=== PATIENT | male | born 1955 | race Caucasian/White ===

== ENCOUNTER 2016-08-30 13:50 | Emergency (ER) | payer OTHER ==
[~2016-08-30] VITALS: Ht 185.4 cm; Wt 66.9 kg
[~2016-08-30 13:50] MED LIST: B-CO1CAP17 PO; BISA10SU38 PR; CAMPLOT10 TP; CHOL100010 PO; DOUNEB INH; LINIOIN3 TOP; NUTR-1048 PO; ONDA4TAB65 PO; OXGN; OXYC1TAB3 PO; POLY99.02 OPB; SALI1SPR3; SERT-234 PO; SEVE800T7 PO; SYN25 PO; ZINC40OI11 TOP
[2016-08-30 14:04] VITALS: TEMP 37.1; Ht 185.4 cm; Wt 66.9 kg
[2016-08-30] MEDS ORDERED: LEVO25TA5 PO (14:43)
[2016-08-30] MEDS ORDERED: FERR1TAB68 PO (14:43)
--- NOTE | 2016-08-30 14:49 | EMERGENCY ROOM VISIT NOTE ---
History Report prepared by Mattibkang: Nilam Emerson Under the Supervision of: Dr. Cassidy Viveros D.O. First contact with patient: 14:11 Chief Complaint: HYPERTENSION Stated Complaint: HYPERTENSION History of Present Illness The patient is a 60 year old male who presents to the Emergency Room from [facility] with complaints of persistent hypertension today. Around 10AM this morning , the patient complained of a headache, nausea, and dizziness. His blood pressure was taken and was 240/108. His temperature was 99. He was given an extra dose of Norvasc. Upon arrival, the patient states that his symptoms have resolved. He is currently feeling much better, as his blood pressure has improved some. The patient gets dialysis Saturday, Saturday, and Saturday. He currently has some redness to his right leg which he states has been baseline for some time and is being monitored at [facility]. The patient reports feeling well last night and this morning prior to 10AM. Denies chills, chest pain, shortness of breath, nausea, vomiting, or other complaints. Source of History: patient Onset: today Position: other (Global) Symptom Intensity: 240/108 Quality: other (HTN) Timing: other (persistent) Associated Symptoms: + headache (resolved), + nausea (resolved), No SOB, No chest pain, No chills, No vomiting Note: Other symptoms: dizziness, right leg redness (chronic) Review of Systems See HPI for pertinent positives & negatives. A total of 10 systems reviewed and were otherwise negative. Past Medical & Surgical Medical Problems: (1) Anemia of chronic renal failure (2) CAD (coronary artery disease) (3) Diabetes mellitus type 2 in obese (4) Diastolic heart failure (5) ESRD (end stage renal disease) (6) History of MRSA infection (7) HTN (hypertension) (8) Hypotensive (9) IBS (irritable bowel syndrome) (10) Liver cirrhosis (11) Obesity (BMI 30-39.9) (12) Urge incontinence Surgical Problems: (1) H/O cataract removal with insertion of prosthetic lens (2) History of left lower limb amputation (3) History of trabeculectomy (4) S/P CABG x 4 Family History Diabetes mellitus Heart disease Social History Smoking Status: Never Smoker Alcohol Use: none Drug Use: none Marital Status: single, Housing Status: intermediate Occupation Status: unemployed Current/Historical Medications Scheduled Amino Acids (Liquacel), 1 OZ PO 4XWK Ascorbic Acid (Vitamin C), 500 MG PO BID Carvedilol (Coreg), 1 TAB PO DAILY@1700 Cholecalciferol (Vitamin D 1000 Unit), 2,000 INTER.UNIT PO UD Cholecalciferol (Vitamin D3), 2,000 UNITS PO 3XWK Clopidogrel (Plavix), 75 MG PO QPM Ferric Citrate (Auryxia), 420 MG PO TIDM Gabapentin (Neurontin), 100 MG PO QPM Levothyroxine Sodium (Levothyroxine Sodium), 25 MCG PO QAM Loperamide Hcl (Imodium), 2 MG PO 3XWK Loratadine (Claritin), 10 MG PO QPM Lorazepam (Ativan), 0.5 MG PO HS Midodrine Hcl (Midodrine Hcl), 10 MG PO 3XWK Ranitidine HCl (Ranitidine 75), 75 MG PO HS Sertraline (Zoloft), 100 MG PO DAILY@1300 Sevelamer Carbonate (Renvela), 800 MG PO TID Simvastatin (Zocor), 10 MG PO HS Vitamin B Cmplx/Vitc/Folic Ac (Nephrocaps), 1 CAP PO QPM Zinc Oxide (Topical) (Desitin), 1 APPL TOP QS Scheduled PRN Acetaminophen (Tylenol), 650 MG PO Q4 PRN for Pain or Fever Hydrocodone/Acetaminophen 5MG/325MG ([place] 5MG/325MG), 1 TABLET PO Q4 PRN for Pain Loperamide Hcl (Imodium), 2 MG PO Q2H PRN for Diarrhea Lorazepam (Ativan), 0.5 MG PO Q6H PRN for Anxiety Oxygen (Oxygen), 2 LITER NA UD PRN for Shortness of Breath Allergies Coded Allergies: Sulfamethoxazole w/Trimethoprim (Verified Allergy, Intermediate, HIVES, 06/27) Latex (Verified Allergy, Mild, LEVEL 1, 03/22/16) Povidone Iodine (Verified Allergy, Unknown, FROM USP INFORMATION , 03/22/16) Physical Exam Vital Signs Date Time Temp Pulse Resp B/P Pulse Ox O2 Delivery O2 Flow Rate FiO2 08/30/16 17:00 79 15 153/89 95 Room Air 08/30/16 14:49 77 17 157/79 08/30/16 14:33 76 18 193/79 Room Air 08/30/16 14:04 37.1 78 14 164/63 92 Room Air 08/30/16 14:04 78 Physical Exam HEENT: Head - normocephalic and atraumatic Pupils are equal, round, and reactive to light. Extraocular eye muscles are intact, and sclera are anicteric. Nose - moist nasal mucosa without discharge. Mouth - moist buccal mucosa. Oropharynx is nonerythematous and there is no tonsillar exudate or edema noted. Neck: Supple; no JVD, nuchal rigidity, cervical lymphadenopathy, or auscultated bruits. Heart: Heart sounds distant. Regular rate and rhythm. There is a normal S1 and S2 with no murmurs, clicks, or gallops appreciated. Lungs: Diminished breath sounds in all lung baker secondary to body habitus; otherwise clear to auscultation bilaterally with no wheezes, rales, or rhonchi. Abdomen: Soft, completely nontender, nondistended, with good bowel sounds. There are no palpable pulsatile masses or hepatosplenomegaly. There is no guarding, rigidity, or rebound noted. Extremities: No evidence of cyanosis, clubbing, or edema. There are easily palpable peripheral pulses. Left BKA. Right lower leg erythematous with some soft tissue wounds which are unchanged according to him. Skin: warm and dry with good turgor and no rashes. Medical Decision & Procedures Laboratory Results 08/30/16 14:10 Red Blood Count 3.87, Mean Corpuscular Volume 96.6, Mean Corpuscular Hemoglobin 32.3, Mean Corpuscular Hemoglobin Concent 33.4, Mean Platelet Volume 11.1, Neutrophils (%) (Auto) 86.2, Lymphocytes (%) (Auto) 5.1, Monocytes (%) (Auto) 7.0, Eosinophils (%) (Auto) 1.0, Basophils (%) (Auto) 0.3, Neutrophils # (Auto) 14.66, Lymphocytes # (Auto) 0.87, Monocytes # (Auto) 1.19, Eosinophils # (Auto) 0.17, Basophils # (Auto) 0.05 08/30/16 14:10 Test 08/30/16 14:10 White Blood Count 17.00 K/uL (4.8-10.8) Red Blood Count 3.87 M/uL (4.7-6.1) Hemoglobin 12.5 g/dL (14.0-18.0) Hematocrit 37.4 % (42-52) Mean Corpuscular Volume 96.6 fL (80-100) Mean Corpuscular Hemoglobin 32.3 pg (25-34) Mean Corpuscular Hemoglobin Concent 33.4 g/dl (32-36) Platelet Count 165 K/uL (130-400) Mean Platelet Volume 11.1 fL (7.4-10.4) Neutrophils (%) (Auto) 86.2 % Lymphocytes (%) (Auto) 5.1 % Monocytes (%) (Auto) 7.0 % Eosinophils (%) (Auto) 1.0 % Basophils (%) (Auto) 0.3 % Neutrophils # (Auto) 14.66 K/uL (1.4-6.5) Lymphocytes # (Auto) 0.87 K/uL (1.2-3.4) Monocytes # (Auto) 1.19 K/uL (0.11-0.59) Eosinophils # (Auto) 0.17 K/uL (0-0.5) Basophils # (Auto) 0.05 K/uL (0-0.2) RDW Standard Deviation 54.3 fL (36.4-46.3) RDW Coefficient of Variation 15.5 % (11.5-14.5) Immature Granulocyte % (Auto) 0.4 % Immature Granulocyte # (Auto) 0.06 K/uL (0.00-0.02) Anion Gap 11.0 mmol/L (3-11) Est Creatinine Clear Calc Drug Dose 15.4 ml/min Estimated GFR () 14.3 Estimated GFR (Non- 12.4 BUN/Creatinine Ratio 8.5 (10-20) Calcium Level 9.2 mg/dl (8.5-10.1) Total Bilirubin 0.5 mg/dl (0.2-1) Direct Bilirubin 0.2 mg/dl (0-0.2) Aspartate Amino Transf (AST/SGOT) 15 U/L (15-37) Alanine Aminotransferase (ALT/SGPT) 15 U/L (12-78) Alkaline Phosphatase 125 U/L (45-117) Total Creatine Kinase 57 U/L (39-308) Creatine Kinase MB 1.3 ng/ml (0.5-3.6) Creatine Kinase MB Ratio 2.3 (0-3.0) Troponin I 0.019 ng/ml (0-0.045) Total Protein 6.8 gm/dl (6.4-8.2) Albumin 3.4 gm/dl (3.4-5.0) Laboratory results per my review. ECG Indication: other (HTN) Rate (beats per minute): 76 Rhythm: normal sinus Findings: 1st degree AV block, no acute ischemic change, no ectopy ED Course 1412: The patient was evaluated in room A11B. A complete history and physical examination were performed. Nursing notes and previous electronic medical records were reviewed. IV lock was established and labs were drawn as above. 1518: Upon reevaluation, the patient was sleeping soundly. His blood pressure and heart rate came down nicely. I discussed findings and results with the patient upon awaking him. He said that his symptoms are totally resolved. He verbalized agreement of the treatment plan. The patient was discharged home to [facility]. Medical Decision The patient is a 60 year old male who presents to the ED with hypertension. Differential diagnosis includes hypertensive urgency, heart failure, cardiac ischemia, anemia, electrolyte abnormality. Labs: White count 17, hemoglobin 12.5, glucose 186, LFTs are normal, troponin 0.019, potassium is normal. The patient has history of hypertension and noted a headache and some dizziness earlier today. He did receive an extra dose of Norvasc at [facility] prior to coming to the hospital. The time he arrived here in the emergency department, the blood pressure had come down nicely and his symptoms essentially resolved. I reviewed laboratory testing with the patient. I've asked him to follow-up when he is at dialysis tomorrow for a blood pressure recheck. If symptoms worsen, he should return to the ER. Impression Primary Impression: Uncontrolled hypertension Scribe Attestation The scribe's documentation has been prepared under my direction and personally reviewed by me in its entirety. I confirm that the note above accurately reflects all work, treatment, procedures, and medical decision making performed by me. Departure Information Dispostion Home / Self-Care Referrals Marty Bliss M.D. (PCP) Patient Instructions ED Hypertension Conf Out Of Control, My [facility] Additional Instructions Watch the BP closely. You may need to have your norvasc dose increased
[2016-08-30 14:53] LABS: BASO % 0.3 %; BASO ABS # 0.05 K/uL (0-0.2); COMPLETE YES; HEMATOCRIT 37.4 % (42-52); IG% 0.4 %; LYMPH % 5.1 %; LYMPH ABS # 0.87 K/uL (1.2-3.4); MEAN CELL VOLUME 96.6 fL (80-100); MEAN CORPUSCULAR HEMOGLOBIN 32.3 pg (25-34); MEAN CORPUSCULAR HGB CONC 33.4 g/dl (32-36); MEAN PLATELET VOLUME 11.1 fL (7.4-10.4); NEUT % 86.2 %; PLATELET COUNT 165 K/uL (130-400); RED BLOOD COUNT 3.87 M/uL (4.7-6.1)
[2016-08-30 15:14] LABS: BUN/CREATININE RATIO 8.5 (10-20); CALCIUM 9.2 mg/dl (8.5-10.1); CKMB/CK RATIO 2.3 (0-3.0); CREATININE 4.7 mg/dl (0.60-1.40); POTASSIUM 4.3 mmol/L (3.5-5.1)
[2016-08-30 17:00] VITALS: BP 153/89; PULSE 79; O2SAT 95
[2017-01-09] MEDS ORDERED: ASCO1CAP3 PO (10:22)
[2017-01-09] MEDS ORDERED: CHOL100027 PO (13:26)
[2017-01-09] MEDS ORDERED: GABA-112 PO (13:26)
[2017-01-09] MEDS ORDERED: CHOL1000 PO (14:43)
[2017-01-09] MEDS ORDERED: AMINLIQ31 PO (14:43)
[2017-01-09] MEDS ORDERED: LEVO25TA5 PO (14:44)
[2017-01-09] MEDS ORDERED: SERT-234 PO (14:44)
[2017-01-09] MEDS ORDERED: SIMV10TA5 PO (14:52)
[2017-01-09] MEDS ORDERED: ACET-1311 PO (16:09)
[2017-01-09] MEDS ORDERED: IMD/2 PO ×2 (17:23→22:40)
[2017-01-09] MEDS ORDERED: LORA-741 PO ×2 (17:23→23:47)
[2017-01-09] MEDS ORDERED: MIDO2.5T PO (17:23)
[2017-01-09] MEDS ORDERED: HYDR-5688 PO (17:23)
[2017-01-09] MEDS ORDERED: CARV3.122 PO (17:23)
[2017-04-10] MEDS ORDERED: PRMT25 PO (15:08)
[2017-04-10] MEDS ORDERED: LVQ500 PO (15:08)
[2017-04-10] MEDS ORDERED: NRN100 PO (15:08)
[2017-04-10] MEDS ORDERED: SYN25 PO (15:08)
== END 2016-08-30 17:56 | disposition home or self-care (01) ==
LOC: EDBD 13:50 → C.EDA 13:51
DX: I12.0 Hypertensive chronic kidney disease with stage 5 chronic kidney disease or end stage renal disease (principal); N18.6 End stage renal disease; I25.10 Atherosclerotic heart disease of native coronary artery without angina pectoris; E11.22 Type 2 diabetes mellitus with diabetic chronic kidney disease; I50.30 Unspecified diastolic (congestive) heart failure; K58.9 Irritable bowel syndrome, unspecified; K74.60 Unspecified cirrhosis of liver; E66.9 Obesity, unspecified; N39.41 Urge incontinence; Z83.3 Family history of diabetes mellitus; Z95.1 Presence of aortocoronary bypass graft; Z89.512 Acquired absence of left leg below knee; Z99.2 Dependence on renal dialysis

== ENCOUNTER 2017-01-09 17:27 | Emergency (ER) | payer OTHER ==
[~2017-01-09] VITALS: Ht 185.4 cm; Wt 136.0 kg
[~2017-01-09 17:27] MED LIST changes: +ACET-1311 PO; +AMINLIQ31 PO; +ASCO1CAP3 PO; -BISA10SU38 PR; -CAMPLOT10 TP; +CARV3.122 PO; +CHOL1000 PO; -CHOL100010 PO; +CHOL100027 PO; -DOUNEB INH; +FERR1TAB68 PO; +GABA-112 PO; +HYDR-5688 PO; +IMD/2 PO; +LEVO25TA5 PO; -LINIOIN3 TOP; +LORA-741 PO; +MIDO2.5T PO; -NUTR-1048 PO; -ONDA4TAB65 PO; -OXYC1TAB3 PO; -POLY99.02 OPB; -SALI1SPR3; +SIMV10TA5 PO; -SYN25 PO; -ZINC40OI11 TOP; +ZINC40OI13 TOP
[2017-01-09] MEDS ORDERED: SODIUM CHLORIDE 0.9% 1000ML 1,000 ML IV STA (17:30)
[2017-01-09 17:35] VITALS: TEMP 37.1; O2SAT 99; Ht 185.4 cm; Wt 136.0 kg
--- NOTE | 2017-01-09 18:04 | DIAGNOSTIC IMAGING REPORT ---
CHEST ONE VIEW PORTABLE CLINICAL HISTORY: Weakness, dizziness. COMPARISON STUDY: 12/10/2014 FINDINGS: There are postsurgical changes of midline sternotomy. There is mild elevation of the left hemidiaphragm. There is mild interstitial thickening/edema present. There are linear left mid lung zone opacities, likely atelectatic. There is no significant pleural fluid[ vascular stents are visualized in the left axillary and subclavian regions. IMPRESSION: 1. Mild interstitial thickening/edema, likely chronic 2. Linear left midlung zone opacities statistically atelectatic 3. Mild elevation of the left hemidiaphragm Electronically signed by: Enrique Horn M.D. 01/09/2017 6:03 PM Dictated Date/Time: 01/09/2017 6:01 PM
[2017-01-09 18:06] LABS: BASO % 1.3 %; BASO ABS # 0.09 K/uL (0-0.2); COMPLETE YES; EOS % 5.9 %; HEMATOCRIT 34.2 % (42-52); IG% 0.3 %; LYMPH ABS # 0.78 K/uL (1.2-3.4); MEAN CELL VOLUME 101.2 fL (80-100); MEAN CORPUSCULAR HEMOGLOBIN 32.8 pg (25-34); MEAN CORPUSCULAR HGB CONC 32.5 g/dl (32-36); MEAN PLATELET VOLUME 10.9 fL (7.4-10.4); MONO % 11.8 %; NEUT % 69.7 %; PLATELET COUNT 159 K/uL (130-400); RED BLOOD COUNT 3.38 M/uL (4.7-6.1)
[2017-01-09 19:07] LABS: PARTIAL THROMBOPLASTIN RATIO 1.1; PROTHROMBIN TIME (PATIENT) 10.6 SECONDS (9.0-12.0)
[2017-01-09 19:11] LABS: ALKALINE PHOSPHATASE 106 U/L (45-117); ALT/SGPT 17 U/L (12-78); AST/SGOT 13 U/L (15-37); BLOOD UREA NITROGEN 27 mg/dl (7-18); BUN/CREATININE RATIO 6.8 (10-20); CALCIUM 8.3 mg/dl (8.5-10.1); CARBON DIOXIDE 33 mmol/L (21-32); CHLORIDE 95 mmol/L (98-107); CKMB/CK RATIO 2.5 (0-3.0); GLUCOSE 348 mg/dl (70-99); MAGNESIUM 2.7 mg/dl (1.8-2.4); POTASSIUM 4.1 mmol/L (3.5-5.1); SODIUM 138 mmol/L (136-145)
[2017-01-09] MEDS ORDERED: SSDCR400 TOP (19:13)
[2017-01-09] MEDS ORDERED: B-CO1CAP17 PO (19:13)
[2017-01-09] MEDS ORDERED: ONDA4TAB9 PO (19:13)
[2017-01-09] MEDS ORDERED: BISA10SU3 PR (19:13)
[2017-01-09] MEDS ORDERED: FLNIN/ NAE (19:13)
[2017-01-09] MEDS ORDERED: [UNRECOGNIZED DRUG - CODE] TOP (19:13)
[2017-01-09] MEDS ORDERED: [UNRECOGNIZED DRUG - OTHER] PO (19:13)
[2017-01-09] MEDS ORDERED: XLTOPS OPB (19:13)
[2017-01-09] MEDS ORDERED: FERR1TAB68 PO (19:13)
[2017-01-09 19:27] LABS: BETA-HYDROXYBUTYRATE 1.46 mg/dL (0.2-2.81)
[2017-01-09] MEDS ORDERED: NovoLIN-R INSULIN PER UNIT CHARGE IV STA (20:58)
[2017-01-09 21:32] VITALS: BP 135/78; PULSE 75; O2SAT 97
[2017-01-09] MEDS ORDERED: IMD/2 PO (22:40)
[2017-01-09] MEDS ORDERED: RANI1TAB75 PO (22:40)
[2017-01-09] MEDS ORDERED: CLOP1TAB15 PO (22:40)
[2017-01-09] MEDS ORDERED: CLR10 PO (23:35)
[2017-01-09] MEDS ORDERED: LORA-741 PO (23:47)
--- NOTE | 2017-01-10 01:16 | EMERGENCY ROOM VISIT NOTE ---
History Report prepared by Mattibkang: Sarthak Major Under the Supervision of: Dr. Hilario Canales M.D. First contact with patient: 17:30 Chief Complaint: HYPOTENSION Stated Complaint: WEAK, DIZZY History of Present Illness The patient is a 61 year old male who presents to the Emergency Room via EMS from [facility] with complaints of resolved hypotension occurring today. The patient does not make his own urine and receives dialysis every Saturday, Saturday, and Saturday. Patient states he has 4 to 4.5 L is normally taken off during his normal dialysis but 5.1 L was taken off today. His blood pressure dropped during the event dialysis and he was feeling woozy. After returning back to his facility and he was feeling lightheaded. He denied any other symptoms. Nursing checked his blood pressure and it was 50/30 . He felt weak during the hypotensive episode but denies any dizziness. As per EMS, his blood pressure increased to 82/40 and then 140/70 in route to the Emergency Room. The patient currently denies any pain or complaints. He had been at baseline prior to the hypotensive episode. Pt denies LOC, headache, fevers, chills, diaphoresis , visual changes, neck pain, chest pain, breathing difficulties, nausea, vomiting, abdominal pain, back pain, melena, hematochezia, numbness, lymphadenopathy, rash, or other complaints. Source of History: patient Onset: today Position: other (global) Symptom Intensity: No pain currently Quality: other (hypotension) Timing: resolved Associated Symptoms: + weakness Review of Systems See HPI for pertinent positives and negatives. A total of ten systems were reviewed and were otherwise negative. Past Medical & Surgical Medical Problems: (1) Anemia of chronic renal failure (2) CAD (coronary artery disease) (3) Diabetes mellitus type 2 in obese (4) Diastolic heart failure (5) ESRD (end stage renal disease) (6) History of MRSA infection (7) HTN (hypertension) (8) Hypotensive (9) IBS (irritable bowel syndrome) (10) Liver cirrhosis (11) Obesity (BMI 30-39.9) (12) Urge incontinence Surgical Problems: (1) H/O cataract removal with insertion of prosthetic lens (2) History of left lower limb amputation (3) History of trabeculectomy (4) S/P CABG x 4 Family History Diabetes mellitus Heart disease Social History Smoking Status: Never Smoker Alcohol Use: none Drug Use: none Marital Status: single, Housing Status: fpc Occupation Status: unemployed Current/Historical Medications Scheduled Amino Acids (Liquacel), 1 OZ PO 4XWK Ascorbic Acid (Vitamin C), 500 MG PO BID Bisacodyl (Dulcolax), 1 SUPP MN PRN UD Carvedilol (Coreg), 1 TAB PO DAILY@1700 Cholecalciferol (Vitamin D 1000 Unit), 2,000 INTER.UNIT PO UD Cholecalciferol (Vitamin D3), 2,000 UNITS PO 3XWK Clopidogrel (Plavix), 75 MG PO QPM Ferric Citrate (Auryxia), 210 MG PO TIDM Fluticasone Propionate (Fluticasone Propionate), 2 SPRAYS IVIS HS Gabapentin (Neurontin), 100 MG PO QPM Latanoprost (Latanoprost), 1 DROP OPB HS Levothyroxine Sodium (Levothyroxine Sodium), 25 MCG PO QAM Loperamide Hcl (Imodium), 2 MG PO 3XWK Loratadine (Claritin), 10 MG PO QPM Lorazepam (Ativan), 0.5 MG PO HS Midodrine Hcl (Midodrine Hcl), 10 MG PO 3XWK Ondansetron (Ondansetron HCl), 4 MG PO Q8 Ranitidine HCl (Ranitidine 75), 75 MG PO HS Sertraline (Zoloft), 100 MG PO DAILY@1300 Silver Sulfadiazine (Silvadene Crm 1% 400GM Jar), 1 APPLN TOP UD Simvastatin (Zocor), 10 MG PO HS Vitamin B Cmplx/Vitc/Folic Ac (Nephrocaps), 1 CAP PO QPM Wound Dressings (Allevyn Adhesive), 1 PATCH TOP [id number] Wound Dressings (Allevyn Adhesive), TOP UD Zinc Oxide (Topical) (Desitin), 1 APPL TOP QS Scheduled PRN Acetaminophen (Tylenol), 650 MG PO Q4 PRN for Pain or Fever Hydrocodone/Acetaminophen 5MG/325MG ([place] 5MG/325MG), 1 TABLET PO Q4 PRN for Pain Loperamide Hcl (Imodium), 2 MG PO Q2H PRN for Diarrhea Lorazepam (Ativan), 0.5 MG PO Q6H PRN for Anxiety Allergies Coded Allergies: Sulfamethoxazole w/Trimethoprim (Verified Allergy, Intermediate, HIVES, 06/27) Latex (Verified Allergy, Mild, LEVEL 1, 03/22/16) Povidone Iodine (Verified Allergy, Unknown, FROM INTERMEDIATE INFORMATION , 03/22/16) Physical Exam Vital Signs Date Time Temp Pulse Resp B/P Pulse Ox O2 Delivery O2 Flow Rate FiO2 01/09/17 21:32 75 20 135/78 97 Room Air 01/09/17 19:56 79 20 126/70 97 01/09/17 17:57 72 204/85 100 72 189/88 01/09/17 17:49 72 01/09/17 17:35 99 2.0 01/09/17 17:35 37.1 74 20 176/95 90 Room Air Physical Exam GENERAL: Awake, alert, well-appearing, in no distress HENT: Normocephalic, atraumatic. Oropharynx unremarkable. EYES: Normal conjunctiva. Sclera non-icteric. NECK: Supple. No nuchal rigidity. FROM. No JVD. RESPIRATORY: Clear to auscultation. CARDIAC: Regular rate, normal rhythm. Extremities warm and well perfused. Pulses equal. ABDOMEN: Soft, non-distended. No tenderness to palpation. No rebound or guarding. No masses. RECTAL: Deferred. MUSCULOSKELETAL: Chest examination reveals no tenderness. The back is symmetrical on inspection without obvious abnormality. There is no CVA tenderness to palpation. No joint edema. Thrill in right fistula. Left palpable pulse but no thrill in fistula. LOWER EXTREMITIES: Left lower leg amputation. No discoloration. Chronic skin changes on he right leg, trace edema. NEURO: Normal sensorium. No sensory or motor deficits noted. SKIN: No rash or jaundice noted. Medical Decision & Procedures ER Provider Diagnostic Interpretation: X-ray: Per my interpretation, radiologist review. CHEST ONE VIEW PORTABLE CLINICAL HISTORY: Weakness, dizziness. COMPARISON STUDY: 12/10/2014 FINDINGS: There are postsurgical changes of midline sternotomy. There is mild elevation of the left hemidiaphragm. There is mild interstitial thickening/edema present. There are linear left mid lung zone opacities, likely atelectatic. There is no significant pleural fluid[ vascular stents are visualized in the left axillary and subclavian regions. IMPRESSION: 1. Mild interstitial thickening/edema, likely chronic 2. Linear left midlung zone opacities statistically atelectatic 3. Mild elevation of the left hemidiaphragm Electronically signed by: Enrique Horn M.D. 01/09/2017 6:03 PM Dictated Date/Time: 01/09/2017 6:01 PM Laboratory Results 01/09/17 17:49 Red Blood Count 3.38, Mean Corpuscular Volume 101.2, Mean Corpuscular Hemoglobin 32.8, Mean Corpuscular Hemoglobin Concent 32.5, Mean Platelet Volume 10.9, Neutrophils (%) (Auto) 69.7, Lymphocytes (%) (Auto) 11.0, Monocytes (%) ( Auto) 11.8, Eosinophils (%) (Auto) 5.9, Basophils (%) (Auto) 1.3, Neutrophils # (Auto) 4.95, Lymphocytes # (Auto) 0.78, Monocytes # (Auto) 0.84, Eosinophils # ( Auto) 0.42, Basophils # (Auto) 0.09 01/09/17 17:49 Test 01/09/17 17:49 01/09/17 18:48 01/09/17 21:53 White Blood Count 7.10 K/uL (4.8-10.8) Red Blood Count 3.38 M/uL (4.7-6.1) Hemoglobin 11.1 g/dL (14.0-18.0) Hematocrit 34.2 % (42-52) Mean Corpuscular Volume 101.2 fL (80-100) Mean Corpuscular Hemoglobin 32.8 pg (25-34) Mean Corpuscular Hemoglobin Concent 32.5 g/dl (32-36) Platelet Count 159 K/uL (130-400) Mean Platelet Volume 10.9 fL (7.4-10.4) Neutrophils (%) (Auto) 69.7 % Lymphocytes (%) (Auto) 11.0 % Monocytes (%) (Auto) 11.8 % Eosinophils (%) (Auto) 5.9 % Basophils (%) (Auto) 1.3 % Neutrophils # (Auto) 4.95 K/uL (1.4-6.5) Lymphocytes # (Auto) 0.78 K/uL (1.2-3.4) Monocytes # (Auto) 0.84 K/uL (0.11-0.59) Eosinophils # (Auto) 0.42 K/uL (0-0.5) Basophils # (Auto) 0.09 K/uL (0-0.2) RDW Standard Deviation 59.5 fL (36.4-46.3) RDW Coefficient of Variation 16.2 % (11.5-14.5) Immature Granulocyte % (Auto) 0.3 % Immature Granulocyte # (Auto) 0.02 K/uL (0.00-0.02) Anion Gap 10.0 mmol/L (3-11) Est Creatinine Clear Calc Drug Dose 28.1 ml/min Estimated GFR () 17.8 Estimated GFR (Non- 15.4 BUN/Creatinine Ratio 6.8 (10-20) Calcium Level 8.3 mg/dl (8.5-10.1) Magnesium Level 2.7 mg/dl (1.8-2.4) Total Bilirubin 0.3 mg/dl (0.2-1) Direct Bilirubin mg/dl (0-0.2) Aspartate Amino Transf (AST/SGOT) 13 U/L (15-37) Alanine Aminotransferase (ALT/SGPT) 17 U/L (12-78) Alkaline Phosphatase 106 U/L (45-117) Total Creatine Kinase 75 U/L (39-308) Creatine Kinase MB 1.9 ng/ml (0.5-3.6) Creatine Kinase MB Ratio 2.5 (0-3.0) Troponin I 0.016 ng/ml (0-0.045) Total Protein 7.0 gm/dl (6.4-8.2) Albumin 3.2 gm/dl (3.4-5.0) Lipase 186 U/L (73-393) Beta-Hydroxybutyric Acid 1.46 mg/dL (0.2-2.81) Thyroid Stimulating Hormone (TSH) 2.200 uIu/ml (0.300-4.500) Chemistry Specimen Hemolysis Prothrombin Time 10.6 SECONDS (9.0-12.0) Prothromb Time International Ratio 1.0 (0.9-1.1) Activated Partial Thromboplast Time 28.8 SECONDS (21.0-31.0) Partial Thromboplastin Ratio 1.1 Bedside Glucose 232 mg/dl (70-99) Laboratory results reviewed by me Medications Administered Medications (Trade) Dose Ordered Sig/Nicole Route Start Time Stop Time Status Last Admin Dose Admin Sodium Chloride (Nss 1000ml) 1,000 ml @ 125 mls/hr Q8H STAT IV 01/09/17 17:30 01/09/17 22:25 DC 01/09/17 18:05 125 MLS/HR Insulin Human Regular (novoLIN-R U-100 PER UNIT) 6 units NOW STAT IV 01/09/17 20:58 01/09/17 20:59 DC 01/09/17 21:30 6 UNITS ECG Indication: weakness, other (hypotension) Rate (beats per minute): 71 Rhythm: sinus rhythm Findings: 1st degree AV block, nonspecific-ST abn, Q waves (anterior, septal) ED Course 1729: The patient was evaluated in room B06. A complete history and physical exam was performed. Sodium Chloride 1000 ml @ 125 mls/hr IV. Blood pressure screening: Patient was found to have an elevated blood pressure and was referred to their primary doctor for recheck and further treatment. Medication Reconciliation: I attest that I have personally reviewed the patient' s current medication list 2054: I reevaluated the patient who is feeling better. Discussed results and discharge instructions: He verbalized understanding and agreement. The patient is ready for discharge. Case management will work on transportation. 2057: Insulin Human Regular 6 units IV Medical Decision Triage Nursing notes reviewed. The patient's presentation and history were concerning for hypotension. Etiologies such as complication of dialysis, metabolic, infection, hypo/ hyperglycemia, electrolyte abnormalities, cardiac sources, intracerebral event, toxicologic, neurologic, as well as others were entertained. The patient has no symptoms at this time. He only noted feeling woozy which was transient and was found to have a low blood pressure that resolved without intervention. He was given gentle hydration here as he was evaluated. The patient remained asymptomatic during his time in the emergency department. His chemistry panel revealed an elevated creatinine consistent with his end-stage renal disease but no is no significant electrolyte abnormalities. The patient never had any chest pain or breathing difficulties. No abdominal pain. The patient does not make urine. He had unremarkable testing otherwise. The patient had no abnormalities on chest x-ray. Chemistry panel also revealed some moderate hyperglycemia. He was treated with a several dose of insulin. The patient was given dinner and did very well with this. After several hours of observation in the emergency department the patient remained asymptomatic. I discussed conservative management. The patient desires to be discharged back to his facility and I instructed him to have close follow-up. He is actually hypertensive at this point in time. A recheck tomorrow by his primary is considered reasonable as he has no symptoms and the episode was very transient. He does note having more fluid taken off than usual and towards the end of dialysis was feeling a little woozy. This is a very plausible cause for the episode. He worsens in any way he will be back for reevaluation.I gave my usual and customary discussion regarding this issue. By the evaluation outlined above other emergent etiologies such as those listed in the differential, as well as others, were deemed relatively unlikely. The patient was informed about the findings as listed above. All questions were answered and he was very pleased with the treatment. Return instructions were outlined and the patient was discharged in stable condition. The patient was referred to his PCP for follow-up tomorrow for a recheck of the current condition. Impression Primary Impression: Hypotension Scribe Attestation The scribe's documentation has been prepared under my direction and personally reviewed by me in its entirety. I confirm that the note above accurately reflects all work, treatment, procedures, and medical decision making performed by me. Departure Information Dispostion Home / Self-Care Referrals Marty Bliss M.D. (PCP) Forms HOME CARE DOCUMENTATION FORM, IMPORTANT VISIT INFORMATION, WORK / SCHOOL INSTRUCTIONS Patient Instructions My [facility] Additional Instructions Continue current medications. Continue current dialysis care. Follow-up with primary doctor tomorrow. Return to the ER for worsening blood pressure problems, weakness, chest pain, difficulty breathing, fevers, vomiting, worsening of your condition, or as needed.
[2017-04-10] MEDS ORDERED: PRMT25 PO (15:08)
[2017-04-10] MEDS ORDERED: LVQ500 PO (15:08)
[2017-04-10] MEDS ORDERED: SYN25 PO (15:08)
[2017-04-10] MEDS ORDERED: NRN100 PO (15:08)
[2017-07-11] MEDS ORDERED: CEFD300C3 PO (12:50)
[2017-07-11] MEDS ORDERED: AMX500 PO (12:50)
[2017-07-12] MEDS ORDERED: OXYC1CAP5 PO (11:54)
[2017-07-12] MEDS ORDERED: LORA-741 PO (11:54)
== END 2017-01-09 21:58 | disposition home or self-care (01) ==
LOC: EDBD 17:27 → C.EDB 17:29
DX: I95.9 Hypotension, unspecified (principal); N18.6 End stage renal disease; E11.9 Type 2 diabetes mellitus without complications; I25.10 Atherosclerotic heart disease of native coronary artery without angina pectoris; I50.30 Unspecified diastolic (congestive) heart failure; K58.9 Irritable bowel syndrome, unspecified; I12.0 Hypertensive chronic kidney disease with stage 5 chronic kidney disease or end stage renal disease; K74.60 Unspecified cirrhosis of liver; E66.9 Obesity, unspecified; Z83.3 Family history of diabetes mellitus; Z82.49 Family history of ischemic heart disease and other diseases of the circulatory system; Z79.02 Long term (current) use of antithrombotics/antiplatelets; Z79.899 Other long term (current) drug therapy

== ENCOUNTER 2017-04-06 22:08 | Inpatient (IN) | payer OTHER ==
[~2017-04-06] VITALS: Ht 185.4 cm; Wt 139.4 kg
[~2017-04-06 22:08] MED LIST changes: +BISA10SU3 PR; +CLOP1TAB15 PO; +CLR10 PO; +FLNIN/ NAE; +ONDA4TAB9 PO; -OXGN; +RANI1TAB75 PO; -SEVE800T7 PO; +SSDCR400 TOP; +XLTOPS OPB; +ZINC40OI11 TOP; -ZINC40OI13 TOP; +[UNRECOGNIZED DRUG - CODE] TOP
[2017-04-06] MEDS ORDERED: OXGN (22:44)
--- NOTE | 2017-04-06 22:47 | DIAGNOSTIC IMAGING REPORT ---
CHEST ONE VIEW PORTABLE CLINICAL HISTORY: 61 years-old Male presenting with Sepsis. TECHNIQUE: Portable upright AP view of the chest was obtained. COMPARISON: 01/09/2017. FINDINGS: Median sternotomy wires and mediastinal surgical clips again noted. Vascular stent projects over the left axillary region. Cardiac silhouette top normal in size, unchanged. Low lung volumes. Retrocardiac opacity new from prior. No large effusion or pneumothorax. Osseous structures normal. Upper abdomen normal. IMPRESSION: 1. Retrocardiac opacity new from prior and concerning for focal consolidation/infection. Further confirmation with PA and lateral could be obtained if clinically warranted. Electronically signed by: Kb Darling M.D. 04/06/2017 10:46 PM Dictated Date/Time: 04/06/2017 10:44 PM
[2017-04-06 23:34] LABS: VEN BLD GAS O2 SATURATION 68.5 %; VEN BLOOD GAS BASE EXCESS 2.8 mEq/L
[2017-04-06 23:38] LABS: BASO % 0.4 %; BASO ABS # 0.04 K/uL (0-0.2); COMPLETE YES; EOS % 4.4 %; HEMATOCRIT 32.4 % (42-52); IG% 0.6 %; LYMPH % 4.8 %; LYMPH ABS # 0.47 K/uL (1.2-3.4); MEAN CELL VOLUME 99.4 fL (80-100); MEAN CORPUSCULAR HEMOGLOBIN 31.6 pg (25-34); MEAN CORPUSCULAR HGB CONC 31.8 g/dl (32-36); MEAN PLATELET VOLUME 10.8 fL (7.4-10.4); MONO % 10.8 %; PLATELET COUNT 179 K/uL (130-400); RED BLOOD COUNT 3.26 M/uL (4.7-6.1); WHITE BLOOD COUNT 9.89 K/uL (4.8-10.8)
[2017-04-06 23:50] LABS: PARTIAL THROMBOPLASTIN RATIO 1.2; PROTHROMBIN TIME (PATIENT) 10.5 SECONDS (9.0-12.0)
--- NOTE | 2017-04-07 00:11 | EMERGENCY ROOM VISIT NOTE ---
History Report prepared by Chester: Xiomy Childress Under the Supervision of: Finn AngeloO. First contact with patient: 22:11 Stated Complaint: ILLNESS History of Present Illness The patient is a 61 year old male who presents to the Emergency Room with complaints of a worsening illness for the past couple of days. The patient had 13 teeth extracted two days ago. He has not felt well since that procedure. He was supposed to have dialysis yesterday, but was unable to go because he did not feel well. The patient is a resident at [facility]. Staff there reported that the patient developed a fever earlier today. He was having chills as well. The patient's O2 saturation dropped to 78% on room air. He was sent to the ED by ambulance for further evaluation. He denies chest pain, shortness of breath, and diarrhea. Source of History: patient, half-way notes, EMS Onset: 2 days ago Position: other (global ) Quality: other (illness) Timing: worsening Associated Symptoms: + fevers, + chills, No chest pain, No SOB, No diarrhea Review of Systems See HPI for pertinent positives & negatives. A total of 10 systems reviewed and were otherwise negative. Past Medical & Surgical Medical Problems: (1) Anemia of chronic renal failure (2) CAD (coronary artery disease) (3) Diabetes mellitus type 2 in obese (4) Diastolic heart failure (5) ESRD (end stage renal disease) (6) History of MRSA infection (7) HTN (hypertension) (8) Hypotensive (9) IBS (irritable bowel syndrome) (10) Liver cirrhosis (11) Obesity (BMI 30-39.9) (12) Urge incontinence Surgical Problems: (1) H/O cataract removal with insertion of prosthetic lens (2) History of left lower limb amputation (3) History of trabeculectomy (4) S/P CABG x 4 Family History Diabetes mellitus Heart disease Social History Smoking Status: Never Smoker Alcohol Use: none Drug Use: none Marital Status: single, Housing Status: half-way Occupation Status: unemployed Current/Historical Medications Scheduled Ascorbic Acid (Vitamin C), 500 MG PO BID Carvedilol (Coreg), 1 TAB PO DAILY@1700 Cholecalciferol (Vitamin D 1000 Unit), 2,000 INTER.UNIT PO UD Clopidogrel (Plavix), 75 MG PO QPM Loperamide Hcl (Imodium), 2 MG PO Q2H Loratadine (Claritin), 10 MG PO QPM Lorazepam (Ativan), 0.5 MG PO HS Ranitidine HCl (Ranitidine 75), 75 MG PO HS Vitamin B Cmplx/Vitc/Folic Ac (Nephrocaps), 1 CAP PO QPM Wound Dressings (Allevyn Adhesive), 1 PATCH TOP UD Wound Dressings (Allevyn Adhesive), 1 APPLN TOP UD Scheduled PRN Acetaminophen (Tylenol), 650 MG PO Q4 PRN for Pain or Fever Home O2 Therapy (Oxygen), 2 LITERS NA PRN PRN for Shortness of Breath Hydrocodone/Acetaminophen 5MG/325MG ([place] 5MG/325MG), 1 TABLET PO Q6 PRN for Pain Lorazepam (Ativan), 0.5 MG PO Q6H PRN for Anxiety Allergies Coded Allergies: Sulfamethoxazole w/Trimethoprim (Verified Allergy, Intermediate, HIVES, 06/27) Latex (Verified Allergy, Mild, LEVEL 1, 03/22/16) Povidone Iodine (Verified Allergy, Unknown, FROM [facility] INFORMATION , 03/22/16) Sulfa Antibiotics (Unverified Allergy, Unknown, ., 04/06/17) PER [facility] RECORDS Physical Exam Vital Signs Date Time Temp Pulse Resp B/P (MAP) Pulse Ox O2 Delivery O2 Flow Rate FiO2 04/07/17 01:19 77 18 156/81 95 Nasal Cannula 2.0 04/06/17 23:38 81 18 184/83 94 Nasal Cannula 2.0 04/06/17 22:46 94 Nasal Cannula 2.0 04/06/17 22:44 37.1 82 27 194/86 86 Room Air 04/06/17 22:27 84 Physical Exam GENERAL: Patient is awake, alert, mildly anxious appearing but comfortable. EYES: The conjunctivae are clear. The pupils are round and reactive. EARS, NOSE, MOUTH AND THROAT: The nose is without any evidence of any deformity. Mucous membranes are moist tongue is midline NECK: The neck is nontender and supple. RESPIRATORY: Lung sounds diminished throughout. Tachypneic with mild conversational dyspnea noted. Rales noted at both bases. CARDIOVASCULAR: Regular rate and rhythm noted there no murmurs rubs or gallops normal S1 normal S2 GASTROINTESTINAL: The abdomen is soft. Bowel sounds are present in all quadrants. Abdomen is nontender MUSCULOSKELETAL/EXTREMITIES: There was left lower extremity amputation noted. No deformity on the right, pain noted in the right lower extremity. SKIN: There is no obvious evidence of any rash. There are no petechiae, pallor or cyanosis noted. Pedal edema on right leg with stasis dermatitis noted. NEUROLOGIC: Patient is awake alert and oriented x3 Medical Decision & Procedures ER Provider Diagnostic Interpretation: Radiology results as stated below per my review and radiologist interpretation: CHEST ONE VIEW PORTABLE CLINICAL HISTORY: 61 years-old Male presenting with Sepsis. TECHNIQUE: Portable upright AP view of the chest was obtained. COMPARISON: 01/09/2017. FINDINGS: Median sternotomy wires and mediastinal surgical clips again noted. Vascular stent projects over the left axillary region. Cardiac silhouette top normal in size, unchanged. Low lung volumes. Retrocardiac opacity new from prior. No large effusion or pneumothorax. Osseous structures normal. Upper abdomen normal. IMPRESSION: 1. Retrocardiac opacity new from prior and concerning for focal consolidation/infection. Further confirmation with PA and lateral could be obtained if clinically warranted. Electronically signed by: Kb Darling M.D. 04/06/2017 10:46 PM Dictated Date/Time: 04/06/2017 10:44 PM Two-view chest x-ray as interpreted by myself: Cardiomegaly was noted with vascular congestion. There is an area at the left base which could be consistent with pulmonary infiltrate. Laboratory Results 04/06/17 23:25 Red Blood Count 3.26, Mean Corpuscular Volume 99.4, Mean Corpuscular Hemoglobin 31.6, Mean Corpuscular Hemoglobin Concent 31.8, Mean Platelet Volume 10.8, Neutrophils (%) (Auto) 79.0, Lymphocytes (%) (Auto) 4.8, Monocytes (%) (Auto) 10.8, Eosinophils (%) (Auto) 4.4, Basophils (%) (Auto) 0.4, Neutrophils # (Auto ) 7.81, Lymphocytes # (Auto) 0.47, Monocytes # (Auto) 1.07, Eosinophils # (Auto ) 0.44, Basophils # (Auto) 0.04 04/06/17 23:17 Test 04/06/17 23:17 04/06/17 23:25 Anion Gap 9.0 mmol/L (3-11) Est Creatinine Clear Calc Drug Dose 15.7 ml/min Estimated GFR () 8.5 Estimated GFR (Non- 7.3 BUN/Creatinine Ratio 8.2 (10-20) Calcium Level 8.3 mg/dl (8.5-10.1) Phosphorus Level 5.1 mg/dl (2.5-4.9) Magnesium Level 2.6 mg/dl (1.8-2.4) Total Bilirubin 0.5 mg/dl (0.2-1) Aspartate Amino Transf (AST/SGOT) 18 U/L (15-37) Alanine Aminotransferase (ALT/SGPT) 20 U/L (12-78) Alkaline Phosphatase 105 U/L (45-117) Total Creatine Kinase 89 U/L (39-308) Creatine Kinase MB 2.7 ng/ml (0.5-3.6) Creatine Kinase MB Ratio 3.0 (0-3.0) Troponin I 0.031 ng/ml (0-0.045) C-Reactive Protein 6.50 mg/dl (0-0.29) Pro-B-Type Natriuretic Peptide 11109 pg/ml (0-900) Total Protein 6.8 gm/dl (6.4-8.2) Albumin 3.3 gm/dl (3.4-5.0) Globulin 3.5 gm/dl (2.5-4.0) Albumin/Globulin Ratio 0.9 (0.9-2) Lipase 70 U/L (73-393) White Blood Count 9.89 K/uL (4.8-10.8) Red Blood Count 3.26 M/uL (4.7-6.1) Hemoglobin 10.3 g/dL (14.0-18.0) Hematocrit 32.4 % (42-52) Mean Corpuscular Volume 99.4 fL (80-100) Mean Corpuscular Hemoglobin 31.6 pg (25-34) Mean Corpuscular Hemoglobin Concent 31.8 g/dl (32-36) Platelet Count 179 K/uL (130-400) Mean Platelet Volume 10.8 fL (7.4-10.4) Neutrophils (%) (Auto) 79.0 % Lymphocytes (%) (Auto) 4.8 % Monocytes (%) (Auto) 10.8 % Eosinophils (%) (Auto) 4.4 % Basophils (%) (Auto) 0.4 % Neutrophils # (Auto) 7.81 K/uL (1.4-6.5) Lymphocytes # (Auto) 0.47 K/uL (1.2-3.4) Monocytes # (Auto) 1.07 K/uL (0.11-0.59) Eosinophils # (Auto) 0.44 K/uL (0-0.5) Basophils # (Auto) 0.04 K/uL (0-0.2) RDW Standard Deviation 53.8 fL (36.4-46.3) RDW Coefficient of Variation 14.7 % (11.5-14.5) Immature Granulocyte % (Auto) 0.6 % Immature Granulocyte # (Auto) 0.06 K/uL (0.00-0.02) Erythrocyte Sedimentation Rate 33 mm/hr (0-14) Prothrombin Time 10.5 SECONDS (9.0-12.0) Prothromb Time International Ratio 1.0 (0.9-1.1) Activated Partial Thromboplast Time 30.1 SECONDS (21.0-31.0) Partial Thromboplastin Ratio 1.2 Venous Blood pH 7.37 (7.36-7.41) Venous Blood Partial Pressure CO2 50 mmHg (38.0-50.0) Venous Blood Partial Pressure O2 38 mmHg Venous Blood HCO3 29 mmol/L Venous Blood Oxygen Saturation 68.5 % Venous Blood Base Excess 2.8 mEq/L Laboratory results per my review. Medications Administered Medications (Trade) Dose Ordered Sig/Nicole Route Start Time Stop Time Status Last Admin Dose Admin Levofloxacin (Levaquin / D5W) 750 mg NOW STAT IV 04/07/17 00:32 04/07/17 00:33 OK 04/07/17 01:18 750 MG Calcium Gluconate 1000 mg/Sodium Chloride 60 ml @ 240 mls/hr NOW STAT IV 04/07/17 01:16 04/07/17 01:30 DC 04/07/17 01:50 240 MLS/HR Insulin Human Regular 10 units/ Syringe 10 ml @ 20 mls/min NOW STAT IV 04/07/17 01:16 04/07/17 01:22 DC 04/07/17 01:52 20 MLS/MIN Dextrose (Dextrose 50% 50ML Syringe) 50 ml NOW STAT IV 04/07/17 01:16 04/07/17 01:21 DC 04/07/17 01:51 50 ML ECG Indication: SOB/dyspnea Rate (beats per minute): 82 Rhythm: normal sinus Findings: 1st degree AV block, no ectopy, other (poor R-wave progression) Comparison ECG Date: 01/09/17 Change: no significant change ED Course 221: The patient was evaluated in room C9. A complete history and physical examination were performed. 0032: Levofloxacin 750 mg IV 0033: I reassessed the patient at this time. He is resting comfortably. I discussed the results and treatment plan with the patient. I answered all pertaining questions that he had. He expressed understanding and verbalized agreement. 0056: I spoke with Dr. Lambert. We discussed the patient's case. The patient will be evaluated by the [facility] for further management. Medical Decision Differential diagnosis: Etiologies such as viral syndrome, otitis, pharyngitis, pneumonia, influenza, meningitis, urinary tract infection, sepsis, bacteremia, as well as others were entertained. Nursing notes reviewed. The patient is a 61-year-old male who presented to the emergency department from the half-way for evaluation of fever and hypoxia. The patient has not had dialysis since last Saturday. He has a history of renal failure and dialysis dependency. The patient appeared to have signs of pneumonia on chest x- ray. He was treated with IV antibiotic. I was reluctant to give the patient any IV fluids given his volume status at this time. I discussed the patient's laboratory and radiographic studies with him. Given the degree of hypoxia and the x-ray findings I discussed his case with the on-call [facility] hospitalist. They have agreed to evaluate the patient in the emergency department for further management and disposition. Medication Reconcilliation Current Medication List: was personally reviewed by me Blood Pressure Screening Patient's blood pressure: Elevated blood pressure Blood pressure disposition: Elevated BP felt to be situational Consults Time Called: 50 Consulting Physician: Dr. Lambert Returned Call: [address] Lambert. We discussed the patient's case. The patient will be evaluated by the [facility] for further management. Impression Primary Impression: Pneumonia Additional Impressions: Fever Hypoxia Shortness of breath Renal failure Scribe Attestation The scribe's documentation has been prepared under my direction and personally reviewed by me in its entirety. I confirm that the note above accurately reflects all work, treatment, procedures, and medical decision making performed by me. Departure Information Dispostion Being Evaluated By Hospitalist Marty Schmitt M.D. (PCP) Problem Qualifiers Primary Impression: Pneumonia Pneumonia type: due to unspecified organism Laterality: left Lung location : lower lobe of lung Qualified Codes: J18.1 - Lobar pneumonia, unspecified organism Additional Impressions: Fever Fever type: unspecified Qualified Codes: R50.9 - Fever, unspecified Renal failure Renal failure chronicity: chronic Chronic kidney disease stage: on chronic dialysis Qualified Codes: N18.6 - End stage renal disease; Z99.2 - Dependence on renal dialysis
[2017-04-07 00:14] LABS: ALB/GLOB RATIO 0.9 (0.9-2); BUN/CREATININE RATIO 8.2 (10-20); C-REACTIVE PROTEIN 6.5 mg/dl (0-0.29); CALCIUM 8.3 mg/dl (8.5-10.1); CREATININE 7.2 mg/dl (0.60-1.40); MAGNESIUM 2.6 mg/dl (1.8-2.4); PHOSPHORUS 5.1 mg/dl (2.5-4.9)
[2017-04-07] MEDS ORDERED: LEVAQUIN 750MG / 150ML D5W IV STA (00:32)
--- NOTE | 2017-04-07 01:00 | History and Physical ---
History & Physical Date & Time of Service: Apr 07, 2017 at 01:00 Chief Complaint: Illness Primary Care Physician: Marty Bliss M.D. History of Present Illness Source: patient This is a 61 yo male with complex past medical hx of Type 2 DM , severe peripheral vascular disease, s/p BKA of left lower ext , chronic venous stasis ulcer of right leg , ESRD on HD( Saturday /Saturday /Saturday ) , CAD , Anemia of chronic disease , HTN , hx of MRSA . morbid obesity , hep C , hypothyroidism , hyperlipidemia , chronic avascular necrosis of bilateral hip , CHF with diastolic dysfunction pt is a resident at [facility], has not been feeling well for past few day , had low grade fever , chill, non productive cough missed his scheduled dialysis on Saturday Presents to ED with Hypoxia, SOB Cxray shows LLL pneumonia Lab shows Hyperkalemia K ~6 ,no EKG changes no thrill noted on Rt Arm AV fistula , pt missed dialysis on Saturday , mention did not had any trouble with HD access on Saturday dialysis treatment in the ER pt was afebrile spo2 improved to 94% on 3L 02 via nasal canula pt is a very poor historian denies of any chest discomfort , no orthopnea , Past Medical/Surgical History Medical Problems: (1) Anemia of chronic renal failure Status: Chronic (2) CAD (coronary artery disease) Status: Chronic (3) Diabetes mellitus type 2 in obese Status: Chronic (4) Diastolic heart failure Status: Chronic (5) ESRD (end stage renal disease) Status: Chronic (6) History of MRSA infection Status: Chronic (7) HTN (hypertension) Status: Chronic (8) Hypotensive Status: Chronic (9) IBS (irritable bowel syndrome) Status: Chronic (10) Liver cirrhosis Status: Chronic (11) Obesity (BMI 30-39.9) Status: Chronic (12) Urge incontinence Status: Chronic Surgical Problems: (1) H/O cataract removal with insertion of prosthetic lens Status: Resolved (2) History of left lower limb amputation Permanent Comment: 09/2010 Status: Resolved (3) History of trabeculectomy Permanent Comment: bilateral Dr. Mcbride Status: Resolved (4) S/P CABG x 4 Permanent Comment: 2008 Status: Resolved Family History Diabetes mellitus Heart disease Social History Smoking Status: Never Smoker Drug Use: none Marital Status: single, Housing status: assisted living Occupational Status: unemployed Immunizations History of Influenza Vaccine: Yes Influenza Vaccine Date: May 10, 2013 History of Tetanus Vaccine?: Unknown History of Pneumococcal: Yes Pneumococcal Date: Sep 09, 2009 History of Hepatitis B Vaccine: No Multi-Drug Resistant Organisms History of MDRO: Yes Type of MDRO: MRSA Allergies Coded Allergies: Sulfamethoxazole w/Trimethoprim (Verified Allergy, Intermediate, HIVES, 06/27) Latex (Verified Allergy, Mild, LEVEL 1, 03/22/16) Povidone Iodine (Verified Allergy, Unknown, FROM [facility] INFORMATION , 03/22/16) Sulfa Antibiotics (Unverified Allergy, Unknown, ., 04/06/17) PER [facility] Home Medications Scheduled Ascorbic Acid (Vitamin C), 500 MG PO BID Carvedilol (Coreg), 1 TAB PO DAILY@1700 Cholecalciferol (Vitamin D 1000 Unit), 2,000 INTER.UNIT PO UD Clopidogrel (Plavix), 75 MG PO QPM Loperamide Hcl (Imodium), 2 MG PO Q2H Loratadine (Claritin), 10 MG PO QPM Lorazepam (Ativan), 0.5 MG PO HS Ranitidine HCl (Ranitidine 75), 75 MG PO HS Vitamin B Cmplx/Vitc/Folic Ac (Nephrocaps), 1 CAP PO QPM Wound Dressings (Allevyn Adhesive), 1 PATCH TOP UD Wound Dressings (Allevyn Adhesive), 1 APPLN TOP UD Scheduled PRN Acetaminophen (Tylenol), 650 MG PO Q4 PRN for Pain or Fever Home O2 Therapy (Oxygen), 2 LITERS NA PRN PRN for Shortness of Breath Hydrocodone/Acetaminophen 5MG/325MG ([place] 5MG/325MG), 1 TABLET PO Q6 PRN for Pain Lorazepam (Ativan), 0.5 MG PO Q6H PRN for Anxiety Review of Systems Constitutional: + fever, + chills, + sweats, + weakness, + fatigue Respiratory: + cough, + shortness of breath, + dyspnea at rest Abdomen: + nausea Musculoskeletal: + problem reported (chronic rt lower ext non healing wound ) Neurologic: + weakness, + balance problems Psychiatric: + anxiety Endocrine: + fatigue Physical Exam Vital Signs Date Time Temp Pulse Resp B/P (MAP) Pulse Ox O2 Delivery O2 Flow Rate FiO2 8/26/17 23:38 81 18 184/83 94 Nasal Cannula 2.0 04/06/17 22:46 94 Nasal Cannula 2.0 04/06/17 22:44 37.1 82 27 194/86 86 Room Air 04/06/17 22:27 84 General Appearance: no apparent distress, + obese Head: normocephalic, atraumatic Eyes: sclerae normal Neck: supple Respiratory/Chest: no respiratory distress, no accessory muscle use, + crackles , + rales Cardiovascular: regular rate, rhythm Abdomen/GI: non tender, soft Extremities/Musculoskelatal: + pertinent finding (left BKA , chronic venous statis ulcer on rt lower ext , bandgaged , pt refused to allow detail exam ) Neurologic/Psych: alert, oriented x 3 Diagnostics Laboratory Results Results Past 24 Hours Test 04/06/17 23:17 04/06/17 23:25 Range/Units Sodium Level 131 136-145 mmol/L Potassium Level 6.0 3.5-5.1 mmol/L Chloride Level 94 98-107 mmol/L Carbon Dioxide Level 28 21-32 mmol/L Anion Gap 9.0 3-11 mmol/L Blood Urea Nitrogen 59 7-18 mg/dl Creatinine 7.20 0.60-1.40 mg/dl Est Creatinine Clear Calc Drug Dose 15.7 ml/min Estimated GFR () 8.5 Estimated GFR (Non- 7.3 BUN/Creatinine Ratio 8.2 10-20 Random Glucose 198 70-99 mg/dl Calcium Level 8.3 8.5-10.1 mg/dl Phosphorus Level 5.1 2.5-4.9 mg/dl Magnesium Level 2.6 1.8-2.4 mg/dl Total Bilirubin 0.5 0.2-1 mg/dl Aspartate Amino Transf (AST/SGOT) 18 15-37 U/L Alanine Aminotransferase (ALT/SGPT) 20 12-78 U/L Alkaline Phosphatase 105 45-117 U/L Total Creatine Kinase 89 39-308 U/L Creatine Kinase MB 2.7 0.5-3.6 ng/ml Creatine Kinase MB Ratio 3.0 0-3.0 Troponin I 0.031 0-0.045 ng/ml C-Reactive Protein 6.50 0-0.29 mg/dl Pro-B-Type Natriuretic Peptide 08038 0-900 pg/ml Total Protein 6.8 6.4-8.2 gm/dl Albumin 3.3 3.4-5.0 gm/dl Globulin 3.5 2.5-4.0 gm/dl Albumin/Globulin Ratio 0.9 0.9-2 Lipase 70 73-393 U/L White Blood Count 9.89 4.8-10.8 K/uL Red Blood Count 3.26 4.7-6.1 M/uL Hemoglobin 10.3 14.0-18.0 g/dL Hematocrit 32.4 42-52 % Mean Corpuscular Volume 99.4 80-100 fL Mean Corpuscular Hemoglobin 31.6 25-34 pg Mean Corpuscular Hemoglobin Concent 31.8 32-36 g/dl Platelet Count 179 130-400 K/uL Mean Platelet Volume 10.8 7.4-10.4 fL Neutrophils (%) (Auto) 79.0 % Lymphocytes (%) (Auto) 4.8 % Monocytes (%) (Auto) 10.8 % Eosinophils (%) (Auto) 4.4 % Basophils (%) (Auto) 0.4 % Neutrophils # (Auto) 7.81 1.4-6.5 K/uL Lymphocytes # (Auto) 0.47 1.2-3.4 K/uL Monocytes # (Auto) 1.07 0.11-0.59 K/uL Eosinophils # (Auto) 0.44 0-0.5 K/uL Basophils # (Auto) 0.04 0-0.2 K/uL RDW Standard Deviation 53.8 36.4-46.3 fL RDW Coefficient of Variation 14.7 11.5-14.5 % Immature Granulocyte % (Auto) 0.6 % Immature Granulocyte # (Auto) 0.06 0.00-0.02 K/uL Erythrocyte Sedimentation Rate 33 0-14 mm/hr Prothrombin Time 10.5 9.0-12.0 SECONDS Prothromb Time International Ratio 1.0 0.9-1.1 Activated Partial Thromboplast Time 30.1 21.0-31.0 SECONDS Partial Thromboplastin Ratio 1.2 Venous Blood pH 7.37 7.36-7.41 Venous Blood Partial Pressure CO2 50 38.0-50.0 mmHg Venous Blood Partial Pressure O2 38 mmHg Venous Blood HCO3 29 mmol/L Venous Blood Oxygen Saturation 68.5 % Venous Blood Base Excess 2.8 mEq/L Microbiology Results 04/06/17 Blood Culture, Received Pending 04/06/17 Blood Culture, Received Pending Diagnostic Radiology CHEST XRAY : CHEST ONE VIEW PORTABLE CLINICAL HISTORY: 61 years-old Male presenting with Sepsis. TECHNIQUE: Portable upright AP view of the chest was obtained. COMPARISON: 01/09/2017. FINDINGS: Median sternotomy wires and mediastinal surgical clips again noted. Vascular stent projects over the left axillary region. Cardiac silhouette top normal in size, unchanged. Low lung volumes. Retrocardiac opacity new from prior. No large effusion or pneumothorax. Osseous structures normal. Upper abdomen normal. IMPRESSION: 1. Retrocardiac opacity new from prior and concerning for focal consolidation/infection. Further confirmation with PA and lateral could be obtained if clinically warranted. EKG Vent. rate 82 BPM IA interval 272 ms QRS duration 94 ms QT/QTc 398/464 ms P-R-T axes 56 -41 -3 Sinus rhythm with 1st degree A-V block Possible Left atrial enlargement Left axis deviation Low voltage QRS Septal infarct (cited on or before 13-JAN-2013) Abnormal ECG When compared with ECG of 09-JAN-2017 17:57, No significant change was found Impression Assessment and Plan FEVER /CHILLS /PNEUMONIA ; presented with Left lower lobe pneumonia -Community acquired no evidence of sepsis Levaquin 750 mg X1 given in ED Blood cultures X2 obtained , Sputum culture ordered Pharmacy consulted for further dosing of Levaquin given renal clearance /ESRD on HD ESRD ON HD : Gets Dialyzed on Saturday /Saturday /Saturday at the [facility] in [facility] , follows with Nephrology Dr Cochran and Dr Palmer Nephrology Dr Mattson consulted -pt is known to [facility]rology service form prior admissions Pt missed Dialysis on Saturday -as he was not feeling well concern for possible clotted AV fistula -prior hx of similar episode clotted AV fistula on 10/2015 -underwent mechanical thrombectomy by Dr Duffy vascular surgery consulted updated Dr Duffy regarding pt -will place temporary vascular access for Dialysis today in order to do to Thrombolysis pt will need to be schedule on Saturday or Saturday HYPERKALEMIA : due to above -missed scheduled dialysis on Saturday No EKG changes in EKG pt given Ca gluconate IV and insulin and dextrose in ED repeat PRP ordered will need to be dialyzed today ordered for renal /low K diet ACUTE CHF WITH DIASTOLIC DYSFUNCTION presented with SOB /acute hypoxemic respiratory failure /Pro-BNP > 30K due to above -missed dialysis tx plan for temporary dialysis access placement followed by emergent HD tx today Case D/w Nephrology HYPERTENSIVE URGENCY : due to vol overload with missed dialysis SBP ~180 cont Coreg PRN IV hydralazine ordered for SBP > 160 will benefit with emergent dialysis Vascular surgery and Nephrology updated cont to monitor in Tele TYPE 2 DM : cont Lantus , SSI ordered for insulin hb A1c PERIPHERAL VASCULAR DISEASE cont Aspirin , Plavix , statin CHRONIC VENOUS STASIS ULCER OF RT LOWER EXT : follows with wound clinic recently treated with Cephalexin ( per office note on 03/19/17 ) wound culture ordered Consulted Wound care nurse FULL CODE DVT PROPHYLAXIS : Moderate to high risk sub q heparin DISPOSITION : resident at [facility] return to [facility] when medically stable Social service consulted for discharge planning Medicine follow up with Jonathan Bliss [facility] Level of Care Telemetry Resuscitation Status FULL RESUSCITATION VTE Prophylaxis Given or contraindicated: Unfractionated heparin SQ Additional Copies To Marty Bliss M.D., Stacy L., MD
[2017-04-07] MEDS ORDERED: GLUCOSE 40% GEL 15 GM TUBE PO PRN (01:15)
[2017-04-07] MEDS ORDERED: NITROGLYCERIN 0.4 MG SL PER TAB CHARGE SL PRN (01:15)
[2017-04-07] MEDS ORDERED: GLUCOSE 10 TABS/TUBE PO PRN (01:15)
[2017-04-07] MEDS ORDERED: ONDANSETRON INJ 2 MG/ML 2 ML VIAL IV PRN (01:15)
[2017-04-07] MEDS ORDERED: POLYETHYLENE (MIRALAX) 17 GM PACK PO PRN (01:15)
[2017-04-07] MEDS ORDERED: GLUCAGON FOR INJ 1 MG VIAL SQ PRN (01:15)
[2017-04-07] MEDS ORDERED: ACETAMINOPHEN 325 MG TAB PO PRN ×2 (01:15→01:30)
[2017-04-07] MEDS ORDERED: DEXTROSE 50% 50 ML SYR IV PRN (01:15)
[2017-04-07] MEDS ORDERED: INSULIN HUMAN REGULAR PER UNIT 10 UNITS in SYRINGE 9.9 ML IV STA ×2 (01:16→21:50)
[2017-04-07] MEDS ORDERED: CALCIUM GLUCONATE 10% 1,000 MG in SODIUM CHLORIDE 0.9% 50ML 50 ML IV STA ×2 (01:16→21:44)
[2017-04-07] MEDS ORDERED: DEXTROSE 50% 50 ML SYR IV STA ×2 (01:16→21:44)
[2017-04-07] MEDS ORDERED: LEVOFLOXACIN / D5W 750 MG in PREMIXED IN D5W 150 ML IV STA (01:22)
[2017-04-07] MEDS ORDERED: ALBUT/IPRATROP 3MG/0.5MG NEB 3 ML VIAL INH PRN (01:30)
[2017-04-07] MEDS ORDERED: LORAZEPAM 0.5 MG TAB PO PRN (01:30)
[2017-04-07] MEDS ORDERED: WOUND DRESSINGS TOP SCH ×2 (01:30)
[2017-04-07] MEDS ORDERED: LOPERAMIDE HCL 2 MG CAP PO PRN (01:30)
[2017-04-07] MEDS ORDERED: NovoLIN-R INSULIN PER UNIT CHARGE ONE (01:46)
[2017-04-07] MEDS ORDERED: LEVOFLOXACIN CONSULT ACTIVE PRN (02:31)
[2017-04-07 02:40] VITALS: BP 192/92; PULSE 82; TEMP 36.7; O2SAT 90; Ht 185.4 cm; Wt 139.4 kg
--- NOTE | 2017-04-07 05:59 | DIAGNOSTIC IMAGING REPORT ---
CHEST 2 VIEWS ROUTINE HISTORY: 61 years-old Male fever COMPARISON: Portable chest radiograph 04/06/2017 TECHNIQUE: Portable upright AP and lateral views of the chest FINDINGS: Prior median sternotomy. Cardiac silhouette is again moderately enlarged. There is atherosclerosis of the aorta. No pneumothorax identified. Pulmonary vascular congestion is noted with mild background interstitial coarsening. Focal left lower lobe airspace opacity is again noted with blunting of the costophrenic angle. No large right-sided pleural effusion. The bones are grossly intact. Patient obesity is noted. Multilevel endplate spurring is seen throughout the thoracic spine. IMPRESSION: 1. Persistent left lower lobe airspace opacities with small left pleural effusion, suspicious for pneumonia. 2. Cardiomegaly with mild pulmonary vascular congestion. The above report was generated using voice recognition software. It may contain grammatical, syntax or spelling errors. Electronically signed by: Kyle Modi M.D. 04/07/2017 5:58 AM Dictated Date/Time: 04/07/2017 5:56 AM
[2017-04-07] MEDS: HEPARIN SOD 5000 UNIT/0.5 ML CARP SQ SCH ×3 (06:13→20:38)
--- NOTE | 2017-04-07 07:33 | DIAGNOSTIC IMAGING REPORT ---
CHEST ONE VIEW PORTABLE HISTORY: 61 years-old Male pneumonia follow-up. COMPARISON: Chest radiograph 04/07/2017 TECHNIQUE: Portable upright AP view of the chest FINDINGS: Cardiac silhouette is again moderately enlarged. Prior median sternotomy. There is no pneumothorax. Pulmonary vascular congestion is redemonstrated with clear right lung. Left lower lobe airspace consolidation is redemonstrated with blunting of the left costophrenic angle. No significant change from comparison. The bones appear grossly intact. IMPRESSION: 1. Stable exam with persistent left lung base consolidation and small left-sided pleural effusion. 2. Cardiomegaly with pulmonary vascular congestion. The above report was generated using voice recognition software. It may contain grammatical, syntax or spelling errors. Electronically signed by: Kyle Modi M.D. 04/07/2017 7:32 AM Dictated Date/Time: 04/07/2017 7:29 AM
[2017-04-07 07:55] LABS: HEMATOCRIT 30.9 % (42-52); MEAN CELL VOLUME 100.3 fL (80-100); MEAN CORPUSCULAR HEMOGLOBIN 32.8 pg (25-34); MEAN CORPUSCULAR HGB CONC 32.7 g/dl (32-36); MEAN PLATELET VOLUME 10.6 fL (7.4-10.4); PLATELET COUNT 175 K/uL (130-400); RED BLOOD COUNT 3.08 M/uL (4.7-6.1)
[2017-04-07 08:00] VITALS: BP 195/80; PULSE 80; TEMP 36.7; O2SAT 94; O2SAT 95
[2017-04-07] MEDS: HYDROCODONE/ACETAMOPHEN 5/325MG TAB PO PRN ×2 (08:09→14:52)
[2017-04-07] MEDS: ASCORBIC ACID 500 MG TAB PO SCH ×2 (08:10→20:23)
[2017-04-07] MEDS: INSULIN ASPART 100 UNITS/ML 3 ML PEN SC SCH ×4 (08:16→20:37)
[2017-04-07] MEDS: HydrALAZINE HCL 20 MG/ML VIAL IV. PRN ×2 (08:19→21:30)
[2017-04-07 08:45] LABS: BUN/CREATININE RATIO 8.1 (10-20); CALCIUM 8.2 mg/dl (8.5-10.1); CREATININE 7.7 mg/dl (0.60-1.40); MAGNESIUM 2.6 mg/dl (1.8-2.4); POTASSIUM 5.7 mmol/L (3.5-5.1)
--- NOTE | 2017-04-07 09:17 | Progress Note ---
Progress Note Date of Service Apr 07, 2017. Progress Note Official consult to follow Will plan on mechanical thrombectomy/possible permcath tomorrow. Thank you very much for letting me participate in the care of this patient.
[2017-04-07] MEDS: CHOLECALCIFEROL 1000 INTER.UNIT TAB PO SCH (09:37)
[2017-04-07] MEDS: VITAMIN B COMPLEX TAB PO SCH (09:37)
[2017-04-07] MEDS ORDERED: CALCIUM GLUCONATE 10% 1,000 MG in SODIUM CHLORIDE 0.9% 50ML 50 ML IV ONE (09:45)
[2017-04-07] MEDS ORDERED: INSULIN REGULAR 10 UNITS in SYRINGE 9.9 ML IV ONE (09:55)
[2017-04-07] MEDS ORDERED: DEXTROSE 50% 50 ML SYR IV ONE (09:56)
[2017-04-07 11:36] VITALS: BP 189/84; PULSE 79; TEMP 37.7; O2SAT 95
[2017-04-07 13:19] VITALS: TEMP 36.7
[2017-04-07 15:16] VITALS: BP 169/69; PULSE 81; TEMP 36.4; O2SAT 96
[2017-04-07] MEDS ORDERED: SODIUM POLYST. SULF SUSP 15G/60ML PO STA (15:50)
[2017-04-07] MEDS ORDERED: LACTULOSE SYRUP 30 GM/45 ML UDP PO STA (15:50)
--- NOTE | 2017-04-07 15:59 | Nephrology Consultation ---
Nephrology Consultation Date of Consultation: Apr 07, 2017. Attending Physician: Dr Morris Requesting Physician: Dr Lambert Reason for Consultation: ESRD w/ hyperkalemia, vascular access malfunction History of Present Illness 61 year old male admitted from [facility] for management of pneumonia and vascular access malfunction. PMH includes ESRD on MWF HD; DM, HTN, CAD, s/p L BKA, chronic BL hip avascular necrosis, hx HCV. He also had multiple remaining teeth pulled on 04/04; the next day he felt too weak to go to dialysis. last HD was 04/03. Noted on arrival here to have K 6.0, no t/b in AVG, and LLL PNA. K has so far been managed medically. Vascular surgery is aware of the patient and plans to declot the AVG and if necessary place TDC tomorrow. Last K after 2 rounds insulin 5.5. Past Medical/Surgical History -ESRD on MWF HD at [facility] under care of Chun Cochran/Estela via AVG -CAD -DM2 -hx HCV -diastolic HF -HL -HTN -chronic RLE wounds follows at wound clinic as outpt -chronic avascular necrosis -on 2LNC 02 at facility prn -s/p L BKA Family History Diabetes mellitus Heart disease Social History Smoking Status: Never Smoker Alcohol Use: none Drug Use: none Marital Status: single, Housing Status: senior care Occupation Status: unemployed Allergies Coded Allergies: Sulfamethoxazole w/Trimethoprim (Verified Allergy, Intermediate, HIVES, 06/27) Latex (Verified Allergy, Mild, LEVEL 1, 03/22/16) Povidone Iodine (Verified Allergy, Unknown, FROM LONG TERM INFORMATION , 03/22/16) Sulfa Antibiotics (Unverified Allergy, Unknown, ., 04/06/17) PER [facility] RECORDS Medications Current Inpatient Medications Medications (Trade) Dose Ordered Sig/Nicole Route Start Time Stop Time Status Last Admin Dose Admin Heparin Sodium (Porcine) (Heparin Sq 5000 Unit/0.5ml) 5,000 unit Q8 SQ 04/07/17 06:00 05/07/17 05:59 04/07/17 13:17 5,000 UNIT Acetaminophen (Tylenol Tab) 650 mg Q4H PRN PO 04/07/17 01:15 05/07/17 01:14 04/07/17 11:23 650 MG Ondansetron HCl (Zofran Inj) 4 mg Q6H PRN IV 04/07/17 01:15 05/07/17 01:14 04/07/17 11:19 4 MG Nitroglycerin (Nitrostat Tab) 0.4 mg UD PRN SL 04/07/17 01:15 05/07/17 01:14 Polyethylene (Miralax Powder Packet) 17 gm DAILY PRN PO 04/07/17 01:15 05/07/17 01:14 04/07/17 08:09 17 GM Insulin Aspart (novoLOG ASPART) SLIDING SCALE If C... ACHS SC 04/07/17 07:00 05/07/17 06:59 04/07/17 13:17 5 UNITS Glucose (Glucose 40% Gel) 15-30 GRAMS 15 GRAMS... UD PRN PO 04/07/17 01:15 05/07/17 01:14 Glucose (Glucose Chew Tab) 4-8 Tablets 4 Tabl... UD PRN PO 04/07/17 01:15 05/07/17 01:14 Dextrose (Dextrose 50% 50ML Syringe) 25-50ML OF 50% DW IV FOR... UD PRN IV 04/07/17 01:15 05/07/17 01:14 Glucagon (Glucagon Inj) 1 mg UD PRN SQ 04/07/17 01:15 05/07/17 01:14 Carvedilol (Coreg Tab) 3.125 mg DAILY@1700 PO 04/07/17 17:00 05/07/17 16:59 Clopidogrel Bisulfate (plAVix TAB) 75 mg QPM PO 04/07/17 21:00 05/07/17 20:59 Acetaminophen/ Hydrocodone Bitart ([place] 5/325 Tab) 1 tab Q6 PRN PO 04/07/17 01:30 04/21/17 01:29 04/07/17 14:52 1 TAB Loperamide HCl (Imodium Cap) 2 mg Q2H PRN PO 04/07/17 01:30 05/07/17 01:29 Future Hold Loratadine (Claritin Tab) 10 mg QPM PO 04/07/17 21:00 05/07/17 20:59 Lorazepam (Ativan Tab) 0.5 mg HS PO 04/07/17 21:00 05/07/17 20:59 Lorazepam (Ativan Tab) 0.5 mg Q6H PRN PO 04/07/17 01:30 05/07/17 01:29 Vitamin B Complex/ Vit C/Folic Acid (Nephrocaps) 1 cap QPM PO 04/07/17 21:00 05/07/17 20:59 Ascorbic Acid (Vitamin C Tab) 500 mg BID PO 04/07/17 09:00 05/07/17 08:59 04/07/17 08:10 500 MG Ranitidine HCl (zANTac TAB) 75 mg HS PO 04/07/17 21:00 05/07/17 20:59 Levofloxacin (Consult) 1 ea DAILY PRN N/A 04/07/17 02:31 05/07/17 02:30 Albuterol/ Ipratropium (Duoneb) 3 ml Q4 PRN INH 04/07/17 01:30 05/07/17 01:29 Hydralazine HCl (HydrALAZINE INJ) 10 mg Q8 PRN IV. 04/07/17 05:15 05/07/17 05:14 04/07/17 08:19 10 MG Levofloxacin 500 mg/Prmx 100 ml @ 100 mls/hr Q48H IV 04/09/17 01:00 04/13/17 03:00 Gabapentin (Neurontin Cap) 100 mg HS PO 04/07/17 21:00 05/07/17 20:59 Latanoprost (Xalatan Oph Soln) 1 drops HS OP 04/07/17 21:00 05/07/17 20:59 Vitamin B Complex (Vitamin B Complex) 1 tab QAM PO 04/07/17 09:00 05/07/17 08:59 04/07/17 09:37 1 TAB Cholecalciferol (Vitamin D Tab) 1,000 inter.unit QAM PO 04/07/17 09:00 05/07/17 08:59 04/07/17 09:37 1,000 INTER.UNIT Midodrine (Proamatine Tab) 2.5 mg MoWeFr@0900 PO 04/08/17 09:00 05/08/17 08:59 Levothyroxine Sodium (Synthroid Tab) 25 mcg DAILYBB PO 04/08/17 06:00 05/08/17 05:59 Cefazolin Sodium 65 ml @ 100 mls/hr PREOP IV 04/08/17 06:00 04/08/17 18:00 Home Meds and Scripts Medications Dose Route/Sig Max Daily Dose Days Date Category Dose Instructions Oxygen Gas 2 Liters NA PRN PRN 04/06/17 Reported Allevyn Adhesive (Wound Dressings) 1 Pad Pad 1 Appln TOP UD 01/09/17 Reported SITE RIGHT ANKLE CLEAN WITH NORMAL SALINE, PAT DRY , APPLY NONADHESIVE ALLEVY AND CHANGE EVERY 5 DAYS AND PRN Allevyn Adhesive (Wound Dressings) 1 Pad Pad 1 Patch TOP UD 01/09/17 Reported APPLY 4 X 4 PAD NEEDED EVERY SHIFT COVER ANY DRAINING SKIN LESIONS WITH DRY DRESSING Nephrocaps (Vitamin B Complex/Vit C/Folic Acid) Cap 1 Cap PO QPM 01/09/17 Reported Ativan (Lorazepam) 0.5 Mg Tab 0.5 Mg PO Q6H PRN 03/22/16 Reported [place] 5MG/325MG (Acetaminophen/Hydrocodone Bitart) Tab 1 Tablet PO Q6 PRN 03/22/16 Reported Coreg (Carvedilol) 3.125 Mg Tab 1 Tab PO DAILY@1700 30 03/22/16 Reported HOLD IF SBP IS <100. DO NOT HOLD PRIOR TO DIALYSIS DAYS Vitamin C (Ascorbic Acid) 500 Mg Cap 500 Mg PO BID 12/22/14 Reported Plavix (Clopidogrel Bisulfate) 75 Mg Tab 75 Mg PO QPM 11/12/14 Reported Imodium (Loperamide HCl) 2 Mg Cap 2 Mg PO Q2H 11/12/14 Reported TAKE 2MG NEEDED EVERY 2 HOURS. DO NOT EXCEED 4 CAPS IN 24 HOURS Ranitidine 75 (Ranitidine HCl) 75 Mg Tab 75 Mg PO HS 11/12/14 Reported Ativan (Lorazepam) 0.5 Mg Tab 0.5 Mg PO HS 01/13/13 Reported Claritin (Loratadine) 10 Mg Tab 10 Mg PO QPM 01/13/13 Reported Vitamin D 1000 Unit (Cholecalciferol) 1,000 Unit Cap 2,000 Inter.unit PO UD 10/27/11 Reported AT 9 AM SAT,SUN,TUES,THURS Tylenol (Acetaminophen) 325 Mg Tab 650 Mg PO Q4 PRN 04/10/11 Reported NOT TO EXCEED 3 GM APAP/24 HOURS Review of Systems Constitutional: + fever (99.9 this am in hospital; low grade at facility), + weakness, + fatigue Eyes: No worsening of vision ENT: + dental problems (see HPI), No hearing loss Respiratory: + cough, No wheezing, No shortness of breath Cardiac: No chest pain, No orthopnea, No edema, No palpitations Abdomen: No pain, No nausea, No vomiting, No diarrhea, No constipation Musculoskeletal: No joint pain, No muscle pain Male : + problem reported (no change to chronci voiding habits) Neuro: + weakness, No memory loss Psych: No depression symptoms, No anxiety Heme: + abnormal bleeding/bruising (states had some prolonged bleeding w/ extraction) Endo: + fatigue Skin: No rash, No itch Physical Exam Date Time Temp Pulse Resp B/P (MAP) Pulse Ox O2 Delivery O2 Flow Rate FiO2 04/07/17 13:19 36.7 04/07/17 11:36 37.7 79 24 189/84 (119) 95 Nasal Cannula 04/07/17 08:00 36.7 80 22 195/80 (118) 94 Nasal Cannula 2.0 04/07/17 02:40 36.7 82 20 192/92 90 Nasal Cannula 2.0 04/07/17 02:12 80 20 157/62 95 04/07/17 01:19 77 18 156/81 95 Nasal Cannula 2.0 04/06/17 23:38 81 18 184/83 94 Nasal Cannula 2.0 04/06/17 22:46 94 Nasal Cannula 2.0 04/06/17 22:44 37.1 82 27 194/86 86 Room Air 04/06/17 22:27 84 24-Hour Column 04/08/17 08:00 Intake Total 460 ml Balance 460 ml General Appearance: WD/WN, no apparent distress, + obese, + pertinent finding ( lying flat on 3L02NC) Eyes: EOMI ENT: hearing grossly normal Neck: supple Respiratory/Chest: no respiratory distress, + decreased breath sounds (louis L base/dependent) Cardiovascular: regular rate, rhythm, no edema Abdomen: normal bowel sounds, non tender, soft Extremities: + pertinent finding (L BKA; RUE AVG w/o T/b) Neurologic/Psych: alert, normal mood/affect, oriented x 3 Skin: warm/dry, no rash, + pertinent finding (wound RLE dressed) Diagnostics Last 24 Hours Test 04/06/17 23:17 04/06/17 23:25 04/07/17 06:35 04/07/17 07:35 Sodium Level 131 mmol/L 131 mmol/L Potassium Level 6.0 mmol/L 5.7 mmol/L Chloride Level 94 mmol/L 94 mmol/L Carbon Dioxide Level 28 mmol/L 29 mmol/L Anion Gap 9.0 mmol/L 8.0 mmol/L Blood Urea Nitrogen 59 mg/dl 61 mg/dl Creatinine 7.20 mg/dl 7.70 mg/dl Est Creatinine Clear Calc Drug Dose 15.7 ml/min 14.4 ml/min Estimated GFR () 8.5 7.8 Estimated GFR (Non- 7.3 6.8 BUN/Creatinine Ratio 8.2 8.1 Random Glucose 198 mg/dl 105 mg/dl Calcium Level 8.3 mg/dl 8.2 mg/dl Phosphorus Level 5.1 mg/dl Magnesium Level 2.6 mg/dl 2.6 mg/dl Total Bilirubin 0.5 mg/dl Aspartate Amino Transf (AST/SGOT) 18 U/L Alanine Aminotransferase (ALT/SGPT) 20 U/L Alkaline Phosphatase 105 U/L Total Creatine Kinase 89 U/L Creatine Kinase MB 2.7 ng/ml Creatine Kinase MB Ratio 3.0 Troponin I 0.031 ng/ml C-Reactive Protein 6.50 mg/dl Pro-B-Type Natriuretic Peptide 34514 pg/ml Total Protein 6.8 gm/dl Albumin 3.3 gm/dl Globulin 3.5 gm/dl Albumin/Globulin Ratio 0.9 Lipase 70 U/L White Blood Count 9.89 K/uL 7.90 K/uL Red Blood Count 3.26 M/uL 3.08 M/uL Hemoglobin 10.3 g/dL 10.1 g/dL Hematocrit 32.4 % 30.9 % Mean Corpuscular Volume 99.4 fL 100.3 fL Mean Corpuscular Hemoglobin 31.6 pg 32.8 pg Mean Corpuscular Hemoglobin Concent 31.8 g/dl 32.7 g/dl Platelet Count 179 K/uL 175 K/uL Mean Platelet Volume 10.8 fL 10.6 fL Neutrophils (%) (Auto) 79.0 % Lymphocytes (%) (Auto) 4.8 % Monocytes (%) (Auto) 10.8 % Eosinophils (%) (Auto) 4.4 % Basophils (%) (Auto) 0.4 % Neutrophils # (Auto) 7.81 K/uL Lymphocytes # (Auto) 0.47 K/uL Monocytes # (Auto) 1.07 K/uL Eosinophils # (Auto) 0.44 K/uL Basophils # (Auto) 0.04 K/uL RDW Standard Deviation 53.8 fL 54.7 fL RDW Coefficient of Variation 14.7 % 14.9 % Immature Granulocyte % (Auto) 0.6 % Immature Granulocyte # (Auto) 0.06 K/uL Erythrocyte Sedimentation Rate 33 mm/hr Prothrombin Time 10.5 SECONDS Prothromb Time International Ratio 1.0 Activated Partial Thromboplast Time 30.1 SECONDS Partial Thromboplastin Ratio 1.2 Venous Blood pH 7.37 Venous Blood Partial Pressure CO2 50 mmHg Venous Blood Partial Pressure O2 38 mmHg Venous Blood HCO3 29 mmol/L Venous Blood Oxygen Saturation 68.5 % Venous Blood Base Excess 2.8 mEq/L Bedside Glucose 107 mg/dl Thyroid Stimulating Hormone (TSH) 1.750 uIu/ml Test 04/07/17 09:48 04/07/17 11:18 04/07/17 12:34 Bedside Glucose 150 mg/dl 142 mg/dl Potassium Level 5.5 mmol/L Diagnostic Radiology: cxr > cardiomegaly w/ pulm vascular congestion, L base consolidation, small L sided effusion Assessment & Plan 61 y/o M w/ ESRD admitted 04/07 w/ LLL PNA, K 6.0, AVG clotted off after missing 04/05 HD and after recent tooth extraction. ESRD on HD with HTN, hyperkalemia; no chest pain and no arrhythmias -missed 04/05 treatment; no access currently -treat K medically overnight w/ IV insulin/dextrose, w/ kayexalate/lactulose >> last K 5.5 >recheck bmp q6-8 hr until surgery and give IV insulin/ dextrose for K 5.7 or higher; -HD tomorrow after vascular access established; emergently if above medical mgt fails though pt is for now stable -hgb acceptable; epo as indicated for anemia of ESRD -cont coreg; cont prn hydralazine Vascular access malfunction -for declot and possibly TDC on 04/08 -may need temporary catheter today or tomorrow depending on clinical status including blood cultures Sepsis > pneumonia; recent extraction multiple teeth -f/u pending cxs especially given low grade temp this morning and recent dental procedure; ESR reassuring -on levaquin Appreciate consult; will follow with you. Care coordinated w/ Dr. Morris.
[2017-04-07] MEDS: CARVEDILOL 3.125 MG TAB PO SCH (18:01)
[2017-04-07 19:06] VITALS: BP 192/86; PULSE 74; TEMP 36.8; O2SAT 95
[2017-04-07] MEDS: GABAPENTIN 100 MG CAP PO SCH (20:22)
[2017-04-07] MEDS: LATANOPROST 0.005% OP SOLN 2.5 ML BTL OP SCH (20:23)
[2017-04-07] MEDS: LORATADINE 10 MG TAB PO SCH (20:24)
[2017-04-07] MEDS: CLOPIDOGREL BISULFATE 75 MG TAB PO SCH (20:24)
[2017-04-07] MEDS: NEPHROCAPS PO SCH (20:24)
[2017-04-07] MEDS: RANITIDINE HCL 150 MG TAB PO SCH (20:24)
[2017-04-07] MEDS: LORAZEPAM 0.5 MG TAB PO SCH (20:26)
[2017-04-07 20:54] LABS: BUN/CREATININE RATIO 8.5 (10-20); CALCIUM 8.3 mg/dl (8.5-10.1); CREATININE 8.3 mg/dl (0.60-1.40); POTASSIUM 5.8 mmol/L (3.5-5.1)
--- NOTE | 2017-04-07 22:04 | Progress Note ---
Medicine Progress Note Date & Time of Visit: Apr 07, 2017 at 17:37. Subjective Pt states he feels 100% better than he did yesterday has had some nausea and malaise but is better after medications denies chest pain, SOB productive cough today afebrile Objective Last 8 Hrs Date Time Temp Pulse Resp B/P (MAP) Pulse Ox O2 Delivery O2 Flow Rate FiO2 04/07/17 16:00 Nasal Cannula 2.0 04/07/17 15:16 36.4 81 19 169/69 (102) 96 Nasal Cannula 3.0 04/07/17 13:19 36.7 04/07/17 12:00 Nasal Cannula 2.0 04/07/17 11:36 37.7 79 24 189/84 (119) 95 Nasal Cannula Physical Exam: GEN: obese, in no acute distress, alert and appropriate HEENT: NC/AT, normal sclerae, MMM CARDIO: reg rate, S1/2 heard without m/g/r, no edema LUNGS: CTA bilaterally, no crackles, rales or wheezes, good diaphragmatic excursion ABD: soft, non-tender, non-distended, no rebound or guarding, +BS, protuberant EXTREMITY: WWP, RUE (active fistula) with no palpable thrill, 1+RP. LUE ( inactive fistula) with no palpable thrill, RP1+, LLE AKA, RLE with LE unaboot in place over chronic superficial ulceration. NEURO: CN 2-12 gross intact MUSC: 5/5 strength throughout, no gross focal deficits SKIN: warm and dry Laboratory Results: 04/07/17 07:35 04/07/17 19:56 Test 04/06/17 23:17 04/06/17 23:25 04/07/17 07:35 04/07/17 16:17 Phosphorus Level 5.1 mg/dl (2.5-4.9) Total Bilirubin 0.5 mg/dl (0.2-1) Aspartate Amino Transf (AST/SGOT) 18 U/L (15-37) Alanine Aminotransferase (ALT/SGPT) 20 U/L (12-78) Alkaline Phosphatase 105 U/L (45-117) Total Creatine Kinase 89 U/L (39-308) Creatine Kinase MB 2.7 ng/ml (0.5-3.6) Creatine Kinase MB Ratio 3.0 (0-3.0) Troponin I 0.031 ng/ml (0-0.045) C-Reactive Protein 6.50 mg/dl (0-0.29) Pro-B-Type Natriuretic Peptide 91935 pg/ml (0-900) Total Protein 6.8 gm/dl (6.4-8.2) Albumin 3.3 gm/dl (3.4-5.0) Globulin 3.5 gm/dl (2.5-4.0) Albumin/Globulin Ratio 0.9 (0.9-2) Lipase 70 U/L (73-393) Immature Granulocyte % (Auto) 0.6 % White Blood Count 9.89 K/uL (4.8-10.8) Red Blood Count 3.26 M/uL (4.7-6.1) 3.08 M/uL (4.7-6.1) Hemoglobin 10.3 g/dL (14.0-18.0) Hematocrit 32.4 % (42-52) Mean Corpuscular Volume 99.4 fL (80-100) 100.3 fL (80-100) Mean Corpuscular Hemoglobin 31.6 pg (25-34) 32.8 pg (25-34) Mean Corpuscular Hemoglobin Concent 31.8 g/dl (32-36) 32.7 g/dl (32-36) Platelet Count 179 K/uL (130-400) Mean Platelet Volume 10.8 fL (7.4-10.4) 10.6 fL (7.4-10.4) Neutrophils (%) (Auto) 79.0 % Lymphocytes (%) (Auto) 4.8 % Monocytes (%) (Auto) 10.8 % Eosinophils (%) (Auto) 4.4 % Basophils (%) (Auto) 0.4 % Neutrophils # (Auto) 7.81 K/uL (1.4-6.5) Lymphocytes # (Auto) 0.47 K/uL (1.2-3.4) Monocytes # (Auto) 1.07 K/uL (0.11-0.59) Eosinophils # (Auto) 0.44 K/uL (0-0.5) Basophils # (Auto) 0.04 K/uL (0-0.2) Immature Granulocyte # (Auto) 0.06 K/uL (0.00-0.02) Erythrocyte Sedimentation Rate 33 mm/hr (0-14) Prothrombin Time 10.5 SECONDS (9.0-12.0) Prothromb Time International Ratio 1.0 (0.9-1.1) Activated Partial Thromboplast Time 30.1 SECONDS (21.0-31.0) Partial Thromboplastin Ratio 1.2 Venous Blood pH 7.37 (7.36-7.41) Venous Blood Partial Pressure CO2 50 mmHg (38.0-50.0) Venous Blood Partial Pressure O2 38 mmHg Venous Blood HCO3 29 mmol/L Venous Blood Oxygen Saturation 68.5 % Venous Blood Base Excess 2.8 mEq/L RDW Standard Deviation 54.7 fL (36.4-46.3) RDW Coefficient of Variation 14.9 % (11.5-14.5) Magnesium Level 2.6 mg/dl (1.8-2.4) Thyroid Stimulating Hormone (TSH) 1.750 uIu/ml (0.300-4.500) Bedside Glucose 92 mg/dl (70-99) Test 04/07/17 19:56 Anion Gap 9.0 mmol/L (3-11) Est Creatinine Clear Calc Drug Dose 13.4 ml/min Estimated GFR () 7.2 Estimated GFR (Non- 6.2 BUN/Creatinine Ratio 8.5 (10-20) Calcium Level 8.3 mg/dl (8.5-10.1) Date/Time Source Procedure Growth Status 04/06/17 23:27 Blood Blood Culture Pending Received 04/07/17 02:30 Nasal MRSA DNA Surveillance Screen - Final Specimen Negative for MRSA by DNA Probe Complete 04/07/17 09:25 Sputum Expectorated Sputum Gram Stain - Final Resulted 04/07/17 09:25 Sputum Expectorated Sputum Sputum Culture Pending Resulted Last 24 Hours Test 04/06/17 23:17 04/06/17 23:25 04/07/17 06:35 04/07/17 07:35 Sodium Level 131 mmol/L 131 mmol/L Potassium Level 6.0 mmol/L 5.7 mmol/L Chloride Level 94 mmol/L 94 mmol/L Carbon Dioxide Level 28 mmol/L 29 mmol/L Anion Gap 9.0 mmol/L 8.0 mmol/L Blood Urea Nitrogen 59 mg/dl 61 mg/dl Creatinine 7.20 mg/dl 7.70 mg/dl Est Creatinine Clear Calc Drug Dose 15.7 ml/min 14.4 ml/min Estimated GFR () 8.5 7.8 Estimated GFR (Non- 7.3 6.8 BUN/Creatinine Ratio 8.2 8.1 Random Glucose 198 mg/dl 105 mg/dl Calcium Level 8.3 mg/dl 8.2 mg/dl Phosphorus Level 5.1 mg/dl Magnesium Level 2.6 mg/dl 2.6 mg/dl Total Bilirubin 0.5 mg/dl Aspartate Amino Transf (AST/SGOT) 18 U/L Alanine Aminotransferase (ALT/SGPT) 20 U/L Alkaline Phosphatase 105 U/L Total Creatine Kinase 89 U/L Creatine Kinase MB 2.7 ng/ml Creatine Kinase MB Ratio 3.0 Troponin I 0.031 ng/ml C-Reactive Protein 6.50 mg/dl Pro-B-Type Natriuretic Peptide 73791 pg/ml Total Protein 6.8 gm/dl Albumin 3.3 gm/dl Globulin 3.5 gm/dl Albumin/Globulin Ratio 0.9 Lipase 70 U/L White Blood Count 9.89 K/uL 7.90 K/uL Red Blood Count 3.26 M/uL 3.08 M/uL Hemoglobin 10.3 g/dL 10.1 g/dL Hematocrit 32.4 % 30.9 % Mean Corpuscular Volume 99.4 fL 100.3 fL Mean Corpuscular Hemoglobin 31.6 pg 32.8 pg Mean Corpuscular Hemoglobin Concent 31.8 g/dl 32.7 g/dl Platelet Count 179 K/uL 175 K/uL Mean Platelet Volume 10.8 fL 10.6 fL Neutrophils (%) (Auto) 79.0 % Lymphocytes (%) (Auto) 4.8 % Monocytes (%) (Auto) 10.8 % Eosinophils (%) (Auto) 4.4 % Basophils (%) (Auto) 0.4 % Neutrophils # (Auto) 7.81 K/uL Lymphocytes # (Auto) 0.47 K/uL Monocytes # (Auto) 1.07 K/uL Eosinophils # (Auto) 0.44 K/uL Basophils # (Auto) 0.04 K/uL RDW Standard Deviation 53.8 fL 54.7 fL RDW Coefficient of Variation 14.7 % 14.9 % Immature Granulocyte % (Auto) 0.6 % Immature Granulocyte # (Auto) 0.06 K/uL Erythrocyte Sedimentation Rate 33 mm/hr Prothrombin Time 10.5 SECONDS Prothromb Time International Ratio 1.0 Activated Partial Thromboplast Time 30.1 SECONDS Partial Thromboplastin Ratio 1.2 Venous Blood pH 7.37 Venous Blood Partial Pressure CO2 50 mmHg Venous Blood Partial Pressure O2 38 mmHg Venous Blood HCO3 29 mmol/L Venous Blood Oxygen Saturation 68.5 % Venous Blood Base Excess 2.8 mEq/L Bedside Glucose 107 mg/dl Thyroid Stimulating Hormone (TSH) 1.750 uIu/ml Test 04/07/17 09:48 04/07/17 11:18 04/07/17 12:34 04/07/17 16:17 Bedside Glucose 150 mg/dl 142 mg/dl 92 mg/dl Potassium Level 5.5 mmol/L Date/Time Source Procedure Growth Status 04/06/17 23:27 Blood Blood Culture Pending Received 04/06/17 23:25 Blood Blood Culture Pending Received 04/07/17 02:30 Nasal MRSA DNA Surveillance Screen - Final Specimen Negative for MRSA by DNA Probe Complete 04/07/17 09:25 Sputum Expectorated Sputum Gram Stain - Final Resulted 04/07/17 09:25 Sputum Expectorated Sputum Sputum Culture Pending Resulted Assessment & Plan 61 yo M who lives in a ch[facility] presents with pneumonia, too sick to get to dialysis and found to have fistula clotted off in ER. Vascular Surgery consulted to open fistula and/or place temporary HD catheter. He is NPO p MN in prep for this. Requiring symptom control for pneumonia including antiemetics and tylenol. 1. HCAP-improving on Levaquin as monotherapy. Afebrile and feeling better. Hypoxia still present but not worsening. Cont Levaquin. Blood cultures pending. 2. Hyperkalemia 2/2 chronic renal failure-insulin and D50 with Lactulose given for temporizing measures until HD can be completed. 3. clotted fistula-Vascular Surgery consulted and plans to open this up in am. 4. ESRD-missed dialysis recently and needs dialysis [facility] once access achieved. Nephrology is aware, 5. Acute on chronic diastolic dysfunction-plan to manage fluid with HD and ultrafiltrate. 6. Hypertensive urgency-required IV hydralazine. Pt is not feeling well. Cont Coreg and PRN hydralazine at this time. 7. DMII-ISS/Glargine 8. Peripheral vascular disease-cont medical management. Notably not on statin, will discuss with patient. 9. Chronic venous stasis ulcer of RLE-follows with [facility], recently treated with cefalexin, wound care consulted. 10. Anemia-likely 2.2 ESRD 11. Obesity DVT proph-heparin FULL CODE Dispo-return to [facility] when medically stable. Lanie Morris DO [facility] Hospitalist Consultants: Vascular Surg-[facility] Nephrology-[place] Current Inpatient Medications: Current Inpatient Medications Medications (Trade) Dose Ordered Sig/Nicole Route Start Time Stop Time Status Last Admin Dose Admin Heparin Sodium (Porcine) (Heparin Sq 5000 Unit/0.5ml) 5,000 unit Q8 SQ 04/07/17 06:00 05/07/17 05:59 04/07/17 13:17 5,000 UNIT Acetaminophen (Tylenol Tab) 650 mg Q4H PRN PO 04/07/17 01:15 05/07/17 01:14 04/07/17 11:23 650 MG Ondansetron HCl (Zofran Inj) 4 mg Q6H PRN IV 04/07/17 01:15 05/07/17 01:14 04/07/17 11:19 4 MG Nitroglycerin (Nitrostat Tab) 0.4 mg UD PRN SL 04/07/17 01:15 05/07/17 01:14 Polyethylene (Miralax Powder Packet) 17 gm DAILY PRN PO 04/07/17 01:15 05/07/17 01:14 04/07/17 08:09 17 GM Insulin Aspart (novoLOG ASPART) SLIDING SCALE If C... ACHS SC 04/07/17 07:00 05/07/17 06:59 04/07/17 13:17 5 UNITS Glucose (Glucose 40% Gel) 15-30 GRAMS 15 GRAMS... UD PRN PO 04/07/17 01:15 05/07/17 01:14 Glucose (Glucose Chew Tab) 4-8 Tablets 4 Tabl... UD PRN PO 04/07/17 01:15 05/07/17 01:14 Dextrose (Dextrose 50% 50ML Syringe) 25-50ML OF 50% DW IV FOR... UD PRN IV 04/07/17 01:15 05/07/17 01:14 Glucagon (Glucagon Inj) 1 mg UD PRN SQ 04/07/17 01:15 05/07/17 01:14 Carvedilol (Coreg Tab) 3.125 mg DAILY@1700 PO 04/07/17 17:00 05/07/17 16:59 Clopidogrel Bisulfate (plAVix TAB) 75 mg QPM PO 04/07/17 21:00 05/07/17 20:59 Acetaminophen/ Hydrocodone Bitart (Eva 5/325 Tab) 1 tab Q6 PRN PO 04/07/17 01:30 04/21/17 01:29 04/07/17 14:52 1 TAB Loperamide HCl (Imodium Cap) 2 mg Q2H PRN PO 04/07/17 01:30 05/07/17 01:29 Future Hold Loratadine (Claritin Tab) 10 mg QPM PO 04/07/17 21:00 05/07/17 20:59 Lorazepam (Ativan Tab) 0.5 mg HS PO 04/07/17 21:00 05/07/17 20:59 Lorazepam (Ativan Tab) 0.5 mg Q6H PRN PO 04/07/17 01:30 05/07/17 01:29 Vitamin B Complex/ Vit C/Folic Acid (Nephrocaps) 1 cap QPM PO 04/07/17 21:00 05/07/17 20:59 Ascorbic Acid (Vitamin C Tab) 500 mg BID PO 04/07/17 09:00 05/07/17 08:59 04/07/17 08:10 500 MG Ranitidine HCl (zANTac TAB) 75 mg HS PO 04/07/17 21:00 05/07/17 20:59 Levofloxacin (Consult) 1 ea DAILY PRN N/A 04/07/17 02:31 05/07/17 02:30 Albuterol/ Ipratropium (Duoneb) 3 ml Q4 PRN INH 04/07/17 01:30 05/07/17 01:29 Hydralazine HCl (HydrALAZINE INJ) 10 mg Q8 PRN IV. 04/07/17 05:15 05/07/17 05:14 04/07/17 08:19 10 MG Levofloxacin 500 mg/Prmx 100 ml @ 100 mls/hr Q48H IV 04/09/17 01:00 04/13/17 03:00 Gabapentin (Neurontin Cap) 100 mg HS PO 04/07/17 21:00 05/07/17 20:59 Latanoprost (Xalatan Oph Soln) 1 drops HS OP 04/07/17 21:00 05/07/17 20:59 Vitamin B Complex (Vitamin B Complex) 1 tab QAM PO 04/07/17 09:00 05/07/17 08:59 04/07/17 09:37 1 TAB Cholecalciferol (Vitamin D Tab) 1,000 inter.unit QAM PO 04/07/17 09:00 05/07/17 08:59 04/07/17 09:37 1,000 INTER.UNIT Midodrine (Proamatine Tab) 2.5 mg MoWeFr@0900 PO 04/08/17 09:00 05/08/17 08:59 Levothyroxine Sodium (Synthroid Tab) 25 mcg DAILYBB PO 04/08/17 06:00 05/08/17 05:59 Cefazolin Sodium 65 ml @ 100 mls/hr PREOP IV 04/08/17 06:00 04/08/17 18:00 Epoetin Augusto (Procrit Inj) 10,000 units ONE ONCE IV. 04/08/17 08:00 04/08/17 08:01 Heparin Sodium (Porcine) (No Heparin In Dialysis) 1 ea ONE ONCE N/A 04/08/17 08:00 04/08/17 08:01
[2017-04-08] VITALS (30 sets, daily range): BP systolic 78–203; BP diastolic 53–104; PULSE 71–101; TEMP 36.4–37; O2SAT 92–100
[2017-04-08 01:31] LABS: BUN/CREATININE RATIO 8.3 (10-20); CALCIUM 8.8 mg/dl (8.5-10.1); CREATININE 8.2 mg/dl (0.60-1.40); POTASSIUM 5.2 mmol/L (3.5-5.1)
[2017-04-08] MEDS: LEVOTHYROXINE 25 MCG TAB PO SCH ×2 (05:04→08:16)
[2017-04-08] MEDS: HEPARIN SOD 5000 UNIT/0.5 ML CARP SQ SCH ×3 (06:00→20:50)
[2017-04-08] MEDS ORDERED: CEFAZOLIN 3000 MG/65 ML D5W 65 ML IV SCH (06:00)
[2017-04-08 06:34] LABS: HEMATOCRIT 33.9 % (42-52); MEAN CELL VOLUME 101.2 fL (80-100); MEAN CORPUSCULAR HGB CONC 30.7 g/dl (32-36); MEAN PLATELET VOLUME 10.5 fL (7.4-10.4); PLATELET COUNT 201 K/uL (130-400); RED BLOOD COUNT 3.35 M/uL (4.7-6.1); WHITE BLOOD COUNT 7.73 K/uL (4.8-10.8)
[2017-04-08] MEDS: INSULIN ASPART 100 UNITS/ML 3 ML PEN SC SCH ×4 (07:00→21:04)
[2017-04-08 07:31] LABS: BUN/CREATININE RATIO 8.3 (10-20); CALCIUM 8.6 mg/dl (8.5-10.1); CREATININE 8.6 mg/dl (0.60-1.40); MAGNESIUM 2.8 mg/dl (1.8-2.4); POTASSIUM 6.2 mmol/L (3.5-5.1)
[2017-04-08] MEDS ORDERED: EPOETIN ALFA 10,000 UNITS/ML VIAL IV. ONE (08:00)
[2017-04-08] MEDS: HYDROCODONE/ACETAMOPHEN 5/325MG TAB PO PRN ×2 (08:11→15:53)
[2017-04-08] MEDS: VITAMIN B COMPLEX TAB PO SCH (08:14)
[2017-04-08] MEDS: CHOLECALCIFEROL 1000 INTER.UNIT TAB PO SCH (08:14)
[2017-04-08] MEDS: ASCORBIC ACID 500 MG TAB PO SCH ×2 (08:15→20:48)
[2017-04-08] MEDS: HydrALAZINE HCL 20 MG/ML VIAL IV. PRN (08:20)
[2017-04-08] MEDS ORDERED: MIDODRINE 2.5 MG TAB PO SCH (09:00)
--- NOTE | 2017-04-08 09:08 | Surgery Consultation ---
Consultation Date of Service Apr 08, 2017. (Saima Escamilla, ALFREDO) Chief Complaint thrombosed RUE AV graft (Saima Escamilla, ALFREDO) History of Present Illness The patient is a 61 year old male with multiple medical problems, including of ESRD on HD for past 3 yrs, known to Dr Mobley for prior RUE thrombectomy in 2014 , seen in consultation today for thrombosed AV graft. Pt states he arrived at HD on Sat and they were unable to access his AV graft, so he was sent to [facility]. Pt admits chronic SOB, but states cough slightly worse than usual. Denies SAHNI, fever, chills, chest pain, abd pain, N/V, rest pain, claudication, other complaints. States is able to lie flat for the procedure today. Hyperkalemia noted this AM at 6.2. (Saima Escamilla, ALFERDO) Vitals Vital Signs Past 12 Hours Date Time Temp Pulse Resp B/P (MAP) Pulse Ox O2 Delivery O2 Flow Rate FiO2 04/08/17 08:34 36.9 87 20 193/104 (133) 93 Nasal Cannula 3.0 04/08/17 08:09 36.6 84 20 198/82 (120) 92 Room Air 04/08/17 04:08 36.8 90 22 169/79 (109) 94 Nasal Cannula 3.0 04/08/17 04:00 Nasal Cannula 2.0 04/08/17 00:13 36.7 79 21 166/79 (108) 96 Nasal Cannula 3.0 04/08/17 00:01 Nasal Cannula 2.0 (Saima Escamilla, DARWINC) Allergies Coded Allergies: Sulfamethoxazole w/Trimethoprim (Verified Allergy, Intermediate, HIVES, 06/27) Latex (Verified Allergy, Mild, LEVEL 1, 03/22/16) Povidone Iodine (Verified Allergy, Unknown, FROM [facility] INFORMATION , 03/22/16) Sulfa Antibiotics (Unverified Allergy, Unknown, ., 04/06/17) PER [facility] Home Medications Scheduled Ascorbic Acid (Vitamin C), 500 MG PO BID Carvedilol (Coreg), 1 TAB PO DAILY@1700 Cholecalciferol (Vitamin D 1000 Unit), 2,000 INTER.UNIT PO UD Clopidogrel (Plavix), 75 MG PO QPM Loperamide Hcl (Imodium), 2 MG PO Q2H Loratadine (Claritin), 10 MG PO QPM Lorazepam (Ativan), 0.5 MG PO HS Ranitidine HCl (Ranitidine 75), 75 MG PO HS Vitamin B Cmplx/Vitc/Folic Ac (Nephrocaps), 1 CAP PO QPM Wound Dressings (Allevyn Adhesive), 1 PATCH TOP UD Wound Dressings (Allevyn Adhesive), 1 APPLN TOP UD Scheduled PRN Acetaminophen (Tylenol), 650 MG PO Q4 PRN for Pain or Fever Home O2 Therapy (Oxygen), 2 LITERS NA PRN PRN for Shortness of Breath Hydrocodone/Acetaminophen 5MG/325MG (Tarzan 5MG/325MG), 1 TABLET PO Q6 PRN for Pain Lorazepam (Ativan), 0.5 MG PO Q6H PRN for Anxiety Problem List Medical Problems: (1) Anemia of chronic renal failure (2) CAD (coronary artery disease) (3) Diabetes mellitus type 2 in obese (4) Diastolic heart failure (5) ESRD (end stage renal disease) (6) History of MRSA infection (7) HTN (hypertension) (8) Hypotensive (9) IBS (irritable bowel syndrome) (10) Liver cirrhosis (11) Obesity (BMI 30-39.9) (12) Urge incontinence Surgical Problems: (1) H/O cataract removal with insertion of prosthetic lens (2) History of left lower limb amputation (3) History of trabeculectomy (4) S/P CABG x 4 (Saima Escamilla PA-C) Surgical / Medical History Hx Cardiac Surgery: Yes (CABG X4) Hx Abdominal Surgery: No Hx Cancer Surgery: No Hx Thoracic Surgery: No Hx Orthopedic: Yes (LEFT BKA) Hx Urinary Tract Surgery: Yes (CYSTOSCOPY) Past Medical/Surgical History: Heart Disease, Hypertension, Kidney Disease (Saima Escamilla PA-C) Family History Diabetes mellitus Heart disease (Saima Escamilla PA-C) Diabetes mellitus Heart disease (Taras Mobley M.D.) Social History Smoking Status: Never Smoker Hx Tobacco Use In Past Year?: No Hx Alcohol Use - Type & Amnt: No Hx Substance Use -Type & Amnt: No (aSima Escamilla, PADilanC) Review of Systems Constitutional: No chills, No malaise Skin: No change in color Eyes: No visual changes ENMT: No sore throat Respiratory: + cough, + MCKEE, No hemoptysis, No orthopnea, No short of breath Cardiovascular: No chest pain, No palpitations, No syncope, No edema, No intermittent claudication Gastrointestinal: No abdominal pain, No nausea, No vomiting Neurologic: No dizziness, No headache, No numbness, No tingling (Saima Escamilla, PA-C) Physical Exam Constitutional: General Apperance: well-nourished, well-developed, obese (morbidly) Level of Distress: NAD, acutely ill, chronically ill Psychiatric: Mental Status: active & alert, normal mood, normal affect Orientation: oriented except where noted, to time, to place, to person Memory: recent memory normal, remote memory normal Head: normocephalic, atraumatic Eyes: EOM: EOMI ENMT: normal ENT inspection, hearing grossly normal Neck: supple, trachea midline Lungs: Respiratory effort: no dyspnea Auscultation: no wheezing, decreased breath sounds, wet rales/crackles (mild ) Cardiovascular: Apical Impulse: not displaced Heart Auscultation: no rubs, no gallops Peripheral Pulses: Pulses: full and equal, in all extremities except if noted Bruits: none appreciated Carotid Pulse: normal on the left, normal on the right Brachial Pulses: normal on the left, normal on the right, pertinent finding (no thrill/bruit over AV graft) Radial Pulse: normal on the left, normal on the right Femoral Pulse: normal on the left, normal on the right Posterior Tibialis Pulse: decreased on the left, decreased on the right Dorsalis Pedis Pulse: decreased on the left, decreased on the right Abdomen: Bowel Sounds: normal Inspection & Palpation: soft, non-distended, no tenderness, guarding & rebound Musculoskeletal: normal strength (5/5 throughout), normal tone Extremities: Upper Right: no cyanosis, no edema, no varicosities Upper Left: no cyanosis, no edema, no varicosities Lower Right: no cyanosis, no varicosities, no palpable cord, edema Lower Left: no cyanosis, no varicosities, no palpable cord, edema Neurologic: Cranial Nerves: grossly intact Sensation: grossly intact (Saima Escamilla, PA-C) Assessment and Plan ASSESSMENT and PLAN: THrombosed RUE AV graft ESRD on HD Pt for attempted RUE AV graft mechanical thrombectomy, possible permcath today. Procedure, risks, benefits, and alternatives discussed with pt, he expresses understanding and agreement. (Saima Escamilla, DARWINC) Patient was seen, examined, and chart reviewed. Agree with exam and treatment plan of the Vascular PA. Patient for mechanical thrombectomy, possible permcath insertion if needed. I have discussed the risks options and benefits of the procedure with the patient. The patient understands the risks options and benefits and agrees to the procedure. (Taras Mobley M.D.)
[2017-04-08] MEDS ORDERED: DEXTROSE 50% 50 ML SYR IV SCH (09:10)
[2017-04-08] MEDS ORDERED: INSULIN HUMAN REGULAR PER UNIT 10 UNITS in SYRINGE 9.9 ML IV SCH (09:15)
[2017-04-08] MEDS ORDERED: CALCIUM GLUCONATE 10% 1,000 MG in SODIUM CHLORIDE 0.9% 50ML 50 ML IV ONE (09:30)
[2017-04-08] MEDS ORDERED: CIMETIDINE 300 MG TAB PO ONE (10:00)
[2017-04-08] MEDS ORDERED: HYDROCORTISONE IV 100 MG in SYRINGE 0 ML IV ONE (10:00)
--- NOTE | 2017-04-08 10:07 | Procedure Note ---
Pre-Mod Sedation Assessment General Date of Moderate Sedation: Apr 08, 2017. Vital Signs: Vital Signs Past 12 Hours Date Time Temp Pulse Resp B/P (MAP) Pulse Ox O2 Delivery O2 Flow Rate FiO2 04/08/17 08:34 36.9 87 20 193/104 (133) 93 Nasal Cannula 3.0 04/08/17 08:09 36.6 84 20 198/82 (120) 92 Room Air 04/08/17 04:08 36.8 90 22 169/79 (109) 94 Nasal Cannula 3.0 04/08/17 04:00 Nasal Cannula 2.0 04/08/17 00:13 36.7 79 21 166/79 (108) 96 Nasal Cannula 3.0 04/08/17 00:01 Nasal Cannula 2.0 Pre-Sedation Airway Assessment Oral Cavity: Dental Abnormalities Smoking Status: Never Smoker Mallampati Classification: Class I ASA Classification: Class III Notes The planned sedation has been discussed with the patient and consent obtained. I have identified the patient, determined the appropriateness of sedation and have assessed the patient immediately prior to the procedure. All medicine(s) and interventions are by my order.
[2017-04-08] MEDS ORDERED: FENTANYL CITRATE INJ 50 MCG/1 ML 2 ML VIAL ONE (10:37)
[2017-04-08] MEDS ORDERED: MIDAZOLAM HCL 1 MG/ML 2ML VIAL ONE (10:37)
[2017-04-08] MEDS ORDERED: HEPARIN SOD (PORCINE) 5000 UNIT/ML 1 ML VIAL ONE (11:01)
[2017-04-08] MEDS ORDERED: ATROPINE SULFATE 0.1 MG/ML 10 ML SYR ONE (11:01)
[2017-04-08] MEDS ORDERED: LIDOCAINE HCL 1% 20 ML VIAL SQ ONE ×2 (11:46→11:59)
[2017-04-08] MEDS ORDERED: ORM MISCELLANEOUS MED XX ONE (12:45)
[2017-04-08] MEDS ORDERED: OPTIRAY 300 IV ONE (12:45)
--- NOTE | 2017-04-08 12:54 | [facility] Post Operative Brief Note ---
Immediate Operative Summary Operative Date Apr 08, 2017. Pre-Operative Diagnosis Thrombosed Fistula Post-Operative Diagnosis Same Procedure(s) Performed Right Upper Extremity Angiogram, Mechanical Thrombectomy, Percutaneous Transluminal Angioplasty and Stenting Of Peripheral Venous Surgeon Dr. Duffy Transitional Care Manager Surgeon(s) Shiva Grewal Estimated Blood Loss 50 ml Findings thrombosed graft with distal venous and intrastent stenosis Specimens none Anesthesia Local Complication(s) None Disposition
--- NOTE | 2017-04-08 13:02 | [facility] Operative Report ---
Operative Report Operative Date Apr 08, 2017. Pre-Operative Diagnosis Thrombosed Fistula Post-Operative Diagnosis Same Procedure(s) Performed Right Upper Extremity Angiogram, Mechanical Thrombectomy, Percutaneous Transluminal Angioplasty and Stenting Of Peripheral Venous Surgeon Dr. Mobley Community Relations Rep Surgeon(s) Shiva Morrissey Fellow Estimated Blood Loss 50 ml Findings Patient had a thrombosed right upper extremity AV graft. Patient had a patent arterial to graft and a stenosis. At the end of the case the patient had a good thrill with a patent graft. Contrast dose 95 mL Radiation dose 80 mGy Fluoroscopy time 11.9 minutes Specimens none Complication(s) None Disposition Recovery Room / PACU Indications 61 year old male with multiple medical problems, including of ESRD on HD for past 3 yrs, known to Dr Mobley for prior RUE thrombectomy in 2015, seen in consultation today for thrombosed AV graft. Pt states he arrived at HD on Sat and they were unable to access his AV graft, so he was sent to [facility]. Pt admits chronic SOB, but states cough slightly worse than usual. Denies SAHNI, fever, chills, chest pain, abd pain, N/V, rest pain, claudication, other complaints. Description of Procedure Patient was brought the operating room and positioned on the operating table in the supine position. Right upper extremity was extended and prepped and draped in a sterile fashion left upper extremity was stuck to the side of the patient. Local anesthetic was injected on the skin over the fistula an access needle was used to access the AV a wire was advanced and a 6 Tajik sheath was advanced over the wire. A fistulogram was then completed showing a thrombosed AV graft. An angled Glidewire was then advanced across the graft in into the upper arm. The AngioJet was then advanced over the wire and positioned at the distal end of the fistula. The AngioJet was then turned on and with a slow pulled back fluoroscopic images were obtained to confirm the position of the wire as well as the speed of the pulled back the AngioJet. A confirmatory fistulogram was then completed showing improved flow. A second access of the AV graft was then completed looking retrograded at the arterial and a stenosis. 1% lidocaine was injected under the skin and above the AV graft and access needle was used to access the graft and a wire was then advanced. A 6 Tajik sheath short was then advanced over the wire and a fistulogram was completed. The AngioJet was then advanced over the wire to the arterial and a stenosis and slow pulled back was completed. A follow-up and fistulogram showed a patent brachial artery with a patent arterial and a stenosis. Attention was then turned to the AV fistula distal and the site of the prior stent where it had an area of stenosis. A fistulogram was completed showing no flow through the AV fistula with suspicion of it being thrombosed once again. AngioJet was then advanced over the wire and a second run of AngioJet was completed. A follow-up fistulogram showed a patent fistula with areas of stenosis just at the distal end of the prior stent. A 8 x 60 mm Jasper balloon was then advanced and multiple angioplasties were carried out. A follow-up fistulogram still showed areas of stenosis at the distal end of the stent. The 6 Tajik sheath was then exchanged for a 9 Tajik sheath and a 9 x 40 mm flared stent was then advanced retirement through the prior stent extending centrally and was deployed. Then a 14 x 30 mm protg stent was then deployed. This was followed by a 12 x 60 mm protg stent across the stents bridging all of them and to one-piece. A 14 x 20 mm Jasper balloon was then advanced and angioplasty of the stents was completed. A completion fistulogram showed a patent AV graft and patent stents with good outflow. The sheath and wire were pulled and gentle pressure was held until hemostasis was achieved. At the end of the case the patient had a good thrill and his arm. Dr. Mobley was present and scrubbed for the entirety of the case. I, Dr. Mobley was present and scrubbed for the entire procedure. I attest to the content of the Intraoperative Record and any orders documented therein. Any exceptions are noted below.
--- NOTE | 2017-04-08 15:17 | Dialysis Progress Note ---
Nephrology Dialysis Note Date of Service: Apr 08, 2017. Subjective 61 yo male seen on dialysis. had declot this morning of his access. blood flow of 270 currently. last dialysis was last saturday. pt awake and following commands. Objective Date Time Temp Pulse Resp B/P (MAP) Pulse Ox O2 Delivery O2 Flow Rate FiO2 04/08/17 14:30 36.7 71 20 180/84 (116) 100 Oxymask 15.0 04/08/17 14:15 74 22 137/71 (93) 98 Oxymask 15.0 04/08/17 14:00 36.8 74 22 121/70 (87) 97 Oxymask 15.0 04/08/17 13:45 72 22 123/70 (87) 96 Oxymask 15.0 04/08/17 13:30 36.8 72 22 111/60 (77) 97 Oxymask 15.0 04/08/17 10:03 36.6 20 198/82 92 Nasal Cannula 2.0 04/08/17 08:34 36.9 87 20 193/104 (133) 93 Nasal Cannula 3.0 04/08/17 08:09 36.6 84 20 198/82 (120) 92 Room Air 04/08/17 04:08 36.8 90 22 169/79 (109) 94 Nasal Cannula 3.0 04/08/17 04:00 Nasal Cannula 2.0 04/08/17 00:13 36.7 79 21 166/79 (108) 96 Nasal Cannula 3.0 04/08/17 00:01 Nasal Cannula 2.0 04/07/17 20:00 Nasal Cannula 2.0 04/07/17 19:06 36.8 74 24 192/86 (121) 95 Nasal Cannula 3.0 04/07/17 16:00 Nasal Cannula 2.0 04/07/17 15:16 36.4 81 19 169/69 (102) 96 Nasal Cannula 3.0 Physical Exam: General-aaox3 Eyes-no scleral icterus ENT-mmm, no teeth-recently removed Neck-supple Lungs-decreased at bases Heart-rrr Abdomen-bs+ s/nt/nd Extremities-+1 edema, right bka Neuro-nonfocal Current Inpatient Medications Medications (Trade) Dose Ordered Sig/Nicole Route Start Time Stop Time Status Last Admin Dose Admin Heparin Sodium (Porcine) (Heparin Sq 5000 Unit/0.5ml) 5,000 unit Q8 SQ 04/07/17 06:00 05/07/17 05:59 04/07/17 20:38 5,000 UNIT Acetaminophen (Tylenol Tab) 650 mg Q4H PRN PO 04/07/17 01:15 05/07/17 01:14 04/07/17 11:23 650 MG Ondansetron HCl (Zofran Inj) 4 mg Q6H PRN IV 04/07/17 01:15 05/07/17 01:14 04/07/17 11:19 4 MG Nitroglycerin (Nitrostat Tab) 0.4 mg UD PRN SL 04/07/17 01:15 05/07/17 01:14 Polyethylene (Miralax Powder Packet) 17 gm DAILY PRN PO 04/07/17 01:15 05/07/17 01:14 04/07/17 08:09 17 GM Insulin Aspart (novoLOG ASPART) SLIDING SCALE If C... ACHS SC 04/07/17 07:00 05/07/17 06:59 04/07/17 18:05 3 UNITS Glucose (Glucose 40% Gel) 15-30 GRAMS 15 GRAMS... UD PRN PO 04/07/17 01:15 05/07/17 01:14 Glucose (Glucose Chew Tab) 4-8 Tablets 4 Tabl... UD PRN PO 04/07/17 01:15 05/07/17 01:14 Dextrose (Dextrose 50% 50ML Syringe) 25-50ML OF 50% DW IV FOR... UD PRN IV 04/07/17 01:15 05/07/17 01:14 Glucagon (Glucagon Inj) 1 mg UD PRN SQ 04/07/17 01:15 05/07/17 01:14 Carvedilol (Coreg Tab) 3.125 mg DAILY@1700 PO 04/07/17 17:00 05/07/17 16:59 04/07/17 18:01 3.125 MG Clopidogrel Bisulfate (plAVix TAB) 75 mg QPM PO 04/07/17 21:00 05/07/17 20:59 04/07/17 20:24 75 MG Acetaminophen/ Hydrocodone Bitart ([place] 5/325 Tab) 1 tab Q6 PRN PO 04/07/17 01:30 9/10/17 01:29 04/08/17 08:11 1 TAB Loratadine (Claritin Tab) 10 mg QPM PO 04/07/17 21:00 05/07/17 20:59 04/07/17 20:24 10 MG Lorazepam (Ativan Tab) 0.5 mg HS PO 04/07/17 21:00 05/07/17 20:59 04/07/17 20:26 0.5 MG Lorazepam (Ativan Tab) 0.5 mg Q6H PRN PO 04/07/17 01:30 05/07/17 01:29 04/08/17 08:19 0.5 MG Vitamin B Complex/ Vit C/Folic Acid (Nephrocaps) 1 cap QPM PO 04/07/17 21:00 05/07/17 20:59 04/07/17 20:24 1 CAP Ascorbic Acid (Vitamin C Tab) 500 mg BID PO 04/07/17 09:00 05/07/17 08:59 04/08/17 08:15 500 MG Ranitidine HCl (zANTac TAB) 75 mg HS PO 04/07/17 21:00 05/07/17 20:59 04/07/17 20:24 75 MG Levofloxacin (Consult) 1 ea DAILY PRN N/A 04/07/17 02:31 05/07/17 02:30 Albuterol/ Ipratropium (Duoneb) 3 ml Q4 PRN INH 04/07/17 01:30 05/07/17 01:29 Hydralazine HCl (HydrALAZINE INJ) 10 mg Q8 PRN IV. 04/07/17 05:15 05/07/17 05:14 04/08/17 08:20 10 MG Levofloxacin 500 mg/Prmx 100 ml @ 100 mls/hr Q48H IV 04/09/17 01:00 04/13/17 03:00 Gabapentin (Neurontin Cap) 100 mg HS PO 04/07/17 21:00 05/07/17 20:59 04/07/17 20:22 100 MG Latanoprost (Xalatan Oph Soln) 1 drops HS OP 04/07/17 21:00 05/07/17 20:59 04/07/17 20:23 1 DROPS Vitamin B Complex (Vitamin B Complex) 1 tab QAM PO 04/07/17 09:00 05/07/17 08:59 04/08/17 08:14 1 TAB Cholecalciferol (Vitamin D Tab) 1,000 inter.unit QAM PO 04/07/17 09:00 05/07/17 08:59 04/08/17 08:14 1,000 INTER.UNIT Midodrine (Proamatine Tab) 2.5 mg MoWeFr@0900 PO 04/08/17 09:00 05/08/17 08:59 Future Hold 04/08/17 08:15 2.5 MG Levothyroxine Sodium (Synthroid Tab) 25 mcg DAILYBB PO 04/08/17 06:00 05/08/17 05:59 04/08/17 08:16 25 MCG Last 24 Hours Test 04/07/17 16:17 04/07/17 19:56 04/07/17 20:35 04/08/17 00:21 Bedside Glucose 92 mg/dl 124 mg/dl Sodium Level 131 mmol/L 132 mmol/L Potassium Level 5.8 mmol/L 5.2 mmol/L Chloride Level 93 mmol/L 94 mmol/L Carbon Dioxide Level 29 mmol/L 26 mmol/L Anion Gap 9.0 mmol/L 12.0 mmol/L Blood Urea Nitrogen 71 mg/dl 68 mg/dl Creatinine 8.30 mg/dl 8.20 mg/dl Est Creatinine Clear Calc Drug Dose 13.4 ml/min 13.5 ml/min Estimated GFR () 7.2 7.3 Estimated GFR (Non- 6.2 6.3 BUN/Creatinine Ratio 8.5 8.3 Random Glucose 121 mg/dl 51 mg/dl Calcium Level 8.3 mg/dl 8.8 mg/dl Test 04/08/17 06:06 04/08/17 06:48 White Blood Count 7.73 K/uL Red Blood Count 3.35 M/uL Hemoglobin 10.4 g/dL Hematocrit 33.9 % Mean Corpuscular Volume 101.2 fL Mean Corpuscular Hemoglobin 31.0 pg Mean Corpuscular Hemoglobin Concent 30.7 g/dl RDW Standard Deviation 55.2 fL RDW Coefficient of Variation 15.1 % Platelet Count 201 K/uL Mean Platelet Volume 10.5 fL Sodium Level 131 mmol/L Potassium Level 6.2 mmol/L Chloride Level 92 mmol/L Carbon Dioxide Level 26 mmol/L Anion Gap 11.0 mmol/L Blood Urea Nitrogen 72 mg/dl Creatinine 8.60 mg/dl Est Creatinine Clear Calc Drug Dose 12.9 ml/min Estimated GFR () 6.9 Estimated GFR (Non- 5.9 BUN/Creatinine Ratio 8.3 Random Glucose 86 mg/dl Calcium Level 8.6 mg/dl Magnesium Level 2.8 mg/dl Chemistry Specimen Hemolysis Bedside Glucose 92 mg/dl Assessment & Plan ESRD-seen on dialysis, 2k bath, 3 liter uf as bp tolerates. plan on dialysis again tomorrow to help with electrolytes and clearance of toxins and volume status. access working well with recent declot today.
[2017-04-08] MEDS: CARVEDILOL 3.125 MG TAB PO SCH (17:00)
[2017-04-08] MEDS: GABAPENTIN 100 MG CAP PO SCH (20:48)
[2017-04-08] MEDS: RANITIDINE HCL 150 MG TAB PO SCH (20:48)
[2017-04-08] MEDS: CLOPIDOGREL BISULFATE 75 MG TAB PO SCH (20:48)
[2017-04-08] MEDS: NEPHROCAPS PO SCH (20:48)
[2017-04-08] MEDS: LATANOPROST 0.005% OP SOLN 2.5 ML BTL OP SCH (20:48)
[2017-04-08] MEDS: LORATADINE 10 MG TAB PO SCH (20:48)
[2017-04-08] MEDS: LORAZEPAM 0.5 MG TAB PO SCH (20:50)
[2017-04-09] VITALS (23 sets, daily range): BP systolic 101–172; BP diastolic 39–83; PULSE 65–80; TEMP 36.3–36.9; O2SAT 94–97
--- NOTE | 2017-04-09 | Progress Note ---
Medicine Progress Note Date & Time of Visit: Apr 08, 2017 at 14:20. Subjective tolerating PO lethargic but is post-op and undergoing HD at this time doesn't want anyone but wound care to evaluate his leg wound. denies fevers/chills overnight large BM this morning Objective Last 8 Hrs Date Time Temp Pulse Resp B/P (MAP) Pulse Ox O2 Delivery O2 Flow Rate FiO2 04/08/17 13:45 72 22 123/70 (87) 96 Oxymask 15.0 04/08/17 13:30 36.8 72 22 111/60 (77) 97 Oxymask 15.0 04/08/17 10:03 36.6 20 198/82 92 Nasal Cannula 2.0 04/08/17 08:34 36.9 87 20 193/104 (133) 93 Nasal Cannula 3.0 04/08/17 08:09 36.6 84 20 198/82 (120) 92 Room Air Physical Exam: GEN: obese, in no acute distress, very fatigued on HD post-op. Able to wake up and respond appropriately HEENT: NC/AT, normal sclerae, MMM CARDIO: reg rate, S1/2 heard without m/g/r, no edema LUNGS: CTA bilaterally, no crackles, rales or wheezes, good diaphragmatic excursion ABD: soft, non-tender, non-distended, no rebound or guarding, +BS, protuberant EXTREMITY: WWP, RUE (active fistula) unable to palpate as fistula was accessed. LUE (inactive fistula) with no palpable thrill, LLE AKA, RLE with LE unaboot in place over chronic superficial ulceration. NEURO: CN 2-12 gross intact MUSC: 5/5 strength throughout, no gross focal deficits SKIN: warm and dry Laboratory Results: 04/08/17 06:06 04/08/17 06:06 Test 04/06/17 23:17 04/06/17 23:25 04/07/17 07:35 04/08/17 06:06 Phosphorus Level 5.1 mg/dl (2.5-4.9) Total Bilirubin 0.5 mg/dl (0.2-1) Aspartate Amino Transf (AST/SGOT) 18 U/L (15-37) Alanine Aminotransferase (ALT/SGPT) 20 U/L (12-78) Alkaline Phosphatase 105 U/L (45-117) Total Creatine Kinase 89 U/L (39-308) Creatine Kinase MB 2.7 ng/ml (0.5-3.6) Creatine Kinase MB Ratio 3.0 (0-3.0) Troponin I 0.031 ng/ml (0-0.045) C-Reactive Protein 6.50 mg/dl (0-0.29) Pro-B-Type Natriuretic Peptide 71397 pg/ml (0-900) Total Protein 6.8 gm/dl (6.4-8.2) Albumin 3.3 gm/dl (3.4-5.0) Globulin 3.5 gm/dl (2.5-4.0) Albumin/Globulin Ratio 0.9 (0.9-2) Lipase 70 U/L (73-393) Immature Granulocyte % (Auto) 0.6 % White Blood Count 9.89 K/uL (4.8-10.8) Red Blood Count 3.26 M/uL (4.7-6.1) 3.35 M/uL (4.7-6.1) Hemoglobin 10.3 g/dL (14.0-18.0) Hematocrit 32.4 % (42-52) Mean Corpuscular Volume 99.4 fL (80-100) 101.2 fL (80-100) Mean Corpuscular Hemoglobin 31.6 pg (25-34) 31.0 pg (25-34) Mean Corpuscular Hemoglobin Concent 31.8 g/dl (32-36) 30.7 g/dl (32-36) Platelet Count 179 K/uL (130-400) Mean Platelet Volume 10.8 fL (7.4-10.4) 10.5 fL (7.4-10.4) Neutrophils (%) (Auto) 79.0 % Lymphocytes (%) (Auto) 4.8 % Monocytes (%) (Auto) 10.8 % Eosinophils (%) (Auto) 4.4 % Basophils (%) (Auto) 0.4 % Neutrophils # (Auto) 7.81 K/uL (1.4-6.5) Lymphocytes # (Auto) 0.47 K/uL (1.2-3.4) Monocytes # (Auto) 1.07 K/uL (0.11-0.59) Eosinophils # (Auto) 0.44 K/uL (0-0.5) Basophils # (Auto) 0.04 K/uL (0-0.2) Immature Granulocyte # (Auto) 0.06 K/uL (0.00-0.02) Erythrocyte Sedimentation Rate 33 mm/hr (0-14) Prothrombin Time 10.5 SECONDS (9.0-12.0) Prothromb Time International Ratio 1.0 (0.9-1.1) Activated Partial Thromboplast Time 30.1 SECONDS (21.0-31.0) Partial Thromboplastin Ratio 1.2 Venous Blood pH 7.37 (7.36-7.41) Venous Blood Partial Pressure CO2 50 mmHg (38.0-50.0) Venous Blood Partial Pressure O2 38 mmHg Venous Blood HCO3 29 mmol/L Venous Blood Oxygen Saturation 68.5 % Venous Blood Base Excess 2.8 mEq/L Thyroid Stimulating Hormone (TSH) 1.750 uIu/ml (0.300-4.500) RDW Standard Deviation 55.2 fL (36.4-46.3) RDW Coefficient of Variation 15.1 % (11.5-14.5) Anion Gap 11.0 mmol/L (3-11) Est Creatinine Clear Calc Drug Dose 12.9 ml/min Estimated GFR () 6.9 Estimated GFR (Non- 5.9 BUN/Creatinine Ratio 8.3 (10-20) Calcium Level 8.6 mg/dl (8.5-10.1) Magnesium Level 2.8 mg/dl (1.8-2.4) Chemistry Specimen Hemolysis Test 04/08/17 20:57 Bedside Glucose 213 mg/dl (70-99) Date/Time Source Procedure Growth Status 04/06/17 23:27 Blood Blood Culture - Preliminary NO GROWTH TO DATE. Resulted 04/07/17 02:30 Nasal MRSA DNA Surveillance Screen - Final Specimen Negative for MRSA by DNA Probe Complete 04/07/17 09:25 Sputum Expectorated Sputum Gram Stain - Final Resulted 04/07/17 09:25 Sputum Expectorated Sputum Sputum Culture - Preliminary LIGHT NORMAL RUTHANN Present, Final Rep... Resulted Last 24 Hours Test 04/07/17 16:17 04/07/17 19:56 04/07/17 20:35 04/08/17 00:21 Bedside Glucose 92 mg/dl 124 mg/dl Sodium Level 131 mmol/L 132 mmol/L Potassium Level 5.8 mmol/L 5.2 mmol/L Chloride Level 93 mmol/L 94 mmol/L Carbon Dioxide Level 29 mmol/L 26 mmol/L Anion Gap 9.0 mmol/L 12.0 mmol/L Blood Urea Nitrogen 71 mg/dl 68 mg/dl Creatinine 8.30 mg/dl 8.20 mg/dl Est Creatinine Clear Calc Drug Dose 13.4 ml/min 13.5 ml/min Estimated GFR () 7.2 7.3 Estimated GFR (Non- 6.2 6.3 BUN/Creatinine Ratio 8.5 8.3 Random Glucose 121 mg/dl 51 mg/dl Calcium Level 8.3 mg/dl 8.8 mg/dl Test 04/08/17 06:06 04/08/17 06:48 White Blood Count 7.73 K/uL Red Blood Count 3.35 M/uL Hemoglobin 10.4 g/dL Hematocrit 33.9 % Mean Corpuscular Volume 101.2 fL Mean Corpuscular Hemoglobin 31.0 pg Mean Corpuscular Hemoglobin Concent 30.7 g/dl RDW Standard Deviation 55.2 fL RDW Coefficient of Variation 15.1 % Platelet Count 201 K/uL Mean Platelet Volume 10.5 fL Sodium Level 131 mmol/L Potassium Level 6.2 mmol/L Chloride Level 92 mmol/L Carbon Dioxide Level 26 mmol/L Anion Gap 11.0 mmol/L Blood Urea Nitrogen 72 mg/dl Creatinine 8.60 mg/dl Est Creatinine Clear Calc Drug Dose 12.9 ml/min Estimated GFR () 6.9 Estimated GFR (Non- 5.9 BUN/Creatinine Ratio 8.3 Random Glucose 86 mg/dl Calcium Level 8.6 mg/dl Magnesium Level 2.8 mg/dl Chemistry Specimen Hemolysis Bedside Glucose 92 mg/dl Assessment & Plan 61 yo M who lives in a longterm presents with pneumonia, too sick to get to dialysis and found to have fistula clotted off in ER. Vascular Surgery consulted to open fistula and/or place temporary HD catheter. Received procedure today and undergoing dialysis at this time. Had large BM this morning and received temporizing measures preop for K 6.2. Case discussed with Nephro this morning. 1. HCAP-improving on Levaquin as monotherapy. Afebrile and feeling better. Hypoxia still present but not worsening. Cont Levaquin. Blood cultures pending. 2. Hyperkalemia 2/2 chronic renal failure-insulin and D50 with Lactulose given for temporizing measures until HD can be completed. 3. clotted fistula-Vascular Surgery consulted and plans to open this up in am. 4. ESRD-missed dialysis recently and needs dialysis R[facility] once access achieved. Nephrology is aware, 5. Acute on chronic diastolic dysfunction-plan to manage fluid with HD and ultrafiltrate. 6. Hypertensive urgency-required IV hydralazine. Pt is not feeling well. Cont Coreg and PRN hydralazine at this time. 7. DMII-ISS/Glargine 8. Peripheral vascular disease-cont medical management. Notably not on statin, will discuss with patient. 9. Chronic venous stasis ulcer of RLE-follows with wound clinic, recently treated with cefalexin, wound care consulted. 10. Anemia-likely 2/2 ESRD 11. Obesity DVT proph-heparin FULL CODE Dispo-return to [facility] when medically stable. DO [facility] Hospital[facility] Consultants: Vascular Surg-[facility] Nephrology-[place] Current Inpatient Medications: Current Inpatient Medications Medications (Trade) Dose Ordered Sig/Nicole Route Start Time Stop Time Status Last Admin Dose Admin Heparin Sodium (Porcine) (Heparin Sq 5000 Unit/0.5ml) 5,000 unit Q8 SQ 04/07/17 06:00 05/07/17 05:59 04/07/17 20:38 5,000 UNIT Acetaminophen (Tylenol Tab) 650 mg Q4H PRN PO 04/07/17 01:15 05/07/17 01:14 04/07/17 11:23 650 MG Ondansetron HCl (Zofran Inj) 4 mg Q6H PRN IV 04/07/17 01:15 05/07/17 01:14 04/07/17 11:19 4 MG Nitroglycerin (Nitrostat Tab) 0.4 mg UD PRN SL 04/07/17 01:15 05/07/17 01:14 Polyethylene (Miralax Powder Packet) 17 gm DAILY PRN PO 04/07/17 01:15 05/07/17 01:14 04/07/17 08:09 17 GM Insulin Aspart (novoLOG ASPART) SLIDING SCALE If C... ACHS SC 04/07/17 07:00 05/07/17 06:59 04/07/17 18:05 3 UNITS Glucose (Glucose 40% Gel) 15-30 GRAMS 15 GRAMS... UD PRN PO 04/07/17 01:15 05/07/17 01:14 Glucose (Glucose Chew Tab) 4-8 Tablets 4 Tabl... UD PRN PO 04/07/17 01:15 05/07/17 01:14 Dextrose (Dextrose 50% 50ML Syringe) 25-50ML OF 50% DW IV FOR... UD PRN IV 04/07/17 01:15 05/07/17 01:14 Glucagon (Glucagon Inj) 1 mg UD PRN SQ 04/07/17 01:15 05/07/17 01:14 Carvedilol (Coreg Tab) 3.125 mg DAILY@1700 PO 04/07/17 17:00 05/07/17 16:59 04/07/17 18:01 3.125 MG Clopidogrel Bisulfate (plAVix TAB) 75 mg QPM PO 04/07/17 21:00 05/07/17 20:59 04/07/17 20:24 75 MG Acetaminophen/ Hydrocodone Bitart ([place] 5/325 Tab) 1 tab Q6 PRN PO 04/07/17 01:30 04/21/17 01:29 04/08/17 08:11 1 TAB Loratadine (Claritin Tab) 10 mg QPM PO 04/07/17 21:00 05/07/17 20:59 04/07/17 20:24 10 MG Lorazepam (Ativan Tab) 0.5 mg HS PO 04/07/17 21:00 05/07/17 20:59 04/07/17 20:26 0.5 MG Lorazepam (Ativan Tab) 0.5 mg Q6H PRN PO 04/07/17 01:30 05/07/17 01:29 04/08/17 08:19 0.5 MG Vitamin B Complex/ Vit C/Folic Acid (Nephrocaps) 1 cap QPM PO 04/07/17 21:00 05/07/17 20:59 04/07/17 20:24 1 CAP Ascorbic Acid (Vitamin C Tab) 500 mg BID PO 04/07/17 09:00 05/07/17 08:59 04/08/17 08:15 500 MG Ranitidine HCl (zANTac TAB) 75 mg HS PO 04/07/17 21:00 05/07/17 20:59 04/07/17 20:24 75 MG Levofloxacin (Consult) 1 ea DAILY PRN N/A 04/07/17 02:31 05/07/17 02:30 Albuterol/ Ipratropium (Duoneb) 3 ml Q4 PRN INH 04/07/17 01:30 05/07/17 01:29 Hydralazine HCl (HydrALAZINE INJ) 10 mg Q8 PRN IV. 04/07/17 05:15 05/07/17 05:14 04/08/17 08:20 10 MG Levofloxacin 500 mg/Prmx 100 ml @ 100 mls/hr Q48H IV 04/09/17 01:00 04/13/17 03:00 Gabapentin (Neurontin Cap) 100 mg HS PO 04/07/17 21:00 05/07/17 20:59 04/07/17 20:22 100 MG Latanoprost (Xalatan Oph Soln) 1 drops HS OP 04/07/17 21:00 05/07/17 20:59 04/07/17 20:23 1 DROPS Vitamin B Complex (Vitamin B Complex) 1 tab QAM PO 04/07/17 09:00 05/07/17 08:59 04/08/17 08:14 1 TAB Cholecalciferol (Vitamin D Tab) 1,000 inter.unit QAM PO 04/07/17 09:00 05/07/17 08:59 04/08/17 08:14 1,000 INTER.UNIT Midodrine (Proamatine Tab) 2.5 mg MoWeFr@0900 PO 04/08/17 09:00 05/08/17 08:59 Future Hold 04/08/17 08:15 2.5 MG Levothyroxine Sodium (Synthroid Tab) 25 mcg DAILYBB PO 04/08/17 06:00 05/08/17 05:59 04/08/17 08:16 25 MCG
[2017-04-09 00:48] LABS: BASO % 0.2 %; BASO ABS # 0.02 K/uL (0-0.2); COMPLETE YES; HEMATOCRIT 29.1 % (42-52); IG% 0.4 %; LYMPH % 5.1 %; LYMPH ABS # 0.49 K/uL (1.2-3.4); MEAN CELL VOLUME 100.3 fL (80-100); MEAN CORPUSCULAR HEMOGLOBIN 32.1 pg (25-34); MEAN PLATELET VOLUME 10.3 fL (7.4-10.4); MONO % 13.6 %; NEUT % 80.7 %; PLATELET COUNT 186 K/uL (130-400); WHITE BLOOD COUNT 9.55 K/uL (4.8-10.8)
[2017-04-09] MEDS ORDERED: LEVOFLOXACIN 500MG / D5W IV SCH (01:00)
[2017-04-09 01:20] LABS: BUN/CREATININE RATIO 7.2 (10-20); CALCIUM 7.8 mg/dl (8.5-10.1); MAGNESIUM 2.5 mg/dl (1.8-2.4)
[2017-04-09 01:21] LABS: POTASSIUM 4.5 mmol/L (3.5-5.1)
[2017-04-09] MEDS: HEPARIN SOD 5000 UNIT/0.5 ML CARP SQ SCH ×3 (06:03→22:20)
[2017-04-09] MEDS ORDERED: EPOETIN ALFA 10,000 UNITS/ML VIAL IV. SCH (08:00)
--- NOTE | 2017-04-09 09:30 | Progress Note ---
Progress Note Date of Service Apr 09, 2017. Progress Note 61 yo m with multiple medical problems, POD#1 after RUE thrombectomy and [employer]/ stent of AVF, seen in f/u today. Per pt, AVF was utilized for HD yesterday without problems. Denies any complaints. AVF with excellent thrill/bruit. Please call if needed.
[2017-04-09] MEDS: INSULIN ASPART 100 UNITS/ML 3 ML PEN SC SCH ×4 (10:11→22:20)
--- NOTE | 2017-04-09 16:05 | Nephrology Progress Note ---
Nephrology Progress Note Date of Service: Apr 09, 2017. Subjective 61 yo male who underwent dialysis yesterday successfully and is going to start dialysis soon this afternoon. pt inquiring about going home today. pt feels much better. Objective Date Time Temp Pulse Resp B/P (MAP) Pulse Ox O2 Delivery O2 Flow Rate FiO2 04/09/17 15:00 69 18 152/79 (103) 97 Nasal Cannula 4.0 04/09/17 13:20 36.4 76 16 114/65 (81) 97 Nasal Cannula 4.0 04/09/17 07:40 Nasal Cannula 4.0 04/09/17 07:10 36.6 70 16 130/64 (86) 97 Room Air 04/09/17 02:44 36.9 74 145/72 (96) 94 Nasal Cannula 4.0 04/09/17 02:40 96 Nasal Cannula 4.0 04/09/17 02:26 36.4 80 21 96 4.0 04/09/17 00:00 Nasal Cannula 4.0 04/08/17 23:58 80 21 156/83 (107) Nasal Cannula 3.0 04/08/17 20:00 Nasal Cannula 4.0 04/08/17 19:21 36.4 101 18 78/53 (61) 96 Nasal Cannula 4.0 04/08/17 18:55 36.7 89 22 126/71 (89) 93 Nasal Cannula 4.0 04/08/17 18:00 83 145/70 04/08/17 17:45 84 125/72 04/08/17 17:30 84 145/75 04/08/17 17:15 82 127/69 04/08/17 17:00 83 129/74 04/08/17 16:45 85 121/69 04/08/17 16:30 84 125/68 04/08/17 16:15 85 126/66 Physical Exam: General-aaox3 Eyes-no scleral icterus ENT-mmm, no teeth-recently removed Neck-supple Lungs-cta Heart-regular Abdomen-bs+ s/nt/nd Extremities-no edema, right bka, left leg wrapped Neuro-nonfocal Access-good bruit and thrill Current Inpatient Medications Medications (Trade) Dose Ordered Sig/Nicole Route Start Time Stop Time Status Last Admin Dose Admin Heparin Sodium (Porcine) (Heparin Sq 5000 Unit/0.5ml) 5,000 unit Q8 SQ 04/07/17 06:00 05/07/17 05:59 04/09/17 06:03 5,000 UNIT Acetaminophen (Tylenol Tab) 650 mg Q4H PRN PO 04/07/17 01:15 05/07/17 01:14 04/07/17 11:23 650 MG Ondansetron HCl (Zofran Inj) 4 mg Q6H PRN IV 04/07/17 01:15 05/07/17 01:14 04/07/17 11:19 4 MG Nitroglycerin (Nitrostat Tab) 0.4 mg UD PRN SL 04/07/17 01:15 05/07/17 01:14 Polyethylene (Miralax Powder Packet) 17 gm DAILY PRN PO 04/07/17 01:15 05/07/17 01:14 04/07/17 08:09 17 GM Insulin Aspart (novoLOG ASPART) SLIDING SCALE If C... ACHS SC 04/07/17 07:00 05/07/17 06:59 04/09/17 12:58 3 UNITS Glucose (Glucose 40% Gel) 15-30 GRAMS 15 GRAMS... UD PRN PO 04/07/17 01:15 05/07/17 01:14 Glucose (Glucose Chew Tab) 4-8 Tablets 4 Tabl... UD PRN PO 04/07/17 01:15 05/07/17 01:14 Dextrose (Dextrose 50% 50ML Syringe) 25-50ML OF 50% DW IV FOR... UD PRN IV 04/07/17 01:15 05/07/17 01:14 Glucagon (Glucagon Inj) 1 mg UD PRN SQ 04/07/17 01:15 05/07/17 01:14 Carvedilol (Coreg Tab) 3.125 mg DAILY@1700 PO 04/07/17 17:00 05/07/17 16:59 04/07/17 18:01 3.125 MG Clopidogrel Bisulfate (plAVix TAB) 75 mg QPM PO 04/07/17 21:00 05/07/17 20:59 04/08/17 20:48 75 MG Acetaminophen/ Hydrocodone Bitart ([place] 5/325 Tab) 1 tab Q6 PRN PO 04/07/17 01:30 04/21/17 01:29 04/08/17 15:53 1 TAB Loratadine (Claritin Tab) 10 mg QPM PO 04/07/17 21:00 05/07/17 20:59 04/08/17 20:48 10 MG Lorazepam (Ativan Tab) 0.5 mg HS PO 04/07/17 21:00 05/07/17 20:59 04/08/17 20:50 0.5 MG Lorazepam (Ativan Tab) 0.5 mg Q6H PRN PO 04/07/17 01:30 05/07/17 01:29 04/08/17 08:19 0.5 MG Vitamin B Complex/ Vit C/Folic Acid (Nephrocaps) 1 cap QPM PO 04/07/17 21:00 05/07/17 20:59 04/08/17 20:48 1 CAP Ascorbic Acid (Vitamin C Tab) 500 mg BID PO 04/07/17 09:00 05/07/17 08:59 04/08/17 20:48 500 MG Ranitidine HCl (zANTac TAB) 75 mg HS PO 04/07/17 21:00 05/07/17 20:59 04/08/17 20:48 75 MG Levofloxacin (Consult) 1 ea DAILY PRN N/A 04/07/17 02:31 05/07/17 02:30 Albuterol/ Ipratropium (Duoneb) 3 ml Q4 PRN INH 04/07/17 01:30 05/07/17 01:29 Hydralazine HCl (HydrALAZINE INJ) 10 mg Q8 PRN IV. 04/07/17 05:15 05/07/17 05:14 04/08/17 08:20 10 MG Levofloxacin 500 mg/Prmx 100 ml @ 100 mls/hr Q48H IV 04/09/17 01:00 04/13/17 03:00 04/09/17 00:45 100 MLS/HR Gabapentin (Neurontin Cap) 100 mg HS PO 04/07/17 21:00 05/07/17 20:59 04/08/17 20:48 100 MG Latanoprost (Xalatan Oph Soln) 1 drops HS OP 04/07/17 21:00 05/07/17 20:59 04/08/17 20:48 1 DROPS Vitamin B Complex (Vitamin B Complex) 1 tab QAM PO 04/07/17 09:00 05/07/17 08:59 04/08/17 08:14 1 TAB Cholecalciferol (Vitamin D Tab) 1,000 inter.unit QAM PO 04/07/17 09:00 05/07/17 08:59 04/08/17 08:14 1,000 INTER.UNIT Midodrine (Proamatine Tab) 2.5 mg MoWeFr@0900 PO 04/08/17 09:00 05/08/17 08:59 Future Hold 04/08/17 08:15 2.5 MG Levothyroxine Sodium (Synthroid Tab) 25 mcg DAILYBB PO 04/08/17 06:00 05/08/17 05:59 04/08/17 08:16 25 MCG Last 24 Hours Test 04/08/17 16:11 04/08/17 19:20 04/08/17 20:57 04/09/17 00:19 Bedside Glucose 102 mg/dl 153 mg/dl 213 mg/dl White Blood Count 9.55 K/uL Red Blood Count 2.90 M/uL Hemoglobin 9.3 g/dL Hematocrit 29.1 % Mean Corpuscular Volume 100.3 fL Mean Corpuscular Hemoglobin 32.1 pg Mean Corpuscular Hemoglobin Concent 32.0 g/dl Platelet Count 186 K/uL Mean Platelet Volume 10.3 fL Neutrophils (%) (Auto) 80.7 % Lymphocytes (%) (Auto) 5.1 % Monocytes (%) (Auto) 13.6 % Eosinophils (%) (Auto) 0.0 % Basophils (%) (Auto) 0.2 % Neutrophils # (Auto) 7.70 K/uL Lymphocytes # (Auto) 0.49 K/uL Monocytes # (Auto) 1.30 K/uL Eosinophils # (Auto) 0.00 K/uL Basophils # (Auto) 0.02 K/uL RDW Standard Deviation 55.8 fL RDW Coefficient of Variation 15.2 % Immature Granulocyte % (Auto) 0.4 % Immature Granulocyte # (Auto) 0.04 K/uL Sodium Level 133 mmol/L Potassium Level 4.5 mmol/L Chloride Level 95 mmol/L Carbon Dioxide Level 28 mmol/L Anion Gap 10.0 mmol/L Blood Urea Nitrogen 43 mg/dl Creatinine 6.00 mg/dl Est Creatinine Clear Calc Drug Dose 19.1 ml/min Estimated GFR () 10.6 Estimated GFR (Non- 9.1 BUN/Creatinine Ratio 7.2 Random Glucose 157 mg/dl Calcium Level 7.8 mg/dl Magnesium Level 2.5 mg/dl Test 04/09/17 08:00 04/09/17 11:59 Bedside Glucose 118 mg/dl 135 mg/dl Date/Time Source Procedure Growth Status 04/09/17 14:15 Ulcer Leg Right Lower Gram Stain Pending Received 04/09/17 14:15 Ulcer Leg Right Lower Wound Culture Pending Received Assessment & Plan ESRD-plan on dialysis this afternoon. pt will finish dialysis quite late tonight and would prefer to dialyze him again in the morning and plan on discharge after dialysis tomorrow back to hospital for special care. plan on 3 liters off again as bp tolerates.
--- NOTE | 2017-04-09 16:20 | Progress Note ---
Subjective Date of Service: Apr 09, 2017. Subjective Pt evaluation today including: conversation w/ patient, physical exam, lab review, review of studies, review of inpatient medication list Saw/examined the patient in room 381 Currently about to receive HD No problems/issues to note today He is trying to eat what he can after having his teeth removed Problem List Medical Problems: (1) Closed left humeral fracture Status: Acute (2) Fever Status: Acute (3) Hypoxia Status: Acute (4) Pneumonia Status: Acute (5) Renal failure Status: Acute (6) Shortness of breath Status: Acute (7) Uncontrolled hypertension Status: Acute Review of Systems Constitutional: No fever, No chills, No weakness Respiratory: No shortness of breath Cardiac: No chest pain Abdomen: No pain, No nausea, No vomiting, No diarrhea Heme: No abnormal bleeding/bruising Medications Current Inpatient Medications Medications (Trade) Dose Ordered Sig/Nicole Route Start Time Stop Time Status Last Admin Dose Admin Heparin Sodium (Porcine) (Heparin Sq 5000 Unit/0.5ml) 5,000 unit Q8 SQ 04/07/17 06:00 05/07/17 05:59 04/09/17 06:03 5,000 UNIT Acetaminophen (Tylenol Tab) 650 mg Q4H PRN PO 04/07/17 01:15 05/07/17 01:14 04/07/17 11:23 650 MG Ondansetron HCl (Zofran Inj) 4 mg Q6H PRN IV 04/07/17 01:15 05/07/17 01:14 04/07/17 11:19 4 MG Nitroglycerin (Nitrostat Tab) 0.4 mg UD PRN SL 04/07/17 01:15 05/07/17 01:14 Polyethylene (Miralax Powder Packet) 17 gm DAILY PRN PO 04/07/17 01:15 05/07/17 01:14 04/07/17 08:09 17 GM Insulin Aspart (novoLOG ASPART) SLIDING SCALE If C... ACHS SC 04/07/17 07:00 05/07/17 06:59 04/09/17 12:58 3 UNITS Glucose (Glucose 40% Gel) 15-30 GRAMS 15 GRAMS... UD PRN PO 04/07/17 01:15 05/07/17 01:14 Glucose (Glucose Chew Tab) 4-8 Tablets 4 Tabl... UD PRN PO 04/07/17 01:15 05/07/17 01:14 Dextrose (Dextrose 50% 50ML Syringe) 25-50ML OF 50% DW IV FOR... UD PRN IV 04/07/17 01:15 05/07/17 01:14 Glucagon (Glucagon Inj) 1 mg UD PRN SQ 04/07/17 01:15 05/07/17 01:14 Carvedilol (Coreg Tab) 3.125 mg DAILY@1700 PO 04/07/17 17:00 05/07/17 16:59 04/07/17 18:01 3.125 MG Clopidogrel Bisulfate (plAVix TAB) 75 mg QPM PO 04/07/17 21:00 05/07/17 20:59 04/08/17 20:48 75 MG Acetaminophen/ Hydrocodone Bitart ([place] 5/325 Tab) 1 tab Q6 PRN PO 04/07/17 01:30 04/21/17 01:29 04/08/17 15:53 1 TAB Loratadine (Claritin Tab) 10 mg QPM PO 04/07/17 21:00 05/07/17 20:59 04/08/17 20:48 10 MG Lorazepam (Ativan Tab) 0.5 mg HS PO 04/07/17 21:00 05/07/17 20:59 04/08/17 20:50 0.5 MG Lorazepam (Ativan Tab) 0.5 mg Q6H PRN PO 04/07/17 01:30 05/07/17 01:29 04/08/17 08:19 0.5 MG Vitamin B Complex/ Vit C/Folic Acid (Nephrocaps) 1 cap QPM PO 04/07/17 21:00 05/07/17 20:59 04/08/17 20:48 1 CAP Ascorbic Acid (Vitamin C Tab) 500 mg BID PO 04/07/17 09:00 05/07/17 08:59 04/08/17 20:48 500 MG Ranitidine HCl (zANTac TAB) 75 mg HS PO 04/07/17 21:00 05/07/17 20:59 04/08/17 20:48 75 MG Levofloxacin (Consult) 1 ea DAILY PRN N/A 04/07/17 02:31 05/07/17 02:30 Albuterol/ Ipratropium (Duoneb) 3 ml Q4 PRN INH 04/07/17 01:30 05/07/17 01:29 Hydralazine HCl (HydrALAZINE INJ) 10 mg Q8 PRN IV. 04/07/17 05:15 05/07/17 05:14 04/08/17 08:20 10 MG Levofloxacin 500 mg/Prmx 100 ml @ 100 mls/hr Q48H IV 04/09/17 01:00 04/13/17 03:00 04/09/17 00:45 100 MLS/HR Gabapentin (Neurontin Cap) 100 mg HS PO 04/07/17 21:00 05/07/17 20:59 04/08/17 20:48 100 MG Latanoprost (Xalatan Oph Soln) 1 drops HS OP 04/07/17 21:00 05/07/17 20:59 04/08/17 20:48 1 DROPS Vitamin B Complex (Vitamin B Complex) 1 tab QAM PO 04/07/17 09:00 05/07/17 08:59 04/08/17 08:14 1 TAB Cholecalciferol (Vitamin D Tab) 1,000 inter.unit QAM PO 04/07/17 09:00 05/07/17 08:59 04/08/17 08:14 1,000 INTER.UNIT Midodrine (Proamatine Tab) 2.5 mg MoWeFr@0900 PO 04/08/17 09:00 05/08/17 08:59 Future Hold 04/08/17 08:15 2.5 MG Levothyroxine Sodium (Synthroid Tab) 25 mcg DAILYBB PO 04/08/17 06:00 05/08/17 05:59 04/08/17 08:16 25 MCG Epoetin Augusto (Procrit Inj) 10,000 units TODAY@0800 IV. 04/09/17 08:00 04/09/17 16:00 Objective Vital Signs Date Time Temp Pulse Resp B/P (MAP) Pulse Ox O2 Delivery O2 Flow Rate FiO2 04/09/17 15:00 69 18 152/79 (103) 97 Nasal Cannula 4.0 04/09/17 13:20 36.4 76 16 114/65 (81) 97 Nasal Cannula 4.0 04/09/17 07:40 Nasal Cannula 4.0 04/09/17 07:10 36.6 70 16 130/64 (86) 97 Room Air 04/09/17 02:44 36.9 74 145/72 (96) 94 Nasal Cannula 4.0 04/09/17 02:40 96 Nasal Cannula 4.0 04/09/17 02:26 36.4 80 21 96 4.0 04/09/17 00:00 Nasal Cannula 4.0 04/08/17 23:58 80 21 156/83 (107) Nasal Cannula 3.0 04/08/17 20:00 Nasal Cannula 4.0 04/08/17 19:21 36.4 101 18 78/53 (61) 96 Nasal Cannula 4.0 04/08/17 18:55 36.7 89 22 126/71 (89) 93 Nasal Cannula 4.0 04/08/17 18:00 83 145/70 04/08/17 17:45 84 125/72 04/08/17 17:30 84 145/75 04/08/17 17:15 82 127/69 04/08/17 17:00 83 129/74 04/08/17 16:45 85 121/69 04/08/17 16:30 84 125/68 04/08/17 16:15 85 126/66 04/08/17 16:00 85 143/74 04/08/17 16:00 Nasal Cannula 2.0 04/08/17 15:47 36.4 85 18 135/81 (99) 100 Oxymask 15.0 04/08/17 15:45 86 155/88 Physical Exam General Appearance: no apparent distress, + obese Respiratory/Chest: lungs clear, normal breath sounds, no respiratory distress, no accessory muscle use Cardiovascular: regular rate, rhythm, no murmur Extremities: + pertinent finding (R AKA, L LE dressed) Neurologic/Psychiatric: no motor/sensory deficits, alert, normal mood/affect Laboratory Results Last 24 Hours Test 04/08/17 16:11 04/08/17 19:20 04/08/17 20:57 04/09/17 00:19 Bedside Glucose 102 mg/dl 153 mg/dl 213 mg/dl White Blood Count 9.55 K/uL Red Blood Count 2.90 M/uL Hemoglobin 9.3 g/dL Hematocrit 29.1 % Mean Corpuscular Volume 100.3 fL Mean Corpuscular Hemoglobin 32.1 pg Mean Corpuscular Hemoglobin Concent 32.0 g/dl Platelet Count 186 K/uL Mean Platelet Volume 10.3 fL Neutrophils (%) (Auto) 80.7 % Lymphocytes (%) (Auto) 5.1 % Monocytes (%) (Auto) 13.6 % Eosinophils (%) (Auto) 0.0 % Basophils (%) (Auto) 0.2 % Neutrophils # (Auto) 7.70 K/uL Lymphocytes # (Auto) 0.49 K/uL Monocytes # (Auto) 1.30 K/uL Eosinophils # (Auto) 0.00 K/uL Basophils # (Auto) 0.02 K/uL RDW Standard Deviation 55.8 fL RDW Coefficient of Variation 15.2 % Immature Granulocyte % (Auto) 0.4 % Immature Granulocyte # (Auto) 0.04 K/uL Sodium Level 133 mmol/L Potassium Level 4.5 mmol/L Chloride Level 95 mmol/L Carbon Dioxide Level 28 mmol/L Anion Gap 10.0 mmol/L Blood Urea Nitrogen 43 mg/dl Creatinine 6.00 mg/dl Est Creatinine Clear Calc Drug Dose 19.1 ml/min Estimated GFR () 10.6 Estimated GFR (Non- 9.1 BUN/Creatinine Ratio 7.2 Random Glucose 157 mg/dl Calcium Level 7.8 mg/dl Magnesium Level 2.5 mg/dl Test 04/09/17 08:00 04/09/17 11:59 Bedside Glucose 118 mg/dl 135 mg/dl Assessment and Plan This is a 61 year old morbidly obese male with a PMH of ESRD on HD on , DM2 , Chronic Diastolic CHF, HTN, Anemia of Chronic Disease, peripheral vascular disease, venous stasis ulceration, s/p R AKA and phantom limb pain presents with missed dialysis secondary to clotted catheter and pneumonia HCAP patient is a resident of [facility] CXR - LL base consolidation improving with Levaquin, which we will continue for now will likely need a total of 2 weeks renal dosing secondary to ESRD ESRD on HD s/p RUE thrombectomy POD#1 HD performed yesterday (04/08) receiving HD today (04/09) monitor kidney function, electrolytes, etc. appreciate vascular surgery, appreciate nephrology Acute on Chronic Diastolic CHF - improved fluid managed with HD Anemia of Kidney Disease procrit with HD H/H stable Venous Stasis Ulceration PVD wound care continue Plavix DM2 sliding scale insulin for now DVT ppx subq heparin FULL CODE
[2017-04-09] MEDS: CARVEDILOL 3.125 MG TAB PO SCH (17:00)
[2017-04-09] MEDS: CHOLECALCIFEROL 1000 INTER.UNIT TAB PO SCH (20:02)
[2017-04-09] MEDS: VITAMIN B COMPLEX TAB PO SCH (20:03)
[2017-04-09] MEDS: ASCORBIC ACID 500 MG TAB PO SCH ×2 (20:03→22:16)
[2017-04-09] MEDS: LORAZEPAM 0.5 MG TAB PO SCH (22:11)
[2017-04-09] MEDS: LATANOPROST 0.005% OP SOLN 2.5 ML BTL OP SCH (22:12)
[2017-04-09] MEDS: CLOPIDOGREL BISULFATE 75 MG TAB PO SCH (22:14)
[2017-04-09] MEDS: LORATADINE 10 MG TAB PO SCH (22:14)
[2017-04-09] MEDS: RANITIDINE HCL 150 MG TAB PO SCH (22:15)
[2017-04-09] MEDS: GABAPENTIN 100 MG CAP PO SCH (22:15)
[2017-04-09] MEDS: NEPHROCAPS PO SCH (22:15)
[2017-04-10] VITALS (20 sets, daily range): BP systolic 108–174; BP diastolic 58–84; PULSE 70–74; TEMP 36.5–36.6; O2SAT 94–99
[2017-04-10] MEDS: HEPARIN SOD 5000 UNIT/0.5 ML CARP SQ SCH ×2 (06:04→14:00)
[2017-04-10] MEDS: LEVOTHYROXINE 25 MCG TAB PO SCH (06:05)
--- NOTE | 2017-04-10 07:19 | Nephrology Progress Note ---
Nephrology Progress Note Date of Service: Apr 10, 2017. Subjective 61 yo male who had dialysis the past two days and tolerated appropriate fluid removal with no cramping. pt is breathing easier. access working well. pt appears much more comfortable. Objective Date Time Temp Pulse Resp B/P (MAP) Pulse Ox O2 Delivery O2 Flow Rate FiO2 04/10/17 06:23 94 Nasal Cannula 3.0 04/10/17 06:10 36.5 71 18 150/71 (97) 94 Nasal Cannula 3.0 04/09/17 23:40 Nasal Cannula 3.0 04/09/17 22:57 36.6 77 18 107/72 (84) 96 Nasal Cannula 3.0 04/09/17 19:30 36.5 71 145/61 (89) 04/09/17 19:15 75 113/55 04/09/17 19:00 69 104/52 04/09/17 18:45 71 101/55 04/09/17 18:30 70 122/39 04/09/17 18:15 72 106/51 04/09/17 18:00 69 111/58 04/09/17 17:45 67 114/51 04/09/17 17:30 69 111/57 04/09/17 17:15 68 107/50 04/09/17 17:00 70 115/41 04/09/17 16:45 65 146/49 04/09/17 16:34 36.3 66 172/63 (99) 04/09/17 16:30 65 172/77 04/09/17 16:22 67 159/78 04/09/17 16:15 96 Nasal Cannula 3.0 04/09/17 15:00 69 18 152/79 (103) 97 Nasal Cannula 4.0 04/09/17 13:20 36.4 76 16 114/65 (81) 97 Nasal Cannula 4.0 04/09/17 07:40 Nasal Cannula 4.0 Physical Exam: General-aaox3 Eyes-no scleral icterus ENT-mmm, no teeth Neck-supple Lungs-clear Heart-regular Abdomen-bs+ s/nt/nd Extremities-no edema, left bka, right leg wrapped Neuro-nonfocal Access-good bruit and thrill Current Inpatient Medications Medications (Trade) Dose Ordered Sig/Nicole Route Start Time Stop Time Status Last Admin Dose Admin Heparin Sodium (Porcine) (Heparin Sq 5000 Unit/0.5ml) 5,000 unit Q8 SQ 04/07/17 06:00 05/07/17 05:59 04/10/17 06:04 5,000 UNIT Acetaminophen (Tylenol Tab) 650 mg Q4H PRN PO 04/07/17 01:15 05/07/17 01:14 04/07/17 11:23 650 MG Ondansetron HCl (Zofran Inj) 4 mg Q6H PRN IV 04/07/17 01:15 05/07/17 01:14 04/07/17 11:19 4 MG Nitroglycerin (Nitrostat Tab) 0.4 mg UD PRN SL 04/07/17 01:15 05/07/17 01:14 Polyethylene (Miralax Powder Packet) 17 gm DAILY PRN PO 04/07/17 01:15 05/07/17 01:14 04/07/17 08:09 17 GM Insulin Aspart (novoLOG ASPART) SLIDING SCALE If C... ACHS SC 04/07/17 07:00 05/07/17 06:59 04/09/17 22:20 2 UNITS Glucose (Glucose 40% Gel) 15-30 GRAMS 15 GRAMS... UD PRN PO 04/07/17 01:15 05/07/17 01:14 Glucose (Glucose Chew Tab) 4-8 Tablets 4 Tabl... UD PRN PO 04/07/17 01:15 05/07/17 01:14 Dextrose (Dextrose 50% 50ML Syringe) 25-50ML OF 50% DW IV FOR... UD PRN IV 04/07/17 01:15 05/07/17 01:14 Glucagon (Glucagon Inj) 1 mg UD PRN SQ 04/07/17 01:15 05/07/17 01:14 Carvedilol (Coreg Tab) 3.125 mg DAILY@1700 PO 04/07/17 17:00 05/07/17 16:59 04/07/17 18:01 3.125 MG Clopidogrel Bisulfate (plAVix TAB) 75 mg QPM PO 04/07/17 21:00 05/07/17 20:59 04/09/17 22:14 75 MG Acetaminophen/ Hydrocodone Bitart ([place] 5/325 Tab) 1 tab Q6 PRN PO 04/07/17 01:30 04/21/17 01:29 04/08/17 15:53 1 TAB Loratadine (Claritin Tab) 10 mg QPM PO 04/07/17 21:00 05/07/17 20:59 04/09/17 22:14 10 MG Lorazepam (Ativan Tab) 0.5 mg HS PO 04/07/17 21:00 05/07/17 20:59 04/09/17 22:11 0.5 MG Lorazepam (Ativan Tab) 0.5 mg Q6H PRN PO 04/07/17 01:30 05/07/17 01:29 04/08/17 08:19 0.5 MG Vitamin B Complex/ Vit C/Folic Acid (Nephrocaps) 1 cap QPM PO 04/07/17 21:00 05/07/17 20:59 04/09/17 22:15 1 CAP Ascorbic Acid (Vitamin C Tab) 500 mg BID PO 04/07/17 09:00 05/07/17 08:59 04/09/17 22:16 500 MG Ranitidine HCl (zANTac TAB) 75 mg HS PO 04/07/17 21:00 05/07/17 20:59 04/09/17 22:15 75 MG Levofloxacin (Consult) 1 ea DAILY PRN N/A 04/07/17 02:31 05/07/17 02:30 Albuterol/ Ipratropium (Duoneb) 3 ml Q4 PRN INH 04/07/17 01:30 05/07/17 01:29 Hydralazine HCl (HydrALAZINE INJ) 10 mg Q8 PRN IV. 04/07/17 05:15 05/07/17 05:14 04/08/17 08:20 10 MG Levofloxacin 500 mg/Prmx 100 ml @ 100 mls/hr Q48H IV 04/09/17 01:00 04/13/17 03:00 04/09/17 00:45 100 MLS/HR Gabapentin (Neurontin Cap) 100 mg HS PO 04/07/17 21:00 05/07/17 20:59 04/09/17 22:15 100 MG Latanoprost (Xalatan Oph Soln) 1 drops HS OP 04/07/17 21:00 05/07/17 20:59 04/09/17 22:12 1 DROPS Vitamin B Complex (Vitamin B Complex) 1 tab QAM PO 04/07/17 09:00 05/07/17 08:59 04/09/17 20:03 1 TAB Cholecalciferol (Vitamin D Tab) 1,000 inter.unit QAM PO 04/07/17 09:00 05/07/17 08:59 04/09/17 20:02 1,000 INTER.UNIT Midodrine (Proamatine Tab) 2.5 mg MoWeFr@0900 PO 04/08/17 09:00 05/08/17 08:59 Future Hold 04/08/17 08:15 2.5 MG Levothyroxine Sodium (Synthroid Tab) 25 mcg DAILYBB PO 04/08/17 06:00 05/08/17 05:59 04/10/17 06:05 25 MCG Epoetin Augusto (Procrit Inj) 10,000 units TODAY@0730 IV. 04/10/17 07:30 04/10/17 18:00 Last 24 Hours Test 04/09/17 08:00 04/09/17 11:59 04/09/17 16:55 04/09/17 19:47 Bedside Glucose 118 mg/dl 135 mg/dl 128 mg/dl 111 mg/dl Test 04/10/17 04:44 04/10/17 06:37 Bedside Glucose 107 mg/dl Date/Time Source Procedure Growth Status 04/09/17 14:15 Ulcer Leg Right Lower Gram Stain Pending Received 04/09/17 14:15 Ulcer Leg Right Lower Wound Culture Pending Received Assessment & Plan ESRD-plan on dialysis this morning. will continue 3 liters uf as bp tolerates. volume status much improved. bp is good. ok from renal perspective to go home after dialysis today. Anemia of Renal Failure-hg goal of 10 to 11, continue procrit with dialysis.
[2017-04-10] MEDS ORDERED: EPOETIN ALFA 10,000 UNITS/ML VIAL IV. SCH (07:30)
[2017-04-10] MEDS: INSULIN ASPART 100 UNITS/ML 3 ML PEN SC SCH ×3 (09:00→18:26)
[2017-04-10] MEDS: VITAMIN B COMPLEX TAB PO SCH (13:21)
[2017-04-10] MEDS: CHOLECALCIFEROL 1000 INTER.UNIT TAB PO SCH (13:21)
[2017-04-10] MEDS: ASCORBIC ACID 500 MG TAB PO SCH (14:17)
--- NOTE | 2017-04-10 15:00 | Progress Note ---
Subjective Date of Service: Apr 10, 2017. Subjective Pt evaluation today including: conversation w/ patient, physical exam, lab review, review of studies, review of inpatient medication list Saw/examined the patient in room 381 No problems/issues to note today had HD today with no side effects Problem List Medical Problems: (1) Closed left humeral fracture Status: Acute (2) Fever Status: Acute (3) Hypoxia Status: Acute (4) Pneumonia Status: Acute (5) Renal failure Status: Acute (6) Shortness of breath Status: Acute (7) Uncontrolled hypertension Status: Acute Review of Systems Constitutional: No fever, No chills Respiratory: No shortness of breath Cardiac: No chest pain Abdomen: No pain, No nausea, No vomiting, No diarrhea Heme: No abnormal bleeding/bruising Medications Current Inpatient Medications Medications (Trade) Dose Ordered Sig/Nicole Route Start Time Stop Time Status Last Admin Dose Admin Heparin Sodium (Porcine) (Heparin Sq 5000 Unit/0.5ml) 5,000 unit Q8 SQ 04/07/17 06:00 05/07/17 05:59 04/10/17 06:04 5,000 UNIT Acetaminophen (Tylenol Tab) 650 mg Q4H PRN PO 04/07/17 01:15 05/07/17 01:14 04/07/17 11:23 650 MG Ondansetron HCl (Zofran Inj) 4 mg Q6H PRN IV 04/07/17 01:15 05/07/17 01:14 04/07/17 11:19 4 MG Nitroglycerin (Nitrostat Tab) 0.4 mg UD PRN SL 04/07/17 01:15 05/07/17 01:14 Polyethylene (Miralax Powder Packet) 17 gm DAILY PRN PO 04/07/17 01:15 05/07/17 01:14 04/07/17 08:09 17 GM Insulin Aspart (novoLOG ASPART) SLIDING SCALE If C... ACHS SC 04/07/17 07:00 05/07/17 06:59 04/10/17 09:00 5 UNITS Glucose (Glucose 40% Gel) 15-30 GRAMS 15 GRAMS... UD PRN PO 04/07/17 01:15 05/07/17 01:14 Glucose (Glucose Chew Tab) 4-8 Tablets 4 Tabl... UD PRN PO 04/07/17 01:15 05/07/17 01:14 Dextrose (Dextrose 50% 50ML Syringe) 25-50ML OF 50% DW IV FOR... UD PRN IV 04/07/17 01:15 05/07/17 01:14 Glucagon (Glucagon Inj) 1 mg UD PRN SQ 04/07/17 01:15 05/07/17 01:14 Carvedilol (Coreg Tab) 3.125 mg DAILY@1700 PO 04/07/17 17:00 05/07/17 16:59 04/07/17 18:01 3.125 MG Clopidogrel Bisulfate (plAVix TAB) 75 mg QPM PO 04/07/17 21:00 05/07/17 20:59 04/09/17 22:14 75 MG Acetaminophen/ Hydrocodone Bitart ([place] 5/325 Tab) 1 tab Q6 PRN PO 04/07/17 01:30 04/21/17 01:29 04/08/17 15:53 1 TAB Loratadine (Claritin Tab) 10 mg QPM PO 04/07/17 21:00 05/07/17 20:59 04/09/17 22:14 10 MG Lorazepam (Ativan Tab) 0.5 mg HS PO 04/07/17 21:00 05/07/17 20:59 04/09/17 22:11 0.5 MG Lorazepam (Ativan Tab) 0.5 mg Q6H PRN PO 04/07/17 01:30 05/07/17 01:29 04/08/17 08:19 0.5 MG Vitamin B Complex/ Vit C/Folic Acid (Nephrocaps) 1 cap QPM PO 04/07/17 21:00 05/07/17 20:59 04/09/17 22:15 1 CAP Ascorbic Acid (Vitamin C Tab) 500 mg BID PO 04/07/17 09:00 05/07/17 08:59 04/10/17 14:17 500 MG Ranitidine HCl (zANTac TAB) 75 mg HS PO 04/07/17 21:00 05/07/17 20:59 04/09/17 22:15 75 MG Levofloxacin (Consult) 1 ea DAILY PRN N/A 04/07/17 02:31 05/07/17 02:30 Albuterol/ Ipratropium (Duoneb) 3 ml Q4 PRN INH 04/07/17 01:30 05/07/17 01:29 Hydralazine HCl (HydrALAZINE INJ) 10 mg Q8 PRN IV. 04/07/17 05:15 05/07/17 05:14 04/08/17 08:20 10 MG Levofloxacin 500 mg/Prmx 100 ml @ 100 mls/hr Q48H IV 04/09/17 01:00 04/13/17 03:00 04/09/17 00:45 100 MLS/HR Gabapentin (Neurontin Cap) 100 mg HS PO 04/07/17 21:00 05/07/17 20:59 04/09/17 22:15 100 MG Latanoprost (Xalatan Oph Soln) 1 drops HS OP 04/07/17 21:00 05/07/17 20:59 04/09/17 22:12 1 DROPS Vitamin B Complex (Vitamin B Complex) 1 tab QAM PO 04/07/17 09:00 05/07/17 08:59 04/10/17 13:21 1 TAB Cholecalciferol (Vitamin D Tab) 1,000 inter.unit QAM PO 04/07/17 09:00 05/07/17 08:59 04/10/17 13:21 1,000 INTER.UNIT Midodrine (Proamatine Tab) 2.5 mg MoWeFr@0900 PO 04/08/17 09:00 05/08/17 08:59 Future Hold 04/08/17 08:15 2.5 MG Levothyroxine Sodium (Synthroid Tab) 25 mcg DAILYBB PO 04/08/17 06:00 05/08/17 05:59 04/10/17 06:05 25 MCG Epoetin Augusto (Procrit Inj) 10,000 units TODAY@0730 IV. 04/10/17 07:30 04/10/17 18:00 04/10/17 12:07 10,000 UNITS Objective Vital Signs Date Time Temp Pulse Resp B/P (MAP) Pulse Ox O2 Delivery O2 Flow Rate FiO2 04/10/17 13:05 36.6 70 157/80 (105) 04/10/17 12:30 72 120/62 04/10/17 12:15 71 119/64 04/10/17 12:00 73 128/64 04/10/17 11:45 70 130/66 04/10/17 11:30 72 131/67 04/10/17 11:15 70 124/66 04/10/17 11:00 70 115/60 04/10/17 10:45 72 116/61 04/10/17 10:30 72 108/58 04/10/17 10:15 72 123/63 04/10/17 10:00 72 140/69 04/10/17 09:45 71 169/78 04/10/17 09:35 70 174/81 04/10/17 09:15 36.6 70 157/80 (105) 04/10/17 08:00 Nasal Cannula 3.0 04/10/17 06:23 94 Nasal Cannula 3.0 04/10/17 06:10 36.5 71 18 150/71 (97) 94 Nasal Cannula 3.0 04/09/17 23:40 Nasal Cannula 3.0 04/09/17 22:57 36.6 77 18 107/72 (84) 96 Nasal Cannula 3.0 04/09/17 19:30 36.5 71 145/61 (89) 04/09/17 19:15 75 113/55 04/09/17 19:00 69 104/52 04/09/17 18:45 71 101/55 04/09/17 18:30 70 122/39 04/09/17 18:15 72 106/51 04/09/17 18:00 69 111/58 04/09/17 17:45 67 114/51 04/09/17 17:30 69 111/57 04/09/17 17:15 68 107/50 04/09/17 17:00 70 115/41 04/09/17 16:45 65 146/49 04/09/17 16:34 36.3 66 172/63 (99) 04/09/17 16:30 65 172/77 04/09/17 16:22 67 159/78 04/09/17 16:15 96 Nasal Cannula 3.0 04/09/17 15:00 69 18 152/79 (103) 97 Nasal Cannula 4.0 Physical Exam General Appearance: + obese Respiratory/Chest: no respiratory distress, no accessory muscle use, + decreased breath sounds Cardiovascular: regular rate, rhythm, no murmur Extremities: normal inspection, no pedal edema Laboratory Results Last 24 Hours Test 04/09/17 16:55 04/09/17 19:47 04/10/17 04:44 04/10/17 06:37 Bedside Glucose 128 mg/dl 111 mg/dl 107 mg/dl Test 04/10/17 12:14 Bedside Glucose 123 mg/dl Assessment and Plan This is a 61 year old morbidly obese male with a PMH of ESRD on HD on , DM2 , Chronic Diastolic CHF, HTN, Anemia of Chronic Disease, peripheral vascular disease, venous stasis ulceration, s/p R AKA and phantom limb pain presents with missed dialysis secondary to clotted catheter and pneumonia HCAP patient is a resident of [facility] CXR - LL base consolidation improving with Levaquin, which we will continue for now will likely need a total of 2 weeks renal dosing secondary to ESRD ESRD on HD 04/10 received HD today (04/10); will d/c back to [facility] today 04/09 s/p RUE thrombectomy POD#1 HD performed yesterday (04/08) receiving HD today (04/09) monitor kidney function, electrolytes, etc. appreciate vascular surgery, appreciate nephrology Acute on Chronic Diastolic CHF - improved fluid managed with HD Anemia of Kidney Disease procrit with HD H/H stable Venous Stasis Ulceration PVD wound care continue Plavix DM2 sliding scale insulin for now DVT ppx subq heparin FULL CODE
[2017-04-10] MEDS ORDERED: LVQ500 PO (15:08)
[2017-04-10] MEDS ORDERED: PRMT25 PO (15:08)
[2017-04-10] MEDS ORDERED: NRN100 PO (15:08)
[2017-04-10] MEDS ORDERED: SYN25 PO (15:08)
--- NOTE | 2017-04-10 15:35 | Discharge Instructions ---
Discharge Instructions Date of Service Apr 10, 2017. Admission Reason for Admission: Hypoxia,Pneumonia Discharge Discharge Diagnosis / Problem: Health care associated pneumonia, end stage renal disease with dialysis Discharge Goals Goal(s): Decrease discomfort, Improve function, Diagnostic testing, Therapeutic intervention Activity Recommendations Activity Level: Up Ad Karly . Additional Information Patient informed of condition: Yes Advance Directives: No DNR: No Level of Care: Skilled Communicable Disease: Yes Prognosis: Stable Instructions / Follow-Up Instructions / Follow-Up Please follow-up with primary care physician Please take Levaquin (antibiotic) as prescribed Current Hospital Diet Patient's current hospital diet: Renal Diet, Diabetes Type 2 Diet Discharge Diet Recommended Diet: Diabetes Type 2 Diet, Renal Diet Procedures Procedures Performed: Right Upper Extremity Angiogram, Mechanical Thrombectomy, Percutaneous Transluminal Angioplasty and Stenting Of Peripheral Venous Pending Studies Studies pending at discharge: no Medical Emergencies . Who to Call and When: Medical Emergencies: If at any time you feel your situation is an emergency, please call 911 immediately. . Non-Emergent Contact Non-Emergency issues call your: Primary Care Provider . . "Provider Documentation" section prepared by Anderson Marie. . Core Measure Problem Core Measures: None
--- NOTE | 2017-04-10 15:39 | Discharge Summary ---
Discharge Summary Date of Service Apr 10, 2017. Discharge Summary Admission Date: Apr 07, 2017 at 01:13 Discharge Date: Apr 10, 2017 Discharge Disposition: retirement facility Principal Diagnosis: HCAP ESRD on HD Consultations: Vascular Surg-[facility] Medication Reconciliation New Medications: Gabapentin (Gabapentin) 100 Mg Cap 100 MG PO HS for 30 Days, #30 CAP Levofloxacin (Levofloxacin) 500 Mg Tab 500 MG PO Q48H for 7 Days, #3 TAB Levothyroxine Sodium (Synthroid) 25 Mcg Tab 25 MCG PO DAILYBB for 30 Days, #30 TAB Midodrine (Midodrine HCl) 2.5 Mg Tab 2.5 MG PO MoWeFr@0900 for 30 Days, #10 TAB Continued Medications: Acetaminophen (Tylenol) 325 Mg Tab 650 MG PO Q4 PRN for Pain or Fever, 0 Refills NOT TO EXCEED 3 GM APAP/24 HOURS Ascorbic Acid (Vitamin C) 500 Mg Cap 500 MG PO BID Carvedilol (Coreg) 3.125 Mg Tab 1 TAB PO DAILY@1700 for 30 Days, TAB 3 Refills HOLD IF SBP IS <100. DO NOT HOLD PRIOR TO DIALYSIS DAYS Cholecalciferol (Vitamin D 1000 Unit) 1,000 Unit Cap 2000 INTER.UNIT PO UD AT 9 AM SAT,SUN,TU,TH Clopidogrel (Plavix) 75 Mg Tab 75 MG PO QPM, #0 Home O2 Therapy (Oxygen) Gas 2 LITERS NA PRN PRN for Shortness of Breath, BTL Hydrocodone/Acetaminophen 5MG/325MG ([place] 5MG/325MG) Tab 1 TABLET PO Q6 PRN for Pain, TAB Loperamide Hcl (Imodium) 2 Mg Cap 2 MG PO Q2H, CAP TAKE 2MG NEEDED EVERY 2 HOURS. DO NOT EXCEED 4 CAPS IN 24 HOURS Loratadine (Claritin) 10 Mg Tab 10 MG PO QPM, TAB Lorazepam (Ativan) 0.5 Mg Tab 0.5 MG PO HS, TAB Lorazepam (Ativan) 0.5 Mg Tab 0.5 MG PO Q6H PRN for Anxiety, TAB Ranitidine HCl (Ranitidine 75) 75 Mg Tab 75 MG PO HS, #0 Vitamin B Cmplx/Vitc/Folic Ac (Nephrocaps) Cap 1 CAP PO QPM, CAP Wound Dressings (Allevyn Adhesive) 1 Pad Pad 1 PATCH TOP UD APPLY 4 X 4 PAD NEEDED EVERY SHIFT COVER ANY DRAINING SKIN LESIONS WITH DRY DRESSING Wound Dressings (Allevyn Adhesive) 1 Pad Pad 1 APPLN TOP UD SITE RIGHT ANKLE CLEAN WITH NORMAL SALINE, PAT DRY , APPLY NONADHESIVE ALLEVY AND CHANGE EVERY 5 DAYS AND PRN Admission Information HPI (per Admitting provider): This is a 61 yo male with complex past medical hx of Type 2 DM , severe peripheral vascular disease, s/p BKA of left lower ext , chronic venous stasis ulcer of right leg , ESRD on HD( Saturday /Saturday /Saturday ) , CAD , Anemia of chronic disease , HTN , hx of MRSA . morbid obesity , hep C , hypothyroidism , hyperlipidemia , chronic avascular necrosis of bilateral hip , CHF with diastolic dysfunction pt is a resident at [facility], has not been feeling well for past few day , had low grade fever , chill, non productive cough missed his scheduled dialysis on Saturday Presents to ED with Hypoxia, SOB Cxray shows LLL pneumonia Lab shows Hyperkalemia K ~6 ,no EKG changes no thrill noted on Rt Arm AV fistula , pt missed dialysis on Saturday , mention did not had any trouble with HD access on Saturday dialysis treatment in the ER pt was afebrile spo2 improved to 94% on 3L 02 via nasal canula pt is a very poor historian denies of any chest discomfort , no orthopnea , Physical Exam (per Admitting): General Appearance: no apparent distress, + obese Head: normocephalic, atraumatic Eyes: sclerae normal Neck: supple Respiratory/Chest: no respiratory distress, no accessory muscle use, + crackles, + rales Cardiovascular: regular rate, rhythm Abdomen/GI: non tender, soft Extremities/Musculoskelatal: + pertinent finding (left BKA , chronic venous statis ulcer on rt lower ext , bandgaged , pt refused to allow detail exam ) Neurologic/Psych: alert, oriented x 3 Hospital Course This is a 61 year old morbidly obese male with a PMH of ESRD on HD on , DM2 , Chronic Diastolic CHF, HTN, Anemia of Chronic Disease, peripheral vascular disease, venous stasis ulceration, s/p R AKA and phantom limb pain presents with missed dialysis secondary to clotted catheter and pneumonia HCAP patient is a resident of [facility] - [facility] base consolidation improving with Levaquin, which we will continue for now will likely need a total of 2 weeks renal dosing secondary to ESRD ESRD on HD 04/10 received HD today (04/10); will d/c back to [facility] today 04/09 s/p RUE thrombectomy POD#1 HD performed yesterday (04/08) receiving HD today (04/09) monitor kidney function, electrolytes, etc. appreciate vascular surgery, appreciate nephrology Acute on Chronic Diastolic CHF - improved fluid managed with HD Anemia of Kidney Disease procrit with HD H/H stable Venous Stasis Ulceration PVD wound care continue Plavix DM2 sliding scale insulin for now DVT ppx subq heparin FULL CODE Total time spent on discharge = 50 minutes This includes examination of the patient, discharge planning, medication reconciliation, and communication with other providers. Discharge Instructions Please follow-up with primary care physician Please take Levaquin (antibiotic) as prescribed
[2017-04-10] MEDS: CARVEDILOL 3.125 MG TAB PO SCH (18:01)
[2017-04-11] MEDS ORDERED: LEVOFLOXACIN 500 MG TAB PO SCH (06:00)
== END 2017-04-10 19:42 | DRG 252 ==
LOC: EDBD 22:08 → C.EDC 22:11 → C.2T 04-07 01:13 → EDBEDREQ 04-07 01:48 → ENRESERV 04-07 01:57 → C.MSN 04-09 01:25 → EDBEDREQ 04-09 01:40 → ENRESERV 04-09 02:21
PROVIDERS: ADMIT Hospitalist; ATTEND Family Medicine
PROC: 03C73ZZ Extirpation of Matter from Right Brachial Artery, Percutaneous Approach (ICD-10-PCS; principal; 2017-04-08 11:00)
DX: T82.868A Thrombosis due to vascular prosthetic devices, implants and grafts, initial encounter (principal); J18.9 Pneumonia, unspecified organism; N18.6 End stage renal disease; I50.33 Acute on chronic diastolic (congestive) heart failure; Z68.41 Body mass index [BMI] 40.0-44.9, adult; I13.2 Hypertensive heart and chronic kidney disease with heart failure and with stage 5 chronic kidney disease, or end stage renal disease; M87.059 Idiopathic aseptic necrosis of unspecified femur; E88.01 Alpha-1-antitrypsin deficiency; Y95 Nosocomial condition; E11.22 Type 2 diabetes mellitus with diabetic chronic kidney disease; D63.1 Anemia in chronic kidney disease; R09.02 Hypoxemia; E87.5 Hyperkalemia; I16.0 Hypertensive urgency; I73.9 Peripheral vascular disease, unspecified; I25.10 Atherosclerotic heart disease of native coronary artery without angina pectoris; I87.2 Venous insufficiency (chronic) (peripheral); E03.9 Hypothyroidism, unspecified; E78.5 Hyperlipidemia, unspecified; K74.60 Unspecified cirrhosis of liver; K58.9 Irritable bowel syndrome, unspecified; B19.20 Unspecified viral hepatitis C without hepatic coma; N39.41 Urge incontinence; Z89.512 Acquired absence of left leg below knee; Z99.2 Dependence on renal dialysis; Z79.899 Other long term (current) drug therapy; Z99.81 Dependence on supplemental oxygen; Z79.02 Long term (current) use of antithrombotics/antiplatelets; Z95.1 Presence of aortocoronary bypass graft; Z79.891 Long term (current) use of opiate analgesic

== ENCOUNTER 2017-05-22 18:29 | Emergency (ER) | payer OTHER ==
[~2017-05-22] VITALS: Ht 185.4 cm; Wt 149.1 kg
[~2017-05-22 18:29] MED LIST changes: -AMINLIQ31 PO; -BISA10SU3 PR; -CHOL1000 PO; -FERR1TAB68 PO; -FLNIN/ NAE; -GABA-112 PO; -LEVO25TA5 PO; +LVQ500 PO; -MIDO2.5T PO; +NRN100 PO; -ONDA4TAB9 PO; +OXGN; +PRMT25 PO; -SERT-234 PO; -SIMV10TA5 PO; -SSDCR400 TOP; +SYN25 PO; -XLTOPS OPB; -ZINC40OI11 TOP
[2017-05-22 18:38] VITALS: TEMP 36.7; Ht 185.4 cm; Wt 149.1 kg
--- NOTE | 2017-05-22 19:09 | EMERGENCY ROOM VISIT NOTE ---
History Report prepared by [place]: Bassem Chiu Under the Supervision of: Dr. Carmine Hollis M.D. First contact with patient: 18:45 Chief Complaint: ILLNESS Stated Complaint: ILLNESS, HTN, COUGH, History of Present Illness The patient is a 61 year old male who presents to the Emergency Room with complaints of fatigue that began last night. He recently had pneumonia and notes that he feels better. He is a dialysis patient and is supposed to get dialysis on //. Because he was up late last night, he was too tired to go to dialysis today. He denies any pain or falls. He still has a mild cough from his pneumonia and but denies any significant shortness of breath. He has missed dialysis before, but not for a while. He does not have any problems with his fistula. No chest pain. He denies any complaints and says he just wants dialysis. Source of History: patient, transfer records Onset: yesterday Position: other (global) Symptom Intensity: moderate Quality: other (Fatigue) Timing: constant Associated Symptoms: + cough, + SOB, No headache, No chest pain, No abdominal pain, No back pain Review of Systems See HPI for pertinent positives & negatives. A total of 10 systems reviewed and were otherwise negative. Past Medical & Surgical Medical Problems: (1) Anemia of chronic renal failure (2) CAD (coronary artery disease) (3) Diabetes mellitus type 2 in obese (4) Diastolic heart failure (5) ESRD (end stage renal disease) (6) History of MRSA infection (7) HTN (hypertension) (8) Hypotensive (9) IBS (irritable bowel syndrome) (10) Liver cirrhosis (11) Obesity (BMI 30-39.9) (12) Urge incontinence Surgical Problems: (1) H/O cataract removal with insertion of prosthetic lens (2) History of left lower limb amputation (3) History of trabeculectomy (4) S/P CABG x 4 Old medical records were reviewed. Nurse's notes were reviewed and I agree with. Family History Diabetes mellitus Heart disease Social History Smoking Status: Former Smoker Alcohol Use: none Drug Use: none Marital Status: single, Housing Status: prison Occupation Status: unemployed Current/Historical Medications Scheduled Ascorbic Acid (Vitamin C), 500 MG PO BID Carvedilol (Coreg), 3.125 MG PO DAILY@1700 Cholecalciferol (Vitamin D 1000 Unit), 2,000 INTER.UNIT PO UD Clopidogrel (Plavix), 75 MG PO QPM Emollient (Gold Renner Ultimate), 1 APPLN TD HS Ferric Citrate (Auryxia), 210 MG PO WM Gabapentin (Gabapentin), 100 MG PO HS Latanoprost (Xalatan 0.005% Oph Emma), 1 DROPS OP HS Levothyroxine Sodium (Synthroid), 25 MCG PO DAILYBB Loperamide Hcl (Imodium), 2 MG PO Q2H Loratadine (Claritin), 10 MG PO QPM Lorazepam (Lorazepam), 0.5 MG PO HS Midodrine (Midodrine HCl), 2.5 MG PO MoWeFr@0900 Ranitidine HCl (Ranitidine 75), 75 MG PO HS Vitamin B Cmplx/Vitc/Folic Ac (Nephrocaps), 1 CAP PO QPM Wound Dressings (Allevyn Adhesive), 1 PATCH TOP UD Wound Dressings (Allevyn Adhesive), 1 APPLN TOP UD Zinc Oxide (Topical) (Desitin), 1 APPLN TOP TID [Liquiacel Protein], 1 OZ PO 4XWK [Oxygen Equipment], Unknown Dose SUNDAYS [Tubigrip], 1 APPLN UNKNOWN DAILY Scheduled PRN Acetaminophen (Tylenol), 650 MG PO Q4 PRN for Pain or Fever Bisacodyl (Bisac-Evac), 10 MG RE DAILY PRN for Constipation Carboxymethylcellulose Sodium (Lubricant Eye Drops), 1 DROP OPB Q4 PRN for DRY EYES Guaifenesin (Guaifenesin), 200 MG PO Q4 PRN for Cough Home O2 Therapy (Oxygen), 2 LITERS NA PRN PRN for Shortness of Breath Hydrocodone/Acetaminophen 5MG/325MG ([place] 5MG/325MG), 1 TABLET PO Q6 PRN for Pain Lorazepam (Ativan), 0.25 MG PO UD PRN for PRIOR TO GOING TO DIALYSIS Lorazepam (Ativan), 0.5 MG PO Q6H PRN for Anxiety Allergies Coded Allergies: Sulfamethoxazole w/Trimethoprim (Verified Allergy, Intermediate, HIVES, ) Latex (Verified Allergy, Mild, LEVEL 1, 05/22/17) Iodine (Unverified Allergy, Unknown, UNKNOWN, 05/22/17) Povidone Iodine (Verified Allergy, Unknown, FROM LONG-TERM INFORMATION , 05/22/17) Sulfa Antibiotics (Unverified Allergy, Unknown, ., 05/22/17) PER [facility] RECORDS Physical Exam Vital Signs Date Time Temp Pulse Resp B/P (MAP) Pulse Ox O2 Delivery O2 Flow Rate FiO2 05/22/17 21:57 82 20 188/102 99 Nasal Cannula 3.0 05/22/17 20:46 78 16 169/75 98 Room Air 05/22/17 19:17 78 22 216/78 94 Room Air 05/22/17 18:38 36.7 77 16 224/95 94 Room Air Physical Exam General: Non-ill appearing obese older male wearing supplemental oxygen, in no acute distress. He has no complaints. Occasional dry cough. HEENT: Normal cephalic atraumatic. Pupils are equal round and reactive to light. Extraocular movements are intact. Mild swelling around the eyes. Oropharynx is pink with moist mucous membranes. No swelling of the mouth lips or tongue. Neck: Supple with a midline trachea. No meningeal signs or stiffness, no JVD or bruits. No Stridor. Chest: Clear to auscultation bilaterally. No wheezes or rhonchi. No increased work of breathing. Heart: regular rate and rhythm. Abdomen: Soft nontender, nondistended without rebound guarding or rigidity. Extremities: Dialysis fistula in left arm. Amputation to the LLE. No cyanosis clubbing or edema. No calf tenderness. Spine/Back. Non tender to palpation. No CVA tenderness Skin: Good turgor without rashes. Neurologic exam: Cranial nerves two through 12 are intact. Motor and sensation are intact and symmetrical throughout. Medical Decision & Procedures ER Provider Diagnostic Interpretation: Radiology results as stated below per my review and radiologist interpretation: CHEST ONE VIEW PORTABLE CLINICAL HISTORY: Chest pain and cough. COMPARISON STUDY: Chest radiograph April 07, 2017. FINDINGS: Median sternotomy wires are noted as well as a vascular stent that projects over the left axilla. There is no pneumothorax or pleural effusion. Linear left basilar opacity is suggestive of atelectasis. Cardiomegaly is unchanged. There is no evidence of pulmonary edema. No consolidation is identified to suggest pneumonia. IMPRESSION: No acute cardiopulmonary findings. Moderate cardiomegaly without evidence of pulmonary edema. Electronically signed by: Hussein Polo M.D. 05/22/2017 7:24 PM Dictated Date/Time: 05/22/2017 7:22 PM Laboratory Results 05/22/17 20:58 Red Blood Count 3.34, Mean Corpuscular Volume 99.1, Mean Corpuscular Hemoglobin 32.3, Mean Corpuscular Hemoglobin Concent 32.6, Mean Platelet Volume 10.5, Neutrophils (%) (Auto) 74.6, Lymphocytes (%) (Auto) 10.4, Monocytes (%) (Auto) 9.9, Eosinophils (%) (Auto) 4.1, Basophils (%) (Auto) 0.6, Neutrophils # (Auto) 7.19, Lymphocytes # (Auto) 1.00, Monocytes # (Auto) 0.95, Eosinophils # (Auto) 0.40, Basophils # (Auto) 0.06 05/22/17 20:58 Test 05/22/17 20:58 White Blood Count 9.64 K/uL (4.8-10.8) Red Blood Count 3.34 M/uL (4.7-6.1) Hemoglobin 10.8 g/dL (14.0-18.0) Hematocrit 33.1 % (42-52) Mean Corpuscular Volume 99.1 fL (80-100) Mean Corpuscular Hemoglobin 32.3 pg (25-34) Mean Corpuscular Hemoglobin Concent 32.6 g/dl (32-36) Platelet Count 198 K/uL (130-400) Mean Platelet Volume 10.5 fL (7.4-10.4) Neutrophils (%) (Auto) 74.6 % Lymphocytes (%) (Auto) 10.4 % Monocytes (%) (Auto) 9.9 % Eosinophils (%) (Auto) 4.1 % Basophils (%) (Auto) 0.6 % Neutrophils # (Auto) 7.19 K/uL (1.4-6.5) Lymphocytes # (Auto) 1.00 K/uL (1.2-3.4) Monocytes # (Auto) 0.95 K/uL (0.11-0.59) Eosinophils # (Auto) 0.40 K/uL (0-0.5) Basophils # (Auto) 0.06 K/uL (0-0.2) RDW Standard Deviation 58.7 fL (36.4-46.3) RDW Coefficient of Variation 16.5 % (11.5-14.5) Immature Granulocyte % (Auto) 0.4 % Immature Granulocyte # (Auto) 0.04 K/uL (0.00-0.02) Anion Gap 8.0 mmol/L (3-11) Est Creatinine Clear Calc Drug Dose 18.9 ml/min Estimated GFR () 10.4 Estimated GFR (Non- 9.0 BUN/Creatinine Ratio 9.3 (10-20) Calcium Level 8.3 mg/dl (8.5-10.1) Total Bilirubin 0.4 mg/dl (0.2-1) Direct Bilirubin 0.2 mg/dl (0-0.2) Aspartate Amino Transf (AST/SGOT) 9 U/L (15-37) Alanine Aminotransferase (ALT/SGPT) 14 U/L (12-78) Alkaline Phosphatase 92 U/L (45-117) Total Protein 6.3 gm/dl (6.4-8.2) Albumin 3.1 gm/dl (3.4-5.0) Lipase 119 U/L (73-393) ECG Indication: SOB/dyspnea Rate (beats per minute): 78 Rhythm: normal sinus Findings: no acute ischemic change, other (Poor r-wave progressions, mildly peaked t-waves) Comparison ECG Date: 08 Apr 2017 Change: no significant change ED Course 184: Past medical records reviewed. The patient was evaluated in room A10, and a complete history and physical examination were performed. 2024: He is resting. He refused further IV attempts. He is in no distress. 2154: I discussed the patient's case with Dr. Mckeon of [facility]. Please see the consult note below for more information. 2204: I discussed the patient's case with Dr. Hu of Nephrology. Please see the consult note below for more information. 2214: Upon reevaluation, the patient is resting. I discussed the results and treatment plan with him. He verbalized agreement of the treatment plan. The patient was discharged home. Medical Decision Differentials include, but are not limited to; missed dialysis, hyperkalemia, CHF, infection, and electrolyte or metabolic abnormality. This patient was in as described above. He was placed in room A 10. He missed dialysis today because he was tired. He denies any significant complaints now except for he just wants dialysis. He had multiple blood testing obtained. Chest x-ray does not show any congestive heart failure. He was hypertensive while was here. His potassium is not significantly elevated 4.4. EKG does not have any arrhythmia and no significant peaked T waves. He has nothing to suggest infection or pneumonia. He remained stable. He is non-hypoxemic. I did discuss the case with Dr. Gordillo, the sample carrier. He does not feel the patient needs to come in but needs to call the dialysis center in the morning even if he stayed in the hospital he would not get dialysis till tomorrow and there is no indication to keep him otherwise. I encouraged him not to miss any dialysis and call the dialysis center in the morning to ensure that he gets dialyzed tomorrow. He is happy the plan and discharged home. Medication Reconcilliation Current Medication List: was personally reviewed by me Blood Pressure Screening Patient's blood pressure: Elevated blood pressure Blood pressure disposition: Referred to PCP Consults Time Called: 2149 Consulting Physician: Dr. Linda Syed Returned Call: [phone] We discussed the patient's case. They would like me to discuss the case with Nephrology. Additional Consults: Time Called: 2199 Consulted Physician: Dr. Hu - Nephrology Returned Call: [phone] Additional Comments: We discussed the patient's case. They are comfortable with the patient being discharged and getting dialysis tomorrow. Impression Primary Impression: Noncompliance with renal dialysis Additional Impression: CKD (chronic kidney disease) stage V requiring chronic dialysis Scribe Attestation The scribe's documentation has been prepared under my direction and personally reviewed by me in its entirety. I confirm that the note above accurately reflects all work, treatment, procedures, and medical decision making performed by me. Departure Information Dispostion Home / Self-Care Referrals Marty Bliss M.D. (PCP) Forms HOME CARE DOCUMENTATION FORM, IMPORTANT VISIT INFORMATION, WORK / SCHOOL INSTRUCTIONS Patient Instructions My [facility] Additional Instructions Rest. Follow-up with the dialysis unit in the morning Do not miss dialysis tomorrow Return to the ER in the meantime if any new problems or concerns Problem Qualifiers
[2017-05-22] MEDS ORDERED: ATV5 PO (19:20)
[2017-05-22] MEDS ORDERED: [UNRECOGNIZED DRUG - SUPPLY] (19:20)
[2017-05-22] MEDS ORDERED: ZINC40OI TOP (19:20)
[2017-05-22] MEDS ORDERED: GUAI100S16 PO (19:20)
[2017-05-22] MEDS ORDERED: EMOLLOT TD (19:20)
[2017-05-22] MEDS ORDERED: [UNRECOGNIZED DRUG - SUPPLY] (19:20)
[2017-05-22] MEDS ORDERED: B-CO1CAP17 PO (19:20)
[2017-05-22] MEDS ORDERED: LATA0.009 OP (19:20)
[2017-05-22] MEDS ORDERED: DLCS RE (19:20)
[2017-05-22] MEDS ORDERED: CARB1DRO2 OPB (19:20)
[2017-05-22] MEDS ORDERED: [UNRECOGNIZED DRUG - OTHER] PO (19:20)
[2017-05-22] MEDS ORDERED: FERR1TAB68 PO (19:20)
--- NOTE | 2017-05-22 19:25 | DIAGNOSTIC IMAGING REPORT ---
CHEST ONE VIEW PORTABLE CLINICAL HISTORY: Chest pain and cough. COMPARISON STUDY: Chest radiograph April 07, 2017. FINDINGS: Median sternotomy wires are noted as well as a vascular stent that projects over the left axilla. There is no pneumothorax or pleural effusion. Linear left basilar opacity is suggestive of atelectasis. Cardiomegaly is unchanged. There is no evidence of pulmonary edema. No consolidation is identified to suggest pneumonia. IMPRESSION: No acute cardiopulmonary findings. Moderate cardiomegaly without evidence of pulmonary edema. Electronically signed by: Hussein Polo M.D. 05/22/2017 7:24 PM Dictated Date/Time: 05/22/2017 7:22 PM
[2017-05-22 21:06] LABS: BASO % 0.6 %; BASO ABS # 0.06 K/uL (0-0.2); COMPLETE YES; EOS % 4.1 %; HEMATOCRIT 33.1 % (42-52); IG% 0.4 %; LYMPH % 10.4 %; MEAN CELL VOLUME 99.1 fL (80-100); MEAN CORPUSCULAR HEMOGLOBIN 32.3 pg (25-34); MEAN CORPUSCULAR HGB CONC 32.6 g/dl (32-36); MEAN PLATELET VOLUME 10.5 fL (7.4-10.4); MONO % 9.9 %; NEUT % 74.6 %; PLATELET COUNT 198 K/uL (130-400); RED BLOOD COUNT 3.34 M/uL (4.7-6.1); WHITE BLOOD COUNT 9.64 K/uL (4.8-10.8)
[2017-05-22 21:46] LABS: BUN/CREATININE RATIO 9.3 (10-20); CALCIUM 8.3 mg/dl (8.5-10.1); CREATININE 6.1 mg/dl (0.60-1.40); POTASSIUM 4.4 mmol/L (3.5-5.1)
[2017-05-22 21:57] VITALS: BP 188/102; PULSE 82; O2SAT 99
== END 2017-05-22 23:40 | disposition home or self-care (01) ==
LOC: EDBD 18:29 → C.EDA 18:31
DX: I13.2 Hypertensive heart and chronic kidney disease with heart failure and with stage 5 chronic kidney disease, or end stage renal disease (principal); E11.22 Type 2 diabetes mellitus with diabetic chronic kidney disease; N18.5 Chronic kidney disease, stage 5; Z91.15 Patient's noncompliance with renal dialysis; Z99.2 Dependence on renal dialysis; I50.30 Unspecified diastolic (congestive) heart failure; D63.1 Anemia in chronic kidney disease; I25.10 Atherosclerotic heart disease of native coronary artery without angina pectoris; E66.9 Obesity, unspecified; K58.9 Irritable bowel syndrome, unspecified; K74.60 Unspecified cirrhosis of liver; Z79.02 Long term (current) use of antithrombotics/antiplatelets; Z68.41 Body mass index [BMI] 40.0-44.9, adult; Z96.1 Presence of intraocular lens; Z95.1 Presence of aortocoronary bypass graft; Z89.512 Acquired absence of left leg below knee; Z86.14 Personal history of Methicillin resistant Staphylococcus aureus infection; Z87.891 Personal history of nicotine dependence; Z83.3 Family history of diabetes mellitus; Z82.49 Family history of ischemic heart disease and other diseases of the circulatory system

== ENCOUNTER 2017-07-07 06:34 | Inpatient (IN) | payer OTHER ==
[~2017-07-07] VITALS: Ht 185.4 cm; Wt 142.1 kg
[2017-07-07] VITALS (36 sets, daily range): BP systolic 74–212; BP diastolic 51–90; PULSE 58–76; TEMP 36.7–36.8; O2SAT 95–100; Ht 185.4 cm; Wt 142.1 kg
[~2017-07-07 06:34] MED LIST changes: +ATV5 PO; +CARB1DRO2 OPB; +DLCS RE; +EMOLLOT TD; +FERR1TAB68 PO; +GUAI100S16 PO; +LATA0.009 OP; -LVQ500 PO; +ZINC40OI TOP; +[UNRECOGNIZED DRUG - OTHER] PO; +[UNRECOGNIZED DRUG - SUPPLY]; +[UNRECOGNIZED DRUG - SUPPLY]
--- NOTE | 2017-07-07 06:50 | EMERGENCY ROOM VISIT NOTE ---
History Report prepared by Chester: Dylan Dubon Under the Supervision of: Dr. Jb Castano M.D. First contact with patient: 06:40 Chief Complaint: SHORTNESS OF BREATH Nursing Triage Summary: pt arrives via EMS from [facility] reports noted swelling to entire body started last night with increased sob , pt denies cp recently tx for pneumonia pt had dialysis last completed on Sat and due for Mon. History of Present Illness The patient is a 61 year old male who presents to the Emergency Room via EMS from [facility] with resolving hypoxia this morning. Per the nursing staff, the patient started having swelling to his entire body last night. The patient was then noted to have an oxygen saturation of 85% this morning, and was put on 3 liters of oxygen and is now at 97 to 98%. The patient states that his shortness of breath has not been too bad. He denies any chest pain. He says that he has dialysis 3 times per week. He is not normally on oxygen. He has a history of open heart surgery. Source of History: patient, nursing staff Onset: This morning Position: other (global - hypoxia) Symptom Intensity: 85% room air Timing: other (resolving) Associated Symptoms: + SOB, No chest pain Note: Associated symptoms: Swelling to entire body last night. Review of Systems See HPI for pertinent positives & negatives. A total of 10 systems reviewed and were otherwise negative. Past Medical & Surgical Medical Problems: (1) Anemia of chronic renal failure (2) CAD (coronary artery disease) (3) Diabetes mellitus type 2 in obese (4) Diastolic heart failure (5) ESRD (end stage renal disease) (6) History of MRSA infection (7) HTN (hypertension) (8) Hypotensive (9) IBS (irritable bowel syndrome) (10) Liver cirrhosis (11) Obesity (BMI 30-39.9) (12) Urge incontinence Surgical Problems: (1) H/O cataract removal with insertion of prosthetic lens (2) History of left lower limb amputation (3) History of trabeculectomy (4) S/P CABG x 4 Family History Diabetes mellitus Heart disease Social History Smoking Status: Never Smoker Alcohol Use: none Drug Use: none Marital Status: single, Housing Status: usp Occupation Status: unemployed Current/Historical Medications Scheduled Ascorbic Acid (Vitamin C), 500 MG PO BID Carvedilol (Coreg), 3.125 MG PO DAILY@1700 Cholecalciferol (Vitamin D 1000 Unit), 2,000 INTER.UNIT PO UD Clopidogrel (Plavix), 75 MG PO QPM Emollient (Gold Renner Ultimate), 1 APPLN TD HS Ferric Citrate (Auryxia), 210 MG PO WM Gabapentin (Gabapentin), 100 MG PO HS Latanoprost (Xalatan 0.005% Oph Emma), 1 DROPS OP HS Levothyroxine Sodium (Synthroid), 25 MCG PO DAILYBB Loperamide Hcl (Imodium), 2 MG PO Q2H Loratadine (Claritin), 10 MG PO QPM Lorazepam (Lorazepam), 0.5 MG PO HS Midodrine (Midodrine HCl), 2.5 MG PO MoWeFr@0900 Ranitidine HCl (Ranitidine 75), 75 MG PO HS Vitamin B Cmplx/Vitc/Folic Ac (Nephrocaps), 1 CAP PO QPM Wound Dressings (Allevyn Adhesive), 1 PATCH TOP UD Wound Dressings (Allevyn Adhesive), 1 APPLN TOP UD Zinc Oxide (Topical) (Desitin), 1 APPLN TOP TID [Liquiacel Protein], 1 OZ PO 4XWK [Oxygen Equipment], Unknown Dose SUNDAYS [Tubigrip], 1 APPLN UNKNOWN DAILY Scheduled PRN Acetaminophen (Tylenol), 650 MG PO Q4 PRN for Pain or Fever Bisacodyl (Bisac-Evac), 10 MG RE DAILY PRN for Constipation Carboxymethylcellulose Sodium (Lubricant Eye Drops), 1 DROP OPB Q4 PRN for DRY EYES Guaifenesin (Guaifenesin), 200 MG PO Q4 PRN for Cough Home O2 Therapy (Oxygen), 2 LITERS NA PRN PRN for Shortness of Breath Hydrocodone/Acetaminophen 5MG/325MG (Wolford 5MG/325MG), 1 TABLET PO Q6 PRN for Pain Lorazepam (Ativan), 0.25 MG PO UD PRN for PRIOR TO GOING TO DIALYSIS Lorazepam (Ativan), 0.5 MG PO Q6H PRN for Anxiety Allergies Coded Allergies: Sulfamethoxazole w/Trimethoprim (Verified Allergy, Intermediate, HIVES, ) Latex (Verified Allergy, Mild, LEVEL 1, 05/22/17) Iodine (Unverified Allergy, Unknown, UNKNOWN, 05/22/17) Povidone Iodine (Verified Allergy, Unknown, FROM SENIOR CARE INFORMATION , 05/22/17) Sulfa Antibiotics (Unverified Allergy, Unknown, ., 05/22/17) PER [facility] RECORDS Physical Exam Vital Signs Date Time Temp Pulse Resp B/P (MAP) Pulse Ox O2 Delivery O2 Flow Rate FiO2 07/07/17 08:48 76 18 95/67 93 Nasal Cannula 3.0 07/07/17 08:10 69 20 114/57 98 Nebulizer 7.0 07/07/17 07:49 69 18 156/70 100 Nebulizer 7.0 07/07/17 07:47 73 16 100 Nasal Cannula 3.0 07/07/17 07:04 Nasal Cannula 2.0 07/07/17 06:53 72 07/07/17 06:50 85 Room Air 07/07/17 06:42 37.1 71 18 155/80 96 Nasal Cannula 2.0 Physical Exam GENERAL: Patient is a healthy-appearing well-nourished 61 year old male. HEAD: Normocephalic atraumatic EYES: Ocular movements intact pupils equal and react to light OROPHARYNX mucous membranes are moist no exudates present no erythema or edema present NECK: Supple no nuchal rigidity CHEST: Good equal expansion LUNGS: Clear and equal to auscultation CARDIAC: Normal S1 and S2 ABDOMEN: Soft nontender no guarding BACK: No CVA tenderness EXTREMITIES: No pain upon palpation normal muscle strength in all groups no clubbing cyanosis or edema NEURO: Patient is following commands and answering questions appropriately. Alert and oriented x3 Cranial Nerves 2-12 grossly intact Medical Decision & Procedures ER Provider Diagnostic Interpretation: X-ray results as stated below per interpretation by me and the radiologist: CHEST ONE VIEW PORTABLE HISTORY: Short of breath. COMPARISON: Chest 05/22/2017. FINDINGS: No pneumothorax. Trace bilateral pleural effusions. The heart remains enlarged. Progressive interstitial and vascular thickening consistent with mild pulmonary edema. Vascular stents are again noted within the left axilla. There are poststernotomy changes. Low lung volumes. IMPRESSION: Progressive mild interstitial pulmonary edema and trace bilateral pleural effusions. Electronically signed by: Du Fox M.D. 07/07/2017 8:13 AM Dictated Date/Time: 07/07/2017 8:12 AM Laboratory Results 07/07/17 07:00 Red Blood Count 3.56, Mean Corpuscular Volume 97.5, Mean Corpuscular Hemoglobin 31.5, Mean Corpuscular Hemoglobin Concent 32.3, Mean Platelet Volume 11.3, Neutrophils (%) (Auto) 72.0, Lymphocytes (%) (Auto) 11.0, Monocytes (%) (Auto) 12.0, Eosinophils (%) (Auto) 3.8, Basophils (%) (Auto) 0.6, Neutrophils # (Auto ) 8.77, Lymphocytes # (Auto) 1.34, Monocytes # (Auto) 1.46, Eosinophils # (Auto ) 0.46, Basophils # (Auto) 0.07 07/07/17 07:00 Test 07/07/17 07:00 White Blood Count 12.17 K/uL (4.8-10.8) Red Blood Count 3.56 M/uL (4.7-6.1) Hemoglobin 11.2 g/dL (14.0-18.0) Hematocrit 34.7 % (42-52) Mean Corpuscular Volume 97.5 fL (80-100) Mean Corpuscular Hemoglobin 31.5 pg (25-34) Mean Corpuscular Hemoglobin Concent 32.3 g/dl (32-36) Platelet Count 177 K/uL (130-400) Mean Platelet Volume 11.3 fL (7.4-10.4) Neutrophils (%) (Auto) 72.0 % Lymphocytes (%) (Auto) 11.0 % Monocytes (%) (Auto) 12.0 % Eosinophils (%) (Auto) 3.8 % Basophils (%) (Auto) 0.6 % Neutrophils # (Auto) 8.77 K/uL (1.4-6.5) Lymphocytes # (Auto) 1.34 K/uL (1.2-3.4) Monocytes # (Auto) 1.46 K/uL (0.11-0.59) Eosinophils # (Auto) 0.46 K/uL (0-0.5) Basophils # (Auto) 0.07 K/uL (0-0.2) RDW Standard Deviation 59.6 fL (36.4-46.3) RDW Coefficient of Variation 16.8 % (11.5-14.5) Immature Granulocyte % (Auto) 0.6 % Immature Granulocyte # (Auto) 0.07 K/uL (0.00-0.02) Prothrombin Time 11.4 SECONDS (9.0-12.0) Prothromb Time International Ratio 1.1 (0.9-1.1) Anion Gap 10.0 mmol/L (3-11) Est Creatinine Clear Calc Drug Dose 21.4 ml/min Estimated GFR () 12.7 Estimated GFR (Non- 10.9 BUN/Creatinine Ratio 6.6 (10-20) Calcium Level 9.0 mg/dl (8.5-10.1) Total Bilirubin 0.4 mg/dl (0.2-1) Aspartate Amino Transf (AST/SGOT) 18 U/L (15-37) Alanine Aminotransferase (ALT/SGPT) 18 U/L (12-78) Alkaline Phosphatase 123 U/L (45-117) Total Creatine Kinase 54 U/L (39-308) Creatine Kinase MB 0.6 ng/ml (0.5-3.6) Creatine Kinase MB Ratio 1.1 (0-3.0) Troponin I < 0.015 ng/ml (0-0.045) Total Protein 7.1 gm/dl (6.4-8.2) Albumin 3.1 gm/dl (3.4-5.0) Globulin 4.0 gm/dl (2.5-4.0) Albumin/Globulin Ratio 0.8 (0.9-2) Influenza Type A (RT-PCR) Neg for Influ A (NEG) Influenza Type A Antigen Neg for Influ A (NEG) Influenza Type B Antigen Neg for Influ B (NEG) Influenza Type B (RT-PCR) Neg for Influ B (NEG) Labs reviewed by ED physician. Medications Administered Medications (Trade) Dose Ordered Sig/Nicole Route Start Time Stop Time Status Last Admin Dose Admin Albuterol/ Ipratropium (Duoneb) 12 ml ONE ONCE INH 07/07/17 07:45 07/07/17 07:46 DC 07/07/17 07:47 12 ML Nitroglycerin (Nitroglycerin 2% Oint) 1 inch NOW STAT EXT 07/07/17 07:32 07/07/17 07:33 DC 07/07/17 07:47 1 INCH ECG Indication: SOB/dyspnea Rate (beats per minute): 70 Rhythm: normal sinus Findings: 1st degree AV block, no acute ischemic change, no ectopy, other (old inferolateral infarct) ED Course 0649: Past medical records reviewed. The patient was evaluated in room B3B. A complete history and physical examination was performed. 0732: Ordered Nitroglycerin 2% Oint 1 inch EXT. 0745: Ordered Duoneb 12 ml INH. 0751: Upon reexamination the patient is resting. I discussed results and treatment plan with the patient. He verbalizes agreement and understanding. The patient will be evaluated for further management. 0819: I discussed the patient with Dr. Matteo Syed fishing floats assembler - he will evaluate the patient for further treatment. 0835: I reevaluated and updated the patient. Medical Decision Differential diagnosis: Etiologies such as infections, reactive airway disease, pneumonia, pneumothorax , COPD, CHF, cardiac ischemia, pulmonary embolism, musculoskeletal, gastrointestinal, as well as others were entertained. This is a 61-year-old male who presents emergency department complaining of shortness of breath. The patient is on dialysis Saturday when sent Saturday. He is hypoxic. He was given a DuoNeb breathing treatment. The patient does not make urine so he was given Nitropaste. Repeat examination revealed improvement patient's symptoms. As the patient is requiring oxygen I did discuss case with the hospitalist service who agreed to admit the patient. Patient was in agreement with the treatment plan. Medication Reconcilliation Current Medication List: was personally reviewed by me Blood Pressure Screening Patient's blood pressure: Normal blood pressure Consults Time Called: 814 Consulting Physician: Dr. Matteo Syed fishing floats assembler Returned Call: [phone] I discussed the patient with Dr. Matteo Syed fishing floats assembler - he will evaluate the patient for further treatment. Impression Primary Impression: Hypoxia Additional Impression: CHF (congestive heart failure) Scribe Attestation The scribe's documentation has been prepared under my direction and personally reviewed by me in its entirety. I confirm that the note above accurately reflects all work, treatment, procedures, and medical decision making performed by me. Departure Information Dispostion Being Evaluated By Hospitalist Referrals Marty Bliss M.D. (PCP) Patient Instructions [facility] Problem Qualifiers Additional Impression: CHF (congestive heart failure) Congestive heart failure type: unspecified congestive heart failure type Congestive heart failure chronicity: unspecified congestive heart failure chronicity Qualified Codes: I50.9 - Heart failure, unspecified
[2017-07-07 07:24] LABS: BASO % 0.6 %; BASO ABS # 0.07 K/uL (0-0.2); COMPLETE YES; EOS % 3.8 %; HEMATOCRIT 34.7 % (42-52); IG% 0.6 %; LYMPH ABS # 1.34 K/uL (1.2-3.4); MEAN CELL VOLUME 97.5 fL (80-100); MEAN CORPUSCULAR HEMOGLOBIN 31.5 pg (25-34); MEAN CORPUSCULAR HGB CONC 32.3 g/dl (32-36); MEAN PLATELET VOLUME 11.3 fL (7.4-10.4); PLATELET COUNT 177 K/uL (130-400); RED BLOOD COUNT 3.56 M/uL (4.7-6.1); WHITE BLOOD COUNT 12.17 K/uL (4.8-10.8)
[2017-07-07] MEDS ORDERED: NITROGLYCERIN OINT 2% 1GM PACKET EXT STA (07:32)
[2017-07-07] MEDS ORDERED: NITROGLYCERIN OINT 2% 1GM PACKET ONE (07:45)
[2017-07-07] MEDS ORDERED: ALBUT/IPRATROP 3MG/0.5MG NEB 3 ML VIAL INH ONE (07:45)
[2017-07-07 07:50] LABS: INR 1.1 (0.9-1.1); PROTHROMBIN TIME (PATIENT) 11.4 SECONDS (9.0-12.0)
[2017-07-07 07:52] LABS: ALB/GLOB RATIO 0.8 (0.9-2); ALKALINE PHOSPHATASE 123 U/L (45-117); ALT/SGPT 18 U/L (12-78); AST/SGOT 18 U/L (15-37); BLOOD UREA NITROGEN 34 mg/dl (7-18); BUN/CREATININE RATIO 6.6 (10-20); CARBON DIOXIDE 31 mmol/L (21-32); CHLORIDE 95 mmol/L (98-107); CKMB/CK RATIO 1.1 (0-3.0); CREATININE 5.18 mg/dl (0.60-1.40); GLUCOSE 125 mg/dl (70-99); POTASSIUM 4.4 mmol/L (3.5-5.1); SODIUM 135 mmol/L (136-145)
--- NOTE | 2017-07-07 08:15 | DIAGNOSTIC IMAGING REPORT ---
CHEST ONE VIEW PORTABLE HISTORY: Short of breath. COMPARISON: Chest 05/22/2017. FINDINGS: No pneumothorax. Trace bilateral pleural effusions. The heart remains enlarged. Progressive interstitial and vascular thickening consistent with mild pulmonary edema. Vascular stents are again noted within the left axilla. There are poststernotomy changes. Low lung volumes. IMPRESSION: Progressive mild interstitial pulmonary edema and trace bilateral pleural effusions. Electronically signed by: Du Fox M.D. 07/07/2017 8:13 AM Dictated Date/Time: 07/07/2017 8:12 AM
[2017-07-07 08:54] LABS: INFLUENZA A PCR Neg for Influ A (NEG); INFLUENZA B PCR Neg for Influ B (NEG)
[2017-07-07] MEDS ORDERED: AMLO-114 PO (09:13)
[2017-07-07] MEDS ORDERED: LOSA100T65 PO (09:24)
[2017-07-07] MEDS ORDERED: SIMV10TA5 PO (10:06)
[2017-07-07] MEDS ORDERED: CHOL1CAP13 (10:06)
[2017-07-07] MEDS ORDERED: OXYC1CAP5 PO (10:17)
[2017-07-07] MEDS ORDERED: SERT25TA PO (10:17)
[2017-07-07] MEDS: SODIUM CHLORIDE 0.9% 250ML 250 ML IV SCH ×2 (10:30→10:46)
[2017-07-07] MEDS ORDERED: NOREPINEPHRINE BIT INJ 8 MG in DEXTROSE 5% 500ML 500 ML IV STA (10:40)
[2017-07-07] MEDS ORDERED: VANCOMYCIN CONSULT ACTIVE PRN (10:45)
[2017-07-07] MEDS ORDERED: VANCOMYCIN INJ 2,000 MG in SODIUM CHLORIDE 0.9% 500ML 500 ML IV ONE (10:45)
[2017-07-07] MEDS ORDERED: PIPERACILL/TAZOBAC CONSULT ACTIVE PRN (10:45)
[2017-07-07] MEDS ORDERED: PIPERACILLIN/TAZOBACTAM 4.5 GM/100ML D5W IV ONE (10:45)
[2017-07-07] MEDS ORDERED: ALBUMIN HUMAN 25% 12.5 GM/50 ML VIAL IV ONE (10:45)
[2017-07-07] MEDS ORDERED: NOREPINEPHRINE BIT INJ 8 MG in DEXTROSE 5% 500ML 500 ML IV SCH (10:50)
[2017-07-07 11:15] LABS: VEN BLD GAS O2 SATURATION 79.1 %; VEN BLOOD GAS BASE EXCESS 5.7 mEq/L
[2017-07-07] MEDS ORDERED: LORAZEPAM 2 MG/ML 1 ML VIAL ONE ×2 (11:42→11:50)
[2017-07-07] MEDS ORDERED: RAPID SEQUENCE INDUCTION BAG ONE (11:51)
[2017-07-07] MEDS ORDERED: MIDAZOLAM HCL 5 MG/ML 2ML VIAL ONE ×2 (11:55→13:02)
[2017-07-07] MEDS ORDERED: MIDAZOLAM HCL 1 MG/ML 2ML VIAL IV PRN (12:00)
[2017-07-07] MEDS ORDERED: FAMOTIDINE IV INJ 20 MG in DEXTROSE 5% 100ML 100 ML IV SCH (12:00)
[2017-07-07] MEDS ORDERED: FENTANYL CITRATE INJ 50 MCG/1 ML 2 ML VIAL IV PRN ×2 (12:00→14:15)
[2017-07-07] MEDS ORDERED: LEVETIRACETAM IV 1,000 MG in DEXTROSE 5% 100ML 100 ML IV ONE (12:00)
[2017-07-07 12:07] LABS: URINE APPEARANCE SL CLOUDY (CLEAR); URINE BILIRUBIN NEG (NEG); URINE COLOR AMBER; URINE NITRITE NEG (NEG); URINE PH 8.5 (4.5-7.5); UROBILINOGEN NEG (NEG)
[2017-07-07 12:18] LABS: MANUAL MICROSCOPIC REQUIRED? NO; REVIEW REQ? NO
--- NOTE | 2017-07-07 12:25 | DIAGNOSTIC IMAGING REPORT ---
CHEST ONE VIEW PORTABLE HISTORY: post intubation COMPARISON: Chest 07/07/2017. FINDINGS: No pneumothorax. Pulmonary edema and trace bilateral pleural effusions have improved. Patchy densities within the left lung base favor atelectasis. The heart remains mildly enlarged. Postoperative changes. Left axillary/subclavian vascular stents are again noted. Endotracheal tube terminates 3.8 cm from the erickson. Old left lower rib fractures. IMPRESSION: 1. Endotracheal tube terminates 3.8 cm from the erickson. 2. Slight improvement in the mild pulmonary edema and trace bilateral pleural effusions. Electronically signed by: Du Fox M.D. 07/07/2017 12:24 PM Dictated Date/Time: 07/07/2017 12:22 PM
[2017-07-07 13:00] LABS: ZZURINE CULT IF INDIC CATH NO
--- NOTE | 2017-07-07 13:40 | DIAGNOSTIC IMAGING REPORT ---
HEAD CTA HISTORY: Altered mental status. TECHNIQUE: Multiaxial CT images of the head were performed both before and after the intravenous administration of contrast to evaluate the major cerebral vessels. Maximum intensity projection images were also obtained. A dose lowering technique was utilized adhering to the principles of ALARA. COMPARISON: Head CT 12/09/2014. FINDINGS: Fluid within the posterior nasopharynx. Mastoid air cells are clear. Mild atrophy and microvascular ischemic changes. There is no mass, hematoma, midline shift, acute infarct. Complete occlusion of the right internal carotid artery. Moderate calcified plaque within the left internal carotid artery. However, no significant stenosis. The distal vertebral arteries and basilar artery are patent. The bilateral ACAs,MCAs, monkey breeder show no significant stenosis, occlusion, or aneurysm. Hypoplastic distal right vertebral artery. IMPRESSION: 1. Occluded right internal carotid artery. 2. However, the remaining cerebral arteries show no significant stenosis, occlusion, or aneurysm. 3. No acute infarct identified. Therefore, the occluded right internal carotid artery could be chronic. Electronically signed by: Du Fox M.D. 07/07/2017 1:38 PM Dictated Date/Time: 07/07/2017 1:31 PM
[2017-07-07] MEDS ORDERED: OPTIRAY 320 IV PRN (13:45)
--- NOTE | 2017-07-07 13:46 | DIAGNOSTIC IMAGING REPORT ---
NECK CTA HISTORY: Altered mental status. TECHNIQUE: Multiaxial CT images of the neck were performed following the intravenous administration of contrast to evaluate the major cervical vessels. Maximum intensity projection images were also obtained. All measurements were calculated based on NASCET criteria. A dose lowering technique was utilized adhering to the principles of ALARA. COMPARISON STUDY: None. FINDINGS: There is no endotracheal tube is present which terminates above the erickson. Multiple stents seen within the left axillary, subclavian, and brachiocephalic veins. Mild interlobular septal thickening seen within the lung apices suggestive of mild pulmonary edema. Poststernotomy changes. Multiple borderline enlarged mediastinal lymph nodes. Moderate calcified plaque at the left subclavian artery. Mild stenosis at the proximal left subclavian artery. The bilateral common carotid arteries and vertebral arteries appear to be patent. 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 Short segment of the proximal left vertebral artery is not well-visualized due to motion artifact. Complete occlusion of the right ICA. Internal jugular veins appear patent. The left carotid bifurcation is not well visualized due to the motion artifact. However, there suggestive of high-grade stenosis at the origin of the left ICA. Remaining portions of the left ICA are widely patent. IMPRESSION: 1. Complete occlusion of the right ICA. This is age indeterminate. 2. The left carotid bifurcation is not well visualized due to the motion artifact. However, there suggestive of high-grade stenosis at the origin of the left ICA. Remaining portions of the left ICA are widely patent. 3. Suggestion of mild interstitial pulmonary edema. 4. 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 Electronically signed by: Du Fox M.D. 07/07/2017 1:45 PM Dictated Date/Time: 07/07/2017 1:38 PM
[2017-07-07] MEDS ORDERED: PIPERACILL/TAZOBAC IV 3.375 GM in DEXTROSE 5% 100ML 100 ML IV SCH (14:00)
--- NOTE | 2017-07-07 15:52 | Pharmacy Progress Note ---
Pharmacy Antibiotic Consult Date of Service: Jul 07, 2017. Pharmacy Dosing Scope Pharmacy is consulted to initiate vancomycin IV dosing therapy, order appropriate labs and adjust drug dose/frequency. Subjective The patient is a 61 year old male admitted on Jul 07, 2017 at 10:57. Objective Height (Feet): 6 Height (Inches): 1.00 Weight (Kilograms): 138.700 Lab Results (24hrs): Test 07/07/17 07:00 07/07/17 07:40 07/07/17 11:02 07/07/17 11:20 White Blood Count 12.17 K/uL (4.8-10.8) Red Blood Count 3.56 M/uL (4.7-6.1) Hemoglobin 11.2 g/dL (14.0-18.0) Hematocrit 34.7 % (42-52) Mean Corpuscular Volume 97.5 fL (80-100) Mean Corpuscular Hemoglobin 31.5 pg (25-34) Mean Corpuscular Hemoglobin Concent 32.3 g/dl (32-36) Platelet Count 177 K/uL (130-400) Mean Platelet Volume 11.3 fL (7.4-10.4) Neutrophils (%) (Auto) 72.0 % Lymphocytes (%) (Auto) 11.0 % Monocytes (%) (Auto) 12.0 % Eosinophils (%) (Auto) 3.8 % Basophils (%) (Auto) 0.6 % Neutrophils # (Auto) 8.77 K/uL (1.4-6.5) Lymphocytes # (Auto) 1.34 K/uL (1.2-3.4) Monocytes # (Auto) 1.46 K/uL (0.11-0.59) Eosinophils # (Auto) 0.46 K/uL (0-0.5) Basophils # (Auto) 0.07 K/uL (0-0.2) RDW Standard Deviation 59.6 fL (36.4-46.3) RDW Coefficient of Variation 16.8 % (11.5-14.5) Immature Granulocyte % (Auto) 0.6 % Immature Granulocyte # (Auto) 0.07 K/uL (0.00-0.02) Prothrombin Time 11.4 SECONDS (9.0-12.0) Prothromb Time International Ratio 1.1 (0.9-1.1) Sodium Level 135 mmol/L (136-145) Potassium Level 4.4 mmol/L (3.5-5.1) Chloride Level 95 mmol/L (98-107) Carbon Dioxide Level 31 mmol/L (21-32) Anion Gap 10.0 mmol/L (3-11) Blood Urea Nitrogen 34 mg/dl (7-18) Creatinine 5.18 mg/dl (0.60-1.40) Est Creatinine Clear Calc Drug Dose 21.4 ml/min Estimated GFR () 12.7 Estimated GFR (Non- 10.9 BUN/Creatinine Ratio 6.6 (10-20) Random Glucose 125 mg/dl (70-99) Calcium Level 9.0 mg/dl (8.5-10.1) Total Bilirubin 0.4 mg/dl (0.2-1) Aspartate Amino Transf (AST/SGOT) 18 U/L (15-37) Alanine Aminotransferase (ALT/SGPT) 18 U/L (12-78) Alkaline Phosphatase 123 U/L (45-117) Total Creatine Kinase 54 U/L (39-308) Creatine Kinase MB 0.6 ng/ml (0.5-3.6) Creatine Kinase MB Ratio 1.1 (0-3.0) Troponin I < 0.015 ng/ml (0-0.045) Total Protein 7.1 gm/dl (6.4-8.2) Albumin 3.1 gm/dl (3.4-5.0) Globulin 4.0 gm/dl (2.5-4.0) Albumin/Globulin Ratio 0.8 (0.9-2) Influenza Type A (RT-PCR) Neg for Influ A (NEG) Influenza Type A Antigen Neg for Influ A (NEG) Influenza Type B Antigen Neg for Influ B (NEG) Influenza Type B (RT-PCR) Neg for Influ B (NEG) Procalcitonin 0.19 ng/ml (0-0.5) Venous Blood pH 7.36 (7.36-7.41) Venous Blood Partial Pressure CO2 59 mmHg (38.0-50.0) Venous Blood Partial Pressure O2 48 mmHg Venous Blood HCO3 32 mmol/L Venous Blood Oxygen Saturation 79.1 % Venous Blood Base Excess 5.7 mEq/L Lactic Acid Level 1.7 mmol/L (0.4-2.0) Urine Color AGNES Urine Appearance SL CLOUDY (CLEAR) Urine pH 8.5 (4.5-7.5) Urine Specific [place] 1.020 (1.000-1.030) Urine Protein 3+ (NEG) Urine Glucose (UA) NEG (NEG) Urine Ketones NEG (NEG) Urine Occult Blood 3+ (NEG) Urine Nitrite NEG (NEG) Urine Bilirubin NEG (NEG) Urine Urobilinogen NEG (NEG) Urine Leukocyte Esterase MODERATE (NEG) Test 07/07/17 12:25 07/07/17 14:03 Bedside Glucose 192 mg/dl (70-99) Assessment & Plan Assessment * 61 yo M presented to ED from [facility] w hypoxia, "swelling to entire body " 07/07 AM. * Became hypotensive, bradycardic, unresponsive while in ED. Patient was intubated and transferred to ICU. * Per nursing notes: open area on right buttocks and right lower extremity with dressing in place. RLE also noted to be red. Incontinent of large amount of black stool. * Current antibiotics include Zosyn, vancomycin, doxycycline * Hx MRSA * ESRD on HD MWF as outpatient. Last session 07/05. * Unclear HD schedule at this time - pending order written for RN to call pharmacy tonight if patient is dialyzed. Vancomycin * 2000 mg (14 mg/kg) administered in ED * For critically ill patient with history of MRSA on HD, would usually target 20 mg/kg. However, also hesitant to give more than 2000 mg without checking a level. * Will therefore check random level 5-6 hr after vancomycin finishes infusing Plan * If patient is not dialyzed today: vancomycin random level 07/07 @ 2000 * Less than 15 mcg/mL: 1000 mg IV x1 and re-check random level in AM * 15-20 mcg/mL: vancomycin 500 mg IV x1 and re-check random level in AM * Greater than 20 mcg/mL: no action required tonight * If patient is dialyzed today: vancomycin 1000 mg IV x1 post-HD with random level in AM Pharmacy will continue to follow and will adjust dose/frequency as necessary. Thank you
--- NOTE | 2017-07-07 16:31 | NEPHROLOGY CONSULTATION ---
DATE OF CONSULTATION: 07/07/2017 REASON FOR CONSULT: Dialysis patient admitted with multiple medical problems. HISTORY OF PRESENT ILLNESS: The patient is a 61-year-old male who presented to the Emergency Department earlier today from [facility] with multiple problems. As per the [facility] staff at the [facility], patient started having swelling in his body as well as hypoxia. He was put on oxygen 3 liters in the morning, which improved the oxygen saturation. The patient is a dialysis patient and gets dialysis Saturday, Saturday, Saturday with the last dialysis being 2 days ago on Saturday. He is not normally on oxygen. While in the Emergency Department itself, patient's condition dramatically worsened, he became very hypotensive suddenly with blood pressure as low as 66 systolic, then he had sudden seizure like movements, which was monitored by intensive care doctor and after the seizure happened, patient started having high blood pressure. At this time, patient is intubated and sedated. Levophed was started, but quickly stopped. He got a little bit of fluid, but currently, he is not getting any. He is getting broad spectrum antibiotics to cover the possible sepsis. The patient also had bleeding from his penis at the [facility]. The patient had a CT angiogram, which showed complete occlusion of the right ICA, as well as significant stenosis in the left. Based on the x-ray and the angiogram, it appears the patient does have a slight degree of congestive heart failure, but currently, patient is intubated and sedated. PAST MEDICAL AND SURGICAL HISTORY: End-stage renal disease on hemodialysis Saturday, Saturday, Saturday; hypertension; history of MRSA infection; congestive heart failure; type 2 diabetes; anemia of end-stage renal disease; obesity; [facility] resident; cataract surgery; left lower limb amputation status post CABG x4. FAMILY HISTORY: Negative for renal disease or dialysis. SOCIAL HISTORY: Never smoked. No alcohol, no drugs. He is single, and is currently in a [facility]. MEDICATIONS AT HOME: Reviewed in full detail. ALLERGIES LIST: Reviewed. PHYSICAL EXAMINATION: GENERAL: At this time, the patient is critically ill. He is in intensive care unit. He is on a ventilator. VITAL SIGNS: Most recent vital signs showed 135/69 blood pressure, 98% oxygen saturation on a mechanical ventilator, temperature 36.7, pulse rate 70 per minute regular. HEENT: Normocephalic, atraumatic. NECK: Supple. CHEST: Conducted breath sound. The patient is on a ventilator. HEART: Normal S1 and S2. ABDOMEN: Soft, nontender, obese. EXTREMITIES: Showed trace edema. NEUROLOGIC: The patient is intubated and sedated. LABORATORY TESTS: Hemoglobin 11.2, platelet count 177. Sodium 135, potassium 4.4, BUN 34, creatinine 5.18. Lactic acid is actually normal at 1.7. Procalcitonin is also normal. Chest x-ray shows mild pulmonary edema. CT angiogram reviewed. ASSESSMENT AND PLAN: A 61-year-old male patient from a [facility] who is chronically on hemodialysis Saturday, Saturday, Saturday. 1. Endstage renal disease. At this time, he does have some evidence of congestive heart failure, but before we even could think about dialysis, he is already intubated for a multitude of reasons. I do not think the pulmonary edema itself was so severe, but given that patient has multiple ongoing issues including seizure, acute mental status change, penile bleeding, I would like to hold off on the dialysis for today. We would reassess his clinical situation tomorrow and make the decision about doing dialysis. 2. Acute mental status with seizure episode. This is being addressed by the primary team. RECOMMENDATION: Essentially, there are multiple things happening and we do not exactly know about all the problems that he is having right now. Given this situation, we will not do dialysis today. Electrolytes are within acceptable range. Case was discussed with Dr. Sharp in the intensive care unit. NAWAF
[2017-07-07] MEDS: FAMOTIDINE IV INJ 20 MG in SYRINGE 3 ML IV SCH (17:13)
[2017-07-07] MEDS: DOXYCYCLINE IV 100 MG in DEXTROSE 5% 100ML 100 ML IV SCH (17:13)
[2017-07-07] MEDS: HEPARIN SOD 5000 UNIT/0.5 ML CARP SQ SCH ×2 (17:14→23:27)
--- NOTE | 2017-07-07 17:19 | DIAGNOSTIC IMAGING REPORT ---
ORBIT RADIOGRAPHS 2 VIEWS HISTORY: pre-MRI screening. COMPARISON: None. FINDINGS: There are no radiopaque foreign bodies identified within the orbits. IMPRESSION: No radiopaque foreign bodies identified within the orbits. Electronically signed by: Du Fox M.D. 07/07/2017 5:18 PM Dictated Date/Time: 07/07/2017 5:17 PM
--- NOTE | 2017-07-07 17:31 | DIAGNOSTIC IMAGING REPORT ---
CHEST ONE VIEW PORTABLE HISTORY: Line placement. R/O PNEUMOTHORAX COMPARISON: Chest 07/07/2017. FINDINGS: No pneumothorax. There are low lung volumes. No pleural effusions. Postop changes. The heart remains enlarged. The endotracheal tube terminates approximately 3.9 cm from the erickson. Nasogastric tube terminates below the diaphragm. The tip is not included on this study. Vascular stents are again noted within the left upper chest. Mild interstitial and vascular thickening with a few linear densities at the left lung base. IMPRESSION: 1. Satisfactory support line placement. 2. No pneumothorax. 3. Slight progression of the diffuse interstitial thickening. This favors mild congestive change. 4. Left basilar linear densities persist and favor subsegmental atelectasis. Electronically signed by: Du Fox M.D. 07/07/2017 5:29 PM Dictated Date/Time: 07/07/2017 5:25 PM
--- NOTE | 2017-07-07 17:49 | History and Physical ---
History & Physical Date & Time of Service: Jul 07, 2017 at 10:57 Chief Complaint: Penis Bleeding Primary Care Physician: Marty Bliss M.D. History of Present Illness Source: patient, hospital records, intermediate 61 yo Male with PMH of ESRD on HD, HTN, CAD, obesity, anemia of chronic disease was sent from [facility] to evaluate for swelling in his face and penile discharge. Pt said that yesterday he noticed his face and his extremities were swelling. He said that he has been drinking a lot of water. His last HD was Saturday. I called the intermediate, they said pt had some discharge like pus coming from his penis. Overnight nurse at [facility] attempted to collect a urine sample, but failed. His penis was bleeding. Staff at the nursing said that his Tmax yesterday was 99.7 and he was saturated at 94% . In the ER a nitro paste was placed on patient because he has hypertensive and possible fluid overload. When I see him, he was hypotensive in the 80 to 90's, I gave the nurse an order to d/c the nitro paste. his blood pressure was dropping further, 2 bolus NS of 250ml were given. His BP improved slightly in the 80's. I started him on broad spectrum antibiotic and blood cx was collected before starting the abx. I discussed the case with the Associate Consulting Engineer for possible to transfer to the ICU if he remains Hypotensive to start him on pressor. Associate Consulting Engineer went to see the patient in the ER and recommended to transfer the patient to the ICU because patient was not responding to deep stimuli. After about 15 minutes i went to evaluate pt again. He was back to his baseline taking and his blood pressure was reported to be in the 140s systolic. He reported he was a heavy sleeper normally would not respond to deep stimuli. Again i alison to discussed the case again to the Associate Consulting Engineer, while we were at his bedside in the ER. We woke him up from sleep, and pt was doing jerking seizure like movement and became unresponsive with right sided gaze deviation and saliva was coming out from the corner of his mouth. During the episode his heart rate dropped in the 40's. He was transferred to the resuscitation room and intubated for airway protection. Past Medical/Surgical History Medical Problems: (1) Anemia of chronic renal failure Status: Chronic (2) CAD (coronary artery disease) Status: Chronic (3) Diabetes mellitus type 2 in obese Status: Chronic (4) Diastolic heart failure Status: Chronic (5) ESRD (end stage renal disease) Status: Chronic (6) History of MRSA infection Status: Chronic (7) HTN (hypertension) Status: Chronic (8) Hypotensive Status: Chronic (9) IBS (irritable bowel syndrome) Status: Chronic (10) Liver cirrhosis Status: Chronic (11) Obesity (BMI 30-39.9) Status: Chronic (12) Urge incontinence Status: Chronic Surgical Problems: (1) H/O cataract removal with insertion of prosthetic lens Status: Resolved (2) History of left lower limb amputation Permanent Comment: 09/2010 Status: Resolved (3) History of trabeculectomy Permanent Comment: bilateral Dr. Mcbride Status: Resolved (4) S/P CABG x 4 Permanent Comment: 2008 Status: Resolved Family History Diabetes mellitus Heart disease Social History Smoking Status: Never Smoker Drug Use: none Marital Status: single, Housing status: assisted living Occupational Status: unemployed Immunizations History of Influenza Vaccine: Yes Influenza Vaccine Date: May 10, 2013 History of Tetanus Vaccine?: Unknown History of Pneumococcal: Yes Pneumococcal Date: Sep 09, 2009 History of Hepatitis B Vaccine: No Multi-Drug Resistant Organisms History of MDRO: Yes Type of MDRO: MRSA Allergies Coded Allergies: Sulfamethoxazole w/Trimethoprim (Verified Allergy, Intermediate, HIVES, ) Latex (Verified Allergy, Mild, LEVEL 1, 05/22/17) Iodine (Unverified Allergy, Unknown, UNKNOWN, 05/22/17) Povidone Iodine (Verified Allergy, Unknown, FROM [facility] INFORMATION , 05/22/17) Sulfa Antibiotics (Unverified Allergy, Unknown, ., 05/22/17) PER [facility] Home Medications Scheduled Amlodipine (Norvasc), 10 MG PO HS Ascorbic Acid (Vitamin C), 500 MG PO BID Carvedilol (Coreg), 3.125 MG PO DAILY@1700 Cholecalciferol (D3), UD Clopidogrel (Plavix), 75 MG PO QPM Emollient (Gold Renner Ultimate), 1 APPLN TD HS Ferric Citrate (Auryxia), 2 TABS PO WM Gabapentin (Gabapentin), 100 MG PO HS Latanoprost (Xalatan 0.005% Oph Emma), 1 DROPS OP HS Levothyroxine Sodium (Synthroid), 25 MCG PO DAILYBB Loperamide Hcl (Imodium), 2 MG PO Q2H Loratadine (Claritin), 10 MG PO QPM Lorazepam (Lorazepam), 0.5 MG PO HS Losartan Potassium (Cozaar), 100 MG PO HS Midodrine (Midodrine HCl), 2.5 MG PO MoWeFr@0900 Ranitidine HCl (Ranitidine 75), 75 MG PO HS Sertraline (Zoloft), 100 MG PO DAILY Simvastatin (Zocor), TAB PO HS Vitamin B Cmplx/Vitc/Folic Ac (Nephrocaps), 1 CAP PO QPM Wound Dressings (Allevyn Adhesive), 1 PATCH TOP UD Wound Dressings (Allevyn Adhesive), 1 APPLN TOP UD Zinc Oxide (Topical) (Desitin), 1 APPLN TOP TID [Liquiacel Protein], 1 OZ PO 4XWK [Oxygen Equipment], Unknown Dose SUNDAYS [Tubigrip], 1 APPLN UNKNOWN DAILY Scheduled PRN Acetaminophen (Tylenol), 650 MG PO Q4 PRN for Pain or Fever Bisacodyl (Bisac-Evac), 10 MG RE DAILY PRN for Constipation Carboxymethylcellulose Sodium (Lubricant Eye Drops), 1 DROP OPB Q4 PRN for DRY EYES Lorazepam (Ativan), 0.25 MG PO UD PRN for PRIOR TO GOING TO DIALYSIS Lorazepam (Ativan), 0.5 MG PO HS PRN for Anxiety Oxycodone Hcl (Oxycodone Hcl), 1 CAP PO Q6 PRN for Pain Review of Systems Constitutional: + fever, + weakness Eyes: No eye pain ENT: No nasal symptoms, No sore throat Respiratory: No cough, No sputum Cardiovascular: No chest pain, No palpitations Abdomen: No pain, No nausea Musculoskeletal: No calf pain Genitourinary - Male: + penile discharge Neurologic: No weakness Psychiatric: No substance abuse Endocrine: No excessive thirst Hematologic / Lymphatic: No abnormal bleeding/bruising Integumentary: No rash, No itch Physical Exam Vital Signs Date Time Temp Pulse Resp B/P (MAP) Pulse Ox O2 Delivery O2 Flow Rate FiO2 07/07/17 08:10 69 20 114/57 98 Nebulizer 7.0 07/07/17 07:49 69 18 156/70 100 Nebulizer 7.0 07/07/17 07:47 73 16 100 Nasal Cannula 3.0 07/07/17 07:04 Nasal Cannula 2.0 07/07/17 06:53 72 07/07/17 06:50 85 Room Air 07/07/17 06:42 37.1 71 18 155/80 96 Nasal Cannula 2.0 General Appearance: + severe distress, + obese, + pertinent finding (became unresponsive an intubated) Head: normocephalic, atraumatic Eyes: PERRL ENT: + pertinent finding (intubated) Neck: no JVD, trachea midline Respiratory/Chest: + rhonchi Cardiovascular: no gallop, no JVD Abdomen/GI: normal bowel sounds, non tender Genitourinary - Male: + urethral discharge Back: no CVA tenderness Extremities/Musculoskelatal: + pertinent finding (Left BKA) Neurologic/Psych: + pertinent finding (was moving extremities, follow command, speech fluent before became unresponsive) Skin: warm/dry, no rash Diagnostics Laboratory Results Results Past 24 Hours Test 07/07/17 07:00 07/07/17 07:40 07/07/17 10:17 07/07/17 10:51 Range/Units White Blood Count 12.17 4.8-10.8 K/uL Red Blood Count 3.56 4.7-6.1 M/uL Hemoglobin 11.2 14.0-18.0 g/dL Hematocrit 34.7 42-52 % Mean Corpuscular Volume 97.5 80-100 fL Mean Corpuscular Hemoglobin 31.5 25-34 pg Mean Corpuscular Hemoglobin Concent 32.3 32-36 g/dl Platelet Count 177 130-400 K/uL Mean Platelet Volume 11.3 7.4-10.4 fL Neutrophils (%) (Auto) 72.0 % Lymphocytes (%) (Auto) 11.0 % Monocytes (%) (Auto) 12.0 % Eosinophils (%) (Auto) 3.8 % Basophils (%) (Auto) 0.6 % Neutrophils # (Auto) 8.77 1.4-6.5 K/uL Lymphocytes # (Auto) 1.34 1.2-3.4 K/uL Monocytes # (Auto) 1.46 0.11-0.59 K/uL Eosinophils # (Auto) 0.46 0-0.5 K/uL Basophils # (Auto) 0.07 0-0.2 K/uL RDW Standard Deviation 59.6 36.4-46.3 fL RDW Coefficient of Variation 16.8 11.5-14.5 % Immature Granulocyte % (Auto) 0.6 % Immature Granulocyte # (Auto) 0.07 0.00-0.02 K/uL Prothrombin Time 11.4 9.0-12.0 SECONDS Prothromb Time International Ratio 1.1 0.9-1.1 Sodium Level 135 136-145 mmol/L Potassium Level 4.4 3.5-5.1 mmol/L Chloride Level 95 98-107 mmol/L Carbon Dioxide Level 31 21-32 mmol/L Anion Gap 10.0 3-11 mmol/L Blood Urea Nitrogen 34 7-18 mg/dl Creatinine 5.18 0.60-1.40 mg/dl Est Creatinine Clear Calc Drug Dose 21.4 ml/min Estimated GFR () 12.7 Estimated GFR (Non- 10.9 BUN/Creatinine Ratio 6.6 10-20 Random Glucose 125 70-99 mg/dl Calcium Level 9.0 8.5-10.1 mg/dl Total Bilirubin 0.4 0.2-1 mg/dl Aspartate Amino Transf (AST/SGOT) 18 15-37 U/L Alanine Aminotransferase (ALT/SGPT) 18 12-78 U/L Alkaline Phosphatase 123 45-117 U/L Total Creatine Kinase 54 39-308 U/L Creatine Kinase MB 0.6 0.5-3.6 ng/ml Creatine Kinase MB Ratio 1.1 0-3.0 Troponin I < 0.015 0-0.045 ng/ml Total Protein 7.1 6.4-8.2 gm/dl Albumin 3.1 3.4-5.0 gm/dl Globulin 4.0 2.5-4.0 gm/dl Albumin/Globulin Ratio 0.8 0.9-2 Influenza Type A (RT-PCR) Neg for Influ A NEG Influenza Type A Antigen Neg for Influ A NEG Influenza Type B Antigen Neg for Influ B NEG Influenza Type B (RT-PCR) Neg for Influ B NEG Microbiology Results 07/07/17 Blood Culture, Ordered Pending 07/07/17 Blood Culture, Ordered Pending Diagnostic Radiology CHEST ONE VIEW PORTABLE HISTORY: Short of breath. COMPARISON: Chest 05/22/2017. FINDINGS: No pneumothorax. Trace bilateral pleural effusions. The heart remains enlarged. Progressive interstitial and vascular thickening consistent with mild pulmonary edema. Vascular stents are again noted within the left axilla. There are poststernotomy changes. Low lung volumes. IMPRESSION: Progressive mild interstitial pulmonary edema and trace bilateral pleural effusions. Electronically signed by: Du Fox M.D. 07/07/2017 8:13 AM Dictated Date/Time: 07/07/2017 8:12 AM CHEST ONE VIEW PORTABLE HISTORY: post intubation COMPARISON: Chest 07/07/2017. FINDINGS: No pneumothorax. Pulmonary edema and trace bilateral pleural effusions have improved. Patchy densities within the left lung base favor atelectasis. The heart remains mildly enlarged. Postoperative changes. Left axillary/subclavian vascular stents are again noted. Endotracheal tube terminates 3.8 cm from the erickson. Old left lower rib fractures. IMPRESSION: 1. Endotracheal tube terminates 3.8 cm from the erickson. 2. Slight improvement in the mild pulmonary edema and trace bilateral pleural effusions. Electronically signed by: uD Fox M.D. 07/07/2017 12:24 PM Dictated Date/Time: 07/07/2017 12:22 PM [~ rep ct add3]] HEAD CTA HISTORY: Altered mental status. TECHNIQUE: Multiaxial CT images of the head were performed both before and after the intravenous administration of contrast to evaluate the major cerebral vessels. Maximum intensity projection images were also obtained. A dose lowering technique was utilized adhering to the principles of ALARA. COMPARISON: Head CT 12/09/2014. FINDINGS: Fluid within the posterior nasopharynx. Mastoid air cells are clear. Mild atrophy and microvascular ischemic changes. There is no mass, hematoma, midline shift, acute infarct. Complete occlusion of the right internal carotid artery. Moderate calcified plaque within the left internal carotid artery. However, no significant stenosis. The distal vertebral arteries and basilar artery are patent. The bilateral ACAs,MCAs, school guard show no significant stenosis, occlusion, or aneurysm. Hypoplastic distal right vertebral artery. IMPRESSION: 1. Occluded right internal carotid artery. 2. However, the remaining cerebral arteries show no significant stenosis, occlusion, or aneurysm. 3. No acute infarct identified. Therefore, the occluded right internal carotid artery could be chronic. Electronically signed by: Du Fox M.D. 07/07/2017 1:38 PM Dictated Date/Time: 07/07/2017 1:31 PM NECK CTA HISTORY: Altered mental status. TECHNIQUE: Multiaxial CT images of the neck were performed following the intravenous administration of contrast to evaluate the major cervical vessels. Maximum intensity projection images were also obtained. All measurements were calculated based on NASCET criteria. A dose lowering technique was utilized adhering to the principles of ALARA. COMPARISON STUDY: None. FINDINGS: There is no endotracheal tube is present which terminates above the erickson. Multiple stents seen within the left axillary, subclavian, and brachiocephalic veins. Mild interlobular septal thickening seen within the lung apices suggestive of mild pulmonary edema. Poststernotomy changes. Multiple borderline enlarged mediastinal lymph nodes. Moderate calcified plaque at the left subclavian artery. Mild stenosis at the proximal left subclavian artery. The bilateral common carotid arteries and vertebral arteries appear to be patent. 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 Short segment of the proximal left vertebral artery is not well-visualized due to motion artifact. Complete occlusion of the right ICA. Internal jugular veins appear patent. The left carotid bifurcation is not well visualized due to the motion artifact. However, there suggestive of high-grade stenosis at the origin of the left ICA. Remaining portions of the left ICA are widely patent. IMPRESSION: 1. Complete occlusion of the right ICA. This is age indeterminate. 2. The left carotid bifurcation is not well visualized due to the motion artifact. However, there suggestive of high-grade stenosis at the origin of the left ICA. Remaining portions of the left ICA are widely patent. 3. Suggestion of mild interstitial pulmonary edema. 4. 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 Electronically signed by: Du Fox M.D. 07/07/2017 1:45 PM Dictated Date/Time: 07/07/2017 1:38 PM Impression Assessment and Plan Unresponsive Possible related to seizure? Vs Ischemic events? Had seizure like movement CT head showed no acute infarct identified. 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 Intubated for airway protection by the financial supervisor on vent support Sedated with versed Starting on Keppra Will get an MRI of the head Will get an EEG Neuro consult Associate Consulting Engineer on board, case discussed with Dr. Sharp Will monitor in the ICU Hypotension Just for a few hours after nitro paste placed Need to R/o infectious etiology Blood cx collected starting on Vanco/Zosyn/Doxy Procalcitonin normal Will repeat procalcitonin Normal lactic acid No sign of hypovolemic Hold BP med Received 500ml NS Now BP elevated Penis Discharge WBC mildly elevated Procalcitonin and lactic acid negative Swab collected and sent Check for gonorrhea and chlamydia Continue Vanco/Zosyn/Doxy for now Monitor WBC Repeat procalcitonin Hypertension Will monitor BP for now Will not add any BP med because BP dropped significantly after nitro paste in the ER Hold BP meds for now ESRD on HD Last HD was Saturday Case discussed with Dr. Oden No need for urgent HD for now Bradycardia Occurs during the unresponsive episode troponin negative No chest pain reporting during admission No ST changes on initial EKG Will get an echo DVT px on heparin subq Disposition ICU Called made to his POA Larry Advanced Directives Existing Living Will: Yes Existing Power of Field Software Engineer: Yes VTE Prophylaxis VTE Risk Assessment Done? Y/N: Yes Risk Level: Moderate
[2017-07-07] MEDS ORDERED: [UNRECOGNIZED DRUG - REMARK] SCH ×2 (19:00→21:00)
[2017-07-07] MEDS: PHENYLEPHRINE HCL INJ 20 MG in DEXTROSE 5% 500ML 500 ML IV PRN (19:36)
[2017-07-07] MEDS ORDERED: PIPERACILL/TAZOBAC IV 3.375 GM in DEXTROSE 5% 100ML IV SCH (20:00)
[2017-07-07] MEDS ORDERED: VECURONIUM BROMIDE 10 MG VIAL IV PRN (20:00)
--- NOTE | 2017-07-07 20:41 | Procedure Note ---
Procedure Note Procedure Date Jul 07, 2017. Central Line Procedure time out: side/site verified, patient ID confirmed, sterile procedure used Consent obtained: written (consent obtained from health care proxy) Time of procedure: 16:00 Performed by: attending Indications: poor venous access Prep: chlorhexadine prep, sterile drape, sterile procedures used Anesthesia: lidocaine 1% without epi Volume anesthetic (ml's): 1 Central line lumen: triple Central line location: internal jugular (R) Additional details: ultrasound guidance CXR: no pneumothorax Complications: other (unable to pass guidewire successfully beyond 12 cm) Patient tolerated procedure: well Post-procedure vital signs: reviewed and stable Comments: procedure was aborted Critical Care Medicine Point of Care Bedside Ultrasound Procedure: Procedural Ultrasound Procedure Date: 07/07/2017 Indication: Right internal jugular central venous access Attending: Leana Sharp DO Artery AND Vein visualized: y Compressible Vein: y Guidewire or Short Catheter seen in vein prior to dilation: y Line confirmed in Vein with ultrasound: y Lung Sliding on side of attempt (if applicable): y If no lung sliding or not obtained has CXR been ordered: y Impression: Successful cannulation of right internal jugular vein, inability to pass guidewire this procedure was aborted Images obtained are saved for permanent record
--- NOTE | 2017-07-07 20:43 | Procedure Note ---
Procedure Note Procedure Date Jul 07, 2017. Central Line Procedure time out: side/site verified, patient ID confirmed, sterile procedure used Consent obtained: written (consent obtained from healthcare POA) Time of procedure: 16:15 Performed by: attending Indications: poor venous access Prep: chlorhexadine prep, sterile drape, sterile procedures used Anesthesia: lidocaine 1% without epi Volume anesthetic (ml's): 1 Central line lumen: triple Central line location: internal jugular (L) Additional details: ultrasound guidance, Selinger technique used CXR: no pneumothorax Complications: other (inability to pass guidewire beyond approximately 15 cm, procedure was aborted) Patient tolerated procedure: well Post-procedure vital signs: reviewed and stable Comments: procedure was aborted Critical Care Medicine Point of Care Bedside Ultrasound Procedure: Procedural Ultrasound Procedure Date: 07/07/2017 Indication: left internal jugular central venous access Attending: Leana Sharp DO Artery AND Vein visualized: y Compressible Vein: y Guidewire or Short Catheter seen in vein prior to dilation: y Line confirmed in Vein with ultrasound: y Lung Sliding on side of attempt (if applicable): y If no lung sliding or not obtained has CXR been ordered: y Impression: Successful cannulation of left internal jugular vein, inability to pass guidewire, this procedure was aborted Images obtained are saved for permanent record
--- NOTE | 2017-07-07 20:45 | Procedure Note ---
Procedure Note Procedure Date Jul 07, 2017. Central Line Procedure time out: side/site verified Consent obtained: written (consent obtained from healthcare POA) Time of procedure: 16:30 Performed by: attending Indications: poor venous access Prep: chlorhexadine prep, sterile drape, sterile procedures used Anesthesia: lidocaine 1% without epi Volume anesthetic (ml's): 2 Central line lumen: triple Central line location: femoral (R) Additional details: ultrasound guidance, Selinger technique used, line sutured , good blood return CXR: other (not applicable) Complications: none Patient tolerated procedure: well Post-procedure vital signs: reviewed and stable Comments: procedure was aborted Critical Care Medicine Point of Care Bedside Ultrasound Procedure: Procedural Ultrasound Procedure Date: 07/07/2017 Indication: Right femoral central venous access, inability to palpate landmarks secondary to morbid obesity with BMI greater than 40 Attending: Leana Sharp DO Artery AND Vein visualized: y Compressible Vein: y Guidewire or Short Catheter seen in vein prior to dilation: y Impression: Successful placement of right femoral central venous catheter Images obtained are saved for permanent record
--- NOTE | 2017-07-07 20:48 | Procedure Note ---
Procedure Note Date of Service Jul 07, 2017. Procedure Note Procedure Date: 07/07/2017 Procedure: Endotracheal intubation Pre-procedure Diagnosis: Acute encephalopathy, impending respiratory failure secondary to acute airway obstruction secondary to morbid obesity BMI greater than 40 Post-procedure Diagnosis: same as above Prior to Procedure: Informed Consent: emergent Attending Staff: Leana Sharp DO Indications: Patient is a 61-year-old end-stage dialysis patient who had an acute encephalopathic event, possible seizure-like activity, who exhibited sonorous respirations, would desaturate and had bradycardia. The decision was made to emergently intubate the patient patient had been given 2 mg of Ativan IV and was still obstructing his airway. The identity of the patient was confirmed and a bedside time out was performed. Description of Procedure: Patient was evaluated and required intubation for impending respiratory failure. The patient was prepared in the usual fashion. A 3 Mooney laryngoscope was used. A 8.0 Fr endotrachial tube was placed endotracheally to 23 cm at the teeth. A 81 view was obtained. The endotracheal tube was noted to pass through the vocal cords. Chest rise was bilateral. Bilateral breath sounds were heard without air sounds in the abdomen. Mist was noted in the endotracheal tube. End -tidal CO2 measurement was positive. Chest x-ray shows proper endotracheal tube placement. Complications: None Findings: not applicable Specimens: not applicable Estimated blood loss: Zero
[2017-07-07] MEDS ORDERED: VANCOMYCIN INJ 1,000 MG in SODIUM CHLORIDE 0.9% 250ML 250 ML IV SCH (21:00)
--- NOTE | 2017-07-07 21:19 | Critical Care Consultation ---
Critical Care Consultation Date of Consultation: Jul 07, 2017. Attending Physician: David Schroeder M.D. Reason for Consultation: Hypotension, acute encephalopathy, intubation secondary to respiratory failure History of Present Illness History is obtained from prior records, the emergency department, and the hospitalist service. Patient was reportedly being sent from [facility] for evaluation of possible penile discharge. While in the ED the patient was complaining of mild dyspnea. He was found to be hypertensive, he had not missed dialysis however was felt that he was possibly volume overloaded and was administered nitro paste. During the hospitalist evaluation patient had become hypotensive in the nitro paste was discontinued. I was requested to look at the patient at this time for possible sepsis etiology. Patient was still marginally responsive when I saw him in the ED with systolic blood pressures in the higher 80s I ordered additional labs as well as a fluid/colloidin challenge. Approximately 10 minutes later was approached by the hospitalist he said the patient's complaints had completely resolved and he reported he was a heavy sleeper normally would not respond to deep stimuli. His blood pressure was reported to be in the 140s systolic. I went to repeat my evaluation of the patient. During this time the patient became acutely unresponsive had a right- sided gaze deviation and had sonorous respirations. The patient did go bradycardic during this event there was no evidence of atrial fibrillation. This appeared to be either myoclonic jerking secondary to syncope or a seizure- like event. Patient was transferred to the resuscitation room event 2 mg of Ativan and I intubated the patient. If this was a CVA in origin the patient would not be a candidate for TPA secondary to seizure. During the event the patient's blood pressure was at least 170 systolic. We obtained a non-con CT to look for intracranial hemorrhage, there was none. A CTA of the head and neck was performed. I discussed these findings with the radiologist, the appearance of the right-sided occlusions appear to be chronic in nature. The patient was loaded with Keppra. Due to persistent altered sensorium without giving additional sedatives I ordered a stat EEG to evaluate for the possibility of status epilepticus. I discussed the findings of the EEG with the consult a neurologist Dr. Sherwood who will see the patient tomorrow. A central venous catheter was placed secondary to poor vascular access. I was able to discussed the risks and benefits with the patient's power of county attorney. In discussing the patient's clinical condition, chronic medical conditions, and current state the patient's power of county attorney informed me that in event of cardiac arrest the patient would not want heroic measures undertaken. He is a DO NOT RESUSCITATE in event of cardiac arrest. Family History Diabetes mellitus Heart disease Social History Unable to obtain secondary to patient condition Patient is a resident at [facility] Smoking Status: Never Smoker Drug Use: none Marital Status: single, Housing Status: jail Occupation Status: unemployed Allergies Coded Allergies: Sulfamethoxazole w/Trimethoprim (Verified Allergy, Intermediate, HIVES, ) Latex (Verified Allergy, Mild, LEVEL 1, 05/22/17) Iodine (Unverified Allergy, Unknown, UNKNOWN, 05/22/17) Povidone Iodine (Verified Allergy, Unknown, FROM ASSISTED INFORMATION , 05/22/17) Sulfa Antibiotics (Unverified Allergy, Unknown, ., 05/22/17) PER [facility] RECORDS Home Medications Scheduled Amlodipine (Norvasc), 10 MG PO HS Ascorbic Acid (Vitamin C), 500 MG PO BID Carvedilol (Coreg), 3.125 MG PO DAILY@1700 Cholecalciferol (D3), UD Clopidogrel (Plavix), 75 MG PO QPM Emollient (Gold Renner Ultimate), 1 APPLN TD HS Ferric Citrate (Auryxia), 2 TABS PO WM Gabapentin (Gabapentin), 100 MG PO HS Latanoprost (Xalatan 0.005% Oph Emma), 1 DROPS OP HS Levothyroxine Sodium (Synthroid), 25 MCG PO DAILYBB Loperamide Hcl (Imodium), 2 MG PO Q2H Loratadine (Claritin), 10 MG PO QPM Lorazepam (Lorazepam), 0.5 MG PO HS Losartan Potassium (Cozaar), 100 MG PO HS Midodrine (Midodrine HCl), 2.5 MG PO MoWeFr@0900 Ranitidine HCl (Ranitidine 75), 75 MG PO HS Sertraline (Zoloft), 100 MG PO DAILY Simvastatin (Zocor), TAB PO HS Vitamin B Cmplx/Vitc/Folic Ac (Nephrocaps), 1 CAP PO QPM Wound Dressings (Allevyn Adhesive), 1 PATCH TOP UD Wound Dressings (Allevyn Adhesive), 1 APPLN TOP UD Zinc Oxide (Topical) (Desitin), 1 APPLN TOP TID [Liquiacel Protein], 1 OZ PO 4XWK [Oxygen Equipment], Unknown Dose SUNDAYS [Tubigrip], 1 APPLN UNKNOWN DAILY Scheduled PRN Acetaminophen (Tylenol), 650 MG PO Q4 PRN for Pain or Fever Bisacodyl (Bisac-Evac), 10 MG RE DAILY PRN for Constipation Carboxymethylcellulose Sodium (Lubricant Eye Drops), 1 DROP OPB Q4 PRN for DRY EYES Lorazepam (Ativan), 0.25 MG PO UD PRN for PRIOR TO GOING TO DIALYSIS Lorazepam (Ativan), 0.5 MG PO HS PRN for Anxiety Oxycodone Hcl (Oxycodone Hcl), 1 CAP PO Q6 PRN for Pain Current Inpatient Medications Current Inpatient Medications Medications (Trade) Dose Ordered Sig/Nicole Route Start Time Stop Time Status Last Admin Dose Admin Heparin Sodium (Porcine) (Heparin Sq 5000 Unit/0.5ml) 5,000 unit Q8 SQ 07/07/17 14:00 08/06/17 13:59 07/07/17 17:14 5,000 UNIT Vancomycin HCl (Consult) 1 ea UD PRN N/A 07/07/17 10:45 08/06/17 10:44 Piperacillin Sod/ Tazobactam Sod (Consult) 1 ea UD PRN N/A 07/07/17 10:45 08/06/17 10:44 Doxycycline Hyclate 100 mg/ Dextrose 110 ml @ 50 mls/hr Q12@0400,1600 IV 07/07/17 14:45 07/14/17 14:44 07/07/17 17:13 50 MLS/HR Ioversol (Optiray 320) 111 ml UD PRN IV 07/07/17 13:45 07/11/17 13:44 Famotidine 20 mg/ Syringe 5 ml @ 2.5 mls/min Q12H IV 07/07/17 16:00 08/06/17 15:59 07/07/17 17:13 2.5 MLS/MIN Fentanyl Citrate (Fentanyl Inj) 50 mcg Q1H PRN IV 07/07/17 14:15 07/21/17 14:14 Midazolam HCl (Versed Inj) 2 mg Q2H PRN IV 07/07/17 14:30 08/06/17 14:29 Piperacillin Sod/ Tazobactam Sod 3.375 gm/Dextrose 115 ml @ 28.75 mls/ hr Q12@0800,1999 IV 07/07/17 20:00 07/09/17 19:59 Phenylephrine HCl 20 mg/Dextrose 502 ml @ 0 mls/hr Q0M PRN IV 07/07/17 18:34 08/06/17 18:33 07/07/17 19:36 209 MLS/HR Vecuronium Phoenix (Vecuronium Phoenix Inj) 10 mg ONE PRN IV 07/07/17 20:00 08/06/17 19:59 07/07/17 20:28 10 MG Review of Systems Unable to obtain secondary to patient condition Physical Exam Date Time Temp Pulse Resp B/P (MAP) Pulse Ox O2 Delivery O2 Flow Rate FiO2 07/07/17 18:17 58 14 99/51 (70) 100 07/07/17 18:15 58 10 100 07/07/17 18:10 40 07/07/17 18:02 62 14 212/90 (123) 100 07/07/17 18:00 60 14 100 07/07/17 17:56 59 14 92/59 (69) 100 07/07/17 17:45 59 14 100 07/07/17 17:31 60 14 74/52 (65) 100 07/07/17 17:30 60 14 100 07/07/17 17:15 60 14 100 07/07/17 17:15 60 14 100 07/07/17 17:02 63 14 105/67 (73) 100 07/07/17 17:00 63 14 99 07/07/17 16:45 63 15 100 07/07/17 16:31 76 15 191/87 (139) 100 07/07/17 16:30 76 15 100 07/07/17 16:15 73 15 100 07/07/17 16:10 60 15 155/74 (110) 100 07/07/17 16:01 59 14 78/52 (64) 99 07/07/17 16:00 60 07/07/17 16:00 59 15 99 07/07/17 16:00 100 Mechanical Ventilator 60 07/07/17 15:45 60 15 99 07/07/17 15:31 62 15 94/56 (72) 99 07/07/17 15:30 63 15 98 07/07/17 15:15 62 14 99 07/07/17 15:02 64 15 115/57 (83) 99 07/07/17 15:02 64 15 115/57 (83) 99 07/07/17 15:00 64 14 98 07/07/17 15:00 64 14 98 07/07/17 14:45 64 16 99 07/07/17 14:30 66 16 98 07/07/17 14:15 68 16 100 07/07/17 14:00 72 26 98 07/07/17 13:55 60 07/07/17 13:54 75 17 135/69 (101) 100 07/07/17 13:45 60 07/07/17 13:45 98 Mechanical Ventilator 07/07/17 13:45 36.7 70 16 135/69 (91) 98 Mechanical Ventilator 60 07/07/17 12:46 97 16 199/75 96 Mechanical Ventilator 100 07/07/17 12:41 100 07/07/17 12:40 96 16 147/51 96 Mechanical Ventilator 100 07/07/17 12:36 87 16 147/51 97 Mechanical Ventilator 07/07/17 12:17 89 16 60/48 96 Mechanical Ventilator 100 07/07/17 12:09 93 16 60/48 97 Mechanical Ventilator 07/07/17 12:01 91 07/07/17 11:30 78 18 119/82 95 Nasal Cannula 2.0 07/07/17 11:13 149/78 07/07/17 11:05 78 20 127/78 99 Nasal Cannula 3.0 07/07/17 10:41 92/54 07/07/17 10:38 76 18 84/48 97 Room Air 07/07/17 10:30 84/48 07/07/17 10:22 73/23 07/07/17 10:00 69/44 07/07/17 09:53 37.3 78 20 79/47 95 Room Air 66/47 79/52 07/07/17 09:25 95 Nasal Cannula 3.0 07/07/17 09:01 91/52 07/07/17 08:48 76 18 95/67 93 Nasal Cannula 3.0 07/07/17 08:10 69 20 114/57 98 Nebulizer 7.0 07/07/17 07:49 69 18 156/70 100 Nebulizer 7.0 07/07/17 07:47 73 16 100 Nasal Cannula 3.0 07/07/17 07:04 Nasal Cannula 2.0 07/07/17 06:53 72 07/07/17 06:50 85 Room Air 07/07/17 06:42 37.1 71 18 155/80 96 Nasal Cannula 2.0 General Appearance: severe distress Eyes: no discharge, other (pupils reactive to light, initially there was a up and right gaze preference) ENT: normal mouth exam, normal throat exam, poor dentition Neck: no tenderness, trachea midline, no stridor Respiratory: rhonchi (scattered) Cardiovasular: normal S1S2 Abdomen: normal bowel sounds, no masses, no guarding, occult rectal blood Genitourinary - Male: other (reported blood at the urethral meatus, I did not visualize) Lower Extremities: other (left below the knee amputation, skin clean dry and intact no obvious areas of infection in the amputation) Neuro: decreased LOC Psychiatric: other (unable to evaluate) Laboratory Results Last 24 Hours Test 07/07/17 07:00 07/07/17 07:40 07/07/17 11:02 07/07/17 11:20 White Blood Count 12.17 K/uL Red Blood Count 3.56 M/uL Hemoglobin 11.2 g/dL Hematocrit 34.7 % Mean Corpuscular Volume 97.5 fL Mean Corpuscular Hemoglobin 31.5 pg Mean Corpuscular Hemoglobin Concent 32.3 g/dl Platelet Count 177 K/uL Mean Platelet Volume 11.3 fL Neutrophils (%) (Auto) 72.0 % Lymphocytes (%) (Auto) 11.0 % Monocytes (%) (Auto) 12.0 % Eosinophils (%) (Auto) 3.8 % Basophils (%) (Auto) 0.6 % Neutrophils # (Auto) 8.77 K/uL Lymphocytes # (Auto) 1.34 K/uL Monocytes # (Auto) 1.46 K/uL Eosinophils # (Auto) 0.46 K/uL Basophils # (Auto) 0.07 K/uL RDW Standard Deviation 59.6 fL RDW Coefficient of Variation 16.8 % Immature Granulocyte % (Auto) 0.6 % Immature Granulocyte # (Auto) 0.07 K/uL Prothrombin Time 11.4 SECONDS Prothromb Time International Ratio 1.1 Sodium Level 135 mmol/L Potassium Level 4.4 mmol/L Chloride Level 95 mmol/L Carbon Dioxide Level 31 mmol/L Anion Gap 10.0 mmol/L Blood Urea Nitrogen 34 mg/dl Creatinine 5.18 mg/dl Est Creatinine Clear Calc Drug Dose 21.4 ml/min Estimated GFR () 12.7 Estimated GFR (Non- 10.9 BUN/Creatinine Ratio 6.6 Random Glucose 125 mg/dl Calcium Level 9.0 mg/dl Total Bilirubin 0.4 mg/dl Aspartate Amino Transf (AST/SGOT) 18 U/L Alanine Aminotransferase (ALT/SGPT) 18 U/L Alkaline Phosphatase 123 U/L Total Creatine Kinase 54 U/L Creatine Kinase MB 0.6 ng/ml Creatine Kinase MB Ratio 1.1 Troponin I < 0.015 ng/ml Total Protein 7.1 gm/dl Albumin 3.1 gm/dl Globulin 4.0 gm/dl Albumin/Globulin Ratio 0.8 Influenza Type A (RT-PCR) Neg for Influ A Influenza Type A Antigen Neg for Influ A Influenza Type B Antigen Neg for Influ B Influenza Type B (RT-PCR) Neg for Influ B Procalcitonin 0.19 ng/ml Venous Blood pH 7.36 Venous Blood Partial Pressure CO2 59 mmHg Venous Blood Partial Pressure O2 48 mmHg Venous Blood HCO3 32 mmol/L Venous Blood Oxygen Saturation 79.1 % Venous Blood Base Excess 5.7 mEq/L Lactic Acid Level 1.7 mmol/L Urine Color AGNES Urine Appearance SL CLOUDY Urine pH 8.5 Urine Specific [place] 1.020 Urine Protein 3+ Urine Glucose (UA) NEG Urine Ketones NEG Urine Occult Blood 3+ Urine Nitrite NEG Urine Bilirubin NEG Urine Urobilinogen NEG Urine Leukocyte Esterase MODERATE Test 07/07/17 12:25 07/07/17 14:03 07/07/17 17:20 07/07/17 17:30 Bedside Glucose 192 mg/dl 189 mg/dl Stool Occult Blood POSITIVE Test 07/07/17 19:45 Diagnostic Results NECK CTA HISTORY: Altered mental status. TECHNIQUE: Multiaxial CT images of the neck were performed following the intravenous administration of contrast to evaluate the major cervical vessels. Maximum intensity projection images were also obtained. All measurements were calculated based on NASCET criteria. A dose lowering technique was utilized adhering to the principles of ALARA. COMPARISON STUDY: None. FINDINGS: There is no endotracheal tube is present which terminates above the erickson. Multiple stents seen within the left axillary, subclavian, and brachiocephalic veins. Mild interlobular septal thickening seen within the lung apices suggestive of mild pulmonary edema. Poststernotomy changes. Multiple borderline enlarged mediastinal lymph nodes. Moderate calcified plaque at the left subclavian artery. Mild stenosis at the proximal left subclavian artery. The bilateral common carotid arteries and vertebral arteries appear to be patent. 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 Short segment of the proximal left vertebral artery is not well-visualized due to motion artifact. Complete occlusion of the right ICA. Internal jugular veins appear patent. The left carotid bifurcation is not well visualized due to the motion artifact. However, there suggestive of high-grade stenosis at the origin of the left ICA. Remaining portions of the left ICA are widely patent. IMPRESSION: 1. Complete occlusion of the right ICA. This is age indeterminate. 2. The left carotid bifurcation is not well visualized due to the motion artifact. However, there suggestive of high-grade stenosis at the origin of the left ICA. Remaining portions of the left ICA are widely patent. 3. Suggestion of mild interstitial pulmonary edema. 4. 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 HEAD CTA HISTORY: Altered mental status. TECHNIQUE: Multiaxial CT images of the head were performed both before and after the intravenous administration of contrast to evaluate the major cerebral vessels. Maximum intensity projection images were also obtained. A dose lowering technique was utilized adhering to the principles of ALARA. COMPARISON: Head CT 12/09/2014. FINDINGS: Fluid within the posterior nasopharynx. Mastoid air cells are clear. Mild atrophy and microvascular ischemic changes. There is no mass, hematoma, midline shift, acute infarct. Complete occlusion of the right internal carotid artery. Moderate calcified plaque within the left internal carotid artery. However, no significant stenosis. The distal vertebral arteries and basilar artery are patent. The bilateral ACAs,MCAs, tomato grader show no significant stenosis, occlusion, or aneurysm. Hypoplastic distal right vertebral artery. IMPRESSION: 1. Occluded right internal carotid artery. 2. However, the remaining cerebral arteries show no significant stenosis, occlusion, or aneurysm. 3. No acute infarct identified. Therefore, the occluded right internal carotid artery could be chronic. Electronically signed by: Du Fox M.D. 07/07/2017 1:38 PM Dictated Date/Time: 07/07/2017 1:31 PM I had a telephone discussion with Dr. Sherwood regarding the results of the EEG. It was reported to me that there was no evidence of status epilepticus nor nonconvulsive status. Assessment & Plan Reason Critically Ill: 61-year-old male with a history of end-stage renal disease and severe peripheral vascular disease with acute encephalopathy. PLAN: Neuro: Acute encephalopathy * Initial radiographic imaging negative * MRI to rule out ischemic events Resp: Impending respiratory failure secondary to acute airway obstruction secondary to morbid obesity * Full ventilator support at this point * Chest imaging most consistent with possible mild pulmonary vascular congestion CV: Bradycardia during unresponsive episode * Initial troponins negative * Echocardiogram pending Hypotension * Patient has required intermittent vasoactive medications * Given that the patient has a completely occluded RCA, I will run the patient had a higher blood pressure to exclude the possibility of watershed infarcts Fluids/Renal: End-stage renal disease on hemodialysis * Electrolytes acceptable * Patient received 500 mL bolus of normal saline as well as 25 g of 25% albumin while in the emergency department ID: Patient is afebrile Mild leukocytosis Pro calcitonin is negative * Patient is started on broad-spectrum antibiotics including vancomycin, Zosyn, doxycycline secondary to mildly prolonged QTC * They were able to obtain a small urine specimen, it is not strongly indicative of infection. Urine culture is pending * I have also ordered Chlamydia and gonorrhea tests by DNA probe, the doxycycline would be effective treatment for this as well as the Zosyn GI/Nutrition: Hemoccult positive stools * History of gastrointestinal bleeding * On PPI prophylaxis * Patient is typed and crossed Heme: Chronic anemia * Heparin 5000 units every 8 hours for DVT prophylaxis Endocrine: Hyperglycemia Poorly controlled type 2 diabetes I have personally spent 80 minutes of critical care time in the direct management of this patient. This is a life/limb threatening event. This includes time spent evaluating patient, direct bedside care, chart review, placing orders, interpretation of diagnostic studies, discussion with consultants, patient, and family members, as well as other required patient management activities. This time is exclusive of all separately billable procedures, and teaching time and separate from and in addition to any other critical care service time.
[2017-07-07] MEDS ORDERED: VANCOMYCIN INJ 500 MG in SODIUM CHLORIDE 0.9% 250ML 250 ML IV ONE (21:30)
[2017-07-07] MEDS: MIDAZOLAM HCL 1 MG/ML 2ML VIAL IV PRN (22:13)
--- NOTE | 2017-07-07 22:18 | DIAGNOSTIC IMAGING REPORT ---
Brain MRI WITHOUT CONTRAST HISTORY: Altered mental status. r/o ischemia TECHNIQUE: Multiplanar multisequence MRI of the brain was performed without the use of contrast. COMPARISON STUDY: Head CTA 07/07/2017. FINDINGS: No areas of restricted diffusion to suggest acute infarction. The midline structures are intact. Occluded right internal carotid artery is again noted. The remaining major vascular flow-voids at the skull base are well-maintained. Old small lacunar infarct seen within the right cerebellar hemisphere. Prominence of the ventricles is likely due to central atrophy. Scattered T2 hyperintense foci seen within the white matter of the supratentorial brain. These are nonspecific but suggestive of moderate microvascular ischemic change. There is no mass, hematoma, or midline shift. Mild mucosal thickening within the paranasal sinuses and a small fluid level within the right sphenoid sinus. Small right mastoid effusion. IMPRESSION: 1. No acute infarct. 2. Redemonstration of the occluded right internal carotid artery. 3. 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 4. Atrophy and microvascular ischemic changes. Electronically signed by: Du Fox M.D. 07/07/2017 10:16 PM Dictated Date/Time: 07/07/2017 10:11 PM
[2017-07-07] MEDS: PIPERACILL/TAZOBAC IV 3.375 GM in DEXTROSE 5% 100ML IV SCH (22:24)
[2017-07-08] VITALS (67 sets, daily range): BP systolic 88–152; BP diastolic 35–67; PULSE 53–73; TEMP 36.2–36.9; O2SAT 86–100
[2017-07-08] MEDS ORDERED: INSULIN IV INFUSION PROTOCOL STA (01:16)
[2017-07-08] MEDS: PHENYLEPHRINE HCL INJ 20 MG in DEXTROSE 5% 500ML 500 ML IV PRN (01:17)
[2017-07-08] MEDS ORDERED: GLUCOSE 40% GEL 15 GM TUBE PO PRN (01:30)
[2017-07-08] MEDS ORDERED: NovoLIN R BOLUS FROM BAG IV ONE (01:30)
[2017-07-08] MEDS ORDERED: GLUCOSE 10 TABS/TUBE PO PRN (01:30)
[2017-07-08] MEDS ORDERED: SEVERE STRESS LEVEL ONE (01:30)
[2017-07-08] MEDS ORDERED: GLUCAGON FOR INJ 1 MG VIAL SQ PRN (01:30)
[2017-07-08] MEDS ORDERED: INSULIN PROTOCOL GOAL RANGE ONE (01:30)
[2017-07-08] MEDS: INSULIN REGULAR 250 UNITS in SODIUM CHLORIDE 0.9% 250ML 250 ML IV SCH ×4 (01:49→10:29)
[2017-07-08] MEDS: DOXYCYCLINE IV 100 MG in DEXTROSE 5% 100ML 100 ML IV SCH ×2 (04:21→17:48)
[2017-07-08] MEDS: FAMOTIDINE IV INJ 20 MG in SYRINGE 3 ML IV SCH ×2 (04:21→17:48)
[2017-07-08 05:50] LABS: MEAN CELL VOLUME 97.9 fL (80-100); MEAN CORPUSCULAR HEMOGLOBIN 31.5 pg (25-34); MEAN CORPUSCULAR HGB CONC 32.2 g/dl (32-36); MEAN PLATELET VOLUME 10.6 fL (7.4-10.4); PLATELET COUNT 212 K/uL (130-400); RED BLOOD COUNT 3.27 M/uL (4.7-6.1); WHITE BLOOD COUNT 15.51 K/uL (4.8-10.8)
[2017-07-08 06:00] LABS: ISTAT ALLEN TEST Pass; ISTAT ARTERIAL BLOOD GAS HCO3 29 meq/L (19-24); ISTAT ARTERIAL BLOOD GAS PCO2 51 mmHg (35-46); ISTAT ARTERIAL BLOOD GAS PO2 98 mmHg (80-95); ISTAT ARTERIAL BLOOD GAS pH 7.36 (7.35-7.45); ISTAT CARBON DIOXIDE 30 mEq/l (24-31); ISTAT DELIVERY SYSTEM Ventilator; ISTAT FIO2 40 %; ISTAT PEEP 10; ISTAT RATE 12; ISTAT SITE L Radial; VE 8.2; Vt 500
[2017-07-08] MEDS: MIDAZOLAM HCL 1 MG/ML 2ML VIAL IV PRN (06:00)
[2017-07-08] MEDS: HEPARIN SOD 5000 UNIT/0.5 ML CARP SQ SCH ×3 (06:03→21:40)
[2017-07-08 06:25] LABS: BUN/CREATININE RATIO 7.2 (10-20); CALCIUM 7.9 mg/dl (8.5-10.1); CREATININE 5.77 mg/dl (0.60-1.40); MAGNESIUM 2.3 mg/dl (1.8-2.4); PHOSPHORUS 3.2 mg/dl (2.5-4.9); POTASSIUM 4.1 mmol/L (3.5-5.1)
[2017-07-08] MEDS: DEXTROSE 50% 50 ML SYR IV PRN ×3 (06:48→09:57)
--- NOTE | 2017-07-08 07:05 | Nephrology Progress Note ---
Nephrology Progress Note Date of Service: Jul 08, 2017. Subjective 61 yo male with esrd with a fistula who was intubated after seizure like activity and now on bare hugger and pressor. Objective Date Time Temp Pulse Resp B/P (MAP) Pulse Ox O2 Delivery O2 Flow Rate FiO2 07/08/17 06:00 61 20 96 07/08/17 06:00 36.8 61 20 105/50 (68) 96 Mechanical Ventilator 30 07/08/17 05:00 56 14 100 07/08/17 04:19 40 07/08/17 04:00 40 07/08/17 04:00 36.6 55 14 103/52 (69) 100 Mechanical Ventilator 40 07/08/17 04:00 55 14 100 07/08/17 04:00 Mechanical Ventilator 40 07/08/17 03:00 61 15 97 07/08/17 02:00 36.2 53 13 114/52 (72) 98 Mechanical Ventilator 40 07/08/17 02:00 53 13 98 07/08/17 01:00 53 14 98 07/08/17 00:59 40 07/08/17 00:01 36.2 55 14 152/61 (78) 99 07/08/17 00:01 36.2 55 14 152/61 (91) 99 Mechanical Ventilator 40 07/07/17 23:59 40 07/07/17 23:59 Mechanical Ventilator 40 07/07/17 23:00 60 14 128/56 100 07/07/17 22:30 69 14 134/55 (81) 99 Mechanical Ventilator 60 07/07/17 21:30 40 07/07/17 20:00 64 13 100 07/07/17 20:00 36.8 64 13 136/55 (82) 100 Mechanical Ventilator 60 07/07/17 20:00 Mechanical Ventilator 60 07/07/17 20:00 60 07/07/17 19:00 61 14 100 07/07/17 18:17 58 14 99/51 (70) 100 07/07/17 18:15 58 10 100 07/07/17 18:10 40 07/07/17 18:02 62 14 212/90 (123) 100 07/07/17 18:00 60 14 100 07/07/17 17:56 59 14 92/59 (69) 100 07/07/17 17:45 59 14 100 07/07/17 17:31 60 14 74/52 (65) 100 07/07/17 17:30 60 14 100 07/07/17 17:15 60 14 100 07/07/17 17:15 60 14 100 07/07/17 17:02 63 14 105/67 (73) 100 07/07/17 17:00 63 14 99 07/07/17 16:45 63 15 100 07/07/17 16:31 76 15 191/87 (139) 100 07/07/17 16:30 76 15 100 07/07/17 16:15 73 15 100 07/07/17 16:10 60 15 155/74 (110) 100 07/07/17 16:01 59 14 78/52 (64) 99 07/07/17 16:00 60 07/07/17 16:00 59 15 99 07/07/17 16:00 100 Mechanical Ventilator 60 07/07/17 15:45 60 15 99 07/07/17 15:31 62 15 94/56 (72) 99 07/07/17 15:30 63 15 98 07/07/17 15:15 62 14 99 07/07/17 15:02 64 15 115/57 (83) 99 07/07/17 15:02 64 15 115/57 (83) 99 07/07/17 15:00 64 14 98 07/07/17 15:00 64 14 98 07/07/17 14:45 64 16 99 07/07/17 14:30 66 16 98 07/07/17 14:15 68 16 100 07/07/17 14:00 72 26 98 07/07/17 13:55 60 07/07/17 13:54 75 17 135/69 (101) 100 07/07/17 13:45 60 07/07/17 13:45 98 Mechanical Ventilator 07/07/17 13:45 36.7 70 16 135/69 (91) 98 Mechanical Ventilator 60 07/07/17 12:46 97 16 199/75 96 Mechanical Ventilator 100 07/07/17 12:41 100 07/07/17 12:40 96 16 147/51 96 Mechanical Ventilator 100 07/07/17 12:36 87 16 147/51 97 Mechanical Ventilator 07/07/17 12:17 89 16 60/48 96 Mechanical Ventilator 100 07/07/17 12:09 93 16 60/48 97 Mechanical Ventilator 07/07/17 12:01 91 07/07/17 11:30 78 18 119/82 95 Nasal Cannula 2.0 07/07/17 11:13 149/78 07/07/17 11:05 78 20 127/78 99 Nasal Cannula 3.0 07/07/17 10:41 92/54 07/07/17 10:38 76 18 84/48 97 Room Air 07/07/17 10:30 84/48 07/07/17 10:22 73/23 07/07/17 10:00 69/44 07/07/17 09:53 37.3 78 20 79/47 95 Room Air 66/47 79/52 07/07/17 09:25 95 Nasal Cannula 3.0 07/07/17 09:01 91/52 07/07/17 08:48 76 18 95/67 93 Nasal Cannula 3.0 07/07/17 08:10 69 20 114/57 98 Nebulizer 7.0 07/07/17 07:49 69 18 156/70 100 Nebulizer 7.0 07/07/17 07:47 73 16 100 Nasal Cannula 3.0 07/07/17 07:04 Nasal Cannula 2.0 Physical Exam: General-sedated Eyes-no scleral icterus ENT-mmm Neck-supple Lungs-clear anteriorly Heart-brooks Abdomen-hypoactive bowel sounds Extremities-left bka, small ulcers on right leg Neuro-sedated Current Inpatient Medications Medications (Trade) Dose Ordered Sig/Nicole Route Start Time Stop Time Status Last Admin Dose Admin Heparin Sodium (Porcine) (Heparin Sq 5000 Unit/0.5ml) 5,000 unit Q8 SQ 07/07/17 14:00 08/06/17 13:59 07/08/17 06:03 5,000 UNIT Vancomycin HCl (Consult) 1 ea UD PRN N/A 07/07/17 10:45 08/06/17 10:44 Piperacillin Sod/ Tazobactam Sod (Consult) 1 ea UD PRN N/A 07/07/17 10:45 08/06/17 10:44 Doxycycline Hyclate 100 mg/ Dextrose 110 ml @ 50 mls/hr Q12@0400,1600 IV 07/07/17 14:45 07/14/17 14:44 07/08/17 04:21 50 MLS/HR Ioversol (Optiray 320) 111 ml UD PRN IV 07/07/17 13:45 07/11/17 13:44 Famotidine 20 mg/ Syringe 5 ml @ 2.5 mls/min Q12H IV 07/07/17 16:00 08/06/17 15:59 07/08/17 04:21 2.5 MLS/MIN Fentanyl Citrate (Fentanyl Inj) 50 mcg Q1H PRN IV 07/07/17 14:15 07/21/17 14:14 Midazolam HCl (Versed Inj) 2 mg Q2H PRN IV 07/07/17 14:30 08/06/17 14:29 07/08/17 06:00 2 MG Vecuronium Zion (Vecuronium Zion Inj) 10 mg ONE PRN IV 07/07/17 20:00 08/06/17 19:59 07/07/17 20:28 10 MG Piperacillin Sod/ Tazobactam Sod 3.375 gm/Dextrose 115 ml @ 28.75 mls/ hr Q12@0900,2100 IV 07/07/17 21:00 07/09/17 20:59 07/07/17 22:24 28.75 MLS/HR Heparin Sodium (Porcine) (Heparin 10 Unit/ ml 5 ml Flush) 5 ml PRN PRN FLUSH 07/07/17 23:45 08/06/17 23:44 Insulin Aspart (novoLOG ASPART) [facility] 07/08/17 08:00 08/07/17 07:59 Insulin Human Regular 250 units/ Sodium Chloride 252.5 ml @ 0 mls/hr Q24H IV 07/08/17 01:30 08/07/17 01:29 07/08/17 01:49 5.2 MLS/HR Glucose (Glucose 40% Gel) UD PRN PO 07/08/17 01:30 08/07/17 01:29 Glucose (Glucose Chew Tab) 1 tabs UD PRN PO 07/08/17 01:30 08/07/17 01:29 Dextrose (Dextrose 50% 50ML Syringe) 50 ml UD PRN IV 07/08/17 01:30 08/07/17 01:29 07/08/17 06:48 50 ML Glucagon (Glucagon Inj) 1 mg UD PRN SQ 07/08/17 01:30 08/07/17 01:29 Phenylephrine HCl 20 mg/Sodium Chloride 502 ml @ 0 mls/hr Q0M PRN IV 07/08/17 01:30 08/07/17 01:29 Last 24 Hours Test 07/07/17 07:40 07/07/17 11:02 07/07/17 11:20 07/07/17 12:25 Procalcitonin 0.19 ng/ml Venous Blood pH 7.36 Venous Blood Partial Pressure CO2 59 mmHg Venous Blood Partial Pressure O2 48 mmHg Venous Blood HCO3 32 mmol/L Venous Blood Oxygen Saturation 79.1 % Venous Blood Base Excess 5.7 mEq/L Lactic Acid Level 1.7 mmol/L Urine Color AGNES Urine Appearance SL CLOUDY Urine pH 8.5 Urine Specific [place] 1.020 Urine Protein 3+ Urine Glucose (UA) NEG Urine Ketones NEG Urine Occult Blood 3+ Urine Nitrite NEG Urine Bilirubin NEG Urine Urobilinogen NEG Urine Leukocyte Esterase MODERATE Test 07/07/17 14:03 07/07/17 17:20 07/07/17 17:30 07/07/17 19:45 Bedside Glucose 192 mg/dl 189 mg/dl Stool Occult Blood POSITIVE Random Vancomycin Level 19.6 mcg/ml Test 07/07/17 22:36 07/08/17 05:24 07/08/17 05:47 Troponin I 0.021 ng/ml White Blood Count 15.51 K/uL Red Blood Count 3.27 M/uL Hemoglobin 10.3 g/dL Hematocrit 32.0 % Mean Corpuscular Volume 97.9 fL Mean Corpuscular Hemoglobin 31.5 pg Mean Corpuscular Hemoglobin Concent 32.2 g/dl RDW Standard Deviation 60.9 fL RDW Coefficient of Variation 17.1 % Platelet Count 212 K/uL Mean Platelet Volume 10.6 fL Sodium Level 130 mmol/L Potassium Level 4.1 mmol/L Chloride Level 93 mmol/L Carbon Dioxide Level 28 mmol/L Anion Gap 9.0 mmol/L Blood Urea Nitrogen 42 mg/dl Creatinine 5.77 mg/dl Est Creatinine Clear Calc Drug Dose 19.2 ml/min Estimated GFR () 11.1 Estimated GFR (Non- 9.6 BUN/Creatinine Ratio 7.2 Random Glucose 101 mg/dl Calcium Level 7.9 mg/dl Phosphorus Level 3.2 mg/dl Magnesium Level 2.3 mg/dl Random Vancomycin Level 21.5 mcg/ml Blood Gas Sample Site L Radial Bedside Blood Gas pH (LAB) 7.36 Bedside Blood Gas pCO2 (LAB) 51 mmHg Bedside Blood Gas pO2 (LAB) 98 mmHg Bedside Blood Gas HCO3 (LAB) 29 meq/L Bedside Blood Gas Total CO2 30 mEq/l Bedside Blood Gas Base Excess (LAB) 3.0 meq/L Bedside Blood Gas O2 Saturation 97.0 % [place]den Test Pass Oxygen Delivery Device Ventilator Bedside Oxygen Rate (breaths/min) 12 Blood Gas Minute Ventilation 8.2 Bedside FiO2 40 % Blood Gas Tidal Volume 500 Blood Gas PEEP 10 Date/Time Source Procedure Growth Status 07/07/17 11:02 Blood Blood Culture Pending Received 07/07/17 10:42 Blood Blood Culture Pending Received 07/07/17 14:05 Nasal MRSA DNA Surveillance Screen - Final Specimen Positive for MRSA by DNA Probe Complete 07/07/17 11:20 Urine,Catheterized Urine Culture Pending Received 07/07/17 09:50 Skin Penile Gram Stain Pending Received 07/07/17 09:50 Skin Penile Wound Culture Pending Received Assessment & Plan ESRD-pts volume status is acceptable with 30% fi02 on the vent. electrolytes are stable. would like to hold on dialysis for today and re-evaluate tomorrow. currently on broad spectrum antibiotics and pressor. cultures are pending.
--- NOTE | 2017-07-08 07:13 | ELECTROENCEPHALOGRAPH REPORT ---
REQUESTING PHYSICIAN: Carmine Sharp DO. CLINICAL DIAGNOSIS: Single with seizure like event associated with hypotension now stuporous and unresponsive, question ongoing seizure activity. EEG DIAGNOSIS: Abnormal EEG with 3 isolated short duration spike and wave bursts, 2 during photic stimulation and 1 at the termination of procedure associated with a mild to minimal generalized slowing of all background rhythms. DESCRIPTION OF TRACING: This EEG was done as a bedside recording on a patient who is on a ventilator, appears of reasonable technical quality with few or no muscle movement artifacts say with the initial phases of the tracing when the patient was being positioned. Photic stimulation was performed. Drowsiness and light sleep are not clearly recorded. No other activation procedures were utilized. Under these conditions during what appears to be clinical wakefulness, there is evidence for a background rhythm in the upper theta lower with the alpha range between 7 and occasionally 9 Hz of maximum frequency with most of the activity being in the upper theta range. There is maximum posterior head regions and bilaterally symmetrical. Lower frequency of modest amplitude polymorphic theta activity intermixed with isolated waveforms in the delta range is seen over all head regions maximum in the central regions and in a symmetrical fashion. Anterior head region maximum bilaterally symmetrical low voltage fast activity in the beta range is present. Photic stimulation provokes 2 very marginal high amplitude spike and wave discharges at high rates of photic stimulation on one occasion. No clinical accompaniments are noted. Towards the terminal phase of the tracing, there is another single similar episode of spike and wave activity occurring in a generalized fashion, again without clinical accompaniments. None of these bursts last more than half of a second and are associated with some mild slow wave build up prior to and after them. INTERPRETATION: This EEG is mildly diffusely abnormal in a highly nonspecific fashion without any lateralizing features and would correlate with a mild nonspecific encephalopathy. There are 3 suspicious single spike and wave discharges, 2 induced by photic stimulation at least related to photic stimulation and 1 occurring spontaneously, but none are associated with any clinical manifestations and of importance is the fact that there is absolutely no evidence for ongoing potentially epileptogenic activity or pattern that will suggest nonconvulsive status epilepticus.
--- NOTE | 2017-07-08 07:20 | DIAGNOSTIC IMAGING REPORT ---
CHEST ONE VIEW PORTABLE HISTORY: 61 years-old Male Intubated acute respiratory failure. COMPARISON: Chest radiograph 07/07/2017 TECHNIQUE: Portable upright AP view of the chest FINDINGS: Endotracheal tube overlies the midline terminating 3.6 cm superior to the level the erickson. Enteric tube courses below the diaphragm outside the [id number] within the region of the gastric lumen. Cardiac silhouette is mildly enlarged. There is atherosclerosis of the aorta. Prior median sternotomy. Surgical clips project over the left mediastinum. No pneumothorax. Diffuse bilateral interstitial coarsening is again noted which has improved from prior exam. Linear left basilar opacities are again seen suggesting atelectasis. There is mild blunting of the costophrenic angles which may reflect trace effusions. Bones are grossly intact. There are vascular stents within the region of the bilateral axilla and left subclavian distribution. IMPRESSION: 1. Satisfactory positioning of endotracheal and enteric tubes as above. 2. Decreased bilateral interstitial opacities suggests improved pulmonary edema pattern. 3. Persistent linear subsegmental left basilar opacities suggesting atelectasis. The above report was generated using voice recognition software. It may contain grammatical, syntax or spelling errors. Electronically signed by: Kyle Modi M.D. 07/08/2017 7:19 AM Dictated Date/Time: 07/08/2017 7:16 AM
[2017-07-08] MEDS: PHENYLEPHRINE HCL INJ 20 MG in SODIUM CHLORIDE 0.9% 500ML 500 ML IV PRN ×2 (07:46→18:42)
[2017-07-08] MEDS: INSULIN ASPART 100 UNITS/ML 3 ML PEN SC SCH ×5 (08:00→23:37)
[2017-07-08] MEDS: PIPERACILL/TAZOBAC IV 3.375 GM in DEXTROSE 5% 100ML IV SCH ×2 (08:30→21:38)
[2017-07-08 10:13] LABS: HEPATITIS B AB NEG
[2017-07-08] MEDS ORDERED: PEPTAMEN INTENSE VHP 1000ML BAG OG SCH (12:00)
[2017-07-08] MEDS ORDERED: LEVETIRACTAM 1000 MG in DEXTROSE 5% 100ML IV SCH (12:00)
--- NOTE | 2017-07-08 12:27 | ECHOCARDIOGRAM REPORT ---
*NOTICE TO RECEIVING REPUBLICAN AGENCY This information is strictly Confidential and protected under [place] law. [place] law prohibits you from making any further disclosure of this information unless further disclosure is expressly permitted by the written consent of the person to whom it pertains or is authorized by law. A general authorization for the release of medical or other information is not sufficient for this purpose. Hospital accepts no responsibility if the information is made available to any other person, INCLUDING THE PATIENT. Interpretation Summary * Name: UNIQUE ROCA Jose Study Date: 07/07/2017 02:41 PM BP: 115/57 mmHg * Patient Location: .MSICU\S\E107\S\1 HR: 64 * : 1955 (M/d/yyyy) Gender: Male Height: 73 in * Age: 61 yrs Ethnicity: [place] Weight: 307 lb * Ordering Physician: Carmine Sharp * Referring Physician: Self, Referred * Performed By: Effie Arellano RCS * * Reason For Study: HYPOTENSION / PVD * BSA: 2.6 m2 * The study was technically difficult. * -- Conclusions -- * The left ventricular wall motion is normal. * Ejection Fraction = 55-60%. * There is moderate focal calcification of the posterior mitral vavle annulus and leaflet. * Significant mitral regurgitation is absent. * There is no mitral valve stenosis. * Grade I diastolic dysfunction, (abnormal relaxation pattern). * Doppler findings do not suggest pulmonary hypertension. * Compared to the prior study dated 05/22/14, the mitral valve calcification is unchanged. Procedure Details * A complete two-dimensional transthoracic echocardiogram was performed (2D, M-mode, Doppler and color flow Doppler). * A contrast injection of Definity was performed to improve assessment of LV function. * Contrast was injected into an intravenous site in the left arm. * One vial of Definity ultrasound contrast was diluted in normal saline to a total volume of 10 ml. A total of '4' ml of solution was administered during imaging. * Lot # [id number] of Definity utilized for procedure. * Expiration date . * The attending nurse who injected the contrast agent was ISH VALENCIA, RN. * The study was technically difficult. * There were technical limitations due to patient'ssupine positioning while on mechanical ventilation Left Ventricle * The left ventricle is normal in size. * There is normal left ventricular wall thickness. * Left ventricular systolic function is normal. * Ejection Fraction = 55-60%. * The left ventricular wall motion is normal. Right Ventricle * The right ventricle is normal size. * The right ventricular systolic function is normal as assessed by tricuspid annular plane systolic excursion (TAPSE) (normal >1.5 cm). Atria * The left atrial size is normal. * Right atrial size is normal. * There is no evidence of atrial septal defect, but resolution does not allow assessment for a patent foramen ovale. Mitral Valve * There is moderate focal calcification of the posterior mitral vavle annulus and leaflet. * There is no mitral valve stenosis. * Significant mitral regurgitation is absent. Tricuspid Valve * The tricuspid valve is normal. * There is no tricuspid stenosis. * Significant tricuspid regurgitation is absent. * Doppler findings do not suggest pulmonary hypertension. Aortic Valve * The aortic valve is trileaflet. * Aortic stenosis is absent. * There is no significant aortic regurgitation. Pulmonic Valve * The pulmonary valve is not well seen, but the Doppler examination is normal without significant regurgitation or stenosis. Great Vessels * The aortic root and proximal ascending aorta are normal sized. Pericardium/Pleural * There is no pericardial effusion. Great Vessels * Normal inferior vena cava diameter and respiratory variation suggests normal central venous pressure. * Normal inferior vena cava size and collapsability with sniff indicates a normal right atrial pressure of 3 mmHg Left Ventricular Diastolic Function * Grade I diastolic dysfunction, (abnormal relaxation pattern). MMode 2D Measurements and Calculations IVSd 1.7 cm IVSs 2.5 cm LVIDd 3.7 cm LVIDs 2.4 cm LVPWd 1.5 cm LVPWs 2.0 cm IVS/LVPW 1.1 FS 35.9 % EDV(Teich) 57.5 ml ESV(Teich) 19.3 ml EF(Teich) 66.4 % EDV(cubed) 50.0 ml ESV(cubed) 13.1 ml EF(cubed) 73.7 % % IVS thick 45.4 % % LVPW thick 27.7 % LV mass(C)d 232.5 grams LV mass(C)dI 90.0 grams/m\S\2 LV mass(C)s 247.5 grams LV mass(C)sI 95.9 grams/m\S\2 SV(Teich) 38.2 ml SI(Teich) 14.8 ml/m\S\2 SV(cubed) 36.8 ml SI(cubed) 14.3 ml/m\S\2 Ao root diam 3.3 cm Ao root area 8.7 cm\S\2 LA dimension 3.1 cm LA/Ao 0.92 LVOT diam 2.2 cm LVOT area 3.9 cm\S\2 Doppler Measurements and Calculations MV E max padmaja 64.6 cm/sec MV A max padmaja 95.0 cm/sec MV E/A 0.68 MV P1/2t max padmaja 97.5 cm/sec MV P1/2t 114.6 msec MVA(P1/2t) 1.9 cm\S\2 MV dec slope 249.2 cm/sec\S\2 MV dec time 0.31 sec
[2017-07-08] MEDS ORDERED: PHARMACY GLYCEMIC MGMT CONSULT PRN (13:15)
--- NOTE | 2017-07-08 13:22 | Critical Care Progress Note ---
Critical Care Progress Note Date of Service Jul 08, 2017. Data Medications: Current Inpatient Medications Medications (Trade) Dose Ordered Sig/Nicole Route Start Time Stop Time Status Last Admin Dose Admin Heparin Sodium (Porcine) (Heparin Sq 5000 Unit/0.5ml) 5,000 unit Q8 SQ 07/07/17 14:00 08/06/17 13:59 07/08/17 06:03 5,000 UNIT Vancomycin HCl (Consult) 1 ea UD PRN N/A 07/07/17 10:45 08/06/17 10:44 Piperacillin Sod/ Tazobactam Sod (Consult) 1 ea UD PRN N/A 07/07/17 10:45 08/06/17 10:44 Doxycycline Hyclate 100 mg/ Dextrose 110 ml @ 50 mls/hr Q12@0400,1600 IV 07/07/17 14:45 07/14/17 14:44 07/08/17 04:21 50 MLS/HR Ioversol (Optiray 320) 111 ml UD PRN IV 07/07/17 13:45 07/11/17 13:44 Famotidine 20 mg/ Syringe 5 ml @ 2.5 mls/min Q12H IV 07/07/17 16:00 08/06/17 15:59 07/08/17 04:21 2.5 MLS/MIN Fentanyl Citrate (Fentanyl Inj) 50 mcg Q1H PRN IV 07/07/17 14:15 07/21/17 14:14 Midazolam HCl (Versed Inj) 2 mg Q2H PRN IV 07/07/17 14:30 08/06/17 14:29 07/08/17 06:00 2 MG Vecuronium [place] (Vecuronium [place] Inj) 10 mg ONE PRN IV 07/07/17 20:00 08/06/17 19:59 07/07/17 20:28 10 MG Piperacillin Sod/ Tazobactam Sod 3.375 gm/Dextrose 115 ml @ 28.75 mls/ hr Q12@0900,2100 IV 07/07/17 21:00 07/14/17 20:59 07/08/17 08:30 28.75 MLS/HR Heparin Sodium (Porcine) (Heparin 10 Unit/ ml 5 ml Flush) 5 ml PRN PRN FLUSH 07/07/17 23:45 08/06/17 23:44 Glucose (Glucose 40% Gel) UD PRN PO 07/08/17 01:30 08/07/17 01:29 Glucose (Glucose Chew Tab) 1 tabs UD PRN PO 07/08/17 01:30 08/07/17 01:29 Dextrose (Dextrose 50% 50ML Syringe) 50 ml UD PRN IV 07/08/17 01:30 08/07/17 01:29 07/08/17 08:30 50 ML Glucagon (Glucagon Inj) 1 mg UD PRN SQ 07/08/17 01:30 08/07/17 01:29 Phenylephrine HCl 20 mg/Sodium Chloride 502 ml @ 0 mls/hr Q0M PRN IV 07/08/17 01:30 08/07/17 01:29 07/08/17 07:46 83.8 MLS/HR Clopidogrel Bisulfate (plAVix TAB) 75 mg QPM PO 07/08/17 21:00 08/07/17 20:59 Levothyroxine Sodium (Synthroid Tab) 25 mcg DAILYBB PO 07/09/17 06:00 08/08/17 05:59 Sertraline HCl (Zoloft Tab) 100 mg DAILY PO 07/09/17 09:00 08/08/17 08:59 Miscellaneous Information (Order Awaiting Action) 1 ea QS N/A 07/08/17 16:00 08/07/17 15:59 Simvastatin (Zocor Tab) 10 mg HS PO 07/08/17 21:00 08/07/17 20:59 Levetiracetam 1000 mg/Dextrose 110 ml @ 440 mls/hr Q24H IV 07/08/17 12:00 08/07/17 11:59 07/08/17 12:07 440 MLS/HR Enteral Nutritional Formula (Peptamen Intense VHP) 1,000 ml UD OG 07/08/17 12:00 08/07/17 11:59 Insulin Aspart (novoLOG ASPART) SLIDING SCALE Q4 SC 07/08/17 16:00 08/07/17 15:59 Miscellaneous Information (Consult Glycemic Management Pharmacy) 1 ea UD PRN N/A 07/08/17 13:15 08/07/17 13:14 Vital Signs: Date Time Temp Pulse Resp B/P (MAP) Pulse Ox O2 Delivery O2 Flow Rate FiO2 07/08/17 12:00 Mechanical Ventilator 40 11/27/17 12:00 30 07/08/17 12:00 36.9 60 14 100/40 (60) 86 Mechanical Ventilator 07/08/17 11:15 30 07/08/17 10:00 36.8 57 14 126/49 (74) 98 Mechanical Ventilator 07/08/17 09:00 97 07/08/17 08:00 36.7 57 20 105/45 (65) 97 Mechanical Ventilator 30 07/08/17 08:00 Mechanical Ventilator 40 07/08/17 08:00 30 07/08/17 07:05 30 07/08/17 07:05 40 07/08/17 06:00 61 20 96 07/08/17 06:00 36.8 61 20 105/50 (68) 96 Mechanical Ventilator 30 07/08/17 05:00 56 14 100 07/08/17 04:19 40 07/08/17 04:00 40 07/08/17 04:00 36.6 55 14 103/52 (69) 100 Mechanical Ventilator 40 07/08/17 04:00 55 14 100 07/08/17 04:00 Mechanical Ventilator 40 07/08/17 03:00 61 15 97 07/08/17 02:00 36.2 53 13 114/52 (72) 98 Mechanical Ventilator 40 07/08/17 02:00 53 13 98 07/08/17 01:00 53 14 98 07/08/17 00:59 40 07/08/17 00:01 36.2 55 14 152/61 (78) 99 07/08/17 00:01 36.2 55 14 152/61 (91) 99 Mechanical Ventilator 40 07/07/17 23:59 40 07/07/17 23:59 Mechanical Ventilator 40 07/07/17 23:00 60 14 128/56 100 07/07/17 22:30 69 14 134/55 (81) 99 Mechanical Ventilator 60 07/07/17 21:30 40 07/07/17 20:00 64 13 100 07/07/17 20:00 36.8 64 13 136/55 (82) 100 Mechanical Ventilator 60 07/07/17 20:00 Mechanical Ventilator 60 07/07/17 20:00 60 07/07/17 19:00 61 14 100 07/07/17 18:17 58 14 99/51 (70) 100 07/07/17 18:15 58 10 100 07/07/17 18:10 40 07/07/17 18:02 62 14 212/90 (123) 100 07/07/17 18:00 60 14 100 07/07/17 17:56 59 14 92/59 (69) 100 07/07/17 17:45 59 14 100 07/07/17 17:31 60 14 74/52 (65) 100 07/07/17 17:30 60 14 100 07/07/17 17:15 60 14 100 07/07/17 17:15 60 14 100 07/07/17 17:02 63 14 105/67 (73) 100 07/07/17 17:00 63 14 99 07/07/17 16:45 63 15 100 07/07/17 16:31 76 15 191/87 (139) 100 07/07/17 16:30 76 15 100 07/07/17 16:15 73 15 100 07/07/17 16:10 60 15 155/74 (110) 100 07/07/17 16:01 59 14 78/52 (64) 99 07/07/17 16:00 60 07/07/17 16:00 59 15 99 07/07/17 16:00 100 Mechanical Ventilator 60 07/07/17 15:45 60 15 99 07/07/17 15:31 62 15 94/56 (72) 99 07/07/17 15:30 63 15 98 07/07/17 15:15 62 14 99 07/07/17 15:02 64 15 115/57 (83) 99 07/07/17 15:02 64 15 115/57 (83) 99 07/07/17 15:00 64 14 98 07/07/17 15:00 64 14 98 07/07/17 14:45 64 16 99 07/07/17 14:30 66 16 98 07/07/17 14:15 68 16 100 07/07/17 14:00 72 26 98 07/07/17 13:55 60 07/07/17 13:54 75 17 135/69 (101) 100 07/07/17 13:45 60 07/07/17 13:45 98 Mechanical Ventilator 07/07/17 13:45 36.7 70 16 135/69 (91) 98 Mechanical Ventilator 60 Laboratory Results: Last 24 Hours Test 07/07/17 14:03 07/07/17 17:20 07/07/17 17:30 07/07/17 19:45 Bedside Glucose 192 mg/dl 189 mg/dl Stool Occult Blood POSITIVE Random Vancomycin Level 19.6 mcg/ml Test 07/07/17 22:36 07/08/17 05:24 07/08/17 05:47 07/08/17 07:41 Troponin I 0.021 ng/ml White Blood Count 15.51 K/uL Red Blood Count 3.27 M/uL Hemoglobin 10.3 g/dL Hematocrit 32.0 % Mean Corpuscular Volume 97.9 fL Mean Corpuscular Hemoglobin 31.5 pg Mean Corpuscular Hemoglobin Concent 32.2 g/dl RDW Standard Deviation 60.9 fL RDW Coefficient of Variation 17.1 % Platelet Count 212 K/uL Mean Platelet Volume 10.6 fL Sodium Level 130 mmol/L Potassium Level 4.1 mmol/L Chloride Level 93 mmol/L Carbon Dioxide Level 28 mmol/L Anion Gap 9.0 mmol/L Blood Urea Nitrogen 42 mg/dl Creatinine 5.77 mg/dl Est Creatinine Clear Calc Drug Dose 19.2 ml/min Estimated GFR () 11.1 Estimated GFR (Non- 9.6 BUN/Creatinine Ratio 7.2 Random Glucose 101 mg/dl Calcium Level 7.9 mg/dl Phosphorus Level 3.2 mg/dl Magnesium Level 2.3 mg/dl Random Vancomycin Level 21.5 mcg/ml HIV (1&2) Ab and P24 Ag, 4th Gener NEG Blood Gas Sample Site L Radial Bedside Blood Gas pH (LAB) 7.36 Bedside Blood Gas pCO2 (LAB) 51 mmHg Bedside Blood Gas pO2 (LAB) 98 mmHg Bedside Blood Gas HCO3 (LAB) 29 meq/L Bedside Blood Gas Total CO2 30 mEq/l Bedside Blood Gas Base Excess (LAB) 3.0 meq/L Bedside Blood Gas O2 Saturation 97.0 % [place] Test Pass Oxygen Delivery Device Ventilator Bedside Oxygen Rate (breaths/min) 12 Blood Gas Minute Ventilation 8.2 Bedside FiO2 40 % Blood Gas Tidal Volume 500 Blood Gas PEEP 10 Bedside Glucose (other) 154 mg/dl Test 07/08/17 08:30 07/08/17 09:17 07/08/17 10:22 07/08/17 11:26 Bedside Glucose (other) 49 mg/dl 219 mg/dl 86 mg/dl Hepatitis B Surface Antigen NEG Hepatitis B Surface Antibody NEG Test 07/08/17 11:56 07/08/17 11:57 Troponin I < 0.015 ng/ml Lactic Acid Level 1.0 mmol/L
[2017-07-08 14:15] LABS: ESTIMATED AVERAGE GLUCOSE 151 mg/dl; HA1C FLAG Normal (Normal)
[2017-07-08 16:27] LABS: ISTAT ALLEN TEST Pass; ISTAT ARTERIAL BLOOD GAS HCO3 29 meq/L (19-24); ISTAT ARTERIAL BLOOD GAS PCO2 47 mmHg (35-46); ISTAT ARTERIAL BLOOD GAS PO2 64 mmHg (80-95); ISTAT ARTERIAL BLOOD GAS pH 7.39 (7.35-7.45); ISTAT CARBON DIOXIDE 30 mEq/l (24-31); ISTAT DELIVERY SYSTEM Ventilator; ISTAT FIO2 30 %; ISTAT PEEP 5; ISTAT SITE L Radial
--- NOTE | 2017-07-08 18:03 | Progress Note ---
Medicine Progress Note Date & Time of Visit: Jul 08, 2017 at 10:45. Subjective Pt was seen and examined Lying in bed sedated Intubated with vent support On pressor Objective Last 8 Hrs Date Time Temp Pulse Resp B/P (MAP) Pulse Ox O2 Delivery O2 Flow Rate FiO2 07/08/17 17:30 36.7 69 22 102/38 (59) 93 Nasal Cannula 5.0 07/08/17 15:30 Mechanical Ventilator 40 07/08/17 15:30 36.7 64 16 122/50 (74) 95 Mechanical Ventilator 07/08/17 15:30 30 07/08/17 14:30 30 07/08/17 14:00 36.9 58 14 115/45 (68) 96 Mechanical Ventilator 07/08/17 12:55 30 07/08/17 12:00 Mechanical Ventilator 40 07/08/17 12:00 30 07/08/17 12:00 36.9 60 14 100/40 (60) 86 Mechanical Ventilator 07/08/17 11:15 30 07/08/17 10:00 36.8 57 14 126/49 (74) 98 Mechanical Ventilator Physical Exam: General- Intubated on vent support Head- atraumatic Eyes- PERRL ENT- Intubated Neck- no JVD Lungs- No crackles Heart- RRR Abdomen- Obese Extremities- LBKA Neuro- Sedated Skin- warm & dry Laboratory Results: Last 24 Hours Test 07/07/17 19:45 07/07/17 22:36 07/08/17 00:42 07/08/17 03:03 Random Vancomycin Level 19.6 mcg/ml Troponin I 0.021 ng/ml Bedside Glucose (other) 256 mg/dl 168 mg/dl Test 07/08/17 04:13 07/08/17 05:09 07/08/17 05:24 07/08/17 05:47 Bedside Glucose (other) 133 mg/dl 106 mg/dl White Blood Count 15.51 K/uL Red Blood Count 3.27 M/uL Hemoglobin 10.3 g/dL Hematocrit 32.0 % Mean Corpuscular Volume 97.9 fL Mean Corpuscular Hemoglobin 31.5 pg Mean Corpuscular Hemoglobin Concent 32.2 g/dl RDW Standard Deviation 60.9 fL RDW Coefficient of Variation 17.1 % Platelet Count 212 K/uL Mean Platelet Volume 10.6 fL Sodium Level 130 mmol/L Potassium Level 4.1 mmol/L Chloride Level 93 mmol/L Carbon Dioxide Level 28 mmol/L Anion Gap 9.0 mmol/L Blood Urea Nitrogen 42 mg/dl Creatinine 5.77 mg/dl Est Creatinine Clear Calc Drug Dose 19.2 ml/min Estimated GFR () 11.1 Estimated GFR (Non- 9.6 BUN/Creatinine Ratio 7.2 Random Glucose 101 mg/dl Calcium Level 7.9 mg/dl Phosphorus Level 3.2 mg/dl Magnesium Level 2.3 mg/dl Random Vancomycin Level 21.5 mcg/ml HIV (1&2) Ab and P24 Ag, 4th Gener NEG Blood Gas Sample Site L Radial Bedside Blood Gas pH (LAB) 7.36 Bedside Blood Gas pCO2 (LAB) 51 mmHg Bedside Blood Gas pO2 (LAB) 98 mmHg Bedside Blood Gas HCO3 (LAB) 29 meq/L Bedside Blood Gas Total CO2 30 mEq/l Bedside Blood Gas Base Excess (LAB) 3.0 meq/L Bedside Blood Gas O2 Saturation 97.0 % [place] Test Pass Oxygen Delivery Device Ventilator Bedside Oxygen Rate (breaths/min) 12 Blood Gas Minute Ventilation 8.2 Bedside FiO2 40 % Blood Gas Tidal Volume 500 Blood Gas PEEP 10 Test 07/08/17 06:39 07/08/17 07:21 07/08/17 07:41 07/08/17 08:30 Bedside Glucose (other) 71 mg/dl 89 mg/dl 154 mg/dl 49 mg/dl Test 07/08/17 08:51 07/08/17 09:17 07/08/17 09:50 07/08/17 10:22 Bedside Glucose (other) 196 mg/dl 68 mg/dl 219 mg/dl Hepatitis B Surface Antigen NEG Hepatitis B Surface Antibody NEG Test 07/08/17 11:26 07/08/17 11:56 07/08/17 11:57 07/08/17 16:13 Bedside Glucose (other) 86 mg/dl Troponin I < 0.015 ng/ml Estimated Average Glucose 151 mg/dl Hemoglobin A1c 6.9 % Lactic Acid Level 1.0 mmol/L Blood Gas Sample Site L Radial Bedside Blood Gas pH (LAB) 7.39 Bedside Blood Gas pCO2 (LAB) 47 mmHg Bedside Blood Gas pO2 (LAB) 64 mmHg Bedside Blood Gas HCO3 (LAB) 29 meq/L Bedside Blood Gas Total CO2 30 mEq/l Bedside Blood Gas Base Excess (LAB) 3.0 meq/L Bedside Blood Gas O2 Saturation 92.0 % [place] Test Pass Oxygen Delivery Device Ventilator Bedside FiO2 30 % Blood Gas PEEP 5 Assessment & Plan Unresponsive Possible related to seizure? vs Ischemic events? Unknown? Had seizure like movement Intubated on vent support Sedated with versed CT head showed no acute infarct identified. 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 MRI of head showed no acute infarct. Redemonstration of the occluded right internal carotid artery. 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 EEG showed no evidence for ongoing potentially epileptogenic activity or pattern that will suggest nonconvulsive status epilepticus. On IV keppra Continue monitor in the ICU Hypotension Just for a few hours after nitro paste placed Need to R/o infectious etiology Blood cx pending Continue Vanco/Zosyn/Doxy for now Procalcitonin normal Normal lactic acid On Pressor with Willy Elevated WBC blood cx pending Lactic acid and procalcitonin negative On broad spectrum abx with Doxy/Vanco/Zosyn culture from penis discharge growth gram negative bacilli Repeat procalcitonin in am monitor CBC Penis Discharge WBC elevated Procalcitonin and lactic acid negative Culture from the penis showed gram negative bacilli Gonorrhea and chlamydia pending Continue Vanco/Zosyn/Doxy for now Monitor WBC Repeat procalcitonin in am ESRD on HD Last HD was Saturday No need for urgent HD for today Nephrology on board Plan for HD tomorrow Bradycardia Occurs during the unresponsive episode troponin negative No chest pain reporting during admission No ST changes on initial EKG ECHO SHOWED -- Conclusions -- * The left ventricular wall motion is normal. * Ejection Fraction = 55-60%. * There is moderate focal calcification of the posterior mitral vavle annulus and leaflet. * Significant mitral regurgitation is absent. * There is no mitral valve stenosis. * Grade I diastolic dysfunction, (abnormal relaxation pattern). * Doppler findings do not suggest pulmonary hypertension. * Compared to the prior study dated 05/22/14, the mitral valve calcification is unchanged. DVT px on heparin subq Disposition ICU Called made to his [facility] Consultants: [facility] Current Inpatient Medications: Current Inpatient Medications Medications (Trade) Dose Ordered Sig/Nicole Route Start Time Stop Time Status Last Admin Dose Admin Heparin Sodium (Porcine) (Heparin Sq 5000 Unit/0.5ml) 5,000 unit Q8 SQ 07/07/17 14:00 08/06/17 13:59 07/08/17 14:16 5,000 UNIT Vancomycin HCl (Consult) 1 ea UD PRN N/A 07/07/17 10:45 08/06/17 10:44 Piperacillin Sod/ Tazobactam Sod (Consult) 1 ea UD PRN N/A 07/07/17 10:45 08/06/17 10:44 Doxycycline Hyclate 100 mg/ Dextrose 110 ml @ 50 mls/hr Q12@0400,1600 IV 07/07/17 14:45 07/14/17 14:44 07/08/17 04:21 50 MLS/HR Ioversol (Optiray 320) 111 ml UD PRN IV 07/07/17 13:45 07/11/17 13:44 Famotidine 20 mg/ Syringe 5 ml @ 2.5 mls/min Q12H IV 07/07/17 16:00 08/06/17 15:59 07/08/17 04:21 2.5 MLS/MIN Fentanyl Citrate (Fentanyl Inj) 50 mcg Q1H PRN IV 07/07/17 14:15 07/21/17 14:14 Midazolam HCl (Versed Inj) 2 mg Q2H PRN IV 07/07/17 14:30 08/06/17 14:29 07/08/17 06:00 2 MG Vecuronium [place] (Vecuronium [place] Inj) 10 mg ONE PRN IV 07/07/17 20:00 08/06/17 19:59 07/07/17 20:28 10 MG Piperacillin Sod/ Tazobactam Sod 3.375 gm/Dextrose 115 ml @ 28.75 mls/ hr Q12@0900,2100 IV 07/07/17 21:00 07/14/17 20:59 07/08/17 08:30 28.75 MLS/HR Heparin Sodium (Porcine) (Heparin 10 Unit/ ml 5 ml Flush) 5 ml PRN PRN FLUSH 07/07/17 23:45 08/06/17 23:44 Glucose (Glucose 40% Gel) UD PRN PO 07/08/17 01:30 08/07/17 01:29 Glucose (Glucose Chew Tab) 1 tabs UD PRN PO 07/08/17 01:30 08/07/17 01:29 Dextrose (Dextrose 50% 50ML Syringe) 50 ml UD PRN IV 07/08/17 01:30 08/07/17 01:29 07/08/17 08:30 50 ML Glucagon (Glucagon Inj) 1 mg UD PRN SQ 07/08/17 01:30 08/07/17 01:29 Phenylephrine HCl 20 mg/Sodium Chloride 502 ml @ 0 mls/hr Q0M PRN IV 07/08/17 01:30 08/07/17 01:29 07/08/17 07:46 83.8 MLS/HR Clopidogrel Bisulfate (plAVix TAB) 75 mg QPM PO 07/08/17 21:00 08/07/17 20:59 Levothyroxine Sodium (Synthroid Tab) 25 mcg DAILYBB PO 07/09/17 06:00 08/08/17 05:59 Sertraline HCl (Zoloft Tab) 100 mg DAILY PO 07/09/17 09:00 08/08/17 08:59 Miscellaneous Information (Order Awaiting Action) 1 ea QS N/A 07/08/17 16:00 08/07/17 15:59 Simvastatin (Zocor Tab) 10 mg HS PO 07/08/17 21:00 08/07/17 20:59 Levetiracetam 1000 mg/Dextrose 110 ml @ 440 mls/hr Q24H IV 07/08/17 12:00 08/07/17 11:59 07/08/17 12:07 440 MLS/HR Enteral Nutritional Formula (Peptamen Intense VHP) 1,000 ml UD OG 07/08/17 12:00 08/07/17 11:59 Insulin Aspart (novoLOG ASPART) SLIDING SCALE Q4 SC 07/08/17 16:00 08/07/17 15:59 Miscellaneous Information (Consult Glycemic Management Pharmacy) 1 ea UD PRN N/A 07/08/17 13:15 08/07/17 13:14
--- NOTE | 2017-07-08 18:23 | Critical Care Progress Note ---
Critical Care Progress Note Date of Service Jul 08, 2017. ICU Day ICU Day Number: [address] Sorensen Subjective No significant events overnight; remains on low dose pressors; Mental status improved so he followed commands; s/p extubated; Objective General Appearance: s/p extubated; A x O x 3; Eyes: PERRL; ENT: normal mouth exam, normal throat exam, poor dentition Neck: no tenderness, trachea midline, no stridor Respiratory: rhonchi (scattered) Cardiovasular: normal S1S2 Abdomen: normal bowel sounds, no masses, no guarding, occult rectal blood Genitourinary - Male: linton; Lower Extremities: s/p BKA; Neuro: decreased LOC Psychiatric: other (unable to evaluate) Results Past 24 Hours Test 07/07/17 19:45 07/07/17 22:36 07/08/17 00:42 07/08/17 03:03 Range/Units Random Vancomycin Level 19.6 mcg/ml Troponin I 0.021 0-0.045 ng/ml Bedside Glucose (other) 256 168 70-99 mg/dl Test 07/08/17 04:13 07/08/17 05:09 07/08/17 05:24 07/08/17 05:47 Range/Units Bedside Glucose (other) 133 106 70-99 mg/dl White Blood Count 15.51 4.8-10.8 K/uL Red Blood Count 3.27 4.7-6.1 M/uL Hemoglobin 10.3 14.0-18.0 g/dL Hematocrit 32.0 42-52 % Mean Corpuscular Volume 97.9 80-100 fL Mean Corpuscular Hemoglobin 31.5 25-34 pg Mean Corpuscular Hemoglobin Concent 32.2 32-36 g/dl RDW Standard Deviation 60.9 36.4-46.3 fL RDW Coefficient of Variation 17.1 11.5-14.5 % Platelet Count 212 130-400 K/uL Mean Platelet Volume 10.6 7.4-10.4 fL Sodium Level 130 136-145 mmol/L Potassium Level 4.1 3.5-5.1 mmol/L Chloride Level 93 98-107 mmol/L Carbon Dioxide Level 28 21-32 mmol/L Anion Gap 9.0 3-11 mmol/L Blood Urea Nitrogen 42 7-18 mg/dl Creatinine 5.77 0.60-1.40 mg/dl Est Creatinine Clear Calc Drug Dose 19.2 ml/min Estimated GFR () 11.1 Estimated GFR (Non- 9.6 BUN/Creatinine Ratio 7.2 10-20 Random Glucose 101 70-99 mg/dl Calcium Level 7.9 8.5-10.1 mg/dl Phosphorus Level 3.2 2.5-4.9 mg/dl Magnesium Level 2.3 1.8-2.4 mg/dl Random Vancomycin Level 21.5 mcg/ml HIV (1&2) Ab and P24 Ag, 4th Gener NEG NEG Blood Gas Sample Site L Radial Bedside Blood Gas pH (LAB) 7.36 7.35-7.45 Bedside Blood Gas pCO2 (LAB) 51 35-46 mmHg Bedside Blood Gas pO2 (LAB) 98 80-95 mmHg Bedside Blood Gas HCO3 (LAB) 29 19-24 meq/L Bedside Blood Gas Total CO2 30 24-31 mEq/l Bedside Blood Gas Base Excess (LAB) 3.0 -9-1.8 meq/L Bedside Blood Gas O2 Saturation 97.0 90-95 % Arden Test Pass Oxygen Delivery Device Ventilator Bedside Oxygen Rate (breaths/min) 12 Blood Gas Minute Ventilation 8.2 Bedside FiO2 40 % Blood Gas Tidal Volume 500 Blood Gas PEEP 10 Test 07/08/17 06:39 07/08/17 07:21 07/08/17 07:41 07/08/17 08:30 Range/Units Bedside Glucose (other) 71 89 154 49 70-99 mg/dl Test 07/08/17 08:51 07/08/17 09:17 07/08/17 09:50 07/08/17 10:22 Range/Units Bedside Glucose (other) 196 68 219 70-99 mg/dl Hepatitis B Surface Antigen NEG NEG Hepatitis B Surface Antibody NEG Test 07/08/17 11:26 07/08/17 11:56 07/08/17 11:57 07/08/17 16:13 Range/Units Bedside Glucose (other) 86 70-99 mg/dl Troponin I < 0.015 0-0.045 ng/ml Estimated Average Glucose 151 mg/dl Hemoglobin A1c 6.9 4.5-5.6 % Lactic Acid Level 1.0 0.4-2.0 mmol/L Blood Gas Sample Site L Radial Bedside Blood Gas pH (LAB) 7.39 7.35-7.45 Bedside Blood Gas pCO2 (LAB) 47 35-46 mmHg Bedside Blood Gas pO2 (LAB) 64 80-95 mmHg Bedside Blood Gas HCO3 (LAB) 29 19-24 meq/L Bedside Blood Gas Total CO2 30 24-31 mEq/l Bedside Blood Gas Base Excess (LAB) 3.0 -9-1.8 meq/L Bedside Blood Gas O2 Saturation 92.0 90-95 % Arden Test Pass Oxygen Delivery Device Ventilator Bedside FiO2 30 % Blood Gas PEEP 5 Current SOFA Score SOFA Score Response (Comments) Value Platelets (x10) > 150 0 Bilirubin (mg/dL) < 1.2 0 Lily Coma Score 15 0 Level of Hypotension MAP less than 70 1 Creatinine (mg/dL) > 5.0 4 Total 5 Assessment & Plan (1) Seizure (2) ESRD (end stage renal disease) (3) Hypotension arterial IMPRESSION: 61-year-old male with a history of end-stage renal disease and severe peripheral vascular disease with acute encephalopathy and hypotension; s/p intubated; Today s/p extubated; still on pressors support; mental status improved; PLAN: Neuro: Acute encephalopathy * MRI without evidence of acute findings; prior occluded Right ICA; old small lacunar infarcts; * EEG noted; no Seizures; * started empirical Keppra; Neuro input appreciated; * Mental status improved; appears to be at baseline. Resp: s/p extubated today; on NC; will check ABG post extubation; patient is obese; CV: Bradycardia during unresponsive episode * troponins negative x 3; * Echocardiogram 55-60%; no MR; grade I MR; * EKG noted for loss of wave progression; has completely occluded RCA and on Neosynephrine to improve perfusion and decrease the possibility of watershed infarcts Fluids/Renal: End-stage renal disease on hemodialysis ID: remains afebrile WBC worsened to 15 from 12; Pro calcitonin is negative * Patient is started on broad-spectrum antibiotics including vancomycin, Zosyn, doxycycline secondary to mildly prolonged QTC * UA is not suggestive of UTI. Urine culture is pending; check rpt UA; * Since he presented with penile discharge --> Chlamydia and gonorrhea tests by DNA probe, the doxycycline would be effective treatment for this as well as the Zosyn; no Need for Ceftriaxone; c/w Abx for now; * Denied Abdominal pain; GI/Nutrition: Hemoccult positive stools * History of gastrointestinal bleeding * On PPI prophylaxis * Patient is typed and crossed Heme: Chronic anemia * Heparin 5000 units every 8 hours for DVT prophylaxis Endocrine: Hyperglycemia Poorly controlled type 2 diabetes; I have personally spent 43 minutes of critical care time in the direct management of this patient. This is a life/limb threatening event. This includes time spent evaluating patient, direct bedside care, chart review, placing orders, interpretation of diagnostic studies, discussion with consultants, patient, and family members, as well as other required patient management activities. Meets criteria for ICU admission; Case discussed on am rounds; This time is exclusive of all separately billable procedures, and teaching time and separate from and in addition to any other critical care service time. Consults & Procedures Consultants: nephrology Procedures: Right femoral TLC Intubation 07/07/2017 Extubation 07/08/2017; Data Medications: Current Inpatient Medications Medications (Trade) Dose Ordered Sig/Nicole Route Start Time Stop Time Status Last Admin Dose Admin Heparin Sodium (Porcine) (Heparin Sq 5000 Unit/0.5ml) 5,000 unit Q8 SQ 07/07/17 14:00 08/06/17 13:59 07/08/17 14:16 5,000 UNIT Vancomycin HCl (Consult) 1 ea UD PRN N/A 07/07/17 10:45 08/06/17 10:44 Piperacillin Sod/ Tazobactam Sod (Consult) 1 ea UD PRN N/A 07/07/17 10:45 08/06/17 10:44 Doxycycline Hyclate 100 mg/ Dextrose 110 ml @ 50 mls/hr Q12@0400,1600 IV 07/07/17 14:45 07/14/17 14:44 07/08/17 04:21 50 MLS/HR Ioversol (Optiray 320) 111 ml UD PRN IV 07/07/17 13:45 07/11/17 13:44 Famotidine 20 mg/ Syringe 5 ml @ 2.5 mls/min Q12H IV 07/07/17 16:00 08/06/17 15:59 07/08/17 04:21 2.5 MLS/MIN Fentanyl Citrate (Fentanyl Inj) 50 mcg Q1H PRN IV 07/07/17 14:15 07/21/17 14:14 Midazolam HCl (Versed Inj) 2 mg Q2H PRN IV 07/07/17 14:30 08/06/17 14:29 07/08/17 06:00 2 MG Vecuronium Mobile (Vecuronium Mobile Inj) 10 mg ONE PRN IV 07/07/17 20:00 08/06/17 19:59 07/07/17 20:28 10 MG Piperacillin Sod/ Tazobactam Sod 3.375 gm/Dextrose 115 ml @ 28.75 mls/ hr Q12@0900,2100 IV 07/07/17 21:00 07/14/17 20:59 07/08/17 08:30 28.75 MLS/HR Heparin Sodium (Porcine) (Heparin 10 Unit/ ml 5 ml Flush) 5 ml PRN PRN FLUSH 07/07/17 23:45 08/06/17 23:44 Glucose (Glucose 40% Gel) UD PRN PO 07/08/17 01:30 08/07/17 01:29 Glucose (Glucose Chew Tab) 1 tabs UD PRN PO 07/08/17 01:30 08/07/17 01:29 Dextrose (Dextrose 50% 50ML Syringe) 50 ml UD PRN IV 07/08/17 01:30 08/07/17 01:29 07/08/17 08:30 50 ML Glucagon (Glucagon Inj) 1 mg UD PRN SQ 07/08/17 01:30 08/07/17 01:29 Phenylephrine HCl 20 mg/Sodium Chloride 502 ml @ 0 mls/hr Q0M PRN IV 07/08/17 01:30 08/07/17 01:29 07/08/17 07:46 83.8 MLS/HR Clopidogrel Bisulfate (plAVix TAB) 75 mg QPM PO 07/08/17 21:00 08/07/17 20:59 Levothyroxine Sodium (Synthroid Tab) 25 mcg DAILYBB PO 07/09/17 06:00 08/08/17 05:59 Sertraline HCl (Zoloft Tab) 100 mg DAILY PO 07/09/17 09:00 08/08/17 08:59 Miscellaneous Information (Order Awaiting Action) 1 ea QS N/A 07/08/17 16:00 08/07/17 15:59 Simvastatin (Zocor Tab) 10 mg HS PO 07/08/17 21:00 08/07/17 20:59 Levetiracetam 1000 mg/Dextrose 110 ml @ 440 mls/hr Q24H IV 07/08/17 12:00 08/07/17 11:59 07/08/17 12:07 440 MLS/HR Enteral Nutritional Formula (Peptamen Intense VHP) 1,000 ml UD OG 07/08/17 12:00 08/07/17 11:59 Insulin Aspart (novoLOG ASPART) SLIDING SCALE Q4 SC 07/08/17 16:00 08/07/17 15:59 Miscellaneous Information (Consult Glycemic Management Pharmacy) 1 ea UD PRN N/A 07/08/17 13:15 08/07/17 13:14 Vital Signs: Date Time Temp Pulse Resp B/P (MAP) Pulse Ox O2 Delivery O2 Flow Rate FiO2 07/08/17 17:30 36.7 69 22 102/38 (59) 93 Nasal Cannula 5.0 07/08/17 15:30 Mechanical Ventilator 40 07/08/17 15:30 36.7 64 16 122/50 (74) 95 Mechanical Ventilator 07/08/17 15:30 30 07/08/17 14:30 30 07/08/17 14:00 36.9 58 14 115/45 (68) 96 Mechanical Ventilator 07/08/17 12:55 30 07/08/17 12:00 Mechanical Ventilator 40 07/08/17 12:00 30 07/08/17 12:00 36.9 60 14 100/40 (60) 86 Mechanical Ventilator 07/08/17 11:15 30 07/08/17 10:00 36.8 57 14 126/49 (74) 98 Mechanical Ventilator 07/08/17 09:00 97 07/08/17 08:00 36.7 57 20 105/45 (65) 97 Mechanical Ventilator 30 07/08/17 08:00 Mechanical Ventilator 40 07/08/17 08:00 30 07/08/17 07:05 30 07/08/17 07:05 40 07/08/17 06:00 61 20 96 07/08/17 06:00 36.8 61 20 105/50 (68) 96 Mechanical Ventilator 30 07/08/17 05:00 56 14 100 07/08/17 04:19 40 07/08/17 04:00 40 07/08/17 04:00 36.6 55 14 103/52 (69) 100 Mechanical Ventilator 40 07/08/17 04:00 55 14 100 07/08/17 04:00 Mechanical Ventilator 40 07/08/17 03:00 61 15 97 07/08/17 02:00 36.2 53 13 114/52 (72) 98 Mechanical Ventilator 40 07/08/17 02:00 53 13 98 07/08/17 01:00 53 14 98 07/08/17 00:59 40 07/08/17 00:01 36.2 55 14 152/61 (78) 99 07/08/17 00:01 36.2 55 14 152/61 (91) 99 Mechanical Ventilator 40 07/07/17 23:59 40 07/07/17 23:59 Mechanical Ventilator 40 07/07/17 23:00 60 14 128/56 100 07/07/17 22:30 69 14 134/55 (81) 99 Mechanical Ventilator 60 07/07/17 21:30 40 07/07/17 20:00 64 13 100 07/07/17 20:00 36.8 64 13 136/55 (82) 100 Mechanical Ventilator 60 07/07/17 20:00 Mechanical Ventilator 60 07/07/17 20:00 60 07/07/17 19:00 61 14 100 07/07/17 18:17 58 14 99/51 (70) 100 07/07/17 18:15 58 10 100 07/07/17 18:10 40 07/07/17 18:02 62 14 212/90 (123) 100 07/07/17 18:00 60 14 100 07/07/17 17:56 59 14 92/59 (69) 100 07/07/17 17:45 59 14 100 Laboratory Results: Last 24 Hours Test 07/07/17 19:45 07/07/17 22:36 07/08/17 00:42 07/08/17 03:03 Random Vancomycin Level 19.6 mcg/ml Troponin I 0.021 ng/ml Bedside Glucose (other) 256 mg/dl 168 mg/dl Test 07/08/17 04:13 07/08/17 05:09 07/08/17 05:24 07/08/17 05:47 Bedside Glucose (other) 133 mg/dl 106 mg/dl White Blood Count 15.51 K/uL Red Blood Count 3.27 M/uL Hemoglobin 10.3 g/dL Hematocrit 32.0 % Mean Corpuscular Volume 97.9 fL Mean Corpuscular Hemoglobin 31.5 pg Mean Corpuscular Hemoglobin Concent 32.2 g/dl RDW Standard Deviation 60.9 fL RDW Coefficient of Variation 17.1 % Platelet Count 212 K/uL Mean Platelet Volume 10.6 fL Sodium Level 130 mmol/L Potassium Level 4.1 mmol/L Chloride Level 93 mmol/L Carbon Dioxide Level 28 mmol/L Anion Gap 9.0 mmol/L Blood Urea Nitrogen 42 mg/dl Creatinine 5.77 mg/dl Est Creatinine Clear Calc Drug Dose 19.2 ml/min Estimated GFR () 11.1 Estimated GFR (Non- 9.6 BUN/Creatinine Ratio 7.2 Random Glucose 101 mg/dl Calcium Level 7.9 mg/dl Phosphorus Level 3.2 mg/dl Magnesium Level 2.3 mg/dl Random Vancomycin Level 21.5 mcg/ml HIV (1&2) Ab and P24 Ag, 4th Gener NEG Blood Gas Sample Site L Radial Bedside Blood Gas pH (LAB) 7.36 Bedside Blood Gas pCO2 (LAB) 51 mmHg Bedside Blood Gas pO2 (LAB) 98 mmHg Bedside Blood Gas HCO3 (LAB) 29 meq/L Bedside Blood Gas Total CO2 30 mEq/l Bedside Blood Gas Base Excess (LAB) 3.0 meq/L Bedside Blood Gas O2 Saturation 97.0 % Arden Test Pass Oxygen Delivery Device Ventilator Bedside Oxygen Rate (breaths/min) 12 Blood Gas Minute Ventilation 8.2 Bedside FiO2 40 % Blood Gas Tidal Volume 500 Blood Gas PEEP 10 Test 07/08/17 06:39 07/08/17 07:21 07/08/17 07:41 07/08/17 08:30 Bedside Glucose (other) 71 mg/dl 89 mg/dl 154 mg/dl 49 mg/dl Test 07/08/17 08:51 07/08/17 09:17 07/08/17 09:50 07/08/17 10:22 Bedside Glucose (other) 196 mg/dl 68 mg/dl 219 mg/dl Hepatitis B Surface Antigen NEG Hepatitis B Surface Antibody NEG Test 07/08/17 11:26 07/08/17 11:56 07/08/17 11:57 07/08/17 16:13 Bedside Glucose (other) 86 mg/dl Troponin I < 0.015 ng/ml Estimated Average Glucose 151 mg/dl Hemoglobin A1c 6.9 % Lactic Acid Level 1.0 mmol/L Blood Gas Sample Site L Radial Bedside Blood Gas pH (LAB) 7.39 Bedside Blood Gas pCO2 (LAB) 47 mmHg Bedside Blood Gas pO2 (LAB) 64 mmHg Bedside Blood Gas HCO3 (LAB) 29 meq/L Bedside Blood Gas Total CO2 30 mEq/l Bedside Blood Gas Base Excess (LAB) 3.0 meq/L Bedside Blood Gas O2 Saturation 92.0 % Arden Test Pass Oxygen Delivery Device Ventilator Bedside FiO2 30 % Blood Gas PEEP 5
--- NOTE | 2017-07-08 18:42 | PROGRESS NOTE ---
DATE: 07/08/2017 REQUESTING PHYSICIANS: David Schroeder MD and Ninfa Carter MD. HISTORY OF PRESENT ILLNESS: Kb is 61 years old and is known to Dr. Marty Bliss currently resides at [facility], has end-stage renal disease on hemodialysis, hypertension, coronary artery disease, obesity, anemia of chronic disease and was admitted yesterday from [facility] due to swelling of his face and penile discharge. Apparently had some diffuse swelling of his extremities yesterday, he had been drinking a lot of water. His last hemodialysis have been Saturday. He has some purulent discharge from his penis and then when I tried to collect a urine sample some bleeding occurred. He then had a low grade fever. O2 saturation remained fine. In the Emergency Room, placed him on nitro paste because he presented with hypertension, possible fluid overload and then he became hypotensive and had had an episode that resembled seizure like activity, was placed on IV Keppra, intubated and sent to the unit. Dr. Carter called last night, wanted an EEG, the electrical engineering technician came in, the tracing showed moderate generalized slowing without focality and 3 events of a single spike and wave like activity occurring during photic stimulation and once at the termination of the procedure and were associated with some slowing of the background rhythms as well. No clinical accompaniments were noted and there was no evidence for ongoing potentially epileptogenic activity or nonconvulsive status epilepticus. 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 PAST SURGICAL HISTORY: He has had surgically cataract removal with insertion of prosthetic lens, left lower limb amputation, history of trabeculectomy and CABG x4. He has also had a fistula placed for dialysis. SOCIAL HISTORY: Reveals to be a never smoker, single/. He lives at an assisted living. He is not a consumer of ethanol. Immunizations are up-to-date. There is no history of multiple drug resistant organisms. ALLERGIES: EXTENSIVE TO SULFA WITH TRIMETHOPRIM, LATEX, IODINE, PROVIDINE AND SULFA AN ISOLATED AGENT. MEDICATIONS: Scheduled home medications include amlodipine, ascorbic acid, Coreg, cholecalciferol, Plavix, Gold Renner ointment, Auryxia, gabapentin for pain, Latanoprost ophthalmic, levothyroxine, loperamide, lorazepam, losartan, midodrine for hypotension, ranitidine, sertraline, simvastatin, vitamin B, various wound dressings, zinc oxide, oxygen replacement. P.r.n. medications include acetaminophen, bisacodyl, various lubricant eyedrops, lorazepam, oxycodone for pain. REVIEW OF SYSTEMS: Could not be obtained from the patient today. According to the note by Dr. Schroeder, review of systems are positive only for low grade fever, generalized weakness, diffuse anasarca and penile discharge. There is no prior history of seizure like events. PHYSICAL EXAMINATION: VITAL SIGNS: After a hypotensive event and the seizure like activity reveal blood pressure 114/57, pulse 69, respirations 20, he is moderately obese. GENERAL: He appeared in no obvious distress until he became unresponsive during the event and none was intubated. HEAD, EYES, EARS, NOSE AND THROAT: There were no gross abnormalities on examination. LUNGS: Some rhonchi. HEART: Had a regular rhythm. ABDOMEN: Obese, but there was no obvious ascites. EXTREMITIES: Moderately edematous. Peripheral pulses were present. NEUROLOGIC: He was unresponsive, but today he apparently awakened overnight and is in the process of being evaluated for possible extubation. He makes good eye contact. Follows commands, has no obvious cranial nerve deficits, will squeeze my hands to command, move his extremities fairly well, although I do not really force this. The nurses were in the process of performing procedures around so I really did not bother doing reflexes or checking for pathologic responses. At this point, I have significant doubt if this was a primary epileptic event despite the 3 spikes that were seen. I think this was hypotension followed by seizure-like activity and then intubation with a protracted recovery. Certainly during the throes of this his EEG did not show any continuous ongoing seizure activity. I do not disagree with the use of Keppra right now. He is going to be placed on the standard dialysis every 24 hour 500 mg dose and as needed postdialysis 500 mg boluses. We are going to check another EEG once things stabilize a bit and if I see nothing significant on that, I may suggest that we withdraw the Keppra and see if he has recurrent events. He is going to need some imaging studies and luckily the brain MRI has been done and shows no significant issues. He does have a complete occlusion of the right ICA, likely chronic and a high grade stenosis at the origin of the left ICA so hypotension in this man is going to be something that needs to be avoided. Certainly with this kind of intracranial circulation a little hypotensive may have produced an anoxic ischemic seizure. At this point then I will check back with him tomorrow and will go from there. I will put the order in for an EEG. NAWAF
[2017-07-08 20:05] LABS: ISTAT ALLEN TEST Pass; ISTAT ARTERIAL BLOOD GAS HCO3 27 meq/L (19-24); ISTAT ARTERIAL BLOOD GAS PCO2 47 mmHg (35-46); ISTAT ARTERIAL BLOOD GAS PO2 70 mmHg (80-95); ISTAT ARTERIAL BLOOD GAS pH 7.36 (7.35-7.45); ISTAT CARBON DIOXIDE 28 mEq/l (24-31); ISTAT DELIVERY SYSTEM Cannula; ISTAT SITE L Radial
[2017-07-08] MEDS: SIMVASTATIN 10 MG TAB PO SCH (21:39)
[2017-07-08] MEDS: CLOPIDOGREL BISULFATE 75 MG TAB PO SCH (21:39)
[2017-07-09] VITALS (29 sets, daily range): BP systolic 79–153; BP diastolic 40–70; PULSE 61–127; TEMP 36.2–37; O2SAT 92–98
[2017-07-09] MEDS: INSULIN ASPART 100 UNITS/ML 3 ML PEN SC SCH ×3 (04:00→12:00)
[2017-07-09] MEDS: DOXYCYCLINE IV 100 MG in DEXTROSE 5% 100ML 100 ML IV SCH ×2 (04:17→16:45)
[2017-07-09] MEDS: FAMOTIDINE IV INJ 20 MG in SYRINGE 3 ML IV SCH ×2 (04:17→16:00)
[2017-07-09] MEDS: LEVOTHYROXINE 25 MCG TAB PO SCH ×2 (05:40→05:48)
[2017-07-09] MEDS: HEPARIN SOD 5000 UNIT/0.5 ML CARP SQ SCH ×4 (05:42→21:27)
[2017-07-09 06:42] LABS: BUN/CREATININE RATIO 6.6 (10-20); CALCIUM 7.5 mg/dl (8.5-10.1); CREATININE 6.69 mg/dl (0.60-1.40); MAGNESIUM 2.3 mg/dl (1.8-2.4); PHOSPHORUS 3.8 mg/dl (2.5-4.9); POTASSIUM 4.5 mmol/L (3.5-5.1)
--- NOTE | 2017-07-09 07:53 | DIAGNOSTIC IMAGING REPORT ---
CHEST ONE VIEW PORTABLE HISTORY: 61 years-old Male Intubated respiratory failure. COMPARISON: Chest radiograph 07/08/2017 TECHNIQUE: Portable upright AP view of the chest FINDINGS: There has been interval removal of the endotracheal and enteric tubes. Prior median sternotomy. Cardiac silhouette is moderately enlarged. There is atherosclerosis of the aorta. Left greater than right bibasilar opacities persist which appear somewhat linear. There is no pneumothorax or large pleural effusion. Vascular stent grafts within the region of the left subclavian and axillary vessels redemonstrated. The bones of the chest appear grossly intact. IMPRESSION: 1. Interval removal of the endotracheal and enteric tubes. 2. Cardiomegaly without overt pulmonary edema. 3. Unchanged appearance of the bibasilar opacities suggesting atelectasis with pneumonia thought to be less likely. The above report was generated using voice recognition software. It may contain grammatical, syntax or spelling errors. Electronically signed by: Kyle Modi M.D. 07/09/2017 7:51 AM Dictated Date/Time: 07/09/2017 7:49 AM
--- NOTE | 2017-07-09 08:00 | Clinical Documentation Query ---
CLINICAL DOCUMENTATION QUERY 61 year old male who presents to the Emergency Room via EMS from [facility] with resolving hypoxia. Shortly after arrival patient suffered a seizure of unknown cause. WOCN has seen patient and take pictures of some ulcerations. However the etiology of said ulcers are not described by WOCN. In your clinical opinion is this patient being managed for: ( ) Pressure ulcer of right buttock POA ( ) Stage I ( ) Stage II ( ) Stage III ( ) Stage IV ( ) Diabetic PVD related ulcer to right anterior Dee POA ( ) Gluteal fold pressure ulcer ( ) Stage I ( ) Stage II ( ) Stage III ( ) Stage IV ( ) Sacral pressure ulcer ( ) Stage I ( ) Stage II ( ) Stage III ( ) Stage IV ( ) Not Agree ( ) Other explanation of clinical findings (Please Explain) ( ) Unable to determine (Please Define) ( ) Need to Discuss The medical record reflects the following clinical findings, treatment, and risk factors. Clinical Indicators: As per pictures in EMR. Treatment: WOCN consult, q2h repositioning, bariatric rotation bed Risk Factors: Age, ESRD, debilitated state, obesity Please clarify and document your clinical opinion in the progress notes and discharge summary. Terms such as "probable", "suspected", "likely", "questionable", "possible", or "still to be ruled out" are acceptable. IF IN AGREEMENT, YOU MUST DOCUMENT ABOVE DIAGNOSTIC STATEMENT IN DAILY PROGRESS NOTES AND DISCHARGE SUMMARY. This document is not part of the patient's record. Thank You, Zechariah Edward, RN [phone]
--- NOTE | 2017-07-09 08:16 | Nephrology Progress Note ---
Nephrology Progress Note Date of Service: Jul 09, 2017. Subjective 61 yo male with esrd with a fistula who was intubated after seizure like activity and extubated. pt doing better but still requiring low dose pressor. pt alert and comfortable. pt hungry. Objective Date Time Temp Pulse Resp B/P (MAP) Pulse Ox O2 Delivery O2 Flow Rate FiO2 07/09/17 06:00 66 18 109/47 (67) 93 Nasal Cannula 4.0 07/09/17 04:00 36.2 61 15 126/54 (78) 92 Nasal Cannula 3.0 07/09/17 04:00 Nasal Cannula 3.0 07/09/17 02:46 67 16 120/49 (72) 96 07/09/17 02:31 67 14 108/41 (63) 07/09/17 02:09 66 15 115/40 (65) 95 07/09/17 02:00 67 15 79/45 (56) 94 07/09/17 00:01 36.2 71 18 109/49 (69) 98 Nasal Cannula 4.0 07/08/17 23:59 Nasal Cannula 4.0 07/08/17 21:51 36.9 72 22 93/49 (64) 94 Nasal Cannula 4.0 07/08/17 21:47 72 17 93/49 (65) 94 07/08/17 21:45 73 22 93 07/08/17 21:31 73 18 126/53 (70) 96 07/08/17 21:30 73 16 96 07/08/17 21:17 73 15 107/47 (69) 98 07/08/17 21:15 72 18 98 07/08/17 21:01 72 16 114/54 (78) 98 07/08/17 21:00 72 17 97 07/08/17 20:47 72 16 108/51 (68) 98 07/08/17 20:45 72 17 98 07/08/17 20:32 71 17 118/51 (76) 99 07/08/17 20:30 71 16 98 07/08/17 20:16 71 16 120/57 (73) 93 07/08/17 20:15 71 20 94 07/08/17 20:01 71 18 115/57 (74) 96 07/08/17 20:00 71 18 96 07/08/17 19:50 Nasal Cannula 5.0 07/08/17 19:45 72 22 96 07/08/17 19:32 72 20 114/51 (76) 96 07/08/17 19:30 36.7 69 22 104/67 (79) 95 Nasal Cannula 4.0 07/08/17 19:30 72 20 95 07/08/17 19:16 71 18 118/49 (70) 92 07/08/17 19:15 71 18 94 07/08/17 19:01 70 17 118/50 (67) 98 07/08/17 19:00 70 17 98 07/08/17 18:47 70 19 102/41 (53) 97 07/08/17 18:45 69 19 96 07/08/17 18:33 70 19 110/44 (62) 96 07/08/17 18:30 70 18 96 07/08/17 18:17 71 20 109/45 (60) 95 07/08/17 18:15 71 18 97 07/08/17 18:02 70 20 113/52 (83) 95 07/08/17 18:00 70 19 92 07/08/17 17:54 70 18 118/46 (67) 97 07/08/17 17:45 70 20 92 07/08/17 17:32 69 18 102/38 (58) 92 07/08/17 17:30 36.7 69 22 102/38 (59) 93 Nasal Cannula 5.0 07/08/17 17:30 69 19 92 07/08/17 17:01 70 18 88/35 (45) 94 07/08/17 17:00 72 21 90 07/08/17 16:47 67 17 92/35 (50) 95 07/08/17 16:45 67 15 92 07/08/17 16:32 66 20 98/44 (57) 96 07/08/17 16:30 66 17 98 07/08/17 16:22 65 18 108/45 (67) 95 07/08/17 16:16 63 17 121/45 (73) 07/08/17 16:15 61 17 110/45 (65) 95 07/08/17 16:02 64 17 90/46 (66) 95 07/08/17 16:00 64 18 95 07/08/17 15:57 65 17 116/41 (67) 95 07/08/17 15:51 63 17 119/43 (72) 07/08/17 15:47 64 16 109/42 (57) 95 07/08/17 15:45 64 16 95 07/08/17 15:41 64 18 122/50 (73) 94 07/08/17 15:38 64 16 116/45 (82) 97 07/08/17 15:31 61 19 122/49 (75) 96 07/08/17 15:30 Mechanical Ventilator 40 07/08/17 15:30 36.7 64 16 122/50 (74) 95 Mechanical Ventilator 07/08/17 15:30 30 07/08/17 15:30 61 19 98 07/08/17 14:30 30 07/08/17 14:00 36.9 58 14 115/45 (68) 96 Mechanical Ventilator 07/08/17 12:55 30 07/08/17 12:00 Mechanical Ventilator 40 07/08/17 12:00 30 07/08/17 12:00 36.9 60 14 100/40 (60) 86 Mechanical Ventilator 07/08/17 11:15 30 07/08/17 10:00 36.8 57 14 126/49 (74) 98 Mechanical Ventilator 07/08/17 09:00 97 Physical Exam: General-aaox3 Eyes-no scleral icterus ENT-mmm Neck-supple Lungs-clear anteriorly Heart-rrr Abdomen-+bs Extremities-left bka, small ulcers on right leg Neuro-nonfocal Current Inpatient Medications Medications (Trade) Dose Ordered Sig/Nicole Route Start Time Stop Time Status Last Admin Dose Admin Heparin Sodium (Porcine) (Heparin Sq 5000 Unit/0.5ml) 5,000 unit Q8 SQ 07/07/17 14:00 08/06/17 13:59 07/08/17 21:40 5,000 UNIT Vancomycin HCl (Consult) 1 ea UD PRN N/A 07/07/17 10:45 08/06/17 10:44 Piperacillin Sod/ Tazobactam Sod (Consult) 1 ea UD PRN N/A 07/07/17 10:45 08/06/17 10:44 Doxycycline Hyclate 100 mg/ Dextrose 110 ml @ 50 mls/hr Q12@0400,1600 IV 07/07/17 14:45 07/14/17 14:44 07/09/17 04:17 50 MLS/HR Ioversol (Optiray 320) 111 ml UD PRN IV 07/07/17 13:45 07/11/17 13:44 Famotidine 20 mg/ Syringe 5 ml @ 2.5 mls/min Q12H IV 07/07/17 16:00 08/06/17 15:59 07/09/17 04:17 2.5 MLS/MIN Fentanyl Citrate (Fentanyl Inj) 50 mcg Q1H PRN IV 07/07/17 14:15 07/21/17 14:14 Midazolam HCl (Versed Inj) 2 mg Q2H PRN IV 07/07/17 14:30 08/06/17 14:29 07/08/17 06:00 2 MG Vecuronium [place] (Vecuronium [place] Inj) 10 mg ONE PRN IV 07/07/17 20:00 08/06/17 19:59 07/07/17 20:28 10 MG Piperacillin Sod/ Tazobactam Sod 3.375 gm/Dextrose 115 ml @ 28.75 mls/ hr Q12@0900,2100 IV 07/07/17 21:00 07/14/17 20:59 07/08/17 21:38 28.75 MLS/HR Heparin Sodium (Porcine) (Heparin 10 Unit/ ml 5 ml Flush) 5 ml PRN PRN FLUSH 07/07/17 23:45 08/06/17 23:44 Glucose (Glucose 40% Gel) UD PRN PO 07/08/17 01:30 08/07/17 01:29 Glucose (Glucose Chew Tab) 1 tabs UD PRN PO 07/08/17 01:30 08/07/17 01:29 Dextrose (Dextrose 50% 50ML Syringe) 50 ml UD PRN IV 07/08/17 01:30 08/07/17 01:29 07/08/17 08:30 50 ML Glucagon (Glucagon Inj) 1 mg UD PRN SQ 07/08/17 01:30 08/07/17 01:29 Phenylephrine HCl 20 mg/Sodium Chloride 502 ml @ 0 mls/hr Q0M PRN IV 07/08/17 01:30 08/07/17 01:29 07/08/17 18:42 40 MLS/HR Clopidogrel Bisulfate (plAVix TAB) 75 mg QPM PO 07/08/17 21:00 08/07/17 20:59 07/08/17 21:39 75 MG Levothyroxine Sodium (Synthroid Tab) 25 mcg DAILYBB PO 07/09/17 06:00 08/08/17 05:59 Sertraline HCl (Zoloft Tab) 100 mg DAILY PO 07/09/17 09:00 08/08/17 08:59 Miscellaneous Information (Order Awaiting Action) 1 ea QS N/A 07/08/17 16:00 08/07/17 15:59 Simvastatin (Zocor Tab) 10 mg HS PO 07/08/17 21:00 08/07/17 20:59 07/08/17 21:39 10 MG Enteral Nutritional Formula (Peptamen Intense VHP) 1,000 ml UD OG 07/08/17 12:00 08/07/17 11:59 Insulin Aspart (novoLOG ASPART) SLIDING SCALE Q4 SC 07/08/17 16:00 08/07/17 15:59 Miscellaneous Information (Consult Glycemic Management Pharmacy) 1 ea UD PRN N/A 07/08/17 13:15 08/07/17 13:14 Levetiracetam 500 mg/Dextrose 105 ml @ 440 mls/hr Q24H IV 07/09/17 12:00 08/07/17 11:59 Last 24 Hours Test 07/08/17 08:30 07/08/17 08:51 07/08/17 09:17 07/08/17 09:50 Bedside Glucose (other) 49 mg/dl 196 mg/dl 68 mg/dl Hepatitis B Surface Antigen NEG Hepatitis B Surface Antibody NEG Test 07/08/17 10:22 07/08/17 11:26 07/08/17 11:56 07/08/17 11:57 Bedside Glucose (other) 219 mg/dl 86 mg/dl Troponin I < 0.015 ng/ml Estimated Average Glucose 151 mg/dl Hemoglobin A1c 6.9 % Lactic Acid Level 1.0 mmol/L Test 07/08/17 16:13 07/08/17 17:50 07/08/17 19:34 07/08/17 19:51 Blood Gas Sample Site L Radial L Radial Bedside Blood Gas pH (LAB) 7.39 7.36 Bedside Blood Gas pCO2 (LAB) 47 mmHg 47 mmHg Bedside Blood Gas pO2 (LAB) 64 mmHg 70 mmHg Bedside Blood Gas HCO3 (LAB) 29 meq/L 27 meq/L Bedside Blood Gas Total CO2 30 mEq/l 28 mEq/l Bedside Blood Gas Base Excess (LAB) 3.0 meq/L 1.0 meq/L Bedside Blood Gas O2 Saturation 92.0 % 93.0 % [place] Test Pass Pass Oxygen Delivery Device Ventilator Cannula Bedside FiO2 30 % Blood Gas PEEP 5 Bedside Glucose 123 mg/dl 123 mg/dl Test 07/08/17 23:29 07/09/17 04:32 07/09/17 04:35 07/09/17 05:41 Bedside Glucose 129 mg/dl 134 mg/dl Bedside Glucose (other) 55 mg/dl Sodium Level 129 mmol/L Potassium Level 4.5 mmol/L Chloride Level 93 mmol/L Carbon Dioxide Level 27 mmol/L Anion Gap 9.0 mmol/L Blood Urea Nitrogen 44 mg/dl Creatinine 6.69 mg/dl Est Creatinine Clear Calc Drug Dose 16.7 ml/min Estimated GFR () 9.3 Estimated GFR (Non- 8.0 BUN/Creatinine Ratio 6.6 Random Glucose 98 mg/dl Calcium Level 7.5 mg/dl Phosphorus Level 3.8 mg/dl Magnesium Level 2.3 mg/dl Procalcitonin 1.26 ng/ml Random Vancomycin Level 17.3 mcg/ml Assessment & Plan ESRD-electrolytes are stable. still requiring low dose pressor so unable to remove fluid. pts last dialysis treatment though was saturday. sodium levels are slowly trending down. will plan on dialysis today with no fluid removal and do primarily clearance of toxins. Anemia of renal failure-goal hg of 10 to 11. on procrit and will redose today.
[2017-07-09] MEDS: SERTRALINE HCL 100 MG TAB PO SCH (08:27)
[2017-07-09] MEDS: PIPERACILL/TAZOBAC IV 3.375 GM in DEXTROSE 5% 100ML IV SCH ×2 (08:27→21:26)
[2017-07-09] MEDS ORDERED: EPOETIN ALFA 10,000 UNITS/ML VIAL IV. SCH (08:30)
--- NOTE | 2017-07-09 10:13 | ELECTROENCEPHALOGRAPH REPORT ---
ELECTROENCEPHALOGRAM CLINICAL DIAGNOSIS: Single observed seizure-like episode associated with hypotension, question underlying potentially epileptogenic activity. ELECTROENCEPHALOGRAM DIAGNOSIS: Mildly to moderately diffusely abnormal EEG during wakefulness. DESCRIPTION OF TRACING: This EEG was done in the ICU on a patient who have been extubated and is now more cooperative with testing. A few or no muscle or movement artifacts are noted. The analysis of the patient movement and behavior confirms this. Photic stimulation is the only stimulus parameter utilized. Drowsiness is seen episodically with fully developed stages of sleep that were developed. Under these conditions, there is evidence for a background rhythm in the upper theta range of about 8 Hz of maximum frequency and 30 microvolts of maximum amplitude. This is maximum posterior head regions bilaterally symmetrical. Polymorphic mid to lower frequency theta activity of modest voltage intermixed with polymorphic waveforms in the delta range is seen over the central regions in a fairly symmetrical fashion without any lateralizing features. Beta activity is seen intermittently bifrontally. During drowsiness, there is a generalized buildup of more synchronous slow wave activity in a reduction of the background rhythm even further into the theta range but no abnormal activations occur. Photic stimulation produces no abnormal responses and specifically no photomyogenic or photoparoxysmal components were noted. The previously described isolated single spike and wave discharges related photic stimulation on the prior recording were not present today. At no time during the current tracing is there evidence therefore for potentially epileptogenic activity in the form of polyspike or spike wave bursts, focal sharp waves or focal spikes. INTERPRETATION: This EEG reveals mild to moderate generalized nonlateralizing abnormalities consistent with the presence of a nonspecific encephalopathy without any associated potentially epileptogenic features. MTDD
--- NOTE | 2017-07-09 11:18 | Critical Care Progress Note ---
Critical Care Progress Note Date of Service Jul 09, 2017. ICU Day ICU Day Number: [address] Sorensen Subjective Had unremarkable night; s/p extubated yesterday. remained on NC; ABG without significant CO2 retention; Had glu reported s 26 but this appears to be an error. Lactates remain low; Objective General Appearance: s/p extubated; A x O x 3; Eyes: PERRL; ENT: normal mouth exam, normal throat exam, poor dentition Neck: no tenderness, trachea midline, no stridor Respiratory: rhonchi (scattered) Cardiovasular: normal S1S2 Abdomen: normal bowel sounds, no masses, no guarding, occult rectal blood Genitourinary - Male: linton; Lower Extremities: s/p BKA; Neuro: decreased LOC Psychiatric: other (unable to evaluate) Results Past 24 Hours Test 07/07/17 19:45 07/07/17 22:36 07/08/17 00:42 07/08/17 03:03 Range/Units Random Vancomycin Level 19.6 mcg/ml Troponin I 0.021 0-0.045 ng/ml Bedside Glucose (other) 256 168 70-99 mg/dl Test 07/08/17 04:13 07/08/17 05:09 07/08/17 05:24 07/08/17 05:47 Range/Units Bedside Glucose (other) 133 106 70-99 mg/dl White Blood Count 15.51 4.8-10.8 K/uL Red Blood Count 3.27 4.7-6.1 M/uL Hemoglobin 10.3 14.0-18.0 g/dL Hematocrit 32.0 42-52 % Mean Corpuscular Volume 97.9 80-100 fL Mean Corpuscular Hemoglobin 31.5 25-34 pg Mean Corpuscular Hemoglobin Concent 32.2 32-36 g/dl RDW Standard Deviation 60.9 36.4-46.3 fL RDW Coefficient of Variation 17.1 11.5-14.5 % Platelet Count 212 130-400 K/uL Mean Platelet Volume 10.6 7.4-10.4 fL Sodium Level 130 136-145 mmol/L Potassium Level 4.1 3.5-5.1 mmol/L Chloride Level 93 98-107 mmol/L Carbon Dioxide Level 28 21-32 mmol/L Anion Gap 9.0 3-11 mmol/L Blood Urea Nitrogen 42 7-18 mg/dl Creatinine 5.77 0.60-1.40 mg/dl Est Creatinine Clear Calc Drug Dose 19.2 ml/min Estimated GFR () 11.1 Estimated GFR (Non- 9.6 BUN/Creatinine Ratio 7.2 10-20 Random Glucose 101 70-99 mg/dl Calcium Level 7.9 8.5-10.1 mg/dl Phosphorus Level 3.2 2.5-4.9 mg/dl Magnesium Level 2.3 1.8-2.4 mg/dl Random Vancomycin Level 21.5 mcg/ml HIV (1&2) Ab and P24 Ag, 4th Gener NEG NEG Blood Gas Sample Site L Radial Bedside Blood Gas pH (LAB) 7.36 7.35-7.45 Bedside Blood Gas pCO2 (LAB) 51 35-46 mmHg Bedside Blood Gas pO2 (LAB) 98 80-95 mmHg Bedside Blood Gas HCO3 (LAB) 29 19-24 meq/L Bedside Blood Gas Total CO2 30 24-31 mEq/l Bedside Blood Gas Base Excess (LAB) 3.0 -9-1.8 meq/L Bedside Blood Gas O2 Saturation 97.0 90-95 % [place] Test Pass Oxygen Delivery Device Ventilator Bedside Oxygen Rate (breaths/min) 12 Blood Gas Minute Ventilation 8.2 Bedside FiO2 40 % Blood Gas Tidal Volume 500 Blood Gas PEEP 10 Test 07/08/17 06:39 07/08/17 07:21 07/08/17 07:41 07/08/17 08:30 Range/Units Bedside Glucose (other) 71 89 154 49 70-99 mg/dl Test 07/08/17 08:51 07/08/17 09:17 07/08/17 09:50 07/08/17 10:22 Range/Units Bedside Glucose (other) 196 68 219 70-99 mg/dl Hepatitis B Surface Antigen NEG NEG Hepatitis B Surface Antibody NEG Test 07/08/17 11:26 07/08/17 11:56 07/08/17 11:57 07/08/17 16:13 Range/Units Bedside Glucose (other) 86 70-99 mg/dl Troponin I < 0.015 0-0.045 ng/ml Estimated Average Glucose 151 mg/dl Hemoglobin A1c 6.9 4.5-5.6 % Lactic Acid Level 1.0 0.4-2.0 mmol/L Blood Gas Sample Site L Radial Bedside Blood Gas pH (LAB) 7.39 7.35-7.45 Bedside Blood Gas pCO2 (LAB) 47 35-46 mmHg Bedside Blood Gas pO2 (LAB) 64 80-95 mmHg Bedside Blood Gas HCO3 (LAB) 29 19-24 meq/L Bedside Blood Gas Total CO2 30 24-31 mEq/l Bedside Blood Gas Base Excess (LAB) 3.0 -9-1.8 meq/L Bedside Blood Gas O2 Saturation 92.0 90-95 % [place] Test Pass Oxygen Delivery Device Ventilator Bedside FiO2 30 % Blood Gas PEEP 5 Current SOFA Score SOFA Score Response (Comments) Value Platelets (x10) > 150 0 Bilirubin (mg/dL) < 1.2 0 Lily Coma Score 15 0 Level of Hypotension MAP less than 70 1 Creatinine (mg/dL) > 5.0 4 Total 5 Assessment & Plan (1) Seizure (2) ESRD (end stage renal disease) (3) Hypotension arterial IMPRESSION: 61-year-old male with a history of end-stage renal disease and severe peripheral vascular disease with acute encephalopathy and hypotension; s/p extubated; still on pressors support without clinical evidence of shock; mental status improved; PLAN: Neuro: Acute encephalopathy * MRI without evidence of acute findings; prior occluded Right ICA; old small lacunar infarcts; * EEG noted; no Seizures; * on Keppra as per Neuro; Neuro input appreciated; * Mental status improved; appears to be at baseline. * Psych also consulted for custodial follow up, at present he is appropriate. Resp: s/p extubated 07/08; remains on NC; CV: Bradycardia during unresponsive episode * troponins negative x 3; * Echocardiogram 55-60%; no MR; grade I MR; * EKG noted for loss of wave progression; has completely occluded RCA and on Neosynephrine to improve perfusion and decrease the possibility of watershed infarcts - Based on normal lactates and appropriate mental status I doubt he is in shock; will try to wean as able; Consider Florinef to assist in weaning pressors; Cortisol level normal; Fluids/Renal: End-stage renal disease on hemodialysis; scheduled for HD today; Na 129 which is bit worse; continue daily chems; ID: remains afebrile WBC worsened to 15 from 12; Pro calcitonin is negative initially, but then increased to 1.26; * c/w Zosyn/Vanco for ABx coverage; * UA is not suggestive of UTI. Urine culture is pending; check rpt UA; * Since he presented with penile discharge --> Chlamydia and gonorrhea tests by DNA probe, the doxycycline would be effective * Denied Abdominal pain; * Wound Cx + Proteus/E coli/Strp sensitive to Zosyn; GI/Nutrition: Hemoccult positive stools * History of gastrointestinal bleeding * On PPI prophylaxis * Patient is typed and crossed - Started on Renal Diet. Heme: Chronic anemia * Heparin 5000 units every 8 hours for DVT prophylaxis Endocrine: Low glucose, but ok on rpt. Poorly controlled type 2 diabetes; I have personally spent 37 minutes of critical care time in the direct management of this patient. This is a life/limb threatening event. This includes time spent evaluating patient, direct bedside care, chart review, placing orders, interpretation of diagnostic studies, discussion with consultants, patient, and family members, as well as other required patient management activities. Meets criteria for ICU admission as on pressors; Case discussed on am rounds; This time is exclusive of all separately billable procedures, and teaching time and separate from and in addition to any other critical care service time. Consults & Procedures Consultants: nephrology Psychiatry Neurology Procedures: Right femoral TLC Intubation 07/07/2017 Extubation 07/08/2017; Consults & Procedures Consultants: nephrology Procedures: Right femoral TLC Intubation 07/07/2017 Extubation 07/08/2017; Data Medications: Current Inpatient Medications Medications (Trade) Dose Ordered Sig/Nicole Route Start Time Stop Time Status Last Admin Dose Admin Heparin Sodium (Porcine) (Heparin Sq 5000 Unit/0.5ml) 5,000 unit Q8 SQ 07/07/17 14:00 08/06/17 13:59 07/08/17 21:40 5,000 UNIT Vancomycin HCl (Consult) 1 ea UD PRN N/A 07/07/17 10:45 08/06/17 10:44 Piperacillin Sod/ Tazobactam Sod (Consult) 1 ea UD PRN N/A 07/07/17 10:45 08/06/17 10:44 Doxycycline Hyclate 100 mg/ Dextrose 110 ml @ 50 mls/hr Q12@0400,1600 IV 07/07/17 14:45 07/14/17 14:44 07/09/17 04:17 50 MLS/HR Ioversol (Optiray 320) 111 ml UD PRN IV 07/07/17 13:45 07/11/17 13:44 Famotidine 20 mg/ Syringe 5 ml @ 2.5 mls/min Q12H IV 07/07/17 16:00 08/06/17 15:59 07/09/17 04:17 2.5 MLS/MIN Fentanyl Citrate (Fentanyl Inj) 50 mcg Q1H PRN IV 07/07/17 14:15 07/21/17 14:14 Midazolam HCl (Versed Inj) 2 mg Q2H PRN IV 07/07/17 14:30 08/06/17 14:29 07/08/17 06:00 2 MG Vecuronium [place] (Vecuronium [place] Inj) 10 mg ONE PRN IV 07/07/17 20:00 08/06/17 19:59 07/07/17 20:28 10 MG Piperacillin Sod/ Tazobactam Sod 3.375 gm/Dextrose 115 ml @ 28.75 mls/ hr Q12@0900,2100 IV 07/07/17 21:00 07/14/17 20:59 07/09/17 08:27 28.75 MLS/HR Heparin Sodium (Porcine) (Heparin 10 Unit/ ml 5 ml Flush) 5 ml PRN PRN FLUSH 07/07/17 23:45 08/06/17 23:44 Glucose (Glucose 40% Gel) UD PRN PO 07/08/17 01:30 08/07/17 01:29 Glucose (Glucose Chew Tab) 1 tabs UD PRN PO 07/08/17 01:30 08/07/17 01:29 Dextrose (Dextrose 50% 50ML Syringe) 50 ml UD PRN IV 07/08/17 01:30 08/07/17 01:29 07/08/17 08:30 50 ML Glucagon (Glucagon Inj) 1 mg UD PRN SQ 07/08/17 01:30 08/07/17 01:29 Phenylephrine HCl 20 mg/Sodium Chloride 502 ml @ 0 mls/hr Q0M PRN IV 07/08/17 01:30 08/07/17 01:29 07/08/17 18:42 40 MLS/HR Clopidogrel Bisulfate (plAVix TAB) 75 mg QPM PO 07/08/17 21:00 08/07/17 20:59 07/08/17 21:39 75 MG Levothyroxine Sodium (Synthroid Tab) 25 mcg DAILYBB PO 07/09/17 06:00 08/08/17 05:59 Sertraline HCl (Zoloft Tab) 100 mg DAILY PO 07/09/17 09:00 08/08/17 08:59 07/09/17 08:27 100 MG Miscellaneous Information (Order Awaiting Action) 1 ea QS N/A 07/08/17 16:00 08/07/17 15:59 07/09/17 08:21 1 EA Simvastatin (Zocor Tab) 10 mg HS PO 07/08/17 21:00 08/07/17 20:59 07/08/17 21:39 10 MG Enteral Nutritional Formula (Peptamen Intense VHP) 1,000 ml UD OG 07/08/17 12:00 08/07/17 11:59 Insulin Aspart (novoLOG ASPART) SLIDING SCALE Q4 SC 07/08/17 16:00 08/07/17 15:59 Miscellaneous Information (Consult Glycemic Management Pharmacy) 1 ea UD PRN N/A 07/08/17 13:15 08/07/17 13:14 Levetiracetam 500 mg/Dextrose 105 ml @ 440 mls/hr Q24H IV 07/09/17 12:00 08/07/17 11:59 Epoetin Augusto (Procrit Inj) 10,000 units TODAY@0830 IV. 07/09/17 08:30 07/09/17 18:00 Vital Signs: Date Time Temp Pulse Resp B/P (MAP) Pulse Ox O2 Delivery O2 Flow Rate FiO2 07/09/17 10:00 66 16 108/45 (66) 95 Nasal Cannula 2.0 07/09/17 08:00 36.3 98 20 98/44 (62) 93 Nasal Cannula 2.0 07/09/17 08:00 Nasal Cannula 2.0 07/09/17 06:00 66 18 109/47 (67) 93 Nasal Cannula 4.0 07/09/17 04:00 36.2 61 15 126/54 (78) 92 Nasal Cannula 3.0 07/09/17 04:00 Nasal Cannula 3.0 07/09/17 02:46 67 16 120/49 (72) 96 07/09/17 02:31 67 14 108/41 (63) 07/09/17 02:09 66 15 115/40 (65) 95 07/09/17 02:00 67 15 79/45 (56) 94 07/09/17 00:01 36.2 71 18 109/49 (69) 98 Nasal Cannula 4.0 07/08/17 23:59 Nasal Cannula 4.0 07/08/17 21:51 36.9 72 22 93/49 (64) 94 Nasal Cannula 4.0 07/08/17 21:47 72 17 93/49 (65) 94 07/08/17 21:45 73 22 93 07/08/17 21:31 73 18 126/53 (70) 96 07/08/17 21:30 73 16 96 07/08/17 21:17 73 15 107/47 (69) 98 07/08/17 21:15 72 18 98 07/08/17 21:01 72 16 114/54 (78) 98 07/08/17 21:00 72 17 97 07/08/17 20:47 72 16 108/51 (68) 98 07/08/17 20:45 72 17 98 07/08/17 20:32 71 17 118/51 (76) 99 07/08/17 20:30 71 16 98 07/08/17 20:16 71 16 120/57 (73) 93 07/08/17 20:15 71 20 94 07/08/17 20:01 71 18 115/57 (74) 96 07/08/17 20:00 71 18 96 07/08/17 19:50 Nasal Cannula 5.0 07/08/17 19:45 72 22 96 07/08/17 19:32 72 20 114/51 (76) 96 07/08/17 19:30 36.7 69 22 104/67 (79) 95 Nasal Cannula 4.0 07/08/17 19:30 72 20 95 07/08/17 19:16 71 18 118/49 (70) 92 07/08/17 19:15 71 18 94 07/08/17 19:01 70 17 118/50 (67) 98 07/08/17 19:00 70 17 98 07/08/17 18:47 70 19 102/41 (53) 97 07/08/17 18:45 69 19 96 07/08/17 18:33 70 19 110/44 (62) 96 07/08/17 18:30 70 18 96 07/08/17 18:17 71 20 109/45 (60) 95 07/08/17 18:15 71 18 97 07/08/17 18:02 70 20 113/52 (83) 95 07/08/17 18:00 70 19 92 07/08/17 17:54 70 18 118/46 (67) 97 07/08/17 17:45 70 20 92 07/08/17 17:32 69 18 102/38 (58) 92 07/08/17 17:30 36.7 69 22 102/38 (59) 93 Nasal Cannula 5.0 07/08/17 17:30 69 19 92 07/08/17 17:01 70 18 88/35 (45) 94 07/08/17 17:00 72 21 90 07/08/17 16:47 67 17 92/35 (50) 95 07/08/17 16:45 67 15 92 07/08/17 16:32 66 20 98/44 (57) 96 07/08/17 16:30 66 17 98 07/08/17 16:22 65 18 108/45 (67) 95 07/08/17 16:16 63 17 121/45 (73) 07/08/17 16:15 61 17 110/45 (65) 95 07/08/17 16:02 64 17 90/46 (66) 95 07/08/17 16:00 64 18 95 07/08/17 15:57 65 17 116/41 (67) 95 07/08/17 15:51 63 17 119/43 (72) 07/08/17 15:47 64 16 109/42 (57) 95 07/08/17 15:45 64 16 95 07/08/17 15:41 64 18 122/50 (73) 94 07/08/17 15:38 64 16 116/45 (82) 97 07/08/17 15:31 61 19 122/49 (75) 96 07/08/17 15:30 Mechanical Ventilator 40 07/08/17 15:30 36.7 64 16 122/50 (74) 95 Mechanical Ventilator 07/08/17 15:30 30 07/08/17 15:30 61 19 98 07/08/17 14:30 30 07/08/17 14:00 36.9 58 14 115/45 (68) 96 Mechanical Ventilator 07/08/17 12:55 30 07/08/17 12:00 Mechanical Ventilator 40 07/08/17 12:00 30 07/08/17 12:00 36.9 60 14 100/40 (60) 86 Mechanical Ventilator 07/08/17 11:15 30 Laboratory Results: Last 24 Hours Test 07/08/17 11:26 07/08/17 11:56 07/08/17 11:57 07/08/17 16:13 Bedside Glucose (other) 86 mg/dl Troponin I < 0.015 ng/ml Estimated Average Glucose 151 mg/dl Hemoglobin A1c 6.9 % Lactic Acid Level 1.0 mmol/L Blood Gas Sample Site L Radial Bedside Blood Gas pH (LAB) 7.39 Bedside Blood Gas pCO2 (LAB) 47 mmHg Bedside Blood Gas pO2 (LAB) 64 mmHg Bedside Blood Gas HCO3 (LAB) 29 meq/L Bedside Blood Gas Total CO2 30 mEq/l Bedside Blood Gas Base Excess (LAB) 3.0 meq/L Bedside Blood Gas O2 Saturation 92.0 % [place] Test Pass Oxygen Delivery Device Ventilator Bedside FiO2 30 % Blood Gas PEEP 5 Test 07/08/17 17:50 07/08/17 19:34 07/08/17 19:51 07/08/17 23:29 Bedside Glucose 123 mg/dl 123 mg/dl 129 mg/dl Blood Gas Sample Site L Radial Bedside Blood Gas pH (LAB) 7.36 Bedside Blood Gas pCO2 (LAB) 47 mmHg Bedside Blood Gas pO2 (LAB) 70 mmHg Bedside Blood Gas HCO3 (LAB) 27 meq/L Bedside Blood Gas Total CO2 28 mEq/l Bedside Blood Gas Base Excess (LAB) 1.0 meq/L Bedside Blood Gas O2 Saturation 93.0 % [place] Test Pass Oxygen Delivery Device Cannula Test 07/09/17 04:32 07/09/17 04:35 07/09/17 05:41 07/09/17 08:06 Bedside Glucose (other) 55 mg/dl 26 mg/dl Bedside Glucose 134 mg/dl Sodium Level 129 mmol/L Potassium Level 4.5 mmol/L Chloride Level 93 mmol/L Carbon Dioxide Level 27 mmol/L Anion Gap 9.0 mmol/L Blood Urea Nitrogen 44 mg/dl Creatinine 6.69 mg/dl Est Creatinine Clear Calc Drug Dose 16.7 ml/min Estimated GFR () 9.3 Estimated GFR (Non- 8.0 BUN/Creatinine Ratio 6.6 Random Glucose 98 mg/dl Calcium Level 7.5 mg/dl Phosphorus Level 3.8 mg/dl Magnesium Level 2.3 mg/dl Procalcitonin 1.26 ng/ml Random Vancomycin Level 17.3 mcg/ml Test 07/09/17 09:06 Lactic Acid Level 0.7 mmol/L Random Cortisol 13.22 mcg/dl
[2017-07-09] MEDS: MIDODRINE 2.5 MG TAB PO SCH ×2 (12:00→16:46)
[2017-07-09] MEDS ORDERED: LEVETIRACETAM IV 500 MG in DEXTROSE 5% 100ML 100 ML IV SCH (12:00)
--- NOTE | 2017-07-09 12:31 | Progress Note ---
Internal Med Progress Note Date of Service: Jul 09, 2017. Provider Documentation: SUBJECTIVE: awake and alert, conversing appropriately , no sign of distress or discomfort tolerating diet no fever or chills no cough , no chest pain or SOB remains hypotensive , requiring pressors support OBJECTIVE: Vital Signs-as noted below Exam: General-awake and alert, well appearing male , no sign of discomfort , conversing appropriately Eyes-sclera non icteric , PERRLA/EOMI ENT-normal oropharynx , moist oral mucosa .hearing grossly normal Neck-no JVD , no nuchal rigidity , trachea midline, no thyromegaly Lungs-no rales or wheeze Heart-regular S1/S2 Abdomen-soft, non tender Extremities-s/p left BKA , shallow skin tear on rt lower leg , no drainage noted , Fistula on rt upper extremity, + thrill and bruit , rt femoral triple lumen catheter present Neuro-AAO x3, no focal neurological deficit Lab data as noted below. ASSESSMENT & PLAN: UNRESPONSIVENESS : not sure of the etiology concern for possible Seizure vs acute ischemic event CT head showed no acute infarct identified. 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 MRI of head showed no acute infarct. Re demonstration of the occluded right internal carotid artery. 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 pt developed acute respiratory failure due to above required emergent intubation / mechanical ventilation extubated yesterday , respiratory status remains stable on nasal canula awake and alert today , conversing appropriately no complain of headache , no visual change no further episode of Sz like activity appreciate input form Neurology and Critical Care team pt is continued empirically with Keppra repeat EEG today shows -no evidence of Sz activity images shows complete occlusion of RT INT Carotid artery -concern for possible hypotension caused diminished perfusion on left ICA leading to acute cerebral ischemia HYPOTENSION : on presentation was hypertensive , was on Nitro past briefly developed marked hypotension -requiring pressors has been off all antihypertensives sepsis Procalcitonin normal Normal lactic acid On Pressor with Willy plan to wean off pressors gradually cont ICU monitoring LEUKOCYTOSIS ; WBC 15 K blood cx -negative growth growth form Penile discharge : multi organism - E.coli , Proteus , Streptococcus Lactic acid and procalcitonin negative Blood and urine culture -no growth on Empiric abx with Zosyn and Doxycycline will D/c vancomycin INFECTED PENILE DISCHARGE Culture from the penis showed gram negative bacilli-proteus /E coli / streptococcus resistant to Cipro /Levaquin /Ampicillin Gonorrhea and chlamydia pending will D/C Vancomycin cont Zosyn and Doxycycline ID eval requested ESRD on HD gets HD Sat/Sat/Saturday follows with Nephrology at [facility] Dimas Syed Nephrology consulted , appreciate in put Bradycardia Occurs during the unresponsive episode troponin negative No chest pain reporting during admission No ST changes on initial EKG ECHO SHOWED -- Conclusions -- * The left ventricular wall motion is normal. * Ejection Fraction = 55-60%. * There is moderate focal calcification of the posterior mitral vavle annulus and leaflet. * Significant mitral regurgitation is absent. * There is no mitral valve stenosis. * Grade I diastolic dysfunction, (abnormal relaxation pattern). * Doppler findings do not suggest pulmonary hypertension. * Compared to the prior study dated 05/22/14, the mitral valve calcification is unchanged. DVT px on heparin subq Consultants: [employer] Instructor Neuro Nephro DVT PROPHYLAXIS sub q heparin DISPOSITION monitor in ICU while requiring pressors will need PT/OT eval social service consulted for discharge planning Medicine follow up with Dr Dominguez Vital Signs: Date Time Temp Pulse Resp B/P (MAP) Pulse Ox O2 Delivery O2 Flow Rate FiO2 07/09/17 19:30 Nasal Cannula 3.0 07/09/17 17:56 36.8 73 20 140/60 (86) 92 Nasal Cannula 2.0 07/09/17 16:30 36.8 72 20 153/70 (97) 92 Nasal Cannula 2.0 07/09/17 15:52 36.2 68 116/45 (68) 07/09/17 15:45 66 107/51 07/09/17 15:30 Nasal Cannula 2.0 07/09/17 15:30 67 109/42 07/09/17 15:15 67 117/55 07/09/17 15:00 67 110/57 07/09/17 14:45 67 116/42 07/09/17 14:30 66 107/56 07/09/17 14:15 66 109/51 07/09/17 14:00 65 99/42 07/09/17 14:00 36.8 67 20 116/42 (66) 95 Nasal Cannula 2.0 07/09/17 13:45 65 105/50 07/09/17 13:30 66 111/49 07/09/17 13:15 66 120/51 07/09/17 13:00 66 114/45 07/09/17 12:45 65 115/48 07/09/17 12:30 36.4 84 115/56 (75) 07/09/17 12:00 Nasal Cannula 2.0 07/09/17 12:00 36.8 127 20 107/44 (65) 95 Nasal Cannula 2.0 07/09/17 10:00 66 16 108/45 (66) 95 Nasal Cannula 2.0 07/09/17 08:00 36.3 98 20 98/44 (62) 93 Nasal Cannula 2.0 07/09/17 08:00 Nasal Cannula 2.0 07/09/17 06:00 66 18 109/47 (67) 93 Nasal Cannula 4.0 07/09/17 04:00 36.2 61 15 126/54 (78) 92 Nasal Cannula 3.0 07/09/17 04:00 Nasal Cannula 3.0 07/09/17 02:46 67 16 120/49 (72) 96 07/09/17 02:31 67 14 108/41 (63) 07/09/17 02:09 66 15 115/40 (65) 95 07/09/17 02:00 67 15 79/45 (56) 94 07/09/17 00:01 36.2 71 18 109/49 (69) 98 Nasal Cannula 4.0 07/08/17 23:59 Nasal Cannula 4.0 07/08/17 21:51 36.9 72 22 93/49 (64) 94 Nasal Cannula 4.0 07/08/17 21:47 72 17 93/49 (65) 94 07/08/17 21:45 73 22 93 07/08/17 21:31 73 18 126/53 (70) 96 07/08/17 21:30 73 16 96 07/08/17 21:17 73 15 107/47 (69) 98 07/08/17 21:15 72 18 98 07/08/17 21:01 72 16 114/54 (78) 98 07/08/17 21:00 72 17 97 07/08/17 20:47 72 16 108/51 (68) 98 07/08/17 20:45 72 17 98 07/08/17 20:32 71 17 118/51 (76) 99 Lab Results: Results Past 24 Hours Test 07/08/17 23:29 11/28/17 04:32 07/09/17 04:35 07/09/17 05:41 Range/Units Bedside Glucose 129 134 70-99 mg/dl Bedside Glucose (other) 55 70-99 mg/dl Sodium Level 129 136-145 mmol/L Potassium Level 4.5 3.5-5.1 mmol/L Chloride Level 93 98-107 mmol/L Carbon Dioxide Level 27 21-32 mmol/L Anion Gap 9.0 3-11 mmol/L Blood Urea Nitrogen 44 7-18 mg/dl Creatinine 6.69 0.60-1.40 mg/dl Est Creatinine Clear Calc Drug Dose 16.7 ml/min Estimated GFR () 9.3 Estimated GFR (Non- 8.0 BUN/Creatinine Ratio 6.6 10-20 Random Glucose 98 70-99 mg/dl Calcium Level 7.5 8.5-10.1 mg/dl Phosphorus Level 3.8 2.5-4.9 mg/dl Magnesium Level 2.3 1.8-2.4 mg/dl Procalcitonin 1.26 0-0.5 ng/ml Random Vancomycin Level 17.3 mcg/ml Test 07/09/17 08:06 07/09/17 08:11 07/09/17 09:06 07/09/17 11:12 Range/Units Bedside Glucose (other) 26 70-99 mg/dl Bedside Glucose 121 70-99 mg/dl Lactic Acid Level 0.7 0.4-2.0 mmol/L Random Cortisol 13.22 mcg/dl Test 07/09/17 12:00 07/09/17 15:37 Range/Units Random Glucose 109 70-99 mg/dl Bedside Glucose 116 70-99 mg/dl
--- NOTE | 2017-07-09 13:54 | Psychiatric Consultation ---
Consultation Date of Consultation Jul 09, 2017. Identifying Data Mr. Alberts is a 61-year-old gentleman with multiple medical conditions including end-stage renal disease on hemodialysis, peripheral vascular disease, hypertension, CAD and obesity who was brought to the emergency department with multiple medical complaints. During the evaluation he was noted to have seizure -like activity with periods of unresponsiveness and so wa placed on a vent. He has now been extubated. We are consulted to evaluate altered mental status and an provide behavioral support. Information is gathered from the patient, the electronic medical record, and both considered to be reliable. Chief Complaint "Just depressed". History of Present Illness Kb Alberts is a 61-year-old gentleman who resides at [facility]. He has the below noted medical conditions. At the longterm, he was noted to have increasing amounts of edema and penile discharge. He was sent to the emergency room for evaluation. During the evaluation he was noted to have seizure-like activity and had periods of unresponsiveness. He was admitted to ICU, and placed on a vent. He remained on a vent for several days, extubated and today is undergoing hemodialysis. We are invited to help in his care due to altered mental status and reports of depression. At the time I see the patient, he is resting but easily awakened to verbal. He admits he has been depressed for the last several months. The precipitant to the depression was the fact that he posted something on Facebook about a staff member at [facility]. She then pressed harassment charges and he was fined over $300. He is very unhappy about that although continues to reside at [facility] and simply does not have contact with that staff member. He admits that his mood has been depressed but denies that he is having any suicidal thinking. He was started on Zoloft perhaps as much as several months ago. He feels that it has been helpful to his mood. Today he rates his mood as 7 out of 10 with 10 being the best mood ever. He reports good sleep, and appetite. He admits to some anxiety with hemodialysis and generally receives Ativan before hand. He denies ever having any auditory or visual hallucinations. He denies ever having been treated for psychiatric conditions in the past. Past Psychiatric History Current OP Treatment: no current treatment Prior OP Treatment: no prior treatment Prior Psych Hospitalizations: none Access to a Gun: No Suicide Attempts: No Past Medical/Surgical History History of Concussion/Seizure: No (1) CHF (congestive heart failure) (2) IBS (irritable bowel syndrome) (3) Anemia of chronic renal failure (4) Obesity (BMI 30-39.9) (5) ESRD (end stage renal disease) (6) HTN (hypertension) (7) Diastolic heart failure (8) Diabetes mellitus type 2 in obese (9) CAD (coronary artery disease) Allergies Allergies: Coded Allergies: Sulfamethoxazole w/Trimethoprim (Verified Allergy, Intermediate, HIVES, ) Latex (Verified Allergy, Mild, LEVEL 1, 05/22/17) Iodine (Unverified Allergy, Unknown, UNKNOWN, 05/22/17) Povidone Iodine (Verified Allergy, Unknown, FROM PENITENTIARY INFORMATION , 05/22/17) Sulfa Antibiotics (Unverified Allergy, Unknown, ., 05/22/17) PER [facility] Home Medications Scheduled Amlodipine (Norvasc), 10 MG PO HS Ascorbic Acid (Vitamin C), 500 MG PO BID Carvedilol (Coreg), 3.125 MG PO DAILY@1700 Cholecalciferol (D3), UD Clopidogrel (Plavix), 75 MG PO QPM Emollient (Gold Renner Ultimate), 1 APPLN TD HS Ferric Citrate (Auryxia), 2 TABS PO WM Gabapentin (Gabapentin), 100 MG PO HS Latanoprost (Xalatan 0.005% Oph Emma), 1 DROPS OP HS Levothyroxine Sodium (Synthroid), 25 MCG PO DAILYBB Loperamide Hcl (Imodium), 2 MG PO Q2H Loratadine (Claritin), 10 MG PO QPM Lorazepam (Lorazepam), 0.5 MG PO HS Losartan Potassium (Cozaar), 100 MG PO HS Midodrine (Midodrine HCl), 2.5 MG PO MoWeFr@0900 Ranitidine HCl (Ranitidine 75), 75 MG PO HS Sertraline (Zoloft), 100 MG PO DAILY Simvastatin (Zocor), TAB PO HS Vitamin B Cmplx/Vitc/Folic Ac (Nephrocaps), 1 CAP PO QPM Wound Dressings (Allevyn Adhesive), 1 PATCH TOP UD Wound Dressings (Allevyn Adhesive), 1 APPLN TOP UD Zinc Oxide (Topical) (Desitin), 1 APPLN TOP TID [Liquiacel Protein], 1 OZ PO 4XWK [Oxygen Equipment], Unknown Dose SUNDAYS [Tubigrip], 1 APPLN UNKNOWN DAILY Scheduled PRN Acetaminophen (Tylenol), 650 MG PO Q4 PRN for Pain or Fever Bisacodyl (Bisac-Evac), 10 MG RE DAILY PRN for Constipation Carboxymethylcellulose Sodium (Lubricant Eye Drops), 1 DROP OPB Q4 PRN for DRY EYES Lorazepam (Ativan), 0.25 MG PO UD PRN for PRIOR TO GOING TO DIALYSIS Lorazepam (Ativan), 0.5 MG PO HS PRN for Anxiety Oxycodone Hcl (Oxycodone Hcl), 1 CAP PO Q6 PRN for Pain Family History Diabetes mellitus Heart disease History of Suicide: No History of Substance Abuse: No Psychiatric History: No Alcohol Use Alcohol Use In Past 12 Months: No Smoking Use Smoking Status: Never Smoker Substance History Prior to going to [facility] 6 years ago, was using marijuana daily for anxiety Personal History Lives in: [facility] Education: graduated from high school Work History: Retired from [email or web address] Relationship History: (2) Children: 2 adult children Spiritual Affiliation: Cheondoism Legal History: reported (recent harassment charges) Psychological Trauma History: Denies Hx Traumatic Event Review of Systems Constitutional: malaise Eyes: denies: no symptoms, as stated in HPI, eye pain, tearing, itching, redness, discharge, double vision, visual changes, blurred vision, photophobia, other ENT: denies: no symptoms reported, see HPI, ear pain, ear discharge, loss of hearing, tinnitus, nasal pain, nasal congestion, rhinorrhea, epistaxis, sore throat, stidor, throat swelling, mouth pain, mouth swelling, dental pain, gum swelling, other Cardiovascular: reports: other (edema) Respiratory: denies: no symptoms reported, see HPI, cough, orthopnea, short of breath, stridor, wheezing, sputum production, cyanosis, MCKEE, PND, other Gastrointestinal: denies no symptoms reported, denies see HPI, denies abdominal pain, denies constipation, denies diarrhea, denies nausea, denies vomiting, denies other Genitourinary - Male: reports: penile discharge (cultures pending) Musculoskeletal: denies no symptoms reported, denies see HPI, denies back pain , denies gout, denies joint pain, denies joint swelling, denies muscle pain, denies muscle stiffness, denies neck pain, denies other Integumentary: denies no symptoms reported, denies see HPI, denies change in color, denies change in hair/nails, denies dryness, denies lesions, denies lumps , denies rash, denies other Neurologic: denies: no symptoms, see HPI, headache, numbness, paresthesias, pre -existing deficit, seizure, tingling, tremors, general weakness, tics, focal weakness, vertigo, lethargy, memory loss, dizziness, other Endocrine: denies: no symptoms, as stated in HPI, cold intolerance, heat intolerance, hair changes, goiter, polydipsia, polyuria, skin changes, other Hematologic / Lymphatic: denies: no symptoms, as stated in HPI, abnormal clotting, adenopathy, anemia, easy bleeding, easy bruising, gums bleeding, petechiae, other Examination Physical Examination As per Dr. Lambert Vital Signs Vital Signs Past 12 Hours Date Time Temp Pulse Resp B/P (MAP) Pulse Ox O2 Delivery O2 Flow Rate FiO2 07/09/17 13:00 66 114/45 07/09/17 12:45 65 115/48 07/09/17 12:30 36.4 84 115/56 (75) 07/09/17 12:00 Nasal Cannula 2.0 07/09/17 12:00 36.8 127 20 107/44 (65) 95 Nasal Cannula 2.0 07/09/17 10:00 66 16 108/45 (66) 95 Nasal Cannula 2.0 07/09/17 08:00 36.3 98 20 98/44 (62) 93 Nasal Cannula 2.0 07/09/17 08:00 Nasal Cannula 2.0 07/09/17 06:00 66 18 109/47 (67) 93 Nasal Cannula 4.0 07/09/17 04:00 36.2 61 15 126/54 (78) 92 Nasal Cannula 3.0 07/09/17 04:00 Nasal Cannula 3.0 07/09/17 02:46 67 16 120/49 (72) 96 07/09/17 02:31 67 14 108/41 (63) 07/09/17 02:09 66 15 115/40 (65) 95 07/09/17 02:00 67 15 79/45 (56) 94 Laboratory Results Last 24 Hours Test 07/08/17 16:13 07/08/17 17:50 07/08/17 19:34 07/08/17 19:51 Blood Gas Sample Site L Radial L Radial Bedside Blood Gas pH (LAB) 7.39 7.36 Bedside Blood Gas pCO2 (LAB) 47 mmHg 47 mmHg Bedside Blood Gas pO2 (LAB) 64 mmHg 70 mmHg Bedside Blood Gas HCO3 (LAB) 29 meq/L 27 meq/L Bedside Blood Gas Total CO2 30 mEq/l 28 mEq/l Bedside Blood Gas Base Excess (LAB) 3.0 meq/L 1.0 meq/L Bedside Blood Gas O2 Saturation 92.0 % 93.0 % Arden Test Pass Pass Oxygen Delivery Device Ventilator Cannula Bedside FiO2 30 % Blood Gas PEEP 5 Bedside Glucose 123 mg/dl 123 mg/dl Test 07/08/17 23:29 07/09/17 04:32 07/09/17 04:35 07/09/17 05:41 Bedside Glucose 129 mg/dl 134 mg/dl Bedside Glucose (other) 55 mg/dl Sodium Level 129 mmol/L Potassium Level 4.5 mmol/L Chloride Level 93 mmol/L Carbon Dioxide Level 27 mmol/L Anion Gap 9.0 mmol/L Blood Urea Nitrogen 44 mg/dl Creatinine 6.69 mg/dl Est Creatinine Clear Calc Drug Dose 16.7 ml/min Estimated GFR () 9.3 Estimated GFR (Non- 8.0 BUN/Creatinine Ratio 6.6 Random Glucose 98 mg/dl Calcium Level 7.5 mg/dl Phosphorus Level 3.8 mg/dl Magnesium Level 2.3 mg/dl Procalcitonin 1.26 ng/ml Random Vancomycin Level 17.3 mcg/ml Test 07/09/17 08:06 07/09/17 09:06 07/09/17 12:00 Bedside Glucose (other) 26 mg/dl Lactic Acid Level 0.7 mmol/L Random Cortisol 13.22 mcg/dl Random Glucose 109 mg/dl Mental Examination During interview pt is: alert and oriented, cooperative Appearance: appropriately groomed Eye contact is: fair Motor behavior is: no abnormal motor movements Speech: normal in rate, rhythm & volume Affect: blunted Mood is: depressed Thought process: goal directed Thought content: reality based without delusions Suicidal thought are: denied Homicidal thoughts are: denied Hallucinations: denies auditory, denies visual Cognition: attention grossly intact, language grossly intact Intelligence estimated to be: average Insight: fair Judgement: fair Impression / Recommendations Impression 61-year-old gentleman with the previously mentioned medical conditions, admitted with seizure like activity, periods of unresponsiveness. He is now off the vent, alert, and today is oriented. He admits to depression and has been on Zoloft with moderate response. He continues to describe his mood as depressed however and has some anxiety and would benefit the patient to increase his dose to 150 mg which she agrees to. He does not meet any criteria for inpatient mental health treatment. He may benefit from outpatient counseling if that's possible for him to be transported with therapist's office. We will have the liaison nurse leeann. Inventory Assets Strengths: Resides in a longterm Risk Factors Assessment Male: Yes : Yes /single/: Yes Higher / Fall in social status: No Access to guns: No Health problems: Yes Mental Health Diagnoses: Yes Substance use disorders: No Previous attempt: No Previous psychiatric stay: No Hopelessness: No Protective Factors Assessment Yazdanism beliefs: No : No Responsible for young children: No Employed: No Stable relationships: No Supportive family: Yes (sister's) Recommendations (1) depressive disorder unspecified 07/09 -Increase Zoloft to 150 mg daily Does not meet criteria for inpatient mental health treatment - Recommend outpatient therapy if he is able to be transported. Will have liaison nurse leeann- Has been reviewed with Dr. Latoya Bryant
--- NOTE | 2017-07-09 17:29 | PROGRESS NOTE ---
DATE: 07/09/2017 SUBJECTIVE: Kb looks better today. He is alert, awake, oriented, knows he is in [facility], knows the day of the week, missed a month but then corrected himself, know it was Thanksgiving and has normal cranial nerves. No abnormal involuntary movements, but exam is limited due to the fact he is now being dialyzed. He moves all extremities reasonably well, allowing for the need to have him a little restrained for dialysis. Another EEG today shows mild to moderate diffuse slowing. No spike activity was seen. There is no lateralizing features. Workup has shown nothing acute on MRI, only some small vessel disease and old lacunar infarct and the CTA shows occlusion on the right with internal carotid and an indeterminate degree of stenosis in the left internal carotid. I am going to order an ultrasound just to see if we can evaluate the degree of left internal carotid artery stenosis. This man has episodes of hypotension and his cerebral circulation may be very sensitive to his pressure if indeed it is running off his posterior circulation and the left carotid system he might theoretically be a candidate for enddarterectomy if the degree of stenosis on the left is critical. He certainly has not had an infarction. I realize he is not the greatest surgical candidate with his endstage renal disease and other problems, but at least we can take a look at the artery and make a decision after the testing is done. Regarding his seizures, I am really not sure these were not hypotensive mediated. We are going to continue the Keppra another day here. I may simply try him off the drug as I really hate to commit him to a long-term treatment when the event that was witnessed could have been mediated through hypotension rather than have been a primary epileptogenic event. The isolated spike discharge could have simply been reflective of some underlying residual brain irritability related to hypoperfusion MTDD
[2017-07-09] MEDS ORDERED: DEXTROSE 5% IV ONE (18:00)
[2017-07-09] MEDS ORDERED: INSULIN ASPART 100 UNITS/ML 3 ML PEN SC SCH (18:00)
[2017-07-09] MEDS ORDERED: LEVETIRACETAM IV ONE (18:00)
[2017-07-09] MEDS ORDERED: VANCOMYCIN INJ 750 MG in SODIUM CHLORIDE 0.9% 250ML 250 ML IV ONE (18:00)
[2017-07-09] MEDS: CLOPIDOGREL BISULFATE 75 MG TAB PO SCH (20:27)
[2017-07-09] MEDS: GABAPENTIN 100 MG CAP PO SCH (20:27)
[2017-07-09] MEDS: LATANOPROST 0.005% OP SOLN 2.5 ML BTL OP SCH (20:27)
[2017-07-09] MEDS: SIMVASTATIN 10 MG TAB PO SCH (20:27)
[2017-07-09] MEDS ORDERED: NURSING VERBAL MED ORDER ONE (23:15)
[2017-07-10] VITALS (27 sets, daily range): BP systolic 116–175; BP diastolic 45–86; PULSE 37–78; TEMP 36.2–36.9; O2SAT 90–99
[2017-07-10 01:11] LABS: CHLAMYDIA TRACH RNA*** NOT DETECTED (NOT DETECTED); GC (NEIS GONORRHOEAE)RNA** NOT DETECTED (NOT DETECTED)
[2017-07-10 04:03] LABS: HEMATOCRIT 27.8 % (42-52); MEAN CELL VOLUME 96.2 fL (80-100); MEAN CORPUSCULAR HEMOGLOBIN 32.2 pg (25-34); MEAN CORPUSCULAR HGB CONC 33.5 g/dl (32-36); MEAN PLATELET VOLUME 10.1 fL (7.4-10.4); PLATELET COUNT 175 K/uL (130-400); RED BLOOD COUNT 2.89 M/uL (4.7-6.1); WHITE BLOOD COUNT 6.04 K/uL (4.8-10.8)
[2017-07-10] MEDS: DOXYCYCLINE IV 100 MG in DEXTROSE 5% 100ML 100 ML IV SCH (04:23)
[2017-07-10] MEDS: FAMOTIDINE IV INJ 20 MG in SYRINGE 3 ML IV SCH (04:23)
[2017-07-10 04:43] LABS: BUN/CREATININE RATIO 5.4 (10-20); CALCIUM 7.2 mg/dl (8.5-10.1); CREATININE 4.69 mg/dl (0.60-1.40); MAGNESIUM 2.2 mg/dl (1.8-2.4); PHOSPHORUS 2.8 mg/dl (2.5-4.9); POTASSIUM 3.7 mmol/L (3.5-5.1)
[2017-07-10] MEDS: LEVOTHYROXINE 25 MCG TAB PO SCH (05:32)
[2017-07-10] MEDS: HEPARIN SOD 5000 UNIT/0.5 ML CARP SQ SCH (05:33)
--- NOTE | 2017-07-10 07:02 | DIAGNOSTIC IMAGING REPORT ---
ULTRASOUND OF THE CAROTID ARTERIES CLINICAL HISTORY: Carotid stenosis. COMPARISON STUDY: CT angiogram of the neck dated 07/07/2017. TECHNIQUE: Real-time, grayscale, and color Doppler sonography of the carotid arteries is performed. Images are reviewed in the transverse and longitudinal planes. FINDINGS: Blood pressures were not assessed due to the presence of a right upper extremity fistula. The left carotid arterial system is patent and demonstrate antegrade flow. 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 The right common carotid artery is patent. There is advanced atherosclerotic plaque identified. Normal doppler arterial waveforms are seen throughout. Velocity measurements are listed below. Common carotid peak systolic velocity (cm/sec): RIGHT: 56 LEFT: 67 ICA proximal peak systolic velocity (cm/sec): RIGHT: XX LEFT: 206 ICA mid peak systolic velocity (cm/sec): RIGHT: XX LEFT: 120 ICA distal peak systolic velocity (cm/sec): RIGHT: XX LEFT: 86 ICA/CC peak systolic ratio: RIGHT: XX LEFT: 3.1 Antegrade flow was shown in the vertebral arteries. The external carotid arteries are patent. IMPRESSION: 1. 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 2. There is evidence of 50-69% stenosis of the proximal left internal carotid artery by velocity criteria. 3. Antegrade flow is shown in the vertebral arteries. Electronically signed by: Niko Saul M.D. 07/10/2017 7:01 AM Dictated Date/Time: 07/10/2017 6:58 AM
[2017-07-10] MEDS: INSULIN ASPART 100 UNITS/ML 3 ML PEN SC SCH ×4 (07:55→20:29)
[2017-07-10] MEDS: PIPERACILL/TAZOBAC IV 3.375 GM in DEXTROSE 5% 100ML IV SCH ×3 (07:58→20:35)
[2017-07-10 08:00] LABS: HEMATOCRIT 30.3 % (42-52)
[2017-07-10] MEDS: SERTRALINE HCL 100 MG TAB PO SCH (08:00)
[2017-07-10] MEDS: LEVETIRACETAM 500 MG TAB PO SCH (08:00)
--- NOTE | 2017-07-10 08:35 | DIAGNOSTIC IMAGING REPORT ---
SINGLE VIEW CHEST CLINICAL HISTORY: Respiratory failure. FINDINGS: 2 AP, portable, upright chest radiographs are compared to study dated 07/09/2017 and correlated with chest CT dated 04/10/2011. The examination is degraded by portable technique and patient rotation. The patient is status post midline sternotomy. The heart is enlarged and there is atherosclerotic calcification of the thoracic aorta. There is mild pulmonary vascular congestion. There is chronic elevation of left hemidiaphragm with left basilar opacities. No large pleural effusion or pneumothorax is seen. Trace fluid is noted along the minor fissure. The skeletal structures are osteopenic. There are healed right-sided rib fractures. Vascular stents are noted in the left axilla. IMPRESSION: 1. Cardiomegaly with mild pulmonary vascular congestion. 2. Bibasilar opacities persist, left greater than right. This could represent atelectasis and/or pneumonia. Clinical correlation will be required. Electronically signed by: Niko Saul M.D. 07/10/2017 8:34 AM Dictated Date/Time: 07/10/2017 7:25 AM
--- NOTE | 2017-07-10 08:37 | Nephrology Progress Note ---
Nephrology Progress Note Date of Service: Jul 10, 2017. Subjective 61 yo male with esrd with a fistula who was intubated after seizure like activity and extubated. pt underwent dialysis yesterday. today is his regular day. pt lacks insight into the events that transpired. Objective Date Time Temp Pulse Resp B/P (MAP) Pulse Ox O2 Delivery O2 Flow Rate FiO2 07/10/17 06:02 67 15 161/65 (97) 99 Nasal Cannula 4.0 07/10/17 05:02 67 16 152/67 (95) 98 Nasal Cannula 4.0 07/10/17 04:02 36.3 68 16 140/56 (84) 90 Nasal Cannula 4.0 07/10/17 04:00 Nasal Cannula 4.0 07/10/17 03:01 68 17 151/63 (92) 97 Nasal Cannula 4.0 07/10/17 02:02 68 15 145/62 (89) 94 Nasal Cannula 4.0 07/10/17 01:02 69 16 162/69 (100) 96 Nasal Cannula 4.0 07/10/17 00:02 36.9 69 19 150/86 (107) 94 Nasal Cannula 4.0 07/10/17 00:00 Nasal Cannula 4.0 07/09/17 22:10 37.0 73 20 130/55 (80) 92 Nasal Cannula 2.0 07/09/17 19:30 36.8 73 20 140/60 (86) 92 Nasal Cannula 2.0 07/09/17 19:30 Nasal Cannula 3.0 07/09/17 17:56 36.8 73 20 140/60 (86) 92 Nasal Cannula 2.0 07/09/17 16:30 36.8 72 20 153/70 (97) 92 Nasal Cannula 2.0 07/09/17 15:52 36.2 68 116/45 (68) 07/09/17 15:45 66 107/51 07/09/17 15:30 Nasal Cannula 2.0 07/09/17 15:30 67 109/42 07/09/17 15:15 67 117/55 07/09/17 15:00 67 110/57 07/09/17 14:45 67 116/42 07/09/17 14:30 66 107/56 07/09/17 14:15 66 109/51 07/09/17 14:00 65 99/42 07/09/17 14:00 36.8 67 20 116/42 (66) 95 Nasal Cannula 2.0 07/09/17 13:45 65 105/50 07/09/17 13:30 66 111/49 07/09/17 13:15 66 120/51 07/09/17 13:00 66 114/45 07/09/17 12:45 65 115/48 07/09/17 12:30 36.4 84 115/56 (75) 07/09/17 12:00 Nasal Cannula 2.0 07/09/17 12:00 36.8 127 20 107/44 (65) 95 Nasal Cannula 2.0 07/09/17 10:00 66 16 108/45 (66) 95 Nasal Cannula 2.0 Physical Exam: General-aaox3 however does not remember being very sick over the last several days Eyes-no scleral icterus ENT-mmm Neck-supple Lungs-cta Heart-regular Abdomen-+bs, soft, nontender Extremities-left bka, small ulcers on right leg Neuro-nonfocal Current Inpatient Medications Medications (Trade) Dose Ordered Sig/Nicole Route Start Time Stop Time Status Last Admin Dose Admin Heparin Sodium (Porcine) (Heparin Sq 5000 Unit/0.5ml) 5,000 unit Q8 SQ 07/07/17 14:00 08/06/17 13:59 Future Hold 07/08/17 21:40 5,000 UNIT Piperacillin Sod/ Tazobactam Sod (Consult) 1 ea UD PRN N/A 07/07/17 10:45 08/06/17 10:44 Doxycycline Hyclate 100 mg/ Dextrose 110 ml @ 50 mls/hr Q12@0400,1600 IV 07/07/17 14:45 07/14/17 14:44 07/10/17 04:23 50 MLS/HR Ioversol (Optiray 320) 111 ml UD PRN IV 07/07/17 13:45 07/11/17 13:44 Famotidine 20 mg/ Syringe 5 ml @ 2.5 mls/min Q12H IV 07/07/17 16:00 08/06/17 15:59 07/10/17 04:23 2.5 MLS/MIN Fentanyl Citrate (Fentanyl Inj) 50 mcg Q1H PRN IV 07/07/17 14:15 07/21/17 14:14 Midazolam HCl (Versed Inj) 2 mg Q2H PRN IV 07/07/17 14:30 08/06/17 14:29 07/08/17 06:00 2 MG Piperacillin Sod/ Tazobactam Sod 3.375 gm/Dextrose 115 ml @ 28.75 mls/ hr Q12@0900,2100 IV 07/07/17 21:00 07/14/17 20:59 07/09/17 21:26 28.75 MLS/HR Heparin Sodium (Porcine) (Heparin 10 Unit/ ml 5 ml Flush) 5 ml PRN PRN FLUSH 07/07/17 23:45 08/06/17 23:44 Glucose (Glucose 40% Gel) UD PRN PO 07/08/17 01:30 08/07/17 01:29 Glucose (Glucose Chew Tab) 1 tabs UD PRN PO 07/08/17 01:30 08/07/17 01:29 Dextrose (Dextrose 50% 50ML Syringe) 50 ml UD PRN IV 07/08/17 01:30 08/07/17 01:29 07/08/17 08:30 50 ML Glucagon (Glucagon Inj) 1 mg UD PRN SQ 07/08/17 01:30 08/07/17 01:29 Phenylephrine HCl 20 mg/Sodium Chloride 502 ml @ 0 mls/hr Q0M PRN IV 07/08/17 01:30 08/07/17 01:29 07/08/17 18:42 40 MLS/HR Clopidogrel Bisulfate (plAVix TAB) 75 mg QPM PO 07/08/17 21:00 08/07/17 20:59 07/09/17 20:27 75 MG Levothyroxine Sodium (Synthroid Tab) 25 mcg DAILYBB PO 07/09/17 06:00 08/08/17 05:59 07/10/17 05:32 25 MCG Sertraline HCl (Zoloft Tab) 100 mg DAILY PO 07/09/17 09:00 08/08/17 08:59 07/10/17 08:00 100 MG Miscellaneous Information (Order Awaiting Action) 1 ea QS N/A 07/08/17 16:00 08/07/17 15:59 07/10/17 08:02 1 EA Simvastatin (Zocor Tab) 10 mg HS PO 07/08/17 21:00 08/07/17 20:59 07/09/17 20:27 10 MG Miscellaneous Information (Consult Glycemic Management Pharmacy) 1 ea UD PRN N/A 07/08/17 13:15 08/07/17 13:14 Midodrine (Proamatine Tab) 2.5 mg TID@,, PO 07/09/17 12:00 08/08/17 11:59 07/09/17 16:46 2.5 MG Levetiracetam (Keppra Tab) 500 mg QAM PO 07/10/17 09:00 08/09/17 08:59 07/10/17 08:00 500 MG Gabapentin (Neurontin Cap) 100 mg HS PO 07/09/17 21:00 08/08/17 20:59 07/09/17 20:27 100 MG Latanoprost (Xalatan Oph Soln) 1 drops HS OP 07/09/17 21:00 08/08/17 20:59 07/09/17 20:27 1 DROPS Insulin Aspart (novoLOG ASPART) SLIDING SCALE ACHS SC 07/10/17 06:45 08/09/17 06:44 07/10/17 07:55 6 UNITS Last 24 Hours Test 07/09/17 09:06 07/09/17 11:12 07/09/17 12:00 07/09/17 15:37 Lactic Acid Level 0.7 mmol/L Random Cortisol 13.22 mcg/dl Random Glucose 109 mg/dl Bedside Glucose 116 mg/dl Test 07/09/17 20:31 07/09/17 22:36 07/10/17 03:45 07/10/17 07:51 Bedside Glucose 166 mg/dl Hemoglobin 9.4 g/dL 9.3 g/dL 9.7 g/dL Hematocrit 29.0 % 27.8 % 30.3 % White Blood Count 6.04 K/uL Red Blood Count 2.89 M/uL Mean Corpuscular Volume 96.2 fL Mean Corpuscular Hemoglobin 32.2 pg Mean Corpuscular Hemoglobin Concent 33.5 g/dl RDW Standard Deviation 59.2 fL RDW Coefficient of Variation 16.8 % Platelet Count 175 K/uL Mean Platelet Volume 10.1 fL Sodium Level 132 mmol/L Potassium Level 3.7 mmol/L Chloride Level 96 mmol/L Carbon Dioxide Level 29 mmol/L Anion Gap 7.0 mmol/L Blood Urea Nitrogen 25 mg/dl Creatinine 4.69 mg/dl Est Creatinine Clear Calc Drug Dose 23.8 ml/min Estimated GFR () 14.3 Estimated GFR (Non- 12.3 BUN/Creatinine Ratio 5.4 Random Glucose 106 mg/dl Calcium Level 7.2 mg/dl Phosphorus Level 2.8 mg/dl Magnesium Level 2.2 mg/dl Assessment & Plan ESRD-electrolytes are stable. volume status stable. pressor weaned off. on midodrine. will dialyze today on a 3k bath with no fluid removal. continue on a -- schedule now. Anemia of renal failure-goal hg of 10 to 11. on procrit and will give another dose today.
[2017-07-10] MEDS ORDERED: EPOETIN ALFA 10,000 UNITS/ML VIAL IV. SCH (08:45)
[2017-07-10] MEDS: MIDODRINE 2.5 MG TAB PO SCH (09:03)
[2017-07-10] MEDS ORDERED: PANTOprazole INJ 40 MG in SYRINGE 0 ML IV SCH (10:00)
--- NOTE | 2017-07-10 10:36 | Medical Consult ---
Consultation Date of Consultation: Jul 10, 2017. Attending Physician: Simi Lambert M.D. Reason for Consultation: Proteus/E. coli infection History of Present Illness 61-year-old male with history of end-stage renal disease on dialysis, hypertension, coronary artery disease, obesity, was admitted to the hospital July 07 several days of progressively worsening anasarca along with penile discharge. On arrival, he became acutely hypoxic, had questionable seizure activity, and ultimately required intubation. He has now been extubated and has little recollection for previous events. Workup has disclosed occluded carotid artery without evidence of acute NURSING EDUCATION SPECIALIST infarct, negative blood cultures, and culture of the penile discharge showing E coli, Proteus, and Streptococcus species. Patient currently being treated with Zosyn and doxycycline. Specimen for Chlamydia and GC negative. Patient currently appears comfortable, offers no specific complaints. He has been afebrile. Past Medical/Surgical History Medical Problems: (1) CHF (congestive heart failure) Status: Acute (2) CKD (chronic kidney disease) stage V requiring chronic dialysis Status: Acute (3) Closed left humeral fracture Status: Acute (4) Fever Status: Acute (5) Hypoxia Status: Acute (6) Hypoxia Status: Acute (7) Noncompliance with renal dialysis Status: Acute (8) Pneumonia Status: Acute (9) Renal failure Status: Acute (10) Shortness of breath Status: Acute (11) Uncontrolled hypertension Status: Acute Medical Problems: (1) Anemia of chronic renal failure (2) CAD (coronary artery disease) (3) depressive disorder unspecified (4) Diabetes mellitus type 2 in obese (5) Diastolic heart failure (6) ESRD (end stage renal disease) (7) History of MRSA infection (8) HTN (hypertension) (9) Hypotension arterial (10) Hypotensive (11) IBS (irritable bowel syndrome) (12) Liver cirrhosis (13) Obesity (BMI 30-39.9) (14) Seizure (15) Urge incontinence Surgical Problems: (1) H/O cataract removal with insertion of prosthetic lens (2) History of left lower limb amputation (3) History of trabeculectomy (4) S/P CABG x 4 Family History Diabetes mellitus Heart disease Social History Smoking Status: Never Smoker Drug Use: none Marital Status: single, Housing Status: jail Occupation Status: unemployed Allergies Coded Allergies: Sulfamethoxazole w/Trimethoprim (Verified Allergy, Intermediate, HIVES, ) Latex (Verified Allergy, Mild, LEVEL 1, 05/22/17) Iodine (Unverified Allergy, Unknown, UNKNOWN, 05/22/17) Povidone Iodine (Verified Allergy, Unknown, FROM CUSTODIAL INFORMATION , 05/22/17) Sulfa Antibiotics (Unverified Allergy, Unknown, ., 05/22/17) PER [facility] RECORDS Current Inpatient Medications Current Inpatient Medications Medications (Trade) Dose Ordered Sig/Nicole Route Start Time Stop Time Status Last Admin Dose Admin Heparin Sodium (Porcine) (Heparin Sq 5000 Unit/0.5ml) 5,000 unit Q8 SQ 07/07/17 14:00 08/06/17 13:59 Future Hold 07/08/17 21:40 5,000 UNIT Piperacillin Sod/ Tazobactam Sod (Consult) 1 ea UD PRN N/A 07/07/17 10:45 08/06/17 10:44 Doxycycline Hyclate 100 mg/ Dextrose 110 ml @ 50 mls/hr Q12@0400,1600 IV 07/07/17 14:45 07/14/17 14:44 07/10/17 04:23 50 MLS/HR Ioversol (Optiray 320) 111 ml UD PRN IV 07/07/17 13:45 07/11/17 13:44 Fentanyl Citrate (Fentanyl Inj) 50 mcg Q1H PRN IV 07/07/17 14:15 07/21/17 14:14 Midazolam HCl (Versed Inj) 2 mg Q2H PRN IV 07/07/17 14:30 08/06/17 14:29 07/08/17 06:00 2 MG Piperacillin Sod/ Tazobactam Sod 3.375 gm/Dextrose 115 ml @ 28.75 mls/ hr Q12@0900,2100 IV 07/07/17 21:00 07/14/17 20:59 07/09/17 21:26 28.75 MLS/HR Heparin Sodium (Porcine) (Heparin 10 Unit/ ml 5 ml Flush) 5 ml PRN PRN FLUSH 07/07/17 23:45 08/06/17 23:44 Glucose (Glucose 40% Gel) UD PRN PO 07/08/17 01:30 08/07/17 01:29 Glucose (Glucose Chew Tab) 1 tabs UD PRN PO 07/08/17 01:30 08/07/17 01:29 Dextrose (Dextrose 50% 50ML Syringe) 50 ml UD PRN IV 07/08/17 01:30 08/07/17 01:29 07/08/17 08:30 50 ML Glucagon (Glucagon Inj) 1 mg UD PRN SQ 07/08/17 01:30 08/07/17 01:29 Phenylephrine HCl 20 mg/Sodium Chloride 502 ml @ 0 mls/hr Q0M PRN IV 07/08/17 01:30 08/07/17 01:29 07/08/17 18:42 40 MLS/HR Clopidogrel Bisulfate (plAVix TAB) 75 mg QPM PO 07/08/17 21:00 08/07/17 20:59 07/09/17 20:27 75 MG Levothyroxine Sodium (Synthroid Tab) 25 mcg DAILYBB PO 07/09/17 06:00 08/08/17 05:59 07/10/17 05:32 25 MCG Sertraline HCl (Zoloft Tab) 100 mg DAILY PO 07/09/17 09:00 08/08/17 08:59 07/10/17 08:00 100 MG Miscellaneous Information (Order Awaiting Action) 1 ea QS N/A 07/08/17 16:00 08/07/17 15:59 07/10/17 08:02 1 EA Simvastatin (Zocor Tab) 10 mg HS PO 07/08/17 21:00 08/07/17 20:59 07/09/17 20:27 10 MG Miscellaneous Information (Consult Glycemic Management Pharmacy) 1 ea UD PRN N/A 07/08/17 13:15 08/07/17 13:14 Midodrine (Proamatine Tab) 2.5 mg TID@08,12,17 PO 07/09/17 12:00 08/08/17 11:59 07/10/17 09:03 2.5 MG Levetiracetam (Keppra Tab) 500 mg QAM PO 07/10/17 09:00 08/09/17 08:59 07/10/17 08:00 500 MG Gabapentin (Neurontin Cap) 100 mg HS PO 07/09/17 21:00 08/08/17 20:59 07/09/17 20:27 100 MG Latanoprost (Xalatan Oph Soln) 1 drops HS OP 07/09/17 21:00 08/08/17 20:59 07/09/17 20:27 1 DROPS Insulin Aspart (novoLOG ASPART) SLIDING SCALE ACHS SC 07/10/17 06:45 08/09/17 06:44 07/10/17 07:55 6 UNITS Epoetin Augusto (Procrit Inj) 10,000 units TODAY@0845 IV. 07/10/17 08:45 07/10/17 14:00 Pantoprazole Sodium 40 mg/ Syringe 10 ml @ 5 mls/min DAILY@ IV 07/10/17 10:00 08/09/17 09:59 Review of Systems Constitutional: No fever Eyes: No problem reported ENT: No problem reported Respiratory: No problem reported Cardiovascular: No problem reported Abdomen: No problem reported Musculoskeletal: No problem reported Genitourinary - Male: + penile discharge Neurologic: + problem reported (Possible seizure activity) Psychiatric: No problem reported Endocrine: No problem reported Hematologic / Lymphatic: No problem reported Integumentary: No problem reported Allergic / Immunologic: No problem reported Physical Exam Date Time Temp Pulse Resp B/P (MAP) Pulse Ox O2 Delivery O2 Flow Rate FiO2 07/10/17 10:00 67 20 158/68 (98) 94 Nasal Cannula 4.0 07/10/17 08:00 Nasal Cannula 4.0 07/10/17 08:00 36.5 37 20 159/68 (98) 97 Nasal Cannula 4.0 07/10/17 06:02 67 15 161/65 (97) 99 Nasal Cannula 4.0 07/10/17 05:02 67 16 152/67 (95) 98 Nasal Cannula 4.0 07/10/17 04:02 36.3 68 16 140/56 (84) 90 Nasal Cannula 4.0 07/10/17 04:00 Nasal Cannula 4.0 07/10/17 03:01 68 17 151/63 (92) 97 Nasal Cannula 4.0 07/10/17 02:02 68 15 145/62 (89) 94 Nasal Cannula 4.0 07/10/17 01:02 69 16 162/69 (100) 96 Nasal Cannula 4.0 07/10/17 00:02 36.9 69 19 150/86 (107) 94 Nasal Cannula 4.0 07/10/17 00:00 Nasal Cannula 4.0 07/09/17 22:10 37.0 73 20 130/55 (80) 92 Nasal Cannula 2.0 07/09/17 19:30 36.8 73 20 140/60 (86) 92 Nasal Cannula 2.0 07/09/17 19:30 Nasal Cannula 3.0 07/09/17 17:56 36.8 73 20 140/60 (86) 92 Nasal Cannula 2.0 07/09/17 16:30 36.8 72 20 153/70 (97) 92 Nasal Cannula 2.0 07/09/17 15:52 36.2 68 116/45 (68) 07/09/17 15:45 66 107/51 07/09/17 15:30 Nasal Cannula 2.0 07/09/17 15:30 67 109/42 07/09/17 15:15 67 117/55 07/09/17 15:00 67 110/57 07/09/17 14:45 67 116/42 07/09/17 14:30 66 107/56 07/09/17 14:15 66 109/51 07/09/17 14:00 65 99/42 07/09/17 14:00 36.8 67 20 116/42 (66) 95 Nasal Cannula 2.0 07/09/17 13:45 65 105/50 07/09/17 13:30 66 111/49 07/09/17 13:15 66 120/51 07/09/17 13:00 66 114/45 07/09/17 12:45 65 115/48 07/09/17 12:30 36.4 84 115/56 (75) 07/09/17 12:00 Nasal Cannula 2.0 07/09/17 12:00 36.8 127 20 107/44 (65) 95 Nasal Cannula 2.0 General Appearance: WD/WN, no apparent distress, + obese Head: normocephalic, atraumatic Eyes: normal inspection, EOMI, sclerae normal ENT: normal ENT inspection, pharynx normal Neck: supple, no adenopathy, thyroid normal, trachea midline Respiratory/Chest: chest non-tender, lungs clear, normal breath sounds, no respiratory distress Cardiovascular: regular rate, rhythm, no gallop, no murmur Abdomen/GI: normal bowel sounds, non tender, soft, no organomegaly Back: normal inspection, no CVA tenderness Extremities/Musculoskelatal: normal inspection, no calf tenderness, non-tender , + swelling Neurologic/Psych: alert, oriented x 3 Skin: normal color, no rash Lymphatic: no adenopathy Laboratory Results RUN DATE: 07/09/17 [facility] LAB PAGE 1 RUN TIME: 844 Specimen Inquiry PATIENT: UNIQUE ROCA JR LOC: GREGMARÍA # : [id number] AGE/SX: 61/M ROOM: E107 REG : 07/07/[address]: David Schroeder M.D. : 1955 BED: 1 DIS : STATUS: ADM IN TLOC: SPEC #: [id number] SHARIF: 07/07/17 STATUS: RES REQ #: [id number] RECD: 07/07/[address]: Carmine Sharp , D.O. SOURCE: SKIN ENTR: 07/07/[address] [facility] [address]: David Schroeder M.D. SPDESC: Marty Bingham M.D., Roshan, M.D. Mateer, John, M.D. ( MEDICINE) Jovanny Felipe MD ORDERED: GODWIN DANIEL/JENNIFER COMMENTS: Has Specimen Been Obtained/Collected? Y Procedure Result Verified Site GRAM STAIN Final 07/08/17 RESULT FEW WBCs SEEN FEW GRAM POSITIVE COCCI SURFACE WOUND CULTURE Preliminary 07/09/17 Organism 1 PROTEUS MIRABILIS QUANITY FEW SENS SENSITIVITY TO FOLLOW Organism 2 ESCHERICHIA COLI QUANITY FEW SENS SENSITIVITY TO FOLLOW Organism 3 STREPTOCOCCUS SPECIES QUANITY FEW SENS SENSITIVITY TO FOLLOW P. MIRABIL E COLI M.I.C. RX M.I.C. RX --------- ------ --------- ------ TRIMET/SULFA >2/38 R <=2/38 S AMPICILLIN <=8 S >16 R AMPICILLIN/SUL <=8/4 S >16/8 R CEFAZOLIN <=8 S <=8 S CEFOXITIN <=8 S <=8 S CEFOTAXIME <=2 S <=2 S CEFTRIAXONE <=1 S <=1 S CEFEPIME <=4 S <=4 S CEFUROXIME <=4 S 8 S IMIPENEM <=1 S GENTAMICIN <=4 S <=4 S TOBRAMYCIN <=4 S <=4 S AMIKACIN <=16 S <=16 S CIPROFLOXACIN >2 R >2 R LEVOFLOXACIN >4 R >4 R ERTAPENEM <=1 S <=1 S PIP/TAZO <=16 S <=16 S CONTINUED ON NEXT PAGE RUN DATE: 07/09/17 [facility] LAB PAGE 2 RUN TIME: 0845 Specimen Inquiry SPEC: [id number] PATIENT: UNIQUE ROCA JR [id number] ( Continued) Procedure Result Verified Site SURFACE WOUND CULTURE Preliminary (continued) 07/09/17-844 1. PROTEUS MIRABILIS Target Route Dose RX AB Cost M.I.C. IQ ------ ----- ------ -- ------ -------- - ------ TRIMET/SULFA R >2/38 AMPICILLIN S <=8 AMPICILLIN/SUL S <=8/4 CEFAZOLIN S <=8 CEFOXITIN S <=8 CEFOTAXIME S <=2 CEFTRIAXONE S <=1 CEFEPIME S <=4 CEFUROXIME S <=4 GENTAMICIN S <=4 TOBRAMYCIN S <=4 AMIKACIN S <=16 CIPROFLOXACIN R >2 LEVOFLOXACIN R >4 ERTAPENEM S <=1 PIP/TAZO S <=16 2. ESCHERICHIA COLI Target Route Dose RX AB Cost M.I.C. IQ ------ ----- ------ -- ------ -------- - ------ TRIMET/SULFA S <=2/38 AMPICILLIN R >16 AMPICILLIN/SUL R >16/8 CEFAZOLIN S <=8 CEFOXITIN S <=8 CEFOTAXIME S <=2 CEFTRIAXONE S <=1 CEFEPIME S <=4 CEFUROXIME S 8 IMIPENEM S <=1 GENTAMICIN S <=4 TOBRAMYCIN S <=4 AMIKACIN S <=16 CIPROFLOXACIN R >2 LEVOFLOXACIN R >4 ERTAPENEM S <=1 PIP/TAZO S <=16 S = SENSITIVE I = INTERMEDIATE R = RESISTANT END OF REPORT Last 24 Hours Test 07/09/17 11:12 07/09/17 12:00 07/09/17 15:37 07/09/17 20:31 Random Glucose 109 mg/dl Bedside Glucose 116 mg/dl 166 mg/dl Test 07/09/17 22:36 07/10/17 03:45 07/10/17 07:51 Hemoglobin 9.4 g/dL 9.3 g/dL 9.7 g/dL Hematocrit 29.0 % 27.8 % 30.3 % White Blood Count 6.04 K/uL Red Blood Count 2.89 M/uL Mean Corpuscular Volume 96.2 fL Mean Corpuscular Hemoglobin 32.2 pg Mean Corpuscular Hemoglobin Concent 33.5 g/dl RDW Standard Deviation 59.2 fL RDW Coefficient of Variation 16.8 % Platelet Count 175 K/uL Mean Platelet Volume 10.1 fL Sodium Level 132 mmol/L Potassium Level 3.7 mmol/L Chloride Level 96 mmol/L Carbon Dioxide Level 29 mmol/L Anion Gap 7.0 mmol/L Blood Urea Nitrogen 25 mg/dl Creatinine 4.69 mg/dl Est Creatinine Clear Calc Drug Dose 23.8 ml/min Estimated GFR () 14.3 Estimated GFR (Non- 12.3 BUN/Creatinine Ratio 5.4 Random Glucose 106 mg/dl Calcium Level 7.2 mg/dl Phosphorus Level 2.8 mg/dl Magnesium Level 2.2 mg/dl CLINICAL HISTORY: Respiratory failure. FINDINGS: 2 AP, portable, upright chest radiographs are compared to study dated 07/09/2017 and correlated with chest CT dated 04/10/2011. The examination is degraded by portable technique and patient rotation. The patient is status post midline sternotomy. The heart is enlarged and there is atherosclerotic calcification of the thoracic aorta. There is mild pulmonary vascular congestion. There is chronic elevation of left hemidiaphragm with left basilar opacities. No large pleural effusion or pneumothorax is seen. Trace fluid is noted along the minor fissure. The skeletal structures are osteopenic. There are healed right-sided rib fractures. Vascular stents are noted in the left axilla. IMPRESSION: 1. Cardiomegaly with mild pulmonary vascular congestion. 2. Bibasilar opacities persist, left greater than right. This could represent atelectasis and/or pneumonia. Clinical correlation will be required. Electronically signed by: Niko Saul M.D. 07/10/2017 8:34 AM Dictated Date/Time: 07/10/2017 7:25 AM The status of this report is Signed. Draft = Not yet reviewed or approved by Radiologist. Signed = Reviewed and approved by Radiologist. <AttendingPhy>Simi Lambert M.D.</AttendingPhy> <FamilyPhy>Marty Bliss M.D.</FamilyPhy> <PrimaryPhy>Marty Bliss M.D.</PrimaryPhy> <UnitNumber> [id number]</UnitNumber> <VisitNumber>[id number]</VisitNumber> <PatientName> UNIQUE ROCA JR</PatientName> <DateOfBirth>1955</DateOfBirth> <Location> [facility]</Location> <ServiceDate>07/07/17</ServiceDate> <MNE>ESINDI</MNE> < OrderingPhy>Gladys Benito PA-C</OrderingPhy> <OrderingPhyMNE>f rep ord dr lua</ OrderingPhyMNE> <DictatingPhyMNE>f rep dict dr lua</DictatingPhyMNE> <CCListMNE> f rep ct mne</CCListMNE> <AdmittingPhyMNE>f pt admit dr lua</AdmittingPhyMNE> < AttendingPhyMNE>f pt attend dr lua</AttendingPhyMNE> <ConsultingPhyMNE>f pt consult dr lua</ConsultingPhyMNE> <FamilyPhyMNE>f pt fam dr lua</FamilyPhyMNE> <OtherPhyMNE>f pt other dr lua</OtherPhyMNE> < PrimaryPhyMNE>f pt prim care dr lua</PrimaryPhyMNE> <ReferringPhyMNE>f pt referring dr lua</ReferringPhyMNE> Assessment & Plan 61-year-old male with end-stage renal disease on dialysis admitted with anasarca and penile discharge, with acute hypoxia requiring transient intubation ,With mildly elevated but relatively low procalcitonin and cultures from urethral discharge growing E coli, Proteus, and Streptococcus. Zosyn should provide adequate coverage, likely is cause in dialysis patient would be by ascites or prostatic infection. Will likely be able to be transitioned to oral antibiotics in the near future. We recommend discontinuation of doxycycline. Will follow.
--- NOTE | 2017-07-10 11:06 | Critical Care Progress Note ---
Critical Care Progress Note Date of Service Jul 10, 2017. ICU Day ICU Day Number: 3 Attending Subjective S/p off pressors after started Midodrine, however, was noted to have black tarry stools overnight, without BP decrease; Remained extubated; S/p HD yesterday and today; offers no complaints. Objective General Appearance: s/p extubated; A x O x 3; Eyes: PERRL; ENT: normal mouth exam, normal throat exam, poor dentition Neck: no tenderness, trachea midline, no stridor Respiratory: rhonchi (scattered) Cardiovasular: normal S1S2 Abdomen: normal bowel sounds, no masses, no guarding, occult rectal blood Genitourinary - Male: linton; Lower Extremities: s/p BKA; Neuro: Awake and alert; Psychiatric: other (unable to evaluate) Results Past 24 Hours Test 07/07/17 19:45 07/07/17 22:36 07/08/17 00:42 07/08/17 03:03 Range/Units Random Vancomycin Level 19.6 mcg/ml Troponin I 0.021 0-0.045 ng/ml Bedside Glucose (other) 256 168 70-99 mg/dl Test 07/08/17 04:13 07/08/17 05:09 07/08/17 05:24 07/08/17 05:47 Range/Units Bedside Glucose (other) 133 106 70-99 mg/dl White Blood Count 15.51 4.8-10.8 K/uL Red Blood Count 3.27 4.7-6.1 M/uL Hemoglobin 10.3 14.0-18.0 g/dL Hematocrit 32.0 42-52 % Mean Corpuscular Volume 97.9 80-100 fL Mean Corpuscular Hemoglobin 31.5 25-34 pg Mean Corpuscular Hemoglobin Concent 32.2 32-36 g/dl RDW Standard Deviation 60.9 36.4-46.3 fL RDW Coefficient of Variation 17.1 11.5-14.5 % Platelet Count 212 130-400 K/uL Mean Platelet Volume 10.6 7.4-10.4 fL Sodium Level 130 136-145 mmol/L Potassium Level 4.1 3.5-5.1 mmol/L Chloride Level 93 98-107 mmol/L Carbon Dioxide Level 28 21-32 mmol/L Anion Gap 9.0 3-11 mmol/L Blood Urea Nitrogen 42 7-18 mg/dl Creatinine 5.77 0.60-1.40 mg/dl Est Creatinine Clear Calc Drug Dose 19.2 ml/min Estimated GFR () 11.1 Estimated GFR (Non- 9.6 BUN/Creatinine Ratio 7.2 10-20 Random Glucose 101 70-99 mg/dl Calcium Level 7.9 8.5-10.1 mg/dl Phosphorus Level 3.2 2.5-4.9 mg/dl Magnesium Level 2.3 1.8-2.4 mg/dl Random Vancomycin Level 21.5 mcg/ml HIV (1&2) Ab and P24 Ag, 4th Gener NEG NEG Blood Gas Sample Site L Radial Bedside Blood Gas pH (LAB) 7.36 7.35-7.45 Bedside Blood Gas pCO2 (LAB) 51 35-46 mmHg Bedside Blood Gas pO2 (LAB) 98 80-95 mmHg Bedside Blood Gas HCO3 (LAB) 29 19-24 meq/L Bedside Blood Gas Total CO2 30 24-31 mEq/l Bedside Blood Gas Base Excess (LAB) 3.0 -9-1.8 meq/L Bedside Blood Gas O2 Saturation 97.0 90-95 % [place] Test Pass Oxygen Delivery Device Ventilator Bedside Oxygen Rate (breaths/min) 12 Blood Gas Minute Ventilation 8.2 Bedside FiO2 40 % Blood Gas Tidal Volume 500 Blood Gas PEEP 10 Test 07/08/17 06:39 07/08/17 07:21 07/08/17 07:41 07/08/17 08:30 Range/Units Bedside Glucose (other) 71 89 154 49 70-99 mg/dl Test 07/08/17 08:51 07/08/17 09:17 07/08/17 09:50 07/08/17 10:22 Range/Units Bedside Glucose (other) 196 68 219 70-99 mg/dl Hepatitis B Surface Antigen NEG NEG Hepatitis B Surface Antibody NEG Test 07/08/17 11:26 07/08/17 11:56 07/08/17 11:57 07/08/17 16:13 Range/Units Bedside Glucose (other) 86 70-99 mg/dl Troponin I < 0.015 0-0.045 ng/ml Estimated Average Glucose 151 mg/dl Hemoglobin A1c 6.9 4.5-5.6 % Lactic Acid Level 1.0 0.4-2.0 mmol/L Blood Gas Sample Site L Radial Bedside Blood Gas pH (LAB) 7.39 7.35-7.45 Bedside Blood Gas pCO2 (LAB) 47 35-46 mmHg Bedside Blood Gas pO2 (LAB) 64 80-95 mmHg Bedside Blood Gas HCO3 (LAB) 29 19-24 meq/L Bedside Blood Gas Total CO2 30 24-31 mEq/l Bedside Blood Gas Base Excess (LAB) 3.0 -9-1.8 meq/L Bedside Blood Gas O2 Saturation 92.0 90-95 % [place] Test Pass Oxygen Delivery Device Ventilator Bedside FiO2 30 % Blood Gas PEEP 5 Current SOFA Score SOFA Score Response (Comments) Value Platelets (x10) > 150 0 Bilirubin (mg/dL) < 1.2 0 [place] Coma Score 15 0 Level of Hypotension MAP less than 70 1 Creatinine (mg/dL) > 5.0 4 Total 5 Assessment & Plan (1) Seizure (2) ESRD (end stage renal disease) (3) Hypotension arterial IMPRESSION: 61-year-old male with a history of end-stage renal disease and severe peripheral vascular disease with acute encephalopathy and hypotension; s/p extubated; still on pressors support without clinical evidence of shock; mental status improved; PLAN: Neuro: Acute encephalopathy * MRI without evidence of acute findings; prior occluded Right ICA; old small lacunar infarcts; Carotid U/S noted; 50-69% stenosis of prox L ICA; * EEG noted; no Seizures; * on Keppra as per Neuro; Neuro input appreciated; * Mental status improved; appears to be at baseline. 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 * c/w Gabapentin; Zoloft; Psych input appreciated. Resp: s/p extubated 07/08; remains on NC; CV: * troponins negative x 3; on Plavix; Simvastatin; * Echocardiogram 55-60%; no MR; grade I MR; * EKG noted for loss of wave progression * Hemodynamically stable on Midodrine; at home on BP meds which are presently still on hold; Fluids/Renal: End-stage renal disease on hemodialysis; scheduled for HD today ( s/p HD yesterday) Na 132 which is bit worse; continue daily chems; ID: remains afebrile; WBC improved to 6 from 15; Pro calcitonin is negative initially, but then increased to 1.26; * c/w Zosyn/Vanco for ABx coverage; Doxy is recommended to d/c per ID; * Source - likely bacterial prostatitis with GNeg organisms; c/w Zosyn for that. * Since he presented with penile discharge --> Chlamydia and gonorrhea tests by DNA probe, the doxycycline would be effective GI/Nutrition: Hemoccult positive stools * Overnight with black tarry stools; Placed NPO. PPI BID; serial h/h q4h; GI consulted; Heme: Chronic anemia - on Epoetin; * Heparin held till GI bleed ruled out. Endocrine: Low glucose, but ok on rpt. Poorly controlled type 2 diabetes; I have personally spent 33 minutes of critical care time in the direct management of this patient. This is a life/limb threatening event. This includes time spent evaluating patient, direct bedside care, chart review, placing orders, interpretation of diagnostic studies, discussion with consultants, patient, and family members, as well as other required patient management activities. Meets criteria for ICU admission as on pressors; Case discussed on am rounds; This time is exclusive of all separately billable procedures, and teaching time and separate from and in addition to any other critical care service time. Consults & Procedures Consultants: nephrology Psychiatry Neurology Infectious Disease Procedures: Right femoral TLC - d/c'ed 07/10 Intubation 07/07/2017 Extubation 07/08/2017; Consults & Procedures Consultants: nephrology Procedures: Right femoral TLC Intubation 07/07/2017 Extubation 07/08/2017; Data Medications: Current Inpatient Medications Medications (Trade) Dose Ordered Sig/Nicole Route Start Time Stop Time Status Last Admin Dose Admin Heparin Sodium (Porcine) (Heparin Sq 5000 Unit/0.5ml) 5,000 unit Q8 SQ 07/07/17 14:00 08/06/17 13:59 Future Hold 07/08/17 21:40 5,000 UNIT Piperacillin Sod/ Tazobactam Sod (Consult) 1 ea UD PRN N/A 07/07/17 10:45 08/06/17 10:44 Doxycycline Hyclate 100 mg/ Dextrose 110 ml @ 50 mls/hr Q12@0400,1600 IV 07/07/17 14:45 07/14/17 14:44 07/10/17 04:23 50 MLS/HR Ioversol (Optiray 320) 111 ml UD PRN IV 07/07/17 13:45 07/11/17 13:44 Fentanyl Citrate (Fentanyl Inj) 50 mcg Q1H PRN IV 07/07/17 14:15 07/21/17 14:14 Midazolam HCl (Versed Inj) 2 mg Q2H PRN IV 07/07/17 14:30 08/06/17 14:29 07/08/17 06:00 2 MG Piperacillin Sod/ Tazobactam Sod 3.375 gm/Dextrose 115 ml @ 28.75 mls/ hr Q12@0900,2100 IV 07/07/17 21:00 07/14/17 20:59 07/09/17 21:26 28.75 MLS/HR Heparin Sodium (Porcine) (Heparin 10 Unit/ ml 5 ml Flush) 5 ml PRN PRN FLUSH 07/07/17 23:45 08/06/17 23:44 Glucose (Glucose 40% Gel) UD PRN PO 07/08/17 01:30 08/07/17 01:29 Glucose (Glucose Chew Tab) 1 tabs UD PRN PO 07/08/17 01:30 08/07/17 01:29 Dextrose (Dextrose 50% 50ML Syringe) 50 ml UD PRN IV 07/08/17 01:30 08/07/17 01:29 07/08/17 08:30 50 ML Glucagon (Glucagon Inj) 1 mg UD PRN SQ 07/08/17 01:30 08/07/17 01:29 Phenylephrine HCl 20 mg/Sodium Chloride 502 ml @ 0 mls/hr Q0M PRN IV 07/08/17 01:30 08/07/17 01:29 07/08/17 18:42 40 MLS/HR Clopidogrel Bisulfate (plAVix TAB) 75 mg QPM PO 07/08/17 21:00 08/07/17 20:59 07/09/17 20:27 75 MG Levothyroxine Sodium (Synthroid Tab) 25 mcg DAILYBB PO 07/09/17 06:00 08/08/17 05:59 07/10/17 05:32 25 MCG Sertraline HCl (Zoloft Tab) 100 mg DAILY PO 07/09/17 09:00 08/08/17 08:59 07/10/17 08:00 100 MG Miscellaneous Information (Order Awaiting Action) 1 ea QS N/A 07/08/17 16:00 08/07/17 15:59 07/10/17 08:02 1 EA Simvastatin (Zocor Tab) 10 mg HS PO 07/08/17 21:00 08/07/17 20:59 07/09/17 20:27 10 MG Miscellaneous Information (Consult Glycemic Management Pharmacy) 1 ea UD PRN N/A 07/08/17 13:15 08/07/17 13:14 Midodrine (Proamatine Tab) 2.5 mg TID@, PO 07/09/17 12:00 08/08/17 11:59 07/10/17 09:03 2.5 MG Levetiracetam (Keppra Tab) 500 mg QAM PO 07/10/17 09:00 08/09/17 08:59 07/10/17 08:00 500 MG Gabapentin (Neurontin Cap) 100 mg HS PO 07/09/17 21:00 08/08/17 20:59 07/09/17 20:27 100 MG Latanoprost (Xalatan Oph Soln) 1 drops HS OP 07/09/17 21:00 08/08/17 20:59 07/09/17 20:27 1 DROPS Insulin Aspart (novoLOG ASPART) SLIDING SCALE ACHS SC 07/10/17 06:45 08/09/17 06:44 07/10/17 07:55 6 UNITS Epoetin Augusto (Procrit Inj) 10,000 units TODAY@0845 IV. 07/10/17 08:45 07/10/17 14:00 Pantoprazole Sodium 40 mg/ Syringe 10 ml @ 5 mls/min DAILY@ IV 07/10/17 10:00 08/09/17 09:59 Vital Signs: Date Time Temp Pulse Resp B/P (MAP) Pulse Ox O2 Delivery O2 Flow Rate FiO2 07/10/17 10:00 67 20 158/68 (98) 94 Nasal Cannula 4.0 07/10/17 08:00 Nasal Cannula 4.0 07/10/17 08:00 36.5 37 20 159/68 (98) 97 Nasal Cannula 4.0 07/10/17 06:02 67 15 161/65 (97) 99 Nasal Cannula 4.0 07/10/17 05:02 67 16 152/67 (95) 98 Nasal Cannula 4.0 07/10/17 04:02 36.3 68 16 140/56 (84) 90 Nasal Cannula 4.0 07/10/17 04:00 Nasal Cannula 4.0 07/10/17 03:01 68 17 151/63 (92) 97 Nasal Cannula 4.0 07/10/17 02:02 68 15 145/62 (89) 94 Nasal Cannula 4.0 07/10/17 01:02 69 16 162/69 (100) 96 Nasal Cannula 4.0 07/10/17 00:02 36.9 69 19 150/86 (107) 94 Nasal Cannula 4.0 07/10/17 00:00 Nasal Cannula 4.0 07/09/17 22:10 37.0 73 20 130/55 (80) 92 Nasal Cannula 2.0 07/09/17 19:30 36.8 73 20 140/60 (86) 92 Nasal Cannula 2.0 07/09/17 19:30 Nasal Cannula 3.0 07/09/17 17:56 36.8 73 20 140/60 (86) 92 Nasal Cannula 2.0 07/09/17 16:30 36.8 72 20 153/70 (97) 92 Nasal Cannula 2.0 07/09/17 15:52 36.2 68 116/45 (68) 07/09/17 15:45 66 107/51 07/09/17 15:30 Nasal Cannula 2.0 07/09/17 15:30 67 109/42 07/09/17 15:15 67 117/55 07/09/17 15:00 67 110/57 07/09/17 14:45 67 116/42 07/09/17 14:30 66 107/56 07/09/17 14:15 66 109/51 07/09/17 14:00 65 99/42 07/09/17 14:00 36.8 67 20 116/42 (66) 95 Nasal Cannula 2.0 07/09/17 13:45 65 105/50 07/09/17 13:30 66 111/49 07/09/17 13:15 66 120/51 07/09/17 13:00 66 114/45 07/09/17 12:45 65 115/48 07/09/17 12:30 36.4 84 115/56 (75) 07/09/17 12:00 Nasal Cannula 2.0 07/09/17 12:00 36.8 127 20 107/44 (65) 95 Nasal Cannula 2.0 Laboratory Results: Last 24 Hours Test 07/09/17 11:12 07/09/17 12:00 07/09/17 15:37 07/09/17 20:31 Random Glucose 109 mg/dl Bedside Glucose 116 mg/dl 166 mg/dl Test 07/09/17 22:36 07/10/17 03:45 07/10/17 07:51 Hemoglobin 9.4 g/dL 9.3 g/dL 9.7 g/dL Hematocrit 29.0 % 27.8 % 30.3 % White Blood Count 6.04 K/uL Red Blood Count 2.89 M/uL Mean Corpuscular Volume 96.2 fL Mean Corpuscular Hemoglobin 32.2 pg Mean Corpuscular Hemoglobin Concent 33.5 g/dl RDW Standard Deviation 59.2 fL RDW Coefficient of Variation 16.8 % Platelet Count 175 K/uL Mean Platelet Volume 10.1 fL Sodium Level 132 mmol/L Potassium Level 3.7 mmol/L Chloride Level 96 mmol/L Carbon Dioxide Level 29 mmol/L Anion Gap 7.0 mmol/L Blood Urea Nitrogen 25 mg/dl Creatinine 4.69 mg/dl Est Creatinine Clear Calc Drug Dose 23.8 ml/min Estimated GFR () 14.3 Estimated GFR (Non- 12.3 BUN/Creatinine Ratio 5.4 Random Glucose 106 mg/dl Calcium Level 7.2 mg/dl Phosphorus Level 2.8 mg/dl Magnesium Level 2.2 mg/dl
--- NOTE | 2017-07-10 11:06 | Gastrointestinal Consultation ---
Gastrointestinal Consultation Date of Consultation: Jul 10, 2017 Attending Physician: Dr. Roger Consulting Physician: Dr. Mcfarlnad Reason for Consultation: GI Bleed History of Present Illness Patient is a 61 year old male patient who lives in a senior living. He carries a hx of CHF, CAD, HTN, hyperlipidemia, DM-2, PVD, ESRD on hemodialysis. Also, a review of GI consult in 2015 mentions Hep C cirrhosis. The patient was brought from [facility] to [facility] for hypotension yesterday. GI is consulted for anemia, melena. Hb baseline is about 10.5. Hb on arrival was 11.2 and is now 9.7. (BUN not an indicator of bleeding as he has ESRD). His ICU nurse tells me that he has had two black BMs today, each small. Occult stool was positive. He most recently underwent colonoscopy in 2014 with two colon angiectasias that were treated with a bipolar probe. He has not undergone EGD. Since arrival, there was some question of seizure and he was intubated and vented, then extubated. He is currently undergoing dialysis. He denies abdominal pain. Past Medical/Surgical History Medical Problems: (1) CHF (congestive heart failure) Status: Acute (2) CKD (chronic kidney disease) stage V requiring chronic dialysis Status: Acute (3) Closed left humeral fracture Status: Acute (4) Fever Status: Acute (5) Hypoxia Status: Acute (6) Hypoxia Status: Acute (7) Noncompliance with renal dialysis Status: Acute (8) Pneumonia Status: Acute (9) Renal failure Status: Acute (10) Shortness of breath Status: Acute (11) Uncontrolled hypertension Status: Acute Past Medical History: 1. CHF 2. CAD 3. HTN 4. Hyperlipidemia 5. DM-2 6. PVD 7. ESRD on hemodialysis 8. C cirrhosis. Past Surgical History: 1. Left lower leg amputation 2. CABG 3. Cataract surgery 4. Balloon angioplasty May 2017. 5. Laser eye surgery. 6. Colonoscopy 2014: angioectasias, hyperplastic polyps, diverticulosis. Family History Diabetes mellitus Heart disease Social History Smoking Status: Never Smoker Alcohol Use: none Drug Use: none Marital Status: single, Housing Status: senior living Occupation Status: unemployed Allergies Coded Allergies: Sulfamethoxazole w/Trimethoprim (Verified Allergy, Intermediate, HIVES, ) Latex (Verified Allergy, Mild, LEVEL 1, 05/22/17) Iodine (Unverified Allergy, Unknown, UNKNOWN, 05/22/17) Povidone Iodine (Verified Allergy, Unknown, FROM ALF INFORMATION , 05/22/17) Sulfa Antibiotics (Unverified Allergy, Unknown, ., 05/22/17) PER [facility] RECORDS Current Medications Home Meds and Scripts Medications Dose Route/Sig Max Daily Dose Days Date Category Dose Instructions Zoloft (Sertraline HCl) 25 Mg Tab 100 Mg PO DAILY 07/07/17 Reported Oxycodone Hcl 5 Mg Cap 1 Cap PO Q6 PRN 30 07/07/17 Reported D3 (Cholecalciferol) 2,000 Unit Cap UD 07/07/17 Reported RED [place], - Zocor (Simvastatin) 10 Mg Tab Tab PO HS 30 07/07/17 Reported Cozaar (Losartan Potassium) 100 Mg Tab 100 Mg PO HS 07/07/17 Reported Norvasc (Amlodipine Besylate) 10 Mg Tab 10 Mg PO HS 07/07/17 Reported Gold Renner Ultimate (Emollient) 1 Lot Lot 1 Appln TD HS 05/22/17 Reported Lorazepam 0.5 Mg Tab 0.5 Mg PO HS 05/22/17 Reported [Liquiacel Protein] 1 Oz PO [id number] 05/22/17 Reported [id number] Desitin (Zinc Oxide (Topical)) 40 % Oin 1 Appln TOP TID 05/22/17 Reported Lubricant Eye Drops (Carboxymethylcellulose Sodium) 0.5 % Toni 1 Drop OPB Q4 PRN 05/22/17 Reported Bisac-Evac (Bisacodyl) 10 Mg Supp 10 Mg RE DAILY PRN 05/22/17 Reported [Oxygen Equipment] Unknown Dose Sundays05/22/17 Reported CAHNGE OXYGEN EQUIPMENT WEEKLYON SUNDAYS [Tubigrip] 1 Appln UNKNOWN DAILY 05/22/17 Reported APPLY IN AND, REMOVE HS Nephrocaps (Vitamin B Complex/Vit C/Folic Acid) Cap 1 Cap PO QPM 05/22/17 Reported Xalatan 0.005% Oph Emma (Latanoprost) 0.005 % Emma 1 Drops OP HS 90 05/22/17 Reported Auryxia (Ferric Citrate) 210 Mg Tab 2 Tabs PO WM 05/22/17 Reported Synthroid (Levothyroxine Sodium) 25 Mcg Tab 25 Mcg PO DAILYBB 30 04/10/17 Rx Gabapentin 100 Mg Cap 100 Mg PO HS 30 04/10/17 Rx Midodrine HCl (Midodrine) 2.5 Mg Tab 2.5 Mg PO MOWEFR@0900 30 04/10/17 Rx Allevyn Adhesive (Wound Dressings) 1 Pad Pad 1 Appln TOP UD 01/09/17 Reported SITE RIGHT ANKLE CLEAN WITH NORMAL SALINE, PAT DRY , APPLY NONADHESIVE ALLEVY AND CHANGE EVERY 5 DAYS AND PRN Allevyn Adhesive (Wound Dressings) 1 Pad Pad 1 Patch TOP UD 01/09/17 Reported APPLY 4 X 4 PAD NEEDED EVERY SHIFT COVER ANY DRAINING SKIN LESIONS WITH DRY DRESSING Ativan (Lorazepam) 0.5 Mg Tab 0.5 Mg PO HS PRN 03/22/16 Reported Coreg (Carvedilol) 3.125 Mg Tab 3.125 Mg PO DAILY@1700 30 03/22/16 Reported HOLD IF SBP IS <100. DO NOT HOLD PRIOR TO DIALYSIS DAYS Vitamin C (Ascorbic Acid) 500 Mg Cap 500 Mg PO BID 12/22/14 Reported Plavix (Clopidogrel Bisulfate) 75 Mg Tab 75 Mg PO QPM 11/12/14 Reported Imodium (Loperamide HCl) 2 Mg Cap 2 Mg PO Q2H 11/12/14 Reported TAKE 2MG NEEDED EVERY 2 HOURS. DO NOT EXCEED 4 CAPS IN 24 HOURS Ranitidine 75 (Ranitidine HCl) 75 Mg Tab 75 Mg PO HS 11/12/14 Reported Ativan (Lorazepam) 0.5 Mg Tab 0.25 Mg PO UD PRN 01/13/13 Reported Claritin (Loratadine) 10 Mg Tab 10 Mg PO QPM 01/13/13 Reported Tylenol (Acetaminophen) 325 Mg Tab 650 Mg PO Q4 PRN 04/10/11 Reported NOT TO EXCEED 3 GM APAP/24 HOURS Review of Systems Constitutional: No fever, No chills, No sweats, No weight loss, No weakness Eyes: No eye pain, No redness ENT: No sore throat, No trouble swallowing, No pain on swallowing Respiratory: No cough, No wheezing, No shortness of breath, No dyspnea on exertion Cardiac: No chest pain, No edema, No palpitations Abdomen: + see HPI, + GI bleeding (black, formed stools, the patient has been on iron supplements senior living), No pain, No nausea, No vomiting, No diarrhea , No constipation Neuro: No memory loss, No weakness, No numbness/tingling, No vertigo, No balance problems Psych: No depression symptoms, No anxiety, No insomnia Heme: No abnormal bleeding/bruising, No night sweats Endo: No excessive thirst, No excessive urination Skin: No rash, No itch, No new/changing skin lesions, No jaundice Physical Exam Date Time Temp Pulse Resp B/P (MAP) Pulse Ox O2 Delivery O2 Flow Rate FiO2 07/10/17 10:00 67 20 158/68 (98) 94 Nasal Cannula 4.0 07/10/17 08:00 Nasal Cannula 4.0 07/10/17 08:00 36.5 37 20 159/68 (98) 97 Nasal Cannula 4.0 07/10/17 06:02 67 15 161/65 (97) 99 Nasal Cannula 4.0 07/10/17 05:02 67 16 152/67 (95) 98 Nasal Cannula 4.0 07/10/17 04:02 36.3 68 16 140/56 (84) 90 Nasal Cannula 4.0 07/10/17 04:00 Nasal Cannula 4.0 07/10/17 03:01 68 17 151/63 (92) 97 Nasal Cannula 4.0 07/10/17 02:02 68 15 145/62 (89) 94 Nasal Cannula 4.0 07/10/17 01:02 69 16 162/69 (100) 96 Nasal Cannula 4.0 07/10/17 00:02 36.9 69 19 150/86 (107) 94 Nasal Cannula 4.0 07/10/17 00:00 Nasal Cannula 4.0 07/09/17 22:10 37.0 73 20 130/55 (80) 92 Nasal Cannula 2.0 07/09/17 19:30 36.8 73 20 140/60 (86) 92 Nasal Cannula 2.0 07/09/17 19:30 Nasal Cannula 3.0 07/09/17 17:56 36.8 73 20 140/60 (86) 92 Nasal Cannula 2.0 07/09/17 16:30 36.8 72 20 153/70 (97) 92 Nasal Cannula 2.0 07/09/17 15:52 36.2 68 116/45 (68) 11/28/17 15:45 66 107/51 07/09/17 15:30 Nasal Cannula 2.0 07/09/17 15:30 67 109/42 07/09/17 15:15 67 117/55 07/09/17 15:00 67 110/57 07/09/17 14:45 67 116/42 07/09/17 14:30 66 107/56 07/09/17 14:15 66 109/51 07/09/17 14:00 65 99/42 07/09/17 14:00 36.8 67 20 116/42 (66) 95 Nasal Cannula 2.0 07/09/17 13:45 65 105/50 07/09/17 13:30 66 111/49 07/09/17 13:15 66 120/51 07/09/17 13:00 66 114/45 07/09/17 12:45 65 115/48 07/09/17 12:30 36.4 84 115/56 (75) 07/09/17 12:00 Nasal Cannula 2.0 07/09/17 12:00 36.8 127 20 107/44 (65) 95 Nasal Cannula 2.0 General Appearance: no apparent distress Eyes: normal inspection, EOMI Neck: supple, no adenopathy, thyroid normal Respiratory/Chest: chest non-tender, lungs clear, normal breath sounds, no accessory muscle use Cardiovascular: regular rate, rhythm, no JVD, no murmur Abdomen: normal bowel sounds, non tender, soft, no organomegaly Extremities: normal inspection, no pedal edema, normal capillary refill, + pertinent finding (status post left lower leg amputation.) Neurologic/Psych: alert, normal mood/affect, oriented x 3 Skin: normal color, no jaundice, warm/dry, no rash Laboratory Results Last 24 Hours Test 07/09/17 11:12 07/09/17 12:00 07/09/17 15:37 07/09/17 20:31 Random Glucose 109 mg/dl Bedside Glucose 116 mg/dl 166 mg/dl Test 07/09/17 22:36 07/10/17 03:45 07/10/17 07:51 Hemoglobin 9.4 g/dL 9.3 g/dL 9.7 g/dL Hematocrit 29.0 % 27.8 % 30.3 % White Blood Count 6.04 K/uL Red Blood Count 2.89 M/uL Mean Corpuscular Volume 96.2 fL Mean Corpuscular Hemoglobin 32.2 pg Mean Corpuscular Hemoglobin Concent 33.5 g/dl RDW Standard Deviation 59.2 fL RDW Coefficient of Variation 16.8 % Platelet Count 175 K/uL Mean Platelet Volume 10.1 fL Sodium Level 132 mmol/L Potassium Level 3.7 mmol/L Chloride Level 96 mmol/L Carbon Dioxide Level 29 mmol/L Anion Gap 7.0 mmol/L Blood Urea Nitrogen 25 mg/dl Creatinine 4.69 mg/dl Est Creatinine Clear Calc Drug Dose 23.8 ml/min Estimated GFR () 14.3 Estimated GFR (Non- 12.3 BUN/Creatinine Ratio 5.4 Random Glucose 106 mg/dl Calcium Level 7.2 mg/dl Phosphorus Level 2.8 mg/dl Magnesium Level 2.2 mg/dl Impression Patient is a 61 year old male with multifactorial anemia including ESRD who was admitted for hypotension and GI is consulted for report of black stools. Occult is positive thus he may have some low-grade GI bleeding however there is no gross GI bleeding and he remains hemodynamically mechanically stable with only a mild drop in his hemoglobin. He is on iron supplements which could cause a false positive occult and certainly will cause black stools. Plan Plan: 1. Daily PPI. 2. Continue daily Hb/Hct and documentation of stool appearance. Attg add: I reviewed chart and labs, interviewed and examined pt. Pt with complicated med history recently extubated for resp failure due to encephalopathy, noted to have unexplained hypotensive episode requiring pressors 2 days ago that spont resolved, ? 2 dark bowel movements over the past 2 days, stable hgb and no rise in BUN. His bowel movements were reported as heme positive. He had a cscopyin 2015. He has no GI complaints at present. A/p: No clear evidence of clinically sig GIB- no clear indication for endoscopy. Pt also does not want EGD. Will sign off, please reconsult as needed.
--- NOTE | 2017-07-10 13:53 | Progress Note ---
Internal Med Progress Note Date of Service: Jul 10, 2017. Provider Documentation: SUBJECTIVE: feels like his own self , no complain of SOB , cough or chest discomfort been off pressors , started on Midodrine BP has been stable since pt been transferred out of ICU to Tele rt femoral central line discontinued still hypoxic -requiring 4 L 02 via nasal canula , attempt to wean off to 2 L spo2 drops to 80's pt was not on chronic 02 while at [facility] , does not want to be on chronic 02 on discharge asked for PT/OT , increased activity as tolerated incentive spirometry OBJECTIVE: Vital Signs-as noted below Exam: General-awake and alert, well appearing male , no sign of discomfort , conversing appropriately Eyes-sclera non icteric , PERRLA/EOMI ENT-normal oropharynx , moist oral mucosa .hearing grossly normal Neck-no JVD , no nuchal rigidity , trachea midline, no thyromegaly Lungs-no rales or wheeze Heart-regular S1/S2 Abdomen-soft, non tender Extremities-s/p left BKA , shallow skin tear on rt lower leg , no drainage noted , Fistula on rt upper extremity, + thrill and bruit , rt femoral triple lumen -d/leta catheter present Neuro-AAO x3, no focal neurological deficit Lab data as noted below. ASSESSMENT & PLAN: UNRESPONSIVENESS : not sure of the etiology Acute encephalopathy with concern for for possible Seizure vs acute ischemic event mental status improved to baseline conversing appropriately , no focal deficit CT head showed no acute infarct identified. 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 MRI of head showed no acute infarct. Re demonstration of the occluded right internal carotid artery. 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 -concern for possible hypotension caused diminished perfusion on left ICA leading to acute cerebral ischemia -leading to episode of SZ , unresponsiveness on Plavix , Statin will need Vascular surgery consult HYPOTENSION : resolved on presentation was hypertensive , was on Nitro past briefly developed marked hypotension -requiring pressors has been off all antihypertensives no evidence of sepsis Procalcitonin normal Normal lactic acid weaned off pressors started on Midodrine , transferred out of ICU LEUKOCYTOSIS ; resolved blood cx -negative growth growth form Penile discharge : multi organism - E.coli , Proteus , Streptococcus /possible prostatitis appreciate input form ID Lactic acid and procalcitonin negative Blood and urine culture -no growth was on Empiric abx with Zosyn and Doxycycline Chlamydia /Gonorrhea negative Doxycycline D/leta cont with Zosyn will D/w ID to switch Abx to PO prior to discharge ESRD on HD gets HD Sat/Sat/Saturday follows with Nephrology at [place] [facility] Dimas Syed Nephrology consulted , appreciate in put Bradycardia resolved Occurs during the unresponsive episode troponin negative No chest pain reporting during admission No ST changes on initial EKG ECHO SHOWED -- Conclusions -- * The left ventricular wall motion is normal. * Ejection Fraction = 55-60%. * There is moderate focal calcification of the posterior mitral vavle annulus and leaflet. * Significant mitral regurgitation is absent. * There is no mitral valve stenosis. * Grade I diastolic dysfunction, (abnormal relaxation pattern). * Doppler findings do not suggest pulmonary hypertension. * Compared to the prior study dated 05/22/14, the mitral valve calcification is unchanged. DVT px on heparin subq DVT PROPHYLAXIS sub q heparin DISPOSITION transferred out of ICU today Pt/OT eval requested resident at [facility] return back to [facility] when medically stable Medicine follow up with Dr Dominguez Vital Signs: Date Time Temp Pulse Resp B/P (MAP) Pulse Ox O2 Delivery O2 Flow Rate FiO2 07/11/17 12:00 Nasal Cannula 3.0 07/11/17 11:34 173/62 (99) 07/11/17 11:31 36.8 81 20 187/83 (117) 95 Nasal Cannula 3.0 07/11/17 08:07 36.8 83 20 167/75 (105) 95 Nasal Cannula 4.0 07/11/17 08:00 Nasal Cannula 4.0 07/11/17 04:15 36.5 79 22 167/78 (107) 92 Nasal Cannula 4.0 07/11/17 04:00 Nasal Cannula 4.0 07/11/17 00:16 36.5 79 22 155/69 (97) 94 Nasal Cannula 4.0 07/10/17 23:59 Nasal Cannula 4.0 07/10/17 20:22 93 Nasal Cannula 4.0 07/10/17 20:00 36.4 78 20 173/78 (109) Nasal Cannula 07/10/17 19:50 Nasal Cannula 4.0 07/10/17 16:00 Nasal Cannula 4.0 07/10/17 15:58 36.3 76 20 175/82 (113) 97 Nasal Cannula 4.0 07/10/17 15:00 36.7 76 20 96 4.0 07/10/17 14:00 76 20 169/68 (101) 96 Nasal Cannula 4.0 07/10/17 13:00 72 157/69 Lab Results: Results Past 24 Hours Test 07/10/17 16:20 07/10/17 20:21 07/11/17 06:22 07/11/17 06:41 Range/Units Bedside Glucose 92 93 107 70-99 mg/dl White Blood Count 7.03 4.8-10.8 K/uL Red Blood Count 3.21 4.7-6.1 M/uL Hemoglobin 9.9 14.0-18.0 g/dL Hematocrit 31.0 42-52 % Mean Corpuscular Volume 96.6 80-100 fL Mean Corpuscular Hemoglobin 30.8 25-34 pg Mean Corpuscular Hemoglobin Concent 31.9 32-36 g/dl RDW Standard Deviation 59.2 36.4-46.3 fL RDW Coefficient of Variation 17.0 11.5-14.5 % Platelet Count 208 130-400 K/uL Mean Platelet Volume 10.0 7.4-10.4 fL Sodium Level 132 136-145 mmol/L Potassium Level 3.8 3.5-5.1 mmol/L Chloride Level 97 98-107 mmol/L Carbon Dioxide Level 28 21-32 mmol/L Anion Gap 7.0 3-11 mmol/L Blood Urea Nitrogen 16 7-18 mg/dl Creatinine 4.10 0.60-1.40 mg/dl Est Creatinine Clear Calc Drug Dose 27.4 ml/min Estimated GFR () 16.8 Estimated GFR (Non- 14.5 BUN/Creatinine Ratio 4.0 10-20 Random Glucose 102 70-99 mg/dl Calcium Level 7.6 8.5-10.1 mg/dl Phosphorus Level 2.9 2.5-4.9 mg/dl Magnesium Level 2.1 1.8-2.4 mg/dl Test 07/11/17 11:29 Range/Units Bedside Glucose 141 70-99 mg/dl
--- NOTE | 2017-07-10 17:18 | PROGRESS NOTE ---
DATE: 07/10/2017 Kb is much better today. He is moved out of the unit. He is breathing on his own. His blood pressure has been stable. His neurologic examination reveals some mild low grade global confusion and some evidence for mild polyneuropathy, but there is no lateralizing features, evidence for recent CVA, etc. No more seizure like activity has been reported and his EEGs have been improved on a second round and have shown no evidence for potentially epileptogenic activity, only a mild generalized encephalopathy. one issue was the status of his left internal carotid artery as he did have a total occlusion on the right and the CTA suggested a high level stenosis, but the image was degraded with motion degraded. At this point, we went ahead with a duplex of the carotid, showing 50%-69% stenosis on the left side, I do think this is a surgically impressive lesion. At this point, I am still not sure whether we should continue the Keppra for a few more days. I will check back with him tomorrow. My impulse is to taper off the Keppra and see if he has another event as I really think this was primarily hypotensive mediated with a cerebral hypoperfusion related seizure like event particularly in light of his tenuous intracranial collateral circulation rather than a primary neurologic event. I will check back tomorrow. NAWAF
[2017-07-10] MEDS: GABAPENTIN 100 MG CAP PO SCH (20:30)
[2017-07-10] MEDS: CLOPIDOGREL BISULFATE 75 MG TAB PO SCH (20:30)
[2017-07-10] MEDS: SIMVASTATIN 10 MG TAB PO SCH (20:30)
[2017-07-10] MEDS: RANITIDINE HCL 150 MG TAB PO SCH (20:31)
[2017-07-10] MEDS: LATANOPROST 0.005% OP SOLN 2.5 ML BTL OP SCH (20:31)
[2017-07-11] VITALS (10 sets, daily range): BP systolic 153–187; BP diastolic 62–83; PULSE 79–84; TEMP 36.5–36.8; O2SAT 90–95
[2017-07-11] MEDS: LEVOTHYROXINE 25 MCG TAB PO SCH (05:20)
[2017-07-11 06:53] LABS: MEAN CELL VOLUME 96.6 fL (80-100); MEAN CORPUSCULAR HEMOGLOBIN 30.8 pg (25-34); MEAN CORPUSCULAR HGB CONC 31.9 g/dl (32-36); PLATELET COUNT 208 K/uL (130-400); RED BLOOD COUNT 3.21 M/uL (4.7-6.1); WHITE BLOOD COUNT 7.03 K/uL (4.8-10.8)
[2017-07-11 07:30] LABS: CALCIUM 7.6 mg/dl (8.5-10.1); CREATININE 4.1 mg/dl (0.60-1.40); MAGNESIUM 2.1 mg/dl (1.8-2.4); PHOSPHORUS 2.9 mg/dl (2.5-4.9); POTASSIUM 3.8 mmol/L (3.5-5.1)
[2017-07-11] MEDS ORDERED: MIDODRINE 2.5 MG TAB PO SCH (09:00)
[2017-07-11] MEDS: PIPERACILL/TAZOBAC IV 3.375 GM in DEXTROSE 5% 100ML IV SCH (09:04)
[2017-07-11] MEDS: INSULIN ASPART 100 UNITS/ML 3 ML PEN SC SCH ×4 (09:05→21:00)
[2017-07-11] MEDS: SERTRALINE HCL 100 MG TAB PO SCH (09:06)
[2017-07-11] MEDS: LEVETIRACETAM 500 MG TAB PO SCH (09:07)
[2017-07-11] MEDS ORDERED: HydrALAZINE HCL 20 MG/ML VIAL IV. PRN (12:15)
[2017-07-11] MEDS ORDERED: [UNRECOGNIZED DRUG - REMARK] PRN (12:45)
[2017-07-11] MEDS ORDERED: AMOXICILLIN CONSULT PHARMACY PRN (12:45)
[2017-07-11] MEDS ORDERED: MIDAZOLAM HCL 1 MG/ML 2ML VIAL IV PRN (12:45)
[2017-07-11] MEDS ORDERED: CEFD300C3 PO (12:50)
[2017-07-11] MEDS ORDERED: AMX500 PO (12:50)
--- NOTE | 2017-07-11 12:53 | Discharge Instructions ---
Discharge Instructions Date of Service Jul 11, 2017. Admission Reason for Admission: Hypotension, Hypoxia Discharge Discharge Diagnosis / Problem: UNRESPONSIVENESS /HYPOTENSION /HYPOXIA / PROSTATITIS Discharge Goals Goal(s): Decrease discomfort, Improve function, Increase independence, Improve disease control, Diagnostic testing, Therapeutic intervention Activity Recommendations Activity Level: Assistance Required Therapies: Physical Therapy, Occupational Therapy . Additional Information Patient informed of condition: Yes Advance Directives: Yes DNR: Yes Level of Care: Other (RESIDENT ) Communicable Disease: No Prognosis: Stable Mohr Catheter: No Instructions / Follow-Up Instructions / Follow-Up HOSPITAL FOLLOW UP WITH FAMILY PHYSICIAN AT [facility] IN A WEEK Current Hospital Diet Patient's current hospital diet: N/A, Diabetes Type 2 Diet, Renal Diet Discharge Diet Recommended Diet: Diabetes Type 2 Diet, Renal Diet Pending Studies Studies pending at discharge: no Laboratory Results Hemoglobin A1c Test 07/08/17 11:57 Range/Units Estimated Average Glucose 151 mg/dl Hemoglobin A1c 6.9 H 4.5-5.6 % Medical Emergencies . Who to Call and When: Medical Emergencies: If at any time you feel your situation is an emergency, please call 911 immediately. . Non-Emergent Contact Non-Emergency issues call your: Primary Care Provider . . "Provider Documentation" section prepared by Simi Lambert. . Core Measure Problem Core Measures: None
[2017-07-11] MEDS ORDERED: ACETAMINOPHEN 325 MG TAB PO PRN (13:00)
[2017-07-11] MEDS ORDERED: OXYCODONE HCL IR 5 MG TAB (IMMEDIATE RELEASE) PO PRN (13:00)
[2017-07-11] MEDS ORDERED: LORAZEPAM 0.5 MG TAB PO PRN (13:00)
[2017-07-11] MEDS ORDERED: WOUND DRESSINGS TOP SCH ×2 (13:00)
[2017-07-11] MEDS ORDERED: BISACODYL 10 MG SUPP PR PRN (13:00)
--- NOTE | 2017-07-11 13:00 | Progress Note ---
Internal Med Progress Note Date of Service: Jul 11, 2017. Provider Documentation: SUBJECTIVE: more confused today does not remember that he is been in hospital wants to get out of here OBJECTIVE: Vital Signs-as noted below Exam: General-confused Eyes-sclera non icteric , PERRLA/EOMI ENT-normal oropharynx , moist oral mucosa .hearing grossly normal Neck-no JVD , no nuchal rigidity , trachea midline, no thyromegaly Lungs-no rales or wheeze Heart-regular S1/S2 Abdomen-soft, non tender Extremities-s/p left BKA , shallow skin tear on rt lower leg , no drainage noted , Fistula on rt upper extremity, + thrill and bruit , Neuro- no focal neurological deficit Lab data as noted below. ASSESSMENT & PLAN: UNRESPONSIVENESS : resolved, awake and alert , conversing appropriately presented with unresponsiveness with hypoxia, Sz like activity in ER ( no prior hx of Sz disorder ) not sure of the etiology Acute encephalopathy with concern for for possible Seizure vs acute ischemic event mental status improved to baseline conversing appropriately , no focal deficit CT head showed no acute infarct identified. 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 MRI of head showed no acute infarct. Re demonstration of the occluded right internal carotid artery. 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 pt developed acute respiratory failure due to above required emergent intubation / mechanical ventilation extubated on 07/08/17 , respiratory status remains stable requiring supplemental 02 via nasal canula -change form baseline no further episode of Sz like activity appreciate input form Neurology Keppra discontinued repeat EEG shows -no evidence of Sz activity CAROTID ARTERY DISEASE : Carotid USG : 1. 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 2. There is evidence of 50-69% stenosis of the proximal left internal carotid artery by velocity criteria. 3. Antegrade flow is shown in the vertebral arteries. images shows complete occlusion of RT INT Carotid artery -concern for possible hypotension caused diminished perfusion on left ICA leading to acute cerebral ischemia -leading to episode of SZ , unresponsiveness on Plavix , Statin Consulted Vascular Surgery Dr Duffy HYPOTENSION : resolved at present hypertensive home antihypertensives -Coreg , Norvasc , Losartan resumed Midodrine dose adjusted to be given on dialysis days as per home regimen INFECTED PENILE DISCHARGE /POSSIBLE PROSTATITIS blood cx -negative growth , leukocytosis has resolved growth form Penile discharge : multi organism - E.coli , Proteus , Streptococcus /possible prostatitis urine culture -no growth appreciate input form ID Lactic acid and procalcitonin negative Blood and urine culture -no growth was on Empiric abx with Zosyn and Doxycycline Chlamydia /Gonorrhea negative Doxycycline D/leta was on Zosyn D/w Dr Delgado -Abx changed to PO Cefdinir and Amoxicillin ( needs to be renally dosed for ESRD on HD ) will need 2 weeks of Abx tx ESRD on HD gets HD Sat/Sat/Saturday follows with Nephrology at [place] Dr Dimas Syed Nephrology consulted , appreciate in put pt getting scheduled dialysis tx DVT PROPHYLAXIS sub q heparin DISPOSITION resident at [facility] return back to [facility] when medically stable Medicine follow up with Dr Dominguez Vital Signs: Date Time Temp Pulse Resp B/P (MAP) Pulse Ox O2 Delivery O2 Flow Rate FiO2 07/11/17 20:00 Nasal Cannula 2.0 07/11/17 19:59 36.8 84 22 163/81 (108) 90 Nasal Cannula 2.0 07/11/17 16:00 Nasal Cannula 3.0 07/11/17 15:36 36.7 83 18 180/81 (114) 94 Nasal Cannula 2.0 07/11/17 13:10 169/76 (107) 93 Nasal Cannula 2.0 07/11/17 12:00 Nasal Cannula 3.0 07/11/17 11:34 173/62 (99) 07/11/17 11:31 36.8 81 20 187/83 (117) 95 Nasal Cannula 3.0 07/11/17 08:07 36.8 83 20 167/75 (105) 95 Nasal Cannula 4.0 07/11/17 08:00 Nasal Cannula 4.0 07/11/17 04:15 36.5 79 22 167/78 (107) 92 Nasal Cannula 4.0 07/11/17 04:00 Nasal Cannula 4.0 07/11/17 00:16 36.5 79 22 155/69 (97) 94 Nasal Cannula 4.0 07/10/17 23:59 Nasal Cannula 4.0 Lab Results: Results Past 24 Hours Test 07/11/17 06:22 07/11/17 06:41 07/11/17 11:29 07/11/17 16:15 Range/Units White Blood Count 7.03 4.8-10.8 K/uL Red Blood Count 3.21 4.7-6.1 M/uL Hemoglobin 9.9 14.0-18.0 g/dL Hematocrit 31.0 42-52 % Mean Corpuscular Volume 96.6 80-100 fL Mean Corpuscular Hemoglobin 30.8 25-34 pg Mean Corpuscular Hemoglobin Concent 31.9 32-36 g/dl RDW Standard Deviation 59.2 36.4-46.3 fL RDW Coefficient of Variation 17.0 11.5-14.5 % Platelet Count 208 130-400 K/uL Mean Platelet Volume 10.0 7.4-10.4 fL Sodium Level 132 136-145 mmol/L Potassium Level 3.8 3.5-5.1 mmol/L Chloride Level 97 98-107 mmol/L Carbon Dioxide Level 28 21-32 mmol/L Anion Gap 7.0 3-11 mmol/L Blood Urea Nitrogen 16 7-18 mg/dl Creatinine 4.10 0.60-1.40 mg/dl Est Creatinine Clear Calc Drug Dose 27.4 ml/min Estimated GFR () 16.8 Estimated GFR (Non- 14.5 BUN/Creatinine Ratio 4.0 10-20 Random Glucose 102 70-99 mg/dl Calcium Level 7.6 8.5-10.1 mg/dl Phosphorus Level 2.9 2.5-4.9 mg/dl Magnesium Level 2.1 1.8-2.4 mg/dl Bedside Glucose 107 141 137 70-99 mg/dl Test 07/11/17 20:08 Range/Units Bedside Glucose 126 70-99 mg/dl
[2017-07-11] MEDS ORDERED: CEFDINIR 300 MG CAP PO STA (13:10)
[2017-07-11] MEDS: HEPARIN SOD 5000 UNIT/0.5 ML CARP SQ SCH ×3 (13:56→21:36)
[2017-07-11] MEDS ORDERED: LOPERAMIDE HCL 2 MG CAP PO PRN (14:00)
[2017-07-11] MEDS ORDERED: CARVEDILOL 3.125 MG TAB PO SCH (17:00)
--- NOTE | 2017-07-11 17:07 | PROGRESS NOTE ---
DATE: 07/11/2017 SUBJECTIVE: Kb was more irritable today. He is confused. He does not realize that why he is in the hospital, thinks he can go home and is not aware he is going to be dialyzed tomorrow where yesterday he seemed well aware of his status. He may be getting some irritability related to the Keppra. No seizures have been reported and again I think the initial event was more of a hypotensive induced neuronal ischemic related seizure that a primary one. I am going to stop the Keppra at this point. Dr. Carter will be available for followup, if any further issues emerge in his care, but at this point, I think we can just follow him along at a distance and see him on an as-needed basis. Obviously, if he has another seizure like event, then we may have to restart the Keppra, but at this point I do not think we need to. NAWAF
--- NOTE | 2017-07-11 20:35 | Infectious Disease Progress Nt ---
Progress Note Date of Service Jul 11, 2017. Subjective Pt evaluation today including: conversation w/ patient, physical exam, chart review, lab review, review of studies, conversation w/ project management consultant, review of inpatient medication list Patient appears somewhat more confused today. No fever. No worsening shortness of breath. Denies any increase in pain. All Other Systems: Reviewed and Negative Medications Current Inpatient Medications Medications (Trade) Dose Ordered Sig/Nicole Route Start Time Stop Time Status Last Admin Dose Admin Heparin Sodium (Porcine) (Heparin Sq 5000 Unit/0.5ml) 5,000 unit Q8 SQ 07/07/17 14:00 08/06/17 13:59 Future hold 07/08/17 21:40 5,000 UNIT Heparin Sodium (Porcine) (Heparin 10 Unit/ ml 5 ml Flush) 5 ml PRN PRN FLUSH 07/07/17 23:45 08/06/17 23:44 Glucose (Glucose 40% Gel) UD PRN PO 07/08/17 01:30 08/07/17 01:29 Glucose (Glucose Chew Tab) 1 tabs UD PRN PO 07/08/17 01:30 08/07/17 01:29 Dextrose (Dextrose 50% 50ML Syringe) 50 ml UD PRN IV 07/08/17 01:30 08/07/17 01:29 07/08/17 08:30 50 ML Glucagon (Glucagon Inj) 1 mg UD PRN SQ 07/08/17 01:30 08/07/17 01:29 Clopidogrel Bisulfate (plAVix TAB) 75 mg QPM PO 07/08/17 21:00 08/07/17 20:59 07/10/17 20:30 75 MG Levothyroxine Sodium (Synthroid Tab) 25 mcg DAILYBB PO 07/09/17 06:00 08/08/17 05:59 07/11/17 05:20 25 MCG Sertraline HCl (Zoloft Tab) 100 mg DAILY PO 07/09/17 09:00 08/08/17 08:59 07/11/17 09:06 100 MG Miscellaneous Information (Order Awaiting Action) 1 ea QS N/A 07/08/17 16:00 08/07/17 15:59 07/10/17 08:02 1 EA Simvastatin (Zocor Tab) 10 mg HS PO 07/08/17 21:00 08/07/17 20:59 07/10/17 20:30 10 MG Gabapentin (Neurontin Cap) 100 mg HS PO 07/09/17 21:00 08/08/17 20:59 07/10/17 20:30 100 MG Latanoprost (Xalatan Oph Soln) 1 drops HS OP 07/09/17 21:00 08/08/17 20:59 07/10/17 20:31 1 DROPS Insulin Aspart (novoLOG ASPART) SLIDING SCALE ACHS SC 07/10/17 06:45 08/09/17 06:44 07/10/17 07:55 6 UNITS Midodrine (Proamatine Tab) 2.5 mg DAILY PO 07/11/17 09:00 08/08/17 11:59 Future Hold Ranitidine HCl (zANTac TAB) 75 mg HS PO 07/10/17 21:00 08/09/17 20:59 07/10/17 20:31 75 MG Hydralazine HCl (HydrALAZINE INJ) 10 mg Q8 PRN IV. 07/11/17 12:15 08/10/17 12:14 07/11/17 12:33 10 MG Cefdinir (Omnicef Cap) 300 mg SuMoWeFr@1200 PO 07/12/17 12:00 07/21/17 12:29 Amoxicillin (Amoxil Cap) 500 mg DAILY PO 07/12/17 09:00 07/22/17 08:59 Miscellaneous Information (Pharmacy Consult) 1 UD PRN N/A 07/11/17 12:45 08/10/17 12:44 Miscellaneous Information (Pharmacy Consult) 1 UD PRN N/A 07/11/17 12:45 08/10/17 12:44 Acetaminophen (Tylenol Tab) 650 mg Q4 PRN PO 07/11/17 13:00 08/10/17 12:59 Amlodipine Besylate (Norvasc Tab) 10 mg HS PO 07/11/17 21:00 08/10/17 20:59 Bisacodyl (Dulcolax Supp) 10 mg DAILY PRN W[place] 07/11/17 13:00 08/10/17 12:59 Carvedilol (Coreg Tab) 3.125 mg DAILY@1700 PO 07/11/17 17:00 08/10/17 16:59 Loperamide HCl (Imodium Cap) 2 mg Q2H PRN PO 07/11/17 14:00 08/10/17 13:59 Loratadine (Claritin Tab) 10 mg QPM PO 07/11/17 21:00 08/10/17 20:59 Lorazepam (Ativan Tab) 0.5 mg HS PO 07/11/17 21:00 08/10/17 20:59 Lorazepam (Ativan Tab) 0.25 mg MoWeFr@0600 PO 07/12/17 06:00 08/11/17 05:59 Lorazepam (Ativan Tab) 0.5 mg HS PRN PO 07/11/17 13:00 08/10/17 12:59 Losartan Potassium (coZAAR TAB) 100 mg HS PO 07/11/17 21:00 08/10/17 20:59 Midodrine (Proamatine Tab) 2.5 mg MoWeFr@0900 PO 07/12/17 09:00 08/11/17 08:59 Vitamin B Complex/ Vit C/Folic Acid (Nephrocaps) 1 cap QPM PO 07/11/17 21:00 08/10/17 20:59 Ascorbic Acid (Vitamin C Tab) 500 mg BID PO 07/11/17 21:00 08/10/17 20:59 Miscellaneous Information (Order Awaiting Action) 1 ea QS N/A 07/11/17 16:00 08/10/17 15:59 Oxycodone HCl (Roxicodone Immediate Rel Tab) 5 mg Q6 PRN PO 07/11/17 13:00 08/10/17 12:59 Miscellaneous Information (Order Awaiting Action) 1 ea QS N/A 07/11/17 16:00 08/10/17 15:59 Miscellaneous Information (Order Awaiting Action) 1 ea QS N/A 07/11/17 16:00 08/10/17 15:59 Amoxicillin (Amoxil Cap) 500 mg MoWeFr@1000 PO 07/12/17 10:00 07/22/17 09:59 Objective Vital Signs Date Time Temp Pulse Resp B/P (MAP) Pulse Ox O2 Delivery O2 Flow Rate FiO2 07/11/17 20:00 Nasal Cannula 2.0 07/11/17 19:59 36.8 84 22 163/81 (108) 90 Nasal Cannula 2.0 07/11/17 16:00 Nasal Cannula 3.0 07/11/17 15:36 36.7 83 18 180/81 (114) 94 Nasal Cannula 2.0 07/11/17 13:10 169/76 (107) 93 Nasal Cannula 2.0 07/11/17 12:00 Nasal Cannula 3.0 07/11/17 11:34 173/62 (99) 07/11/17 11:31 36.8 81 20 187/83 (117) 95 Nasal Cannula 3.0 07/11/17 08:07 36.8 83 20 167/75 (105) 95 Nasal Cannula 4.0 07/11/17 08:00 Nasal Cannula 4.0 07/11/17 04:15 36.5 79 22 167/78 (107) 92 Nasal Cannula 4.0 07/11/17 04:00 Nasal Cannula 4.0 07/11/17 00:16 36.5 79 22 155/69 (97) 94 Nasal Cannula 4.0 07/10/17 23:59 Nasal Cannula 4.0 Physical Exam General Appearance: WD/WN, no apparent distress Eyes: normal inspection, sclerae normal ENT: normal ENT inspection, pharynx normal Neck: supple, no adenopathy, trachea midline Respiratory/Chest: chest non-tender, lungs clear, normal breath sounds, no respiratory distress Cardiovascular: regular rate, rhythm, no gallop, no murmur Abdomen: normal bowel sounds, non tender, soft, no organomegaly Extremities: non-tender, no calf tenderness Neurologic/Psychiatric: alert, + disoriented Skin: normal color, no rash Lymphatic: no adenopathy Laboratory Results Last 24 Hours Test 07/11/17 06:22 07/11/17 06:41 07/11/17 11:29 07/11/17 16:15 White Blood Count 7.03 K/uL Red Blood Count 3.21 M/uL Hemoglobin 9.9 g/dL Hematocrit 31.0 % Mean Corpuscular Volume 96.6 fL Mean Corpuscular Hemoglobin 30.8 pg Mean Corpuscular Hemoglobin Concent 31.9 g/dl RDW Standard Deviation 59.2 fL RDW Coefficient of Variation 17.0 % Platelet Count 208 K/uL Mean Platelet Volume 10.0 fL Sodium Level 132 mmol/L Potassium Level 3.8 mmol/L Chloride Level 97 mmol/L Carbon Dioxide Level 28 mmol/L Anion Gap 7.0 mmol/L Blood Urea Nitrogen 16 mg/dl Creatinine 4.10 mg/dl Est Creatinine Clear Calc Drug Dose 27.4 ml/min Estimated GFR () 16.8 Estimated GFR (Non- 14.5 BUN/Creatinine Ratio 4.0 Random Glucose 102 mg/dl Calcium Level 7.6 mg/dl Phosphorus Level 2.9 mg/dl Magnesium Level 2.1 mg/dl Bedside Glucose 107 mg/dl 141 mg/dl 137 mg/dl Test 07/11/17 20:08 Bedside Glucose 126 mg/dl Assessment and Plan (1) Seizure (2) ESRD (end stage renal disease) Status: Chronic (3) Hypotension arterial 61-year-old male with end-stage renal disease on dialysis admitted with anasarca and penile discharge, with acute hypoxia requiring transient intubation ,With mildly elevated but relatively low procalcitonin and cultures from urethral discharge growing E coli, Proteus, and Streptococcus.Patient appears to be improving in terms of infectious process, to be transitioned to combination of amoxicillin and cefdinir to cover pathogens identified from penile discharge. Likely will require 2 week course. Will continue to follow.
[2017-07-11] MEDS ORDERED: LORAZEPAM 0.5 MG TAB PO SCH (21:00)
[2017-07-11] MEDS ORDERED: LATANOPROST 0.005% OP SOLN 2.5 ML BTL OP SCH (21:00)
[2017-07-11] MEDS ORDERED: EMOLLIENT TD SCH (21:00)
[2017-07-11] MEDS ORDERED: GABAPENTIN 100 MG CAP PO SCH (21:00)
[2017-07-11] MEDS ORDERED: LOSARTAN POTASSIUM 50 MG TAB PO SCH (21:00)
[2017-07-11] MEDS ORDERED: AMLODIPINE BESYLATE 5 MG TAB PO SCH (21:00)
[2017-07-11] MEDS ORDERED: LORATADINE 10 MG TAB PO SCH (21:00)
[2017-07-11] MEDS ORDERED: NEPHROCAPS PO SCH (21:00)
[2017-07-11] MEDS: LATANOPROST 0.005% OP SOLN 2.5 ML BTL OP SCH (21:08)
[2017-07-11] MEDS: SIMVASTATIN 10 MG TAB PO SCH (21:08)
[2017-07-11] MEDS: ASCORBIC ACID 500 MG TAB PO SCH (21:09)
[2017-07-11] MEDS: RANITIDINE HCL 150 MG TAB PO SCH (21:10)
[2017-07-11] MEDS: CLOPIDOGREL BISULFATE 75 MG TAB PO SCH (21:10)
[2017-07-11] MEDS: GABAPENTIN 100 MG CAP PO SCH (21:11)
[2017-07-12] VITALS (17 sets, daily range): BP systolic 136–190; BP diastolic 61–98; PULSE 74–95; TEMP 36.2–36.9; O2SAT 91–96
[2017-07-12] MEDS: HEPARIN SOD 5000 UNIT/0.5 ML CARP SQ SCH ×2 (05:27→13:06)
[2017-07-12] MEDS: LEVOTHYROXINE 25 MCG TAB PO SCH (05:30)
[2017-07-12] MEDS ORDERED: LORAZEPAM 0.5 MG TAB PO SCH (06:00)
[2017-07-12] MEDS: INSULIN ASPART 100 UNITS/ML 3 ML PEN SC SCH ×2 (07:32→11:00)
[2017-07-12] MEDS: ASCORBIC ACID 500 MG TAB PO SCH (07:48)
[2017-07-12] MEDS: SERTRALINE HCL 100 MG TAB PO SCH (07:48)
[2017-07-12 08:26] LABS: HEMATOCRIT 34.5 % (42-52); MEAN CELL VOLUME 96.6 fL (80-100); MEAN CORPUSCULAR HEMOGLOBIN 31.7 pg (25-34); MEAN CORPUSCULAR HGB CONC 32.8 g/dl (32-36); PLATELET COUNT 248 K/uL (130-400); RED BLOOD COUNT 3.57 M/uL (4.7-6.1)
[2017-07-12] MEDS ORDERED: [UNRECOGNIZED DRUG - OTHER] SCH (09:00)
[2017-07-12] MEDS ORDERED: MIDODRINE 2.5 MG TAB PO SCH (09:00)
[2017-07-12] MEDS ORDERED: AMOXICILLIN 500 MG CAP PO SCH ×2 (09:00→10:00)
--- NOTE | 2017-07-12 09:56 | Dialysis Progress Note ---
Nephrology Dialysis Note Date of Service: Jul 12, 2017. Subjective 61 yo male with esrd with a fistula who was intubated after seizure like activity and extubated. seen on dialysis today. bp is elevated and tolerating one liter off. pt concerned since he has to pay the courts tomorrow. Objective Date Time Temp Pulse Resp B/P (MAP) Pulse Ox O2 Delivery O2 Flow Rate FiO2 07/12/17 09:30 84 175/84 07/12/17 09:15 83 136/79 07/12/17 09:00 83 184/94 07/12/17 09:00 36.8 85 174/94 (120) 07/12/17 08:00 Nasal Cannula 2.0 07/12/17 07:46 36.8 81 20 162/79 (106) 96 07/12/17 04:20 36.7 82 22 145/70 (95) 91 Nasal Cannula 2.0 07/12/17 04:00 Nasal Cannula 2.0 07/12/17 00:00 Nasal Cannula 2.0 07/11/17 23:53 36.8 83 21 153/65 (94) 91 Nasal Cannula 2.0 07/11/17 20:00 Nasal Cannula 2.0 07/11/17 19:59 36.8 84 22 163/81 (108) 90 Nasal Cannula 2.0 07/11/17 16:00 Nasal Cannula 3.0 07/11/17 15:36 36.7 83 18 180/81 (114) 94 Nasal Cannula 2.0 07/11/17 13:10 169/76 (107) 93 Nasal Cannula 2.0 07/11/17 12:00 Nasal Cannula 3.0 07/11/17 11:34 173/62 (99) 07/11/17 11:31 36.8 81 20 187/83 (117) 95 Nasal Cannula 3.0 Physical Exam: General-aaox3, more alert today Eyes-no scleral icterus ENT-mmm Neck-supple Lungs-clear Heart-regular Abdomen-+bs, soft, nontender Extremities-left bka, small ulcers on right leg Neuro-nonfocal Current Inpatient Medications Medications (Trade) Dose Ordered Sig/Nicole Route Start Time Stop Time Status Last Admin Dose Admin Heparin Sodium (Porcine) (Heparin Sq 5000 Unit/0.5ml) 5,000 unit Q8 SQ 07/07/17 14:00 08/06/17 13:59 Future hold 07/08/17 21:40 5,000 UNIT Heparin Sodium (Porcine) (Heparin 10 Unit/ ml 5 ml Flush) 5 ml PRN PRN FLUSH 07/07/17 23:45 08/06/17 23:44 Glucose (Glucose 40% Gel) UD PRN PO 07/08/17 01:30 08/07/17 01:29 Glucose (Glucose Chew Tab) 1 tabs UD PRN PO 07/08/17 01:30 08/07/17 01:29 Dextrose (Dextrose 50% 50ML Syringe) 50 ml UD PRN IV 07/08/17 01:30 08/07/17 01:29 07/08/17 08:30 50 ML Glucagon (Glucagon Inj) 1 mg UD PRN SQ 07/08/17 01:30 08/07/17 01:29 Clopidogrel Bisulfate (plAVix TAB) 75 mg QPM PO 07/08/17 21:00 08/07/17 20:59 07/11/17 21:10 75 MG Levothyroxine Sodium (Synthroid Tab) 25 mcg DAILYBB PO 07/09/17 06:00 08/08/17 05:59 07/12/17 05:30 25 MCG Sertraline HCl (Zoloft Tab) 100 mg DAILY PO 07/09/17 09:00 08/08/17 08:59 07/11/17 09:06 100 MG Miscellaneous Information (Order Awaiting Action) 1 ea QS N/A 07/08/17 16:00 08/07/17 15:59 07/10/17 08:02 1 EA Simvastatin (Zocor Tab) 10 mg HS PO 07/08/17 21:00 08/07/17 20:59 07/11/17 21:08 10 MG Gabapentin (Neurontin Cap) 100 mg HS PO 07/09/17 21:00 08/08/17 20:59 Future Hold 07/11/17 21:11 100 MG Latanoprost (Xalatan Oph Soln) 1 drops HS OP 07/09/17 21:00 08/08/17 20:59 07/11/17 21:08 1 DROPS Insulin Aspart (novoLOG ASPART) SLIDING SCALE ACHS SC 07/10/17 06:45 08/09/17 06:44 07/10/17 07:55 6 UNITS Midodrine (Proamatine Tab) 2.5 mg DAILY PO 07/11/17 09:00 08/08/17 11:59 Future Hold Ranitidine HCl (zANTac TAB) 75 mg HS PO 07/10/17 21:00 08/09/17 20:59 07/11/17 21:10 75 MG Hydralazine HCl (HydrALAZINE INJ) 10 mg Q8 PRN IV. 07/11/17 12:15 08/10/17 12:14 07/11/17 12:33 10 MG Cefdinir (Omnicef Cap) 300 mg SuMoWeFr@1200 PO 07/12/17 12:00 07/21/17 12:29 Amoxicillin (Amoxil Cap) 500 mg DAILY PO 07/12/17 09:00 07/22/17 08:59 07/12/17 09:17 500 MG Miscellaneous Information (Pharmacy Consult) 1 ea UD PRN N/A 07/11/17 12:45 08/10/17 12:44 Miscellaneous Information (Pharmacy Consult) 1 ea UD PRN N/A 07/11/17 12:45 08/10/17 12:44 Acetaminophen (Tylenol Tab) 650 mg Q4 PRN PO 07/11/17 13:00 08/10/17 12:59 Amlodipine Besylate (Norvasc Tab) 10 mg HS PO 07/11/17 21:00 08/10/17 20:59 07/11/17 21:10 10 MG Bisacodyl (Dulcolax Supp) 10 mg DAILY PRN MT 07/11/17 13:00 08/10/17 12:59 Carvedilol (Coreg Tab) 3.125 mg DAILY@1700 PO 07/11/17 17:00 08/10/17 16:59 Loperamide HCl (Imodium Cap) 2 mg Q2H PRN PO 07/11/17 14:00 08/10/17 13:59 Loratadine (Claritin Tab) 10 mg QPM PO 07/11/17 21:00 08/10/17 20:59 07/11/17 21:11 10 MG Lorazepam (Ativan Tab) 0.5 mg HS PO 07/11/17 21:00 08/10/17 20:59 Future Hold Lorazepam (Ativan Tab) 0.25 mg MoWeFr@0600 PO 07/12/17 06:00 08/11/17 05:59 Future Hold Lorazepam (Ativan Tab) 0.5 mg HS PRN PO 07/11/17 13:00 08/10/17 12:59 07/12/17 08:45 0.5 MG Losartan Potassium (coZAAR TAB) 100 mg HS PO 07/11/17 21:00 08/10/17 20:59 07/11/17 21:11 100 MG Midodrine (Proamatine Tab) 2.5 mg MoWeFr@0900 PO 07/12/17 09:00 08/11/17 08:59 Vitamin B Complex/ Vit C/Folic Acid (Nephrocaps) 1 cap QPM PO 07/11/17 21:00 08/10/17 20:59 07/11/17 21:11 1 CAP Ascorbic Acid (Vitamin C Tab) 500 mg BID PO 07/11/17 21:00 08/10/17 20:59 07/11/17 21:09 500 MG Miscellaneous Information (Order Awaiting Action) 1 ea QS N/A 07/11/17 16:00 08/10/17 15:59 Oxycodone HCl (Roxicodone Immediate Rel Tab) 5 mg Q6 PRN PO 07/11/17 13:00 08/10/17 12:59 Miscellaneous Information (Order Awaiting Action) 1 ea QS N/A 07/11/17 16:00 08/10/17 15:59 Miscellaneous Information (Order Awaiting Action) 1 ea QS N/A 07/11/17 16:00 08/10/17 15:59 Amoxicillin (Amoxil Cap) 500 mg MoWeFr@1000 PO 07/12/17 10:00 07/22/17 09:59 Last 24 Hours Test 07/11/17 11:29 07/11/17 16:15 07/11/17 20:08 07/12/17 07:12 Bedside Glucose 141 mg/dl 137 mg/dl 126 mg/dl 120 mg/dl Test 07/12/17 08:03 White Blood Count 9.30 K/uL Red Blood Count 3.57 M/uL Hemoglobin 11.3 g/dL Hematocrit 34.5 % Mean Corpuscular Volume 96.6 fL Mean Corpuscular Hemoglobin 31.7 pg Mean Corpuscular Hemoglobin Concent 32.8 g/dl RDW Standard Deviation 60.8 fL RDW Coefficient of Variation 17.5 % Platelet Count 248 K/uL Mean Platelet Volume 10.0 fL Assessment & Plan ESRD-electrolytes are stable. dialyzing on a 3k bath and will attempt one liter off as bp tolerates. will plan on dialysis again on saturday. volume status appears acceptable. Anemia of renal failure-goal hg of 10 to 11. holding procrit today with hg above 11. HTN: bp is elevated. currently on norvasc 10, coreg 3.125 at night, losartan 100. removing fluid to help with bp.
[2017-07-12] MEDS ORDERED: LORA-741 PO (11:54)
[2017-07-12] MEDS ORDERED: OXYC1CAP5 PO (11:54)
--- NOTE | 2017-07-12 11:56 | Discharge Summary ---
Discharge Summary Date of Service Jul 12, 2017. Discharge Summary Admission Date: Jul 07, 2017 at 10:57 Discharge Date: Jul 12, 2017 Discharge Disposition: [facility] facility ([facility] ) Principal Diagnosis: UNRESPONSIVENESS /HYPOTENSION /HYPOXIA /PROSTATITIS Consultations: Mail Delivery Supervisor Neuro Nephro Medication Reconciliation New Medications: Amoxicillin (Amoxicillin) 500 Mg Cap 500 MG PO DAILY for 14 Days, #14 CAP TO BE GIVAN AFTER DIALYSIS ON DIALYSIS DAYS Cefdinir (Cefdinir) 300 Mg Cap 300 MG PO UD for 14 Days, #7 CAP EVERY OTHER DAY , TO BE GIVAN AFTER DIALYSIS ON DIALYSIS DAYS Continued Medications: Acetaminophen (Tylenol) 325 Mg Tab 650 MG PO Q4 PRN for Pain or Fever, 0 Refills NOT TO EXCEED 3 GM APAP/24 HOURS Amlodipine (Norvasc) 10 Mg Tab 10 MG PO HS, TAB Ascorbic Acid (Vitamin C) 500 Mg Cap 500 MG PO BID Bisacodyl (Bisac-Evac) 10 Mg Supp 10 MG RE DAILY PRN for Constipation Carboxymethylcellulose Sodium (Lubricant Eye Drops) 0.5 % Toni 1 DROP OPB Q4 PRN for DRY EYES Carvedilol (Coreg) 3.125 Mg Tab 3.125 MG PO DAILY@1700 for 30 Days, TAB 3 Refills HOLD IF SBP IS <100. DO NOT HOLD PRIOR TO DIALYSIS DAYS Cholecalciferol (D3) 2,000 Unit Cap UD - Clopidogrel (Plavix) 75 Mg Tab 75 MG PO QPM, #0 Emollient (Gold Renner Ultimate) 1 Lot Lot 1 APPLN TD HS for ON RIGHT LEG Ferric Citrate (Auryxia) 210 Mg Tab 2 TABS PO WM Gabapentin (Gabapentin) 100 Mg Cap 100 MG PO HS for 30 Days, #30 CAP Latanoprost (Xalatan 0.005% Oph Emma) 0.005 % Emma 1 DROPS OP HS for 90 Days, #7.5 ML 3 Refills Levothyroxine Sodium (Synthroid) 25 Mcg Tab 25 MCG PO DAILYBB for 30 Days, #30 TAB Loperamide Hcl (Imodium) 2 Mg Cap 2 MG PO Q2H, CAP TAKE 2MG NEEDED EVERY 2 HOURS. DO NOT EXCEED 4 CAPS IN 24 HOURS Loratadine (Claritin) 10 Mg Tab 10 MG PO QPM, TAB Lorazepam (Ativan) 0.5 Mg Tab 0.25 MG PO UD PRN for PRIOR TO GOING TO DIALYSIS, TAB Lorazepam (Lorazepam) 0.5 Mg Tab 0.5 MG PO HS Lorazepam (Ativan) 0.5 Mg Tab 0.5 MG PO HS PRN for Anxiety, #10 TAB (This prescription has been renewed) Losartan Potassium (Cozaar) 100 Mg Tab 100 MG PO HS, TAB Midodrine (Midodrine HCl) 2.5 Mg Tab 2.5 MG PO MoWeFr@0900 for 30 Days, #10 TAB Oxycodone Hcl (Oxycodone Hcl) 5 Mg Cap 1 CAP PO Q6 PRN for Pain, #10 CAP (This prescription has been renewed) Ranitidine HCl (Ranitidine 75) 75 Mg Tab 75 MG PO HS, #0 Sertraline (Zoloft) 25 Mg Tab 100 MG PO DAILY, TAB Simvastatin (Zocor) 10 Mg Tab TAB PO HS for 30 Days, #30 TAB 5 Refills Vitamin B Cmplx/Vitc/Folic Ac (Nephrocaps) Cap 1 CAP PO QPM, CAP Wound Dressings (Allevyn Adhesive) 1 Pad Pad 1 PATCH TOP UD APPLY 4 X 4 PAD NEEDED EVERY SHIFT COVER ANY DRAINING SKIN LESIONS WITH DRY DRESSING Wound Dressings (Allevyn Adhesive) 1 Pad Pad 1 APPLN TOP UD SITE RIGHT ANKLE CLEAN WITH NORMAL SALINE, PAT DRY , APPLY NONADHESIVE ALLEVY AND CHANGE EVERY 5 DAYS AND PRN Zinc Oxide (Topical) (Desitin) 40 % Oin 1 APPLN TOP TID for TO GROIN AND BUTTOCKS [Liquiacel Protein] () 1 OZ PO 4XWK [id number] [Oxygen Equipment] () Unknown Dose SUNDAYS [employer]XY[employer]QUIPMENT WEEKLYON SUNDAYS [Tubigrip] () 1 APPLN UNKNOWN DAILY APPLY IN AND, REMOVE HS Admission Information HPI (per Admitting provider): 61 yo Male with PMH of ESRD on HD, HTN, CAD, obesity, anemia of chronic disease was sent from [facility] to evaluate for swelling in his face and penile discharge. Pt said that yesterday he noticed his face and his extremities were swelling. He said that he has been drinking a lot of water. His last HD was Saturday. I called the senior care, they said pt had some discharge like pus coming from his penis. Overnight nurse at [facility] attempted to collect a urine sample, but failed. His penis was bleeding. Staff at the nursing said that his Tmax yesterday was 99.7 and he was saturated at 94% . In the ER a nitro paste was placed on patient because he has hypertensive and possible fluid overload. When I see him, he was hypotensive in the 80 to 90's, I gave the nurse an order to d/c the nitro paste. his blood pressure was dropping further, 2 bolus NS of 250ml were given. His BP improved slightly in the 80's. I started him on broad spectrum antibiotic and blood cx was collected before starting the abx. I discussed the case with the Mail Delivery Supervisor for possible to transfer to the ICU if he remains Hypotensive to start him on pressor. Mail Delivery Supervisor went to see the patient in the ER and recommended to transfer the patient to the ICU because patient was not responding to deep stimuli. After about 15 minutes i went to evaluate pt again. He was back to his baseline taking and his blood pressure was reported to be in the 140s systolic. He reported he was a heavy sleeper normally would not respond to deep stimuli. Again i alison to discussed the case again to the Mail Delivery Supervisor, while we were at his bedside in the ER. We woke him up from sleep, and pt was doing jerking seizure like movement and became unresponsive with right sided gaze deviation and saliva was coming out from the corner of his mouth. During the episode his heart rate dropped in the 40's. He was transferred to the resuscitation room and intubated for airway protection. Physical Exam (per Admitting): General Appearance: + severe distress, + obese, + pertinent finding (became unresponsive an intubated) Head: normocephalic, atraumatic Eyes: PERRL ENT: + pertinent finding (intubated) Neck: no JVD, trachea midline Respiratory/Chest: + rhonchi Cardiovascular: no gallop, no JVD Abdomen/GI: normal bowel sounds, non tender Genitourinary - Male: + urethral discharge Back: no CVA tenderness Extremities/Musculoskelatal: + pertinent finding (Left BKA) Neurologic/Psych: + pertinent finding (was moving extremities, follow command, speech fluent before became unresponsive) Skin: warm/dry, no rash Hospital Course UNRESPONSIVENESS : resolved, awake and alert , conversing appropriately presented with unresponsiveness with hypoxia, Sz like activity in ER ( no prior hx of Sz disorder ) not sure of the etiology Acute encephalopathy with concern for for possible Seizure vs acute ischemic event mental status improved to baseline conversing appropriately , no focal deficit CT head showed no acute infarct identified. 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 MRI of head showed no acute infarct. Re demonstration of the occluded right internal carotid artery. 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 pt developed acute respiratory failure due to above required emergent intubation / mechanical ventilation extubated on 07/08/17 , respiratory status remains stable requiring supplemental 02 via nasal canula -change form baseline no further episode of Sz like activity appreciate input form Neurology Keppra discontinued repeat EEG shows -no evidence of Sz activity CAROTID ARTERY DISEASE : Carotid USG : 1. 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 2. There is evidence of 50-69% stenosis of the proximal left internal carotid artery by velocity criteria. 3. Antegrade flow is shown in the vertebral arteries. images shows complete occlusion of RT INT Carotid artery -concern for possible hypotension caused diminished perfusion on left ICA leading to acute cerebral ischemia -leading to episode of SZ , unresponsiveness on Plavix , Statin Consulted Vascular Surgery Dr Duffy No intervention need at present pt will need vascular surgery follow up as out pt preferably will need follow up with Vascular surgery at [place] per pt's insurance HYPOTENSION : resolved at present hypertensive home antihypertensives -Coreg , Norvasc , Losartan resumed Midodrine dose adjusted to be given on dialysis days as per home regimen INFECTED PENILE DISCHARGE /POSSIBLE PROSTATITIS blood cx -negative growth , leukocytosis has resolved growth form Penile discharge : multi organism - E.coli , Proteus , Streptococcus /possible prostatitis urine culture -no growth appreciate input form ID Lactic acid and procalcitonin negative Blood and urine culture -no growth was on Empiric abx with Zosyn and Doxycycline Chlamydia /Gonorrhea negative Doxycycline D/leta was on Zosyn D/w Dr Delgado -Abx changed to PO Cefdinir and Amoxicillin ( needs to be renally dosed for ESRD on HD ) total 2 weeks of Abx tx ESRD on HD gets HD Sat/Sat/Saturday follows with Nephrology at [place] Dr Dimas Syed Nephrology consulted , appreciate in put pt getting scheduled dialysis tx stable to be discharged with continued out pt dialysis tx DVT PROPHYLAXIS sub q heparin DISPOSITION resident at [facility] return back to [facility] today Medicine follow up with Dr Dominguez Total time spent on discharge = 35 mins This includes examination of the patient, discharge planning, medication reconciliation, and communication with other providers. Discharge Instructions Discharge Instructions Date of Service Jul 11, 2017. Admission Reason for Admission: Hypotension, Hypoxia Discharge Discharge Diagnosis / Problem: UNRESPONSIVENESS /HYPOTENSION /HYPOXIA / PROSTATITIS Discharge Goals Goal(s): Decrease discomfort, Improve function, Increase independence, Improve disease control, Diagnostic testing, Therapeutic intervention Activity Recommendations Activity Level: Assistance Required Therapies: Physical Therapy, Occupational Therapy . Additional Information Patient informed of condition: Yes Advance Directives: Yes DNR: Yes Level of Care: Other (RESIDENT ) Communicable Disease: No Prognosis: Stable Mohr Catheter: No Instructions / Follow-Up Instructions / Follow-Up HOSPITAL FOLLOW UP WITH FAMILY PHYSICIAN AT [facility] IN A WEEK Current Hospital Diet Patient's current hospital diet: N/A, Diabetes Type 2 Diet, Renal Diet Discharge Diet Recommended Diet: Diabetes Type 2 Diet, Renal Diet Pending Studies Studies pending at discharge: no Laboratory Results Hemoglobin A1c Test 07/08/17 11:57 Range/Units Estimated Average Glucose 151 mg/dl Hemoglobin A1c 6.9 H 4.5-5.6 % Medical Emergencies . Who to Call and When: Medical Emergencies: If at any time you feel your situation is an emergency, please call 911 immediately. . Non-Emergent Contact Non-Emergency issues call your: Primary Care Provider . . "Provider Documentation" section prepared by Simi Lambert. . Core Measure Problem Core Measures: None
[2017-07-12] MEDS ORDERED: CEFDINIR 300 MG CAP PO SCH (12:00)
--- NOTE | 2017-07-12 13:55 | Surgery Consultation ---
Consultation Date of Service Jul 12, 2017. Chief Complaint Right internal carotid artery occlusion History of Present Illness The patient is a 61 year old male who was admitted to the hospital for hypotension. He has known coronary artery occlusive disease, diabetes mellitus , congestive heart failure, hypertension, peripheral vascular occlusive disease with a left leg amputation, and chronic kidney disease with a right arm fistula placed. CT and ultrasound done while in the hospital showed a right internal carotid artery occlusion. He denies any focal symptoms other than generalized weakness both upper and lower extremities. Vitals Vital Signs Past 12 Hours Date Time Temp Pulse Resp B/P (MAP) Pulse Ox O2 Delivery O2 Flow Rate FiO2 07/12/17 12:00 Nasal Cannula 2.0 07/12/17 12:00 36.2 87 182/98 (126) 07/12/17 12:00 86 161/61 07/12/17 11:49 36.9 84 22 96 Nasal Cannula 07/12/17 11:45 84 168/74 07/12/17 11:30 83 163/88 07/12/17 11:27 36.9 74 22 169/75 (106) 96 07/12/17 11:15 84 177/83 07/12/17 11:00 84 154/77 07/12/17 10:45 85 185/87 07/12/17 10:30 84 179/89 07/12/17 10:15 95 190/95 07/12/17 10:00 84 190/97 07/12/17 09:45 84 180/89 07/12/17 09:30 84 175/84 07/12/17 09:15 83 136/79 07/12/17 09:00 83 184/94 07/12/17 09:00 36.8 85 174/94 (120) 07/12/17 08:00 Nasal Cannula 2.0 07/12/17 07:46 36.8 81 20 162/79 (106) 96 07/12/17 04:20 36.7 82 22 145/70 (95) 91 Nasal Cannula 2.0 07/12/17 04:00 Nasal Cannula 2.0 Allergies Coded Allergies: Sulfamethoxazole w/Trimethoprim (Verified Allergy, Intermediate, HIVES, ) Latex (Verified Allergy, Mild, LEVEL 1, 05/22/17) Iodine (Unverified Allergy, Unknown, UNKNOWN, 05/22/17) Povidone Iodine (Verified Allergy, Unknown, FROM [facility] INFORMATION , 05/22/17) Sulfa Antibiotics (Unverified Allergy, Unknown, ., 05/22/17) PER [facility] RECORDS Home Medications Scheduled Amlodipine (Norvasc), 10 MG PO HS Amoxicillin (Amoxicillin), 500 MG PO DAILY Ascorbic Acid (Vitamin C), 500 MG PO BID Carvedilol (Coreg), 3.125 MG PO DAILY@1700 Cefdinir (Cefdinir), 300 MG PO UD Cholecalciferol (D3), UD Clopidogrel (Plavix), 75 MG PO QPM Emollient (Gold Renner Ultimate), 1 APPLN TD HS Ferric Citrate (Auryxia), 2 TABS PO WM Gabapentin (Gabapentin), 100 MG PO HS Latanoprost (Xalatan 0.005% Oph Emma), 1 DROPS OP HS Levothyroxine Sodium (Synthroid), 25 MCG PO DAILYBB Loperamide Hcl (Imodium), 2 MG PO Q2H Loratadine (Claritin), 10 MG PO QPM Lorazepam (Lorazepam), 0.5 MG PO HS Losartan Potassium (Cozaar), 100 MG PO HS Midodrine (Midodrine HCl), 2.5 MG PO MoWeFr@0900 Ranitidine HCl (Ranitidine 75), 75 MG PO HS Sertraline (Zoloft), 100 MG PO DAILY Simvastatin (Zocor), TAB PO HS Vitamin B Cmplx/Vitc/Folic Ac (Nephrocaps), 1 CAP PO QPM Wound Dressings (Allevyn Adhesive), 1 PATCH TOP UD Wound Dressings (Allevyn Adhesive), 1 APPLN TOP UD Zinc Oxide (Topical) (Desitin), 1 APPLN TOP TID [Liquiacel Protein], 1 OZ PO 4XWK [Oxygen Equipment], Unknown Dose SUNDAYS [Tubigrip], 1 APPLN UNKNOWN DAILY Scheduled PRN Acetaminophen (Tylenol), 650 MG PO Q4 PRN for Pain or Fever Bisacodyl (Bisac-Evac), 10 MG RE DAILY PRN for Constipation Carboxymethylcellulose Sodium (Lubricant Eye Drops), 1 DROP OPB Q4 PRN for DRY EYES Lorazepam (Ativan), 0.25 MG PO UD PRN for PRIOR TO GOING TO DIALYSIS Lorazepam (Ativan), 0.5 MG PO HS PRN for Anxiety Oxycodone Hcl (Oxycodone Hcl), 1 CAP PO Q6 PRN for Pain Problem List Medical Problems: (1) Anemia of chronic renal failure (2) CAD (coronary artery disease) (3) depressive disorder unspecified (4) Diabetes mellitus type 2 in obese (5) Diastolic heart failure (6) ESRD (end stage renal disease) (7) History of MRSA infection (8) HTN (hypertension) (9) Hypotension arterial (10) Hypotensive (11) IBS (irritable bowel syndrome) (12) Liver cirrhosis (13) Obesity (BMI 30-39.9) (14) Seizure (15) Urge incontinence Surgical Problems: (1) H/O cataract removal with insertion of prosthetic lens (2) History of left lower limb amputation (3) History of trabeculectomy (4) S/P CABG x 4 Surgical / Medical History Hx Cardiac Surgery: Yes (CABG X4 2008) Hx Abdominal Surgery: No Hx Cancer Surgery: No Hx Thoracic Surgery: No Hx Orthopedic: Yes (LEFT BKA (09/2010)) Hx Urinary Tract Surgery: Yes (CYSTOSCOPY) HX Other Surgery: Yes (cataract removal with IOL, trabeculectomy, oral surgery) Past Medical/Surgical History: ASHD, CABG, Diabetes, Heart Disease, Hypertension, Kidney Disease Family History Diabetes mellitus Heart disease Social History Smoking Status: Never Smoker Hx Tobacco Use In Past Year?: No Hx Alcohol Use - Type & Amnt: No Hx Substance Use -Type & Amnt: Yes (NORCO PRN) Review of Systems Constitutional: No chills, No diaphoresis, No fever, No malaise, No weakness, No weight gain, No weight loss, No sweats, No fatigue, No problem reported Cardiovascular: No chest pain, No chest tightness, No chest pressure, No palpitations, No syncope, No diaphoresis, No edema, No intermittent claudication , No orthopnea, No cyanosis, No mumur, No lightheadedness, No paroxysmal nocturnal dyspnea, No problem reported Gastrointestinal: No abdominal pain, No constipation, No diarrhea, No nausea, No vomiting, No anorexia, No appetite changes, No belching, No flatulence, No food intolerance, No hematemesis, No hemorrhoids, No hematochezia, No stool changes, No heartburn, No indigestion, No dysphagia, No rectal bleeding, No problem reported Musculoskeletal: No back pain, No gout, No joint pain, No joint swelling, No muscle pain, No muscle stiffness, No muscle weakness, No neck pain, No problem reported Neurologic: No dizziness, No weakness, No headache, No lethargy, No numbness, No paresthesia, No pre-existing deficit, No seizures, No tics, No tingling, No tremors, No vertigo, No memory loss, No LOC, No problem reported Physical Exam Constitutional: General Apperance: obese Level of Distress: NAD Ambulation: limited ambulation Psychiatric: Mental Status: active & alert, normal mood, normal affect Head: normocephalic Lungs: Auscultation: breath sounds normal Cardiovascular: Heart Auscultation: RRR Peripheral Pulses: Radial Pulse: normal on the left, normal on the right Femoral Pulse: normal on the left, normal on the right Posterior Tibialis Pulse: absent on the right Dorsalis Pedis Pulse: absent on the right Abdomen: Inspection & Palpation: soft Musculoskeletal: abnormal strength Extremities: Upper Right: no cyanosis, no edema, no varicosities, no palpable cord, no clubbing, no ulcers, no mottling Upper Left: no cyanosis, no edema, no palpable cord, no clubbing, no ulcers , no mottling Lower Right: no cyanosis, no edema, no varicosities, no palpable cord, no clubbing, no ulcers, no mottling Neurologic: Cranial Nerves: grossly intact Sensation: grossly intact Assessment and Plan Impression: Right internal carotid artery occlusion Plan: This patient was found to have a right internal carotid artery occlusion. This was by CTA and ultrasound. He is does not have any focal deficits at that this point. Review of the ultrasound suggests that the left carotid is proximally 60 -69% narrowed. At this point no intervention is needed for the left side being that he is asymptomatic. We do recommend that we really ultrasound the left carotid in 3-6 months. I will keep him on antiplatelet medication at this point. Being that he is known to our practice for his fistula, we will schedule him for an ultrasound in the next 3-6 months for follow-up for his carotid disease. Thank you very much for letting me participate in the care of this patient.
--- NOTE | 2017-07-12 14:22 | Psychiatric Consultation ---
Psychiatric Consultation Date of Service: Jul 12, 2017. ID: Patient reviewed with TODD Bedoya who completed initial psychiatric consult. Nursing reports indicate improvement in mental status. CC: "I'm doing good" HPI: Pt seen in room during dialysis treatment. He is resting comfortable during interview and watching t.v. Pt reports he is doing well and feels his current dosage of 100mg Zoloft has been adequate to control his depression despite stressor of current hospitalization. Continues to report good sleep and appetite and is anticipating discharge soon. He denies SI/HI and any auditory or visual hallucinations. ROS: Psych: denies symptoms other than stated above Constitutional: denied Cardiovascular: denied GI: denied Neurologic: denied Remainder of 10 body systems also reviewed and denied other than noted above. MSE: The patient presented as alert and cooperative. Dressed in hospital gown and appropriately groomed. Eye contact was fair. No psychomotor restlessness or agitation was noted. Speech was normal in rate, rhythm, and loud in volume. Affect was mood congruent, both euthymic. Thought processes were clear, coherent and goal directed without evidence of loose associations or flight of ideas. Thought content/perception was reality based without delusions. The patient denied suicidal and homicidal ideation. The patient denied hallucinations and did not appear to be responding to internal stimuli. Cognition was grossly intact with orientation to person, place and adequately to time. Imp: tolerating higher dose of Zoloft. No reports of worsening depression, hopelessness, or SI at this time. Plan: same as initial consult.
== END 2017-07-12 14:26 | DRG 314 ==
LOC: EDBD 06:34 → C.EDB 06:36 → CANRESERV 10:00 → ENRESERV 10:00 → C.MSICU 10:57 → EDBEDREQ 11:00 → EDBEDREQSVC 11:00 → EDBEDREQTM 11:03 → ENRESERV 11:25 → CANRESERV 11:25 → ENRESERV 12:10 → C.2T 07-10 15:38
PROVIDERS: ADMIT Internal Medicine; ATTEND Hospitalist
PROC: 06HM33Z Insertion of Infusion Device into Right Femoral Vein, Percutaneous Approach (ICD-10-PCS; principal; 2017-07-07)
PROC: 5A1945Z Respiratory Ventilation, 24-96 Consecutive Hours (ICD-10-PCS; principal; 2017-07-07)
DX: I95.89 Other hypotension (principal); G93.40 Encephalopathy, unspecified; J96.00 Acute respiratory failure, unspecified whether with hypoxia or hypercapnia; N18.6 End stage renal disease; I67.82 Cerebral ischemia; Z68.41 Body mass index [BMI] 40.0-44.9, adult; I50.32 Chronic diastolic (congestive) heart failure; I13.0 Hypertensive heart and chronic kidney disease with heart failure and stage 1 through stage 4 chronic kidney disease, or unspecified chronic kidney disease; R56.9 Unspecified convulsions; I65.23 Occlusion and stenosis of bilateral carotid arteries; N41.9 Inflammatory disease of prostate, unspecified; B96.4 Proteus (mirabilis) (morganii) as the cause of diseases classified elsewhere; B96.20 Unspecified Escherichia coli [E. coli] as the cause of diseases classified elsewhere; B95.5 Unspecified streptococcus as the cause of diseases classified elsewhere; R00.1 Bradycardia, unspecified; Z66 Do not resuscitate; F32.9 Major depressive disorder, single episode, unspecified; I25.10 Atherosclerotic heart disease of native coronary artery without angina pectoris; D63.1 Anemia in chronic kidney disease; K74.60 Unspecified cirrhosis of liver; E66.01 Morbid (severe) obesity due to excess calories; Z51.81 Encounter for therapeutic drug level monitoring; Z79.899 Other long term (current) drug therapy; Z79.02 Long term (current) use of antithrombotics/antiplatelets; Z99.2 Dependence on renal dialysis; Z86.14 Personal history of Methicillin resistant Staphylococcus aureus infection; Z95.1 Presence of aortocoronary bypass graft; Z89.512 Acquired absence of left leg below knee; Z83.3 Family history of diabetes mellitus

== ENCOUNTER 2018-03-14 11:17 | Inpatient (IN) | payer OTHER ==
[2018-03-14] VITALS (7 sets, daily range): BP systolic 99–102; BP diastolic 62–64; PULSE 62–67; TEMP 36.4; O2SAT 87–100; BMI 35.7
[~2018-03-14] VITALS: Ht 185.4 cm; Wt 127.4 kg
[~2018-03-14 11:17] MED LIST changes: +AMLO10TA3 PO; +AMX500 PO; -B-CO1CAP17 PO; +B-COCAP2 PO; +CEFD300C3 PO; -CHOL100027 PO; +CHOL1CAP13; -GUAI100S16 PO; -HYDR-5688 PO; +LOSA100T65 PO; -OXGN; +OXYC1CAP5 PO; +SERT25TA PO; +SIMV10TA5 PO
[2018-03-14] MEDS ORDERED: GABA-112 PO (11:36)
[2018-03-14 11:55] LABS: HEMATOCRIT 37.6 % (42-52); HEMOGLOBIN 11.4 g/dL (14.0-18.0); MEAN CELL VOLUME 91.3 fL (80-100); MEAN CORPUSCULAR HEMOGLOBIN 27.7 pg (25-34); MEAN CORPUSCULAR HGB CONC 30.3 g/dl (32-36); MEAN PLATELET VOLUME 9.6 fL (7.4-10.4); NUCLEATED RED BLOOD CELL ABS 0.02 K/uL (0-0); PLATELET COUNT 237 K/uL (130-400); RED CELL DISTRIBUTION WIDTH CV 19.6 % (11.5-14.5); RED CELL DISTRIBUTION WIDTH SD 64.1 fL (36.4-46.3); WHITE BLOOD COUNT 18.28 K/uL (4.8-10.8)
--- NOTE | 2018-03-14 12:09 | DIAGNOSTIC IMAGING REPORT ---
CHEST ONE VIEW PORTABLE CLINICAL HISTORY: Atypical chest pain COMPARISON STUDY: 07/10/2017 FINDINGS: The heart is enlarged. There are low lung volumes. There are postsurgical changes of midline sternotomy. There is a left subclavian dual-chamber central venous pacemaker present. Stents are visualized within the left axillary region and right upper arm. There is mild pulmonary vascular congestion. There are no large effusions. There is no lobar consolidation.[ IMPRESSION: 1. Cardiomegaly with radiographic evidence of mild congestive failure/fluid overload 2. Low lung volumes Electronically signed by: Enrique Horn M.D. 03/14/2018 12:08 PM Dictated Date/Time: 03/14/2018 12:07 PM
[2018-03-14] MEDS ORDERED: PRMT25 PO (12:11)
[2018-03-14] MEDS ORDERED: LORA-741 PO (12:11)
[2018-03-14] MEDS ORDERED: SERT-234 PO (12:11)
[2018-03-14] MEDS ORDERED: LEVO25TA5 PO (12:11)
[2018-03-14] MEDS ORDERED: NVLG SC (12:11)
[2018-03-14 12:12] LABS: ALBUMIN 2.2 gm/dl (3.4-5.0); CKMB 2.2 ng/ml (0.5-3.6); CREATININE 2.32 mg/dl (0.60-1.40); POTASSIUM 3.2 mmol/L (3.5-5.1); TOTAL PROTEIN 6.1 gm/dl (6.4-8.2)
[2018-03-14 12:13] LABS: INR 1.2 (0.9-1.1)
[2018-03-14 12:17] LABS: PTT PATIENT 99.4 SECONDS (21.0-31.0)
[2018-03-14] MEDS ORDERED: LOPE1TAB PO (12:35)
[2018-03-14] MEDS ORDERED: [UNRECOGNIZED DRUG - CODE] IV (12:46)
[2018-03-14] MEDS ORDERED: NITR0.4S UT (12:46)
[2018-03-14] MEDS ORDERED: METO1INJ IV (12:46)
[2018-03-14] MEDS ORDERED: ACET-1311 PO ×2 (12:46)
[2018-03-14] MEDS ORDERED: VNFI IV (12:46)
[2018-03-14] MEDS ORDERED: CTP/1 PO (12:46)
[2018-03-14] MEDS ORDERED: [UNRECOGNIZED DRUG - OTHER] IV (12:46)
[2018-03-14] MEDS ORDERED: ACETAMINOPHEN 325 MG TAB PO PRN (13:45)
--- NOTE | 2018-03-14 13:47 | History and Physical ---
History & Physical Date & Time of Service: Mar 14, 2018 at 13:47 Chief Complaint: Chest Pain/Near Syncope Primary Care Physician: Marty Bliss M.D. History of Present Illness Source: patient, clinic records, hospital records Patient is a 62-year-old male from [facility] with a PMH of ESRD (on dialysis), CAD (s/p CABG), DM II, HTN, anemia, diastolic HF, h/o MRSA, venous stasis, PVD and other medical problems listed below who presents from dialysis clinic with chest pain. Patient reportedly developed sudden onset chest pain during the last 15 minutes of dialysis. Pain was described as non-radiating and "tight". Episode lasted 15 minutes and was resolved with a sublingual nitro. Patient then became hypotensive at 82/49 per EMS and was given a full dose aspirin and 150 cc of normal saline in route to the ED. was also reportedly complaining of pain in the buttocks. Due to patient's lethargic state, most history was obtained by phone call with [facility] nurse. Patient has some fluctuation with his cognitive baseline. Some days he is conversational and alert, while other days he spends the majority of his time sleeping and does not respond when asked questions. Patient developed right lower extremity wounds about a week ago that have been dressed and treated with anti-fungal cream. Due to some purulent discharge, patient had an appointment with the outpatient wound clinic for later today. ROS limited but denies fever, chills, lightheadedness, chest pain or shortness of breath. Denies pain in buttocks or RLE. Past Medical/Surgical History Medical Problems: (1) Anemia of chronic renal failure Status: Chronic (2) CAD (coronary artery disease) Status: Chronic (3) Diabetes mellitus type 2 in obese Status: Chronic (4) Diastolic heart failure Status: Chronic (5) ESRD (end stage renal disease) Status: Chronic (6) History of MRSA infection Status: Chronic (7) HTN (hypertension) Status: Chronic (8) Hypotensive Status: Chronic (9) IBS (irritable bowel syndrome) Status: Chronic (10) Liver cirrhosis Status: Chronic (11) Obesity (BMI 30-39.9) Status: Chronic (12) Urge incontinence Status: Chronic Surgical Problems: (1) H/O cataract removal with insertion of prosthetic lens Status: Resolved (2) History of left lower limb amputation Permanent Comment: 09/2010 Status: Resolved (3) History of trabeculectomy Permanent Comment: bilateral Dr. Mcbride Status: Resolved (4) S/P CABG x 4 Permanent Comment: 2008 Status: Resolved Family History Diabetes mellitus Heart disease Social History Smoking Status: Former Smoker Drug Use: none Marital Status: single, Housing status: assisted living Occupational Status: unemployed Immunizations History of Influenza Vaccine: Yes Influenza Vaccine Date: May 10, 2013 History of Tetanus Vaccine?: Unknown History of Pneumococcal: Yes Pneumococcal Date: Sep 09, 2009 History of Hepatitis B Vaccine: No Allergies Coded Allergies: Sulfamethoxazole w/Trimethoprim (Verified Allergy, Intermediate, HIVES, 03/14/18) Latex (Verified Allergy, Mild, LEVEL 1, 05/22/17) Iodine (Unverified Allergy, Unknown, UNKNOWN, 05/22/17) Povidone Iodine (Verified Allergy, Unknown, FROM [facility]FORMATION , 05/22/17) Sulfa Antibiotics (Unverified Allergy, Unknown, ., 05/22/17) PER [facility] RECORDS Home Medications Scheduled Amlodipine (Norvasc), 10 MG PO QPM Ascorbic Acid (Vitamin C), 500 MG PO BID Carvedilol (Coreg), 3.125 MG PO UD Clopidogrel (Plavix), 75 MG PO QPM Gabapentin (Neurontin), 100 MG PO BID Insulin Aspart (Novolog), 1 DOSE SC BID Iron Sucrose (Venofer), 100 MG IV UD Levothyroxine Sodium (Levothyroxine Sodium), 25 MCG PO DAILY Losartan Potassium (Cozaar), 100 MG PO QPM Methoxy Polyethylene Glycol-Ep (Mircera), 200 MCG IV [id number] Midodrine (Midodrine HCl), 2.5 MG PO UD Ranitidine HCl (Ranitidine 75), 75 MG PO DAILY Sertraline (Zoloft), 100 MG PO DAILY Simvastatin (Zocor), 10 MG PO QPM Vitamin B Cmplx/Vitc/Folic Ac (Nephrocaps), 1 CAP PO QPM Scheduled PRN Acetaminophen (Tylenol), 650 MG PO Q4 PRN for Pain or Fever Loperamide-Simethicone (Imodium Multi-Symptom Rel), 1 TAB PO Q2H PRN for Diarrhea Lorazepam (Ativan), 0.25 MG PO UD PRN for PRIOR TO HD Lorazepam (Ativan), 0.5 MG PO Q6H PRN for Anxiety Nitroglycerin (Nitrostat), 0.4 MG UT PRN PRN for ANGINA PECTORIS Review of Systems Ten systems reviewed and negative except as noted in the HPI. Physical Exam Vital Signs Date Time Temp Pulse Resp B/P (MAP) Pulse Ox O2 Delivery O2 Flow Rate FiO2 03/14/18 13:00 63 18 121/62 99 Nasal Cannula 2.0 03/14/18 12:21 68 20 118/68 99 Nasal Cannula 2.0 03/14/18 12:07 71 03/14/18 11:50 99 Nasal Cannula 2.0 03/14/18 11:46 72 20 114/58 99 Nasal Cannula 2.0 03/14/18 11:20 36.5 76 20 89/73 93 Room Air 03/14/18 11:20 93 Room Air 03/14/18 11:20 93 Room Air General Appearance: WD/WN, no apparent distress, + obese Head: normocephalic, atraumatic Eyes: normal inspection, PERRL, sclerae normal ENT: normal ENT inspection, hearing grossly normal, pharynx normal (mucou smembranes moist ) Neck: supple, thyroid normal, trachea midline Respiratory/Chest: chest non-tender, lungs clear, normal breath sounds, no respiratory distress, no accessory muscle use Cardiovascular: regular rate, rhythm, no edema, no murmur Abdomen/GI: non tender, soft, no organomegaly Back: normal inspection Extremities/Musculoskelatal: normal inspection, no calf tenderness, no pedal edema, + pertinent finding (L BKA ) Neurologic/Psych: no motor/sensory deficits, normal mood/affect, + pertinent finding (lethargic. oriented to person and able to follow commands) Skin: normal color, warm/dry, + pertinent finding (Round quarter-size open wound on R buttocks, no drainage. Chronic venous stasis changes RLE. Small open wounds on R dorsum of foot and R lateral toe with small amount of purulent drainage) Diagnostics Laboratory Results Results Past 24 Hours Test 03/14/18 11:35 03/14/18 13:28 Range/Units White Blood Count 18.28 4.8-10.8 K/uL Red Blood Count 4.12 4.7-6.1 M/uL Hemoglobin 11.4 14.0-18.0 g/dL Hematocrit 37.6 42-52 % Mean Corpuscular Volume 91.3 80-100 fL Mean Corpuscular Hemoglobin 27.7 25-34 pg Mean Corpuscular Hemoglobin Concent 30.3 32-36 g/dl RDW Standard Deviation 64.1 36.4-46.3 fL RDW Coefficient of Variation 19.6 11.5-14.5 % Platelet Count 237 130-400 K/uL Mean Platelet Volume 9.6 7.4-10.4 fL Nucleated RBC Absolute Count (auto) 0.02 0-0 K/uL Nucleated Red Blood Cells % 0.1 % Prothrombin Time 12.2 9.0-12.0 SECONDS Prothromb Time International Ratio 1.2 0.9-1.1 Activated Partial Thromboplast Time 99.4 21.0-31.0 SECONDS Partial Thromboplastin Ratio 3.8 Sodium Level 135 136-145 mmol/L Potassium Level 3.2 3.5-5.1 mmol/L Chloride Level 99 98-107 mmol/L Carbon Dioxide Level 28 21-32 mmol/L Anion Gap 8.0 3-11 mmol/L Blood Urea Nitrogen 6 7-18 mg/dl Creatinine 2.32 0.60-1.40 mg/dl Est Creatinine Clear Calc Drug Dose 44.9 ml/min Estimated GFR () 33.2 Estimated GFR (Non- 28.6 BUN/Creatinine Ratio 2.7 10-20 Random Glucose 124 70-99 mg/dl Calcium Level 8.0 8.5-10.1 mg/dl Total Bilirubin 0.6 0.2-1 mg/dl Aspartate Amino Transf (AST/SGOT) 10 15-37 U/L Alanine Aminotransferase (ALT/SGPT) 8 12-78 U/L Alkaline Phosphatase 89 45-117 U/L Total Creatine Kinase 29 39-308 U/L Creatine Kinase MB 2.2 0.5-3.6 ng/ml Creatine Kinase MB Ratio 7.6 0-3.0 Troponin I < 0.015 0-0.045 ng/ml Total Protein 6.1 6.4-8.2 gm/dl Albumin 2.2 3.4-5.0 gm/dl Globulin 3.9 2.5-4.0 gm/dl Albumin/Globulin Ratio 0.6 0.9-2 Microbiology Results 8/3/18 Blood Culture, Ordered Pending 03/14/18 Blood Culture, Ordered Pending 03/14/18 Gram Stain, Received Pending 03/14/18 Wound Culture, Received Pending EKG CXR: IMPRESSION: 1. Cardiomegaly with radiographic evidence of mild congestive failure/fluid overload 2. Low lung volumes Impression Assessment and Plan Patient is a 62-year-old male from [facility] with a PMH of ESRD (on dialysis), CAD (s/p CABG), DM II, HTN, anemia, diastolic HF, venous stasis, PVD and other medical problems listed below who presents from dialysis clinic with chest pain. Chest pain -Resolved prior to arrived in ED -15 minute episode during dialysis, resolved with sublingual ntg -R/o ACS; risk factors include CAD (s/p CABG), HTN, DM II -Initial troponin negative -EKG-Sinus rhythm with 1st degree A-V block. No acute ST changes -CXR-Cardiomegaly with radiographic evidence of mild congestive failure/fluid overload -Trend serial cardiac enzymes -Most recent echo from Jun 2017 with EF:55-60%, grade 1 diastolic dysfunction -Repeat EKG in am Metabolic encephalopathy in setting of infection, hypoxia -Baseline cognition somewhat lethargic, per Flory Jackson -Currently lethargic but able to follow commands -Expected improvement on bipap, antibiotics -Keep NPO while lethargic -CT head pending -Neuro checks Infected RLE wounds -RLE wounds present on admission -Had appointment with wound care for today -Wound cultures, blood cultures obtained -Leukocytosis of 18 -Vanc, zosyn initiated -Lactic acid, procalcitonin normal -Wound care consulted Hypoxia -ABG with hypoxia of 58. pH, pco2 within normal range -CXR indicates low lung volumes -Bipap ordered -Monitor ESRD (on dialysis) -Received all but 15 minutes of dialysis today -MWF schedule -Nepho consulted -Continue renal caps DM II -Last A1c of 5.4 in February 2018 -[facility] [place], usually refuses BSG checks -Receives Novolog intermittently. No other medications -BSG checks and SSI HTN -Initially hypotensive, BP now 102/62 -Received midodrine prior to HD today -Hold amlodipine, coreg for now Anemia of chronic disease -Hgb stable at 11 Venous Stasis Ulceration PVD -Wound care -Continue Plavix Mood disorder -Zoloft, ativan PRN H/o MRSA - + nasal swab -Contact precautions DVT Ppx: SCDs for now Code status: FULL per discussion with [facility] [place] [facility]. Attempted to contact POA. PCP: Ruthy Dispo: Admitted to telemetry. Discharge planning ordered. Patient seen in collaboration with Dr. Felipe. Please see addendum. Agree with above H and P. Briefly 62M was sent from dialysis as he complained of chest pain. lasted about fifteen minutes and resolved with nitro. Initially was hypotensive but later BP improved.Somewhat drowsy. Goes back to sleep. Currently denies any sob or chest pain or nausea/. Afebrile. hemodynamics stable. a/p p/e Ge lethargic Cvs s1 and s2 heard no murmurs Rs cta b/l no added sounds Abd benign car dropper non focal Ext no edema right foot wounds seen. left BKA- no erythema or wounds seen on the stump. a/p AMS rt lower extremity wounds started on iv abx wound care consult f/u labs Hypoxia on abg low lung volumes on cxr and mild congestion will start on Bipap Chest pain resolved after nitro f/u serial ce monitor in tele HTN was hypotensive on presentation after nitro takes midodrine on dialysis days. amlodipine and coreg on hold will monitor Resuscitation Status VTE Prophylaxis Will order VTE Prophylaxis: Yes
[2018-03-14] MEDS ORDERED: VANCOMYCIN CONSULT ACTIVE SCH (14:37)
--- NOTE | 2018-03-14 14:38 | EMERGENCY ROOM VISIT NOTE ---
History Report prepared by Chester: Dylan Olvera Under the Supervision of: Dr. Trace Alvarado M.D. First contact with patient: 11:48 Chief Complaint: CARDIAC ASSESSMENT Stated Complaint: CHEST PAIN/NEAR SYNCOPE Nursing Triage Summary: Patient arrives via ALS from Dialysis appt in [place]. PT reports sudden clenching chest pain that lasted for approx. 15 min. Staff administered 1 nitro tablet at 1013. PT denies chest pain at this time, complaining of pain in buttocks area. Left lower leg amputated. PT received 324mg Aspirin en route, and 150cc NSS. PT was found to be hypotensive also, 82/49 per ems. Dialysis cath in left upper chest. Scattered ecchymosis noted to bilateral arms, and chest. History of Present Illness The patient is a 62 year old male who presents to the Emergency Room with complaints of resolved chest pain with a sudden onset around 10-10:30 AM during dialysis. Nursing staff states that the patient was given 1 dose of nitroglycerin and 324 mg of aspirin. They note that he is complaining of pain in the buttocks as well. The patient describes the pain in his chest as "pressure and tightness." He denies radiation to his neck or arms. He reports that he was given aspirin and nitroglycerin, which resolved his symptoms. He denies shortness of breath, fever , cough, or diaphoresis at the time. He notes a history of heart attack a long time ago and reports that he does not have stents. He notes that the bruising on the left side of his chest has been there since he had his dialysis catheter placed. Source of History: patient, nursing staff Onset: around 10-10:30 AM during dialysis Position: chest Quality: pressure, other ("tightness") Timing: resolved Modifying Factors (Relieving): other (Nitroglycerin) Associated Symptoms: No fevers, No diaphoresis, No cough, No SOB Review of Systems See HPI for pertinent positives & negatives. A total of 10 systems reviewed and were otherwise negative. Past Medical & Surgical Medical Problems: (1) Altered mental status (2) Anemia of chronic renal failure (3) CAD (coronary artery disease) (4) Chest pain (5) depressive disorder unspecified (6) Diabetes mellitus type 2 in obese (7) Diastolic heart failure (8) ESRD (end stage renal disease) (9) History of MRSA infection (10) HTN (hypertension) (11) Hypotension arterial (12) Hypotensive (13) IBS (irritable bowel syndrome) (14) Liver cirrhosis (15) Obesity (BMI 30-39.9) (16) Seizure (17) Urge incontinence (18) Wound of right lower extremity Surgical Problems: (1) H/O cataract removal with insertion of prosthetic lens (2) History of left lower limb amputation (3) History of trabeculectomy (4) S/P CABG x 4 Family History Diabetes mellitus Heart disease Social History Smoking Status: Former Smoker Alcohol Use: none Drug Use: none Marital Status: single, Housing Status: senior care Occupation Status: unemployed Current/Historical Medications Scheduled Amlodipine (Norvasc), 10 MG PO QPM Ascorbic Acid (Vitamin C), 500 MG PO BID Carvedilol (Coreg), 3.125 MG PO UD Clopidogrel (Plavix), 75 MG PO QPM Gabapentin (Neurontin), 100 MG PO BID Insulin Aspart (Novolog), 1 DOSE SC BID Iron Sucrose (Venofer), 100 MG IV UD Levothyroxine Sodium (Levothyroxine Sodium), 25 MCG PO DAILY Losartan Potassium (Cozaar), 100 MG PO QPM Methoxy Polyethylene Glycol-Ep (Mircera), 200 MCG IV [id number] Midodrine (Midodrine HCl), 2.5 MG PO UD Ranitidine HCl (Ranitidine 75), 75 MG PO DAILY Sertraline (Zoloft), 100 MG PO DAILY Simvastatin (Zocor), 10 MG PO QPM Vitamin B Cmplx/Vitc/Folic Ac (Nephrocaps), 1 CAP PO QPM Scheduled PRN Acetaminophen (Tylenol), 650 MG PO Q4 PRN for Pain or Fever Clonidine Hcl (Catapres), 0.1 MG PO UD PRN for UNDECIDED Diphenhydramine HCl (Diphenhydramine HCl), 25 MG IV UD PRN for ANXIETY/PRURITUS Loperamide-Simethicone (Imodium Multi-Symptom Rel), 1 TAB PO Q2H PRN for Diarrhea Lorazepam (Ativan), 0.25 MG PO UD PRN for PRIOR TO HD Lorazepam (Ativan), 0.5 MG PO Q6H PRN for Anxiety Metoclopramide HCl (Metoclopramide HCl), 5 MG IV UD PRN for Nausea Nitroglycerin (Nitrostat), 0.4 MG UT PRN PRN for ANGINA PECTORIS Allergies Coded Allergies: Sulfamethoxazole w/Trimethoprim (Verified Allergy, Intermediate, HIVES, 03/14/18) Latex (Verified Allergy, Mild, LEVEL 1, 05/22/17) Iodine (Unverified Allergy, Unknown, UNKNOWN, 05/22/17) Povidone Iodine (Verified Allergy, Unknown, FROM [facility] INFORMATION , 05/22/17) Sulfa Antibiotics (Unverified Allergy, Unknown, ., 05/22/17) PER [facility] RECORDS Physical Exam Vital Signs Date Time Temp Pulse Resp B/P (MAP) Pulse Ox O2 Delivery O2 Flow Rate FiO2 03/14/18 14:16 65 18 135/78 97 Nasal Cannula 2.0 03/14/18 13:40 62 18 119/58 100 Nasal Cannula 2.0 03/14/18 13:00 63 18 121/62 99 Nasal Cannula 2.0 03/14/18 12:21 68 20 118/68 99 Nasal Cannula 2.0 03/14/18 12:07 71 03/14/18 11:50 99 Nasal Cannula 2.0 03/14/18 11:46 72 20 114/58 99 Nasal Cannula 2.0 03/14/18 11:20 36.5 76 20 89/73 93 Room Air 03/14/18 11:20 93 Room Air 03/14/18 11:20 93 Room Air Physical Exam Constitutional: Vital signs reviewed. Eyes: Pupils are equal round reactive to light. Conjunctiva are noninjected. ENT: Pharynx is clear without erythema or exudate. Mucous membranes are moist. Neck supple without meningeal signs. Respiratory: Clear to auscultation bilaterally. Breath sounds are equal bilaterally. Cardiovascular: Regular rate and rhythm. No rubs or gallops. GI: Soft, nondistended and nontender. Bowel sounds are present. Musculoskeletal: Left BKA. Dialysis catheter noted in left chest with surrounding ecchymosis. Integumentary: No cyanosis. 5 cm ulceration to the right buttock without cellulitis. Stage 2 sacral decubitus noted. Neurological: The patient is awake and alert. No focal deficits. Psychiatric: Normal affect. Medical Decision & Procedures ER Provider Diagnostic Interpretation: Radiology results as stated below per my review and the radiologist's interpretation: CHEST ONE VIEW PORTABLE CLINICAL HISTORY: Atypical chest pain COMPARISON STUDY: 07/10/2017 FINDINGS: The heart is enlarged. There are low lung volumes. There are postsurgical changes of midline sternotomy. There is a left subclavian dual-chamber central venous pacemaker present. Stents are visualized within the left axillary region and right upper arm. There is mild pulmonary vascular congestion. There are no large effusions. There is no lobar consolidation.[ IMPRESSION: 1. Cardiomegaly with radiographic evidence of mild congestive failure/fluid overload 2. Low lung volumes Electronically signed by: Enrique Horn M.D. 03/14/2018 12:08 PM Dictated Date/Time: 03/14/2018 12:07 PM Laboratory Results 03/14/18 11:35 03/14/18 11:35 Test 03/14/18 11:35 03/14/18 14:18 03/14/18 14:25 Red Blood Count 4.12 M/uL (4.7-6.1) Mean Corpuscular Volume 91.3 fL (80-100) Mean Corpuscular Hemoglobin 27.7 pg (25-34) Mean Corpuscular Hemoglobin Concent 30.3 g/dl (32-36) RDW Standard Deviation 64.1 fL (36.4-46.3) RDW Coefficient of Variation 19.6 % (11.5-14.5) Mean Platelet Volume 9.6 fL (7.4-10.4) Nucleated RBC Absolute Count (auto) 0.02 K/uL (0-0) Nucleated Red Blood Cells % 0.1 % Prothrombin Time 12.2 SECONDS (9.0-12.0) Prothromb Time International Ratio 1.2 (0.9-1.1) Activated Partial Thromboplast Time 99.4 SECONDS (21.0-31.0) Partial Thromboplastin Ratio 3.8 Anion Gap 8.0 mmol/L (3-11) Est Creatinine Clear Calc Drug Dose 44.9 ml/min Estimated GFR () 33.2 Estimated GFR (Non- 28.6 BUN/Creatinine Ratio 2.7 (10-20) Calcium Level 8.0 mg/dl (8.5-10.1) Total Bilirubin 0.6 mg/dl (0.2-1) Aspartate Amino Transf (AST/SGOT) 10 U/L (15-37) Alanine Aminotransferase (ALT/SGPT) 8 U/L (12-78) Alkaline Phosphatase 89 U/L (45-117) Total Creatine Kinase 29 U/L (39-308) Creatine Kinase MB 2.2 ng/ml (0.5-3.6) Creatine Kinase MB Ratio 7.6 (0-3.0) Troponin I < 0.015 ng/ml (0-0.045) Total Protein 6.1 gm/dl (6.4-8.2) Albumin 2.2 gm/dl (3.4-5.0) Globulin 3.9 gm/dl (2.5-4.0) Albumin/Globulin Ratio 0.6 (0.9-2) Procalcitonin 0.25 ng/ml (0-0.5) Laboratory results as reviewed by me. ECG Per My Interpretation Indication: chest pain Rate (beats per minute): 74 Rhythm: sinus rhythm Findings: other (No ST elevation. Motion artifact diffusely.) ED Course 1150: The patient was evaluated in room C9. A complete history and physical exam was performed. 1300: I discussed test results with the patient. [facility]. She will reevaluate the patient for hospitalization. Medical Decision This is a 62-year-old male presents with chest pain. Differential diagnosis includes unstable angina, PR, pleurisy, pneumonia, GERD. I did perform a limited focused review of portions of the patient's old chart on the electronic medical record. The patient has had no recent pertinent visits to this hospital. I did evaluate the patient as noted above. Patient is presenting with chest pain which resolved after being given nitroglycerin and aspirin. He became hypotensive but is normotensive here. Currently has no complaints. The patient was placed on a continuous cardiac surgeon. I did order and personally review the patient's 12-lead EKG and chest x-ray as described above. I did order and review the patient's blood work as noted in the electronic medical record. Troponin is negative. His white blood cell count is elevated. It is unclear what is causing this. He is afebrile. He does have sacral decubitus ulcer and abrasion to the right buttock but without signs of significant cellulitis. I did recommend hospitalization for further care and evaluation. I did discuss case with the hospitalist and window caser. Medication Reconcilliation Current Medication List: was personally reviewed by me Blood Pressure Screening Patient's blood pressure: Low blood pressure Blood pressure disposition: Referred to PCP Consults Time Called: 1255 Consulting Physician: ALFREDO Shen hospitalist Returned Call: 1300 I spoke with ALFREDO Shen. She will reevaluate the patient for hospitalization. Impression Primary Impression: Precordial chest pain Additional Impressions: End stage renal disease Hypokalemia Sacral decubitus ulcer Scribe Attestation The scribe's documentation has been prepared under my direct and personally reviewed by me in its entirety. I confirm that the note above accurately reflects all work, treatment, procedures, and medical decision making performed by me. Departure Information Dispostion Being Evaluated By Hospitalist Referrals Marty Bliss M.D. (PCP) Patient Instructions My [facility] Problem Qualifiers
[2018-03-14] MEDS ORDERED: PIPERACILL/TAZOBAC CONSULT ACTIVE SCH (14:45)
--- NOTE | 2018-03-14 14:57 | Pharmacy Progress Note ---
Pharmacy Abx Initial Consult Date of Service Mar 14, 2018. Pharmacy Dosing Scope Date of Consult: 03/14/18 Consultation requested by: Shraddha Huff PA-C Pharmacy is consulted to initiate Vancomycin and Zosyn IV dosing therapy, order appropriate labs and adjust drug dose/frequency. Subjective The patient is a 62 year old male admitted on 03/14/18 from dialysis appointment in [place], when patient was experiencing chest pain. Increased WBC, afebrile, CKD on dialysis, amputation of left lower leg, sacral decubitus ulcer, and RLE cellulitis. Objective Height (Feet): 6 Height (Inches): 1 Weight (Kilograms): 126.70 Vital Signs (Past 12Hrs) Vital Signs Past 12 Hours Date Time Temp Pulse Resp B/P (MAP) Pulse Ox O2 Delivery O2 Flow Rate FiO2 03/14/18 14:16 65 18 135/78 97 Nasal Cannula 2.0 03/14/18 13:40 62 18 119/58 100 Nasal Cannula 2.0 03/14/18 13:00 63 18 121/62 99 Nasal Cannula 2.0 03/14/18 12:21 68 20 118/68 99 Nasal Cannula 2.0 03/14/18 12:07 71 03/14/18 11:50 99 Nasal Cannula 2.0 03/14/18 11:46 72 20 114/58 99 Nasal Cannula 2.0 03/14/18 11:20 36.5 76 20 89/73 93 Room Air 03/14/18 11:20 93 Room Air 03/14/18 11:20 93 Room Air Lab Results (24Hrs) Laboratory Tests (24 Hours) Item Value Date Time Creatinine 2.32 mg/dl H 03/14/18 1135 Est Creatinine Clear Calc Drug Dose 44.9 ml/min 03/14/18 1135 Test 03/14/18 11:35 03/14/18 14:25 Procalcitonin 0.25 ng/ml (0-0.5) Total Creatine Kinase 29 U/L (39-308) L White Blood Count 18.28 K/uL (4.8-10.8) H Micro Results Date/Time Source Procedure Growth Status 03/14/18 14:27 Blood Blood Culture Pending Received 03/14/18 14:25 Blood Blood Culture Pending Received 03/14/18 14:48 Nasal MRSA DNA Surveillance Screen Pending Bautista Batch 03/14/18 14:09 Skin Toe Right 5 Gram Stain Pending Bautista Batch 03/14/18 14:09 Skin Toe Right 5 Wound Culture Pending Bautista Batch 03/14/18 13:20 Skin Foot Right Gram Stain Pending Received 03/14/18 13:20 Skin Foot Right Wound Culture Pending Received Risk Factors for Resistance * Chronic dialysis within the past 30 days Assessment & Plan Assessment 62 year old male admitted with Chest pain and RLE Cellulitis, elevated WBC. Plan IV Vancomycin and Zosyn for treatment of RLE Cellulitis and elevated WBC Vancomycin IV * Loading dose: 2000 mg (15.7 mg/kg) today at 1500, then * Random level ordered for 03/15/18 with AM labs, and dose empirically on random levels for HD patient * A less than traditional dose and has been selected due to patient with h/o CKD. Piperacillin/tazobactam * 4.5 g bolus administered over 30 minutes, then 4.5 g IV extended infusion every 12 hours for HD patient * Aggressive dosing selected due to BMI 35 or more Pharmacy will continue to follow and will adjust dose/frequency as necessary. Thank you.
[2018-03-14] MEDS ORDERED: VANCOMYCIN IV 2,000 MG in SODIUM CHLORIDE 0.9% 500ML 500 ML IV ONE (15:00)
[2018-03-14] MEDS ORDERED: SODIUM CHLORIDE 0.9% 1000ML 1,000 ML IV SCH (15:00)
[2018-03-14] MEDS ORDERED: PIPERACILL/TAZOBAC IV 4.5 GM in D5W 100 ML IV ONE (15:00)
--- NOTE | 2018-03-14 17:28 | DIAGNOSTIC IMAGING REPORT ---
HEAD WITHOUT CONTRAST (CT) CT DOSE: 712.55 mGy.cm HISTORY: Mental status change ams TECHNIQUE: Multiaxial CT images of the head were performed without the use of intravenous contrast. A dose lowering technique was utilized adhering to the principles of ALARA. Comparison: 07/07/2017 Findings: The paranasal sinuses and mastoid air cells are clear. The calvarium and skull base are intact. The ventricles and sulci are within normal limits. There is no mass, hematoma, midline shift, or acute infarct. Age-related atrophy and chronic small vessel change. Impression: No acute intracranial abnormality. Age-related atrophy and chronic small vessel change The above report was generated using voice recognition software. It may contain grammatical, syntax or spelling errors. Electronically signed by: Larry Ayala M.D. 03/14/2018 5:26 PM Dictated Date/Time: 03/14/2018 5:25 PM
[2018-03-14] MEDS ORDERED: GLUCOSE 10 TABS/TUBE PO PRN (17:30)
[2018-03-14] MEDS ORDERED: DEXTROSE 50% 50 ML SYR IV PRN (17:30)
[2018-03-14] MEDS ORDERED: CARBOHYDRATES FOR HYPOGLYCEMIA PO PRN (17:30)
[2018-03-14] MEDS ORDERED: GLUCAGON FOR INJ 1 MG VIAL SQ PRN (17:30)
[2018-03-14] MEDS ORDERED: GLUCOSE 40% GEL 15 GM TUBE PO PRN (17:30)
[2018-03-14] MEDS ORDERED: NURSING VERBAL MED ORDER ONE (18:30)
[2018-03-14] MEDS ORDERED: PIPERACILL/TAZOBAC IV 4.5 GM in D5W 100 ML IV SCH (20:00)
[2018-03-14] MEDS: PIPERACILL/TAZOBAC IV 4.5 GM in D5W 100 ML IV SCH (20:28)
[2018-03-14] MEDS ORDERED: INSULIN ASPART 100 UNITS/ML 3 ML PEN SC SCH (21:00)
[2018-03-15] VITALS (7 sets, daily range): BP systolic 94–115; BP diastolic 61–74; PULSE 61–94; TEMP 36.3–37.1; O2SAT 91–99; Ht 185.4 cm; Wt 127.4 kg
[2018-03-15] MEDS: INSULIN ASPART 100 UNITS/ML 3 ML PEN SC SCH ×5 (06:00→21:00)
[2018-03-15 07:11] LABS: HEMATOCRIT 35.8 % (42-52); HEMOGLOBIN 11.2 g/dL (14.0-18.0); MEAN CELL VOLUME 91.6 fL (80-100); MEAN CORPUSCULAR HEMOGLOBIN 28.6 pg (25-34); MEAN CORPUSCULAR HGB CONC 31.3 g/dl (32-36); MEAN PLATELET VOLUME 9.3 fL (7.4-10.4); PLATELET COUNT 217 K/uL (130-400); RED CELL DISTRIBUTION WIDTH CV 19.8 % (11.5-14.5); RED CELL DISTRIBUTION WIDTH SD 64.2 fL (36.4-46.3); WHITE BLOOD COUNT 11.46 K/uL (4.8-10.8)
[2018-03-15] MEDS: PIPERACILL/TAZOBAC IV 4.5 GM in D5W 100 ML IV SCH ×2 (07:26→19:45)
[2018-03-15 07:43] LABS: CALCIUM 8.1 mg/dl (8.5-10.1); CREATININE 2.96 mg/dl (0.60-1.40)
[2018-03-15] MEDS ORDERED: POTASSIUM CHLORIDE 20 MEQ TABCR PO ONE (09:20)
[2018-03-15] MEDS ORDERED: MAGNESIUM SULFATE 1GM / D5W 100 ML IV ONE (09:30)
--- NOTE | 2018-03-15 09:51 | Pharmacy Progress Note ---
Pharmacy Abx Dose Short Note Date of Service Mar 15, 2018. Assessment & Plan Assessment * 62 year old male receiving VANCOMYCIN and ZOSYN for treatment of RLE cellulitis, sacral decubitus ulcer * Pt does have a h/o MRSA * Day # 2 of antimicrobial therapy Plan Vancomycin * Random level of 16.3 mcg/mL is therapeutic. * Pt is ESRD on HD -- schedule. Nephrology has not seen this patient yet and no HD has been ordered for today. * Will not redose vancomycin today as no HD ordered and uncertain how much residual renal fxn pt has. U.O. not recorded. * Given low likelihood of rapid vancomycin clearance will reorder vancomycin level w/ AM labs tomorrow to assess for residual vanco clearance but I anticipate pt will not need redosed until after HD on Saturday Zosyn * Continue 4.5gm ext-infusion Q 12 hrs for HD / eCrCl less than 20cc/min and BMI > 35 Pharmacy will continue to follow and will adjust dose/frequency as necessary. Thank you.
[2018-03-15] MEDS: POTASSIUM CHLR 10 MEQ / WTR 100 ML IV SCH ×2 (10:11→12:39)
--- NOTE | 2018-03-15 14:42 | NEPHROLOGY CONSULTATION ---
DATE OF CONSULTATION: 03/15/2018 NEPHROLOGY CONSULTATION NOTE REASON FOR CONSULT: Dialysis patient admitted with chest pain at the end of dialysis. HISTORY OF PRESENT ILLNESS: Patient is a 62-year-old male who is from [facility] with end-stage renal disease on chronic hemodialysis Saturday, Saturday, Saturday as well as extensive other medical problems, apparently had chest pain towards the end of dialysis and was associated with slight hypotension in the beginning. Chest pain and hypotension resolved by the time patient was brought to the Emergency Department. Patient's baseline health is quite poor and he is not able to tell me much about the medical history. He had almost the entire dialysis yesterday. Electrolytes this morning is actually showing hypokalemia with a potassium of 3.0. PAST MEDICAL HISTORY: Anemia of chronic renal failure, coronary artery disease, diabetes type 2, diastolic heart failure, end-stage renal disease on chronic hemodialysis, history of MRSA infection, hypertension, irritable bowel syndrome, chronic hypertension, liver cirrhosis, obesity, urge incontinence. SURGICAL HISTORY: Cataract, left lower limb amputation, status post CABG x4. FAMILY HISTORY: Diabetes, heart disease. SOCIAL HISTORY: Former smoker. No drugs. Single, , assisted living, unemployed. ALLERGIES: Reviewed. HOME MEDICATIONS: Reviewed in detail and as per the reconciliation list. Inpatient medication was also reviewed in detail. REVIEW OF SYSTEMS: Really unable to obtain as patient was not a reliable historian. PHYSICAL EXAMINATION: GENERAL: Elderly white male who looks much older than his stated age. He appears to be somewhat confused. He is alert, morbidly obese. VITAL SIGNS: Blood pressure 100/68, 98% on room air, pulse rate 62 per minute, temperature 36.5. HEENT: Normocephalic, atraumatic. NECK: Short and obese. CHEST: Nontender. LUNGS: Clear. CARDIOVASCULAR: Regular rate and rhythm, trace to 1+ edema. No murmur. ABDOMEN: Soft, nontender. BACK: Normal inspection. EXTREMITIES: Left bilateral knee amputation, right with some trace edema. LABORATORY TESTS: This morning, sodium 136, potassium 3.0, BUN 9, creatinine 2.96, calcium 8.1, hemoglobin 11.2, WBC 11.46. ASSESSMENT AND PLAN: A 62-year-old male with chronic medical problems including end-stage renal disease on chronic hemodialysis, admitted with chest pain at the end of dialysis. 1. End-stage renal disease. At this time he does not need dialysis. His potassium in fact is low enough that he is getting potassium supplementation. He does have some evidence of congestive heart failure on the x-ray, but symptomatically he does not appear to be decompensated. Next dialysis will be Saturday and we will try to take slightly more fluid than usual as tolerated by his blood pressure. 2. Chest pain. Cardiac enzymes negative. It does not appear this was an acute myocardial infarction. MTDD
[2018-03-15] MEDS ORDERED: NURSING VERBAL MED ORDER ONE (15:45)
--- NOTE | 2018-03-15 16:58 | Progress Note ---
Subjective Date of Service: Mar 15, 2018. Subjective Pt evaluation today including: conversation w/ patient, physical exam, lab review, review of studies, review of inpatient medication list Saw/examined the patient in room 215 He is eager to go home States he feels fine, his chest pain has resolved Denies any problems with his lower extremity wounds Problem List Medical Problems: (1) CHF (congestive heart failure) Status: Acute (2) CKD (chronic kidney disease) stage V requiring chronic dialysis Status: Acute (3) Closed left humeral fracture Status: Acute (4) Fever Status: Acute (5) Hypoxia Status: Acute (6) Hypoxia Status: Acute (7) Noncompliance with renal dialysis Status: Acute (8) Pneumonia Status: Acute (9) Renal failure Status: Acute (10) Sacral decubitus ulcer Status: Acute (11) Shortness of breath Status: Acute (12) Uncontrolled hypertension Status: Acute Review of Systems Constitutional: No fever, No chills Respiratory: No shortness of breath Cardiac: No chest pain Denies any symptoms at this time Medications Current Inpatient Medications Medications (Trade) Dose Ordered Sig/Nicole Route Start Time Stop Time Status Last Admin Dose Admin Acetaminophen (Tylenol Tab) 650 mg Q4H PRN PO 03/14/18 13:45 04/13/18 13:44 Vancomycin HCl (Consult) 1 ea UD N/A 03/14/18 14:37 04/13/18 14:36 Miscellaneous Information (Consult) 1 ea UD N/A 03/14/18 14:45 04/13/18 14:44 Piperacillin Sod/ Tazobactam Sod 4.5 gm/Dextrose 120 ml @ 30 mls/hr Q12H IV 03/14/18 20:00 03/24/18 19:59 03/15/18 07:26 30 MLS/HR Glucose (Glucose 40% Gel) 15-30 GRAMS 15 GRAMS... UD PRN PO 03/14/18 17:30 04/13/18 17:29 Glucose (Glucose Chew Tab) 4-8 Tablets 4 Tabl... UD PRN PO 03/14/18 17:30 04/13/18 17:29 Dextrose (Dextrose 50% 50ML Syringe) 25-50ML 25ML FOR ... UD PRN IV 03/14/18 17:30 04/13/18 17:29 Glucagon (Glucagon Inj) 1 mg UD PRN SQ 03/14/18 17:30 04/13/18 17:29 Carbohydrates (Carbohydrates For Hypoglycemia) 15-30 GRAMS 15 grams if BSG 54-69... UD PRN PO 03/14/18 17:30 04/13/18 17:29 Insulin Aspart (novoLOG ASPART) SLIDING SCALE If C... ACHS SC 03/15/18 16:15 04/14/18 16:14 Objective Vital Signs Date Time Temp Pulse Resp B/P (MAP) Pulse Ox O2 Delivery O2 Flow Rate FiO2 03/15/18 15:50 36.3 94 20 107/63 (78) 96 Nasal Cannula 2.0 03/15/18 11:30 36.5 62 18 100/68 (79) 98 Room Air 03/15/18 08:00 99 Nasal Cannula 2.0 03/15/18 07:46 36.9 66 18 104/66 (79) 91 Nasal Cannula 2.0 03/15/18 04:00 36.6 61 18 94/61 (72) 95 Nasal Cannula 2.0 03/14/18 23:30 36.4 65 18 101/64 (76) 98 Nasal Cannula 2.5 03/14/18 20:03 99 Nasal Cannula 2.0 03/14/18 19:13 99 Nasal Cannula 2.0 03/14/18 19:06 36.4 62 21 99/64 (76) 100 CPAP 03/14/18 17:37 66 97 2.0 03/14/18 16:57 87 Room Air 03/14/18 16:57 94 Nasal Cannula 3.0 Physical Exam General Appearance: no apparent distress, + obese Respiratory/Chest: no respiratory distress, no accessory muscle use, + decreased breath sounds Cardiovascular: regular rate, rhythm, no murmur Extremities: + pertinent finding (multiple wounds on the lower extremities, R) Laboratory Results Last 24 Hours Test 03/14/18 17:07 03/14/18 17:34 03/14/18 20:45 03/14/18 23:06 Bedside Glucose 143 mg/dl 130 mg/dl Troponin I < 0.015 ng/ml < 0.015 ng/ml Test 03/14/18 23:58 03/15/18 06:00 03/15/18 06:48 03/15/18 12:15 Bedside Glucose 113 mg/dl 90 mg/dl 87 mg/dl White Blood Count 11.46 K/uL Red Blood Count 3.91 M/uL Hemoglobin 11.2 g/dL Hematocrit 35.8 % Mean Corpuscular Volume 91.6 fL Mean Corpuscular Hemoglobin 28.6 pg Mean Corpuscular Hemoglobin Concent 31.3 g/dl RDW Standard Deviation 64.2 fL RDW Coefficient of Variation 19.8 % Platelet Count 217 K/uL Mean Platelet Volume 9.3 fL Sodium Level 136 mmol/L Potassium Level 3.0 mmol/L Chloride Level 101 mmol/L Carbon Dioxide Level 26 mmol/L Anion Gap 9.0 mmol/L Blood Urea Nitrogen 9 mg/dl Creatinine 2.96 mg/dl Est Creatinine Clear Calc Drug Dose 34.6 ml/min Estimated GFR () 24.7 Estimated GFR (Non- 21.3 BUN/Creatinine Ratio 3.1 Random Glucose 81 mg/dl Calcium Level 8.1 mg/dl Random Vancomycin Level 16.3 mcg/ml Test 03/15/18 16:29 Bedside Glucose 113 mg/dl Assessment and Plan This is a 62 year old male from [facility], with hx. of ESRD on HD, CAD s/p CABG , DM2, HTN, venous stasis ulcerations - presents from dialysis due to chest pain , and altered mental status Chest Pain - resolved - cardiac enzymes negative x3 - no new EKG changes noted Metabolic encephalopathy in setting of infection, hypoxia - resolved -Baseline cognition somewhat lethargic, per [facility] -Currently lethargic but able to follow commands -Expected improvement on bipap, antibiotics -Keep NPO while lethargic -CT head pending -Neuro checks Infected RLE wounds - gram negative bacilli on culture - continue Zosyn, de-escalate when sensitivities return Hypoxia - resolved ESRD (on dialysis) - M-W-F DM II -BSG checks and SSI HTN -Initially hypotensive, BP now 102/62 -Received midodrine prior to HD today -Hold amlodipine, coreg for now Anemia of chronic disease -Hgb stable at 11 Venous Stasis Ulceration PVD -Wound care -Continue Plavix Mood disorder -Zoloft, ativan PRN H/o MRSA - + nasal swab -Contact precautions DVT Ppx: SCDs for now Code status: FULL per discussion with [facility]. Attempted to contact POA. PCP: Ruthy Dispo: Admitted to telemetry. Discharge planning ordered.
[2018-03-15] MEDS ORDERED: LORAZEPAM 0.5 MG TAB PO PRN (17:00)
[2018-03-15] MEDS ORDERED: CARVEDILOL 3.125 MG TAB PO SCH (21:00)
[2018-03-15] MEDS: GABAPENTIN 100 MG CAP PO SCH (21:10)
[2018-03-15] MEDS: SIMVASTATIN 10 MG TAB PO SCH (21:10)
[2018-03-15] MEDS: CLOPIDOGREL BISULFATE 75 MG TAB PO SCH (21:11)
[2018-03-15] MEDS: NEPHROCAPS PO SCH (21:11)
[2018-03-16 03:24] VITALS: BP 117/76; PULSE 62; TEMP 37.2; O2SAT 95
[2018-03-16] MEDS: LEVOTHYROXINE 25 MCG TAB PO SCH (06:23)
[2018-03-16 06:45] VITALS: BP 91/59; PULSE 69; TEMP 36.9; O2SAT 97
[2018-03-16 07:18] LABS: HEMATOCRIT 35.7 % (42-52); HEMOGLOBIN 11.2 g/dL (14.0-18.0); MEAN CELL VOLUME 91.5 fL (80-100); MEAN CORPUSCULAR HEMOGLOBIN 28.7 pg (25-34); MEAN CORPUSCULAR HGB CONC 31.4 g/dl (32-36); MEAN PLATELET VOLUME 9.4 fL (7.4-10.4); PLATELET COUNT 209 K/uL (130-400); RED CELL DISTRIBUTION WIDTH CV 19.9 % (11.5-14.5); RED CELL DISTRIBUTION WIDTH SD 65.5 fL (36.4-46.3); WHITE BLOOD COUNT 8.94 K/uL (4.8-10.8)
[2018-03-16 07:44] LABS: CALCIUM 7.8 mg/dl (8.5-10.1); CREATININE 3.79 mg/dl (0.60-1.40); POTASSIUM 3.4 mmol/L (3.5-5.1)
[2018-03-16] MEDS: SERTRALINE HCL 100 MG TAB PO SCH (08:02)
[2018-03-16] MEDS: GABAPENTIN 100 MG CAP PO SCH ×2 (08:03→20:02)
[2018-03-16] MEDS: INSULIN ASPART 100 UNITS/ML 3 ML PEN SC SCH ×4 (08:07→20:14)
[2018-03-16] MEDS: PIPERACILL/TAZOBAC IV 4.5 GM in D5W 100 ML IV SCH ×2 (08:14→19:58)
[2018-03-16] MEDS ORDERED: VANCOMYCIN IV 500 MG in SODIUM CHLORIDE 0.9% 100ML 100 ML IV ONE (09:30)
--- NOTE | 2018-03-16 11:36 | Pharmacy Progress Note ---
Pharmacy Abx Dose Short Note Date of Service Mar 16, 2018. Assessment & Plan Assessment * 62 year old male receiving VANCOMYCIN and ZOSYN for treatment of RLE cellulitis, sacral decubitus ulcer * Pt does have a h/o MRSA * R toe cx is growing ps aeruginsa - pansensitive * R foot cx is growing two gram negative rods, final ID pending * 1 of 2 blcx's is growing staph sp * Day # 3 of antimicrobial therapy * No HD is planned until tomorrow Plan Vancomycin * Random vancomycin level = 13.7mcg/mL this AM. Level was 16.3mcg/mL yesterday AM and no HD was performed in last 24 hours. * Pt likely has some residual renal elimination of vancomycin and possibly some element of non-renal elimination * Given sub-therapeutic level and staph reported in blcx will give small supplemental dose today and recheck random level w/ AM labs prior to HD tomorrow. I have ordered 500mg IV x 1. * Goal trough level for bacteremia : 15 to 20 mcg/mL Zosyn * Continue 4.5gm ext-infusion Q 12 hrs for HD / eCrCl less than 20cc/min and BMI > 35 Pharmacy will continue to follow and will adjust dose/frequency as necessary. Thank you.
--- NOTE | 2018-03-16 13:06 | Progress Note ---
Internal Med Progress Note Date of Service: Mar 16, 2018. Provider Documentation: SUBJECTIVE: The patient was seen and examined in telemetry unit He was admitted from dialysis center with chest pain on hemodialysis He has been free of pain since admission and ACS has been ruled out Generally weak but denies any other symptoms 1 out of 2 blood culture is positive for staph OBJECTIVE: Vital Signs-as noted below Exam: General-no apparent distress Has generalized bruising of different shapes and size and stages of development Eyes-normal ENT-normal Neck-supple Lungs-decreased breath sounds with minimal bibasilar crackles Heart-regular Abdomen-benign, distended, soft difficult to feel for any organs Extremities-trace edema bilaterally Neuro-alert,awake and oriented 3 Generally weak but no focal neuro deficit Lab data as noted below. ASSESSMENT & PLAN: This is a 62 year old male from [facility], with hx. of ESRD on HD, CAD s/p CABG , DM2, HTN, venous stasis ulcerations - presents from dialysis due to chest pain , and altered mental status Chest Pain - resolved and ACS has been ruled out -no new symptoms Metabolic encephalopathy in setting of infection, hypoxia - resolved -Baseline cognition somewhat lethargic, per [facility] -Infected LLL wound .No Pneumonia and or UTI -CT of the Head-negative Infected RLE wounds - gram negative bacilli on culture - continue Zosyn, de-escalate when sensitivities return -Has skin wound infection ::await C/S -Blood culture positive in 1/2 -await sensitivity Hypoxia - resolved ESRD (on dialysis) - M-W-F -Appreciate Nephrology input DM II -BSG checks and SSI HTN -Initially hypotensive, BP now 102/62 -Received midodrine prior to HD today -Hold amlodipine, coreg for now Anemia of chronic disease -Hgb stable at 11 Venous Stasis Ulceration PVD -Wound care -Continue Plavix Mood disorder -Zoloft, ativan PRN H/o MRSA - + nasal swab -Contact precautions DVT Ppx: SCDs for now Code status: FULL per discussion with [facility]. Attempted to contact POA. PCP: Ruthy Dispo: Admitted to telemetry. Discharge planning ordered. Transfer to [place] Likely back to tomorrow Vital Signs: Date Time Temp Pulse Resp B/P (MAP) Pulse Ox O2 Delivery O2 Flow Rate FiO2 03/16/18 08:30 Nasal Cannula 2.0 03/16/18 06:45 36.9 69 18 91/59 (70) 97 Nasal Cannula 2.0 03/16/18 03:24 37.2 62 16 117/76 (90) 95 Nasal Cannula 2.0 03/15/18 23:30 37.1 66 18 107/63 (78) 98 Nasal Cannula 2.0 03/15/18 20:00 Nasal Cannula 1.5 03/15/18 19:43 36.4 65 16 115/74 (88) 96 Nasal Cannula 1.0 03/15/18 15:50 36.3 94 20 107/63 (78) 96 Nasal Cannula 2.0 Lab Results: Results Past 24 Hours Test 03/15/18 16:29 03/15/18 19:52 03/16/18 06:43 03/16/18 07:32 Range/Units Bedside Glucose 113 107 75 70-99 mg/dl White Blood Count 8.94 4.8-10.8 K/uL Red Blood Count 3.90 4.7-6.1 M/uL Hemoglobin 11.2 14.0-18.0 g/dL Hematocrit 35.7 42-52 % Mean Corpuscular Volume 91.5 80-100 fL Mean Corpuscular Hemoglobin 28.7 25-34 pg Mean Corpuscular Hemoglobin Concent 31.4 32-36 g/dl RDW Standard Deviation 65.5 36.4-46.3 fL RDW Coefficient of Variation 19.9 11.5-14.5 % Platelet Count 209 130-400 K/uL Mean Platelet Volume 9.4 7.4-10.4 fL Sodium Level 135 136-145 mmol/L Potassium Level 3.4 3.5-5.1 mmol/L Chloride Level 100 98-107 mmol/L Carbon Dioxide Level 27 21-32 mmol/L Anion Gap 8.0 3-11 mmol/L Blood Urea Nitrogen 13 7-18 mg/dl Creatinine 3.79 0.60-1.40 mg/dl Est Creatinine Clear Calc Drug Dose 26.8 ml/min Estimated GFR () 18.3 Estimated GFR (Non- 15.8 BUN/Creatinine Ratio 3.4 10-20 Random Glucose 68 70-99 mg/dl Calcium Level 7.8 8.5-10.1 mg/dl Random Vancomycin Level 13.7 mcg/ml Test 03/16/18 11:10 Range/Units Bedside Glucose 109 70-99 mg/dl
[2018-03-16 15:00] VITALS: BP 125/75; PULSE 69; O2SAT 95
[2018-03-16 15:21] VITALS: BP 86/56; PULSE 66; TEMP 36.4; O2SAT 98
[2018-03-16] MEDS: CLOPIDOGREL BISULFATE 75 MG TAB PO SCH (20:01)
[2018-03-16] MEDS: NEPHROCAPS PO SCH (20:01)
[2018-03-16] MEDS: SIMVASTATIN 10 MG TAB PO SCH (20:01)
[2018-03-16 20:15] VITALS: BP 146/75; PULSE 68
[2018-03-16 23:54] VITALS: BP 128/73; PULSE 65; TEMP 36.6; O2SAT 92
[2018-03-17] VITALS (21 sets, daily range): BP systolic 81–132; BP diastolic 29–72; PULSE 51–104; TEMP 36.4–36.9; O2SAT 89–94
[2018-03-17 05:55] LABS: HEMATOCRIT 37.6 % (42-52); HEMOGLOBIN 11.5 g/dL (14.0-18.0); MEAN CELL VOLUME 90.2 fL (80-100); MEAN CORPUSCULAR HEMOGLOBIN 27.6 pg (25-34); MEAN CORPUSCULAR HGB CONC 30.6 g/dl (32-36); MEAN PLATELET VOLUME 9.4 fL (7.4-10.4); PLATELET COUNT 207 K/uL (130-400); RED CELL DISTRIBUTION WIDTH CV 19.7 % (11.5-14.5); WHITE BLOOD COUNT 9.25 K/uL (4.8-10.8)
[2018-03-17] MEDS: INSULIN ASPART 100 UNITS/ML 3 ML PEN SC SCH ×4 (06:30→20:47)
[2018-03-17] MEDS: LEVOTHYROXINE 25 MCG TAB PO SCH (06:35)
[2018-03-17 06:38] LABS: CALCIUM 7.3 mg/dl (8.5-10.1); CREATININE 4.52 mg/dl (0.60-1.40); POTASSIUM 3.3 mmol/L (3.5-5.1)
[2018-03-17] MEDS: PIPERACILL/TAZOBAC IV 4.5 GM in D5W 100 ML IV SCH ×2 (07:57→20:17)
--- NOTE | 2018-03-17 07:57 | Clinical Documentation Query ---
CLINICAL DOCUMENTATION QUERY 62 year old male who presents to the Emergency Room with complaints of resolved chest pain In your clinical opinion is this patient being managed for: ( + ) Angina in setting of CAD that resolved with Nitro SL x1 requiring further workup ( ) Not Agree ( ) Other explanation of clinical findings (No explanation is considered a No Response) ( ) Unable to determine ( ) Need to Discuss (Phone CDS or qliq) (No discussion is considered a No Response) The medical record reflects the following clinical findings, treatment, and risk factors. Clinical Indicators: CP that resolve with Nitro SL x1. Treatment: serial cardiac markers, Risk Factors: Age, CAD s/p CABG, Please clarify and document your clinical opinion in the progress notes and discharge summary. Terms such as "probable", "suspected", "likely", "questionable", "possible", or "still to be ruled out" are acceptable. IF IN AGREEMENT, YOU MUST DOCUMENT ABOVE DIAGNOSTIC STATEMENT IN DAILY PROGRESS NOTES AND DISCHARGE SUMMARY. This document is not part of the patient's record. Thank You, Zechariah Edward, GOPAL [phone] & via qlicCONNECT
[2018-03-17] MEDS: SERTRALINE HCL 100 MG TAB PO SCH (07:58)
[2018-03-17] MEDS: GABAPENTIN 100 MG CAP PO SCH ×2 (07:58→20:16)
[2018-03-17] MEDS ORDERED: POTASSIUM CHLORIDE 10 MEQ TABCR PO ONE (10:00)
--- NOTE | 2018-03-17 10:11 | Dialysis Progress Note ---
Nephrology Dialysis Note Date of Service: Mar 17, 2018. Subjective Patient feels well denies, any shortness of breath or chest pain. Patient was seen and examined well on dialysis Objective Date Time Temp Pulse Resp B/P (MAP) Pulse Ox O2 Delivery O2 Flow Rate FiO2 03/17/18 08:00 92 Room Air 03/17/18 07:04 36.5 95 16 92/64 (73) 89 Room Air 03/16/18 23:54 36.6 65 20 128/73 (91) 92 Room Air 03/16/18 20:31 Room Air 03/16/18 20:15 68 146/75 (98) 03/16/18 15:21 36.4 66 18 86/56 (66) 98 Nasal Cannula 1.0 03/16/18 15:00 69 18 125/75 (92) 95 Room Air Physical Exam: General-comfortable lying in bed, no acute distress Eyes-pupils equal and reactive to light ENT-normal on inspection Neck-supple, difficult to assess JVD due to body habitus Lungs-clear to auscultation bilaterally Heart-normal heart sounds S1 and 2, no murmurs Abdomen-soft nondistended, bowel sounds are present Extremities-trace edema, feet are obtained Rai bandage Neuro-oriented 3, no focal neurological deficits Vascular access: Tunneled left IJ catheter Current Inpatient Medications Medications (Trade) Dose Ordered Sig/Nicole Route Start Time Stop Time Status Last Admin Dose Admin Acetaminophen (Tylenol Tab) 650 mg Q4H PRN PO 03/14/18 13:45 04/13/18 13:44 03/16/18 06:29 650 MG Vancomycin HCl (Consult) 1 ea UD N/A 03/14/18 14:37 04/13/18 14:36 Miscellaneous Information (Consult) 1 ea UD N/A 03/14/18 14:45 04/13/18 14:44 Piperacillin Sod/ Tazobactam Sod 4.5 gm/Dextrose 120 ml @ 30 mls/hr Q12H IV 03/14/18 20:00 03/24/18 19:59 03/17/18 07:57 30 MLS/HR Glucose (Glucose 40% Gel) 15-30 GRAMS 15 GRAMS... UD PRN PO 03/14/18 17:30 04/13/18 17:29 Glucose (Glucose Chew Tab) 4-8 Tablets 4 Tabl... UD PRN PO 03/14/18 17:30 04/13/18 17:29 Dextrose (Dextrose 50% 50ML Syringe) 25-50ML 25ML FOR ... UD PRN IV 03/14/18 17:30 04/13/18 17:29 Glucagon (Glucagon Inj) 1 mg UD PRN SQ 03/14/18 17:30 04/13/18 17:29 Carbohydrates (Carbohydrates For Hypoglycemia) 15-30 GRAMS 15 grams if BSG 54-69... UD PRN PO 03/14/18 17:30 04/13/18 17:29 Insulin Aspart (novoLOG ASPART) SLIDING SCALE If C... ACHS SC 03/15/18 16:15 04/14/18 16:14 Carvedilol (Coreg Tab) 3.125 mg HS PO 03/15/18 21:00 04/14/18 20:59 Future Hold Clopidogrel Bisulfate (plAVix TAB) 75 mg QPM PO 03/15/18 21:00 04/14/18 20:59 03/16/18 20:01 75 MG Gabapentin (Neurontin Cap) 100 mg BID PO 03/15/18 21:00 04/14/18 20:59 03/17/18 07:58 100 MG Levothyroxine Sodium (Synthroid Tab) 25 mcg DAILYBB PO 03/16/18 06:00 04/15/18 05:59 03/17/18 06:35 25 MCG Lorazepam (Ativan Tab) 0.5 mg Q6H PRN PO 03/15/18 17:00 04/14/18 16:59 Sertraline HCl (Zoloft Tab) 100 mg DAILY PO 03/16/18 09:00 04/15/18 08:59 03/17/18 07:58 100 MG Simvastatin (Zocor Tab) 10 mg QPM PO 03/15/18 21:00 04/14/18 20:59 03/16/18 20:01 10 MG Vitamin B Complex/ Vit C/Folic Acid (Nephrocaps) 1 cap QPM PO 03/15/18 21:00 04/14/18 20:59 03/16/18 20:01 1 CAP Vancomycin HCl 750 mg/Sodium Chloride 265 ml @ 125 mls/hr TODAY@1600 IV 03/17/18 16:00 03/17/18 23:59 Last 24 Hours Test 03/16/18 11:10 03/16/18 16:52 03/16/18 20:07 03/17/18 05:36 Bedside Glucose 109 mg/dl 90 mg/dl 103 mg/dl White Blood Count 9.25 K/uL Red Blood Count 4.17 M/uL Hemoglobin 11.5 g/dL Hematocrit 37.6 % Mean Corpuscular Volume 90.2 fL Mean Corpuscular Hemoglobin 27.6 pg Mean Corpuscular Hemoglobin Concent 30.6 g/dl RDW Standard Deviation 65.0 fL RDW Coefficient of Variation 19.7 % Platelet Count 207 K/uL Mean Platelet Volume 9.4 fL Test 03/17/18 05:43 Sodium Level 132 mmol/L Potassium Level 3.3 mmol/L Chloride Level 100 mmol/L Carbon Dioxide Level 23 mmol/L Anion Gap 9.0 mmol/L Blood Urea Nitrogen 16 mg/dl Creatinine 4.52 mg/dl Est Creatinine Clear Calc Drug Dose 22.4 ml/min Estimated GFR () 14.8 Estimated GFR (Non- 12.8 BUN/Creatinine Ratio 3.5 Random Glucose 76 mg/dl Calcium Level 7.3 mg/dl Random Vancomycin Level 17.1 mcg/ml Date/Time Source Procedure Growth Status 03/16/18 19:54 Stool C.difficile Toxin B Gene (PCR) - Final No C. difficile toxin B gene detected Complete Assessment & Plan A 62-year-old male with chronic medical problems including end-stage renal disease on chronic hemodialysis, admitted with chest pain at the end of dialysis. 1. End-stage renal disease. Patient is normally dialyzed Saturday. Last dialysis was on Saturday. He is tolerating dialysis well today. He is planned for a 4 hour treatment on a 4K bath and to get ultrafiltration of 3 L. 2. Chest pain. Cardiac enzymes negative. It does not appear this was an acute myocardial infarction. Monitor for chest pain on dialysis. 3. Hypertension: His blood pressure is controlled on current regimen. Avoid giving antihypertensives in the morning of dialysis. 4. Anemia: His hemoglobin is at target. No need for CAMRON
--- NOTE | 2018-03-17 14:38 | Pharmacy Progress Note ---
Pharmacy Abx Dose Progress Nt Date of Service Mar 17, 2018. Pharmacy Dosing Scope The patient is currently receiving the following antimicrobial agents per Pharmacy consult: vancomycin dosing by levels; has received the following: -vancomycin 2 gm on 03/14/18 -vancomycin 500 mg on 03/16/18 Objective Height (Feet): 6 Height (Inches): 1.00 Weight (Kilograms): 127.400 Vital Signs (Past 12Hrs) Vital Signs Past 12 Hours Date Time Temp Pulse Resp B/P (MAP) Pulse Ox O2 Delivery O2 Flow Rate FiO2 03/17/18 14:15 36.4 81 132/62 (85) 03/17/18 14:00 104 95/45 03/17/18 13:45 80 93/51 03/17/18 13:30 66 81/48 03/17/18 13:15 77 120/53 03/17/18 13:00 81 111/54 03/17/18 12:45 72 100/33 03/17/18 12:30 74 106/52 03/17/18 12:15 75 100/54 03/17/18 12:00 51 92/67 03/17/18 11:45 69 99/45 03/17/18 11:30 70 104/57 03/17/18 11:15 64 101/52 03/17/18 11:00 71 97/54 03/17/18 10:45 71 98/29 03/17/18 10:30 72 86/37 03/17/18 10:15 71 124/42 03/17/18 10:00 36.6 75 95/45 (62) 03/17/18 08:00 92 Room Air 03/17/18 07:04 36.5 95 16 92/64 (73) 89 Room Air Lab Results (24Hrs) Laboratory Tests (24 Hours) Test 03/17/18 05:36 White Blood Count 9.25 K/uL (4.8-10.8) Micro Results Date/Time Source Procedure Growth Status 03/14/18 14:27 Blood Blood Culture - Preliminary Staph Species Resulted 03/14/18 14:25 Blood Blood Culture - Preliminary NO GROWTH TO DATE. Resulted 03/14/18 15:00 Nasal MRSA DNA Surveillance Screen - Final Specimen Positive for MRSA by DNA Probe Complete 03/16/18 19:54 Stool C.difficile Toxin B Gene (PCR) - Final No C. difficile toxin B gene detected Complete 03/14/18 13:20 Skin Toe Right 5 Gram Stain - Final Complete 03/14/18 13:20 Wound Culture - Final Pseudomonas Aeruginosa Proteus Mirabilis Complete 03/14/18 13:20 Skin Foot Right Gram Stain - Final Complete 03/14/18 13:20 Wound Culture - Final Pseudomonas Aeruginosa Proteus Mirabilis Complete Risk Factors for Resistance * Resident in a snf or extended-care facility * Chronic dialysis within the past 30 days (MWF) Assessment & Plan Assessment 62 year old male receiving vancomycin/Zosyn for treatment of possible positive blood culture + cellulitis/sacral decubitus ulcer Day # 4 of antimicrobial therapy Plan Vancomycin IV * Random level of 17.1 mcg/mL is therapeutic. * Give vancomycin 750 mg IV x 1 after hemodialysis * Goal trough level for cellulitis/bacteremia : 15 to 20 mcg/mL * Random level ordered for: 03/18/18 * Less than traditional dose and/or extended dosing interval selected due to likelihood of drug accumulation in obese patient/CKD. Piperacillin/tazobactam * Continue 4.5 g IV extended infusion every 12 hours for CrCl 20 mL/min or less.
--- NOTE | 2018-03-17 14:42 | Progress Note ---
Internal Med Progress Note Date of Service: Mar 17, 2018. Provider Documentation: SUBJECTIVE: The patient was seen and examined in telemetry unit He was admitted from dialysis center with chest pain on hemodialysis He has been free of pain since admission and ACS has been ruled out Generally weak but denies any other symptoms 1 out of 2 blood culture is positive for staph 03/17: Denies any symptoms today Has had dialysis Wants to be discharged but blood culture is not back yet No fever, chills or any increase in white count OBJECTIVE: Vital Signs-as noted below Exam: General-no apparent distress Has generalized bruising of different shapes and size and stages of development Eyes-normal ENT-normal Neck-supple Lungs-decreased breath sounds with minimal bibasilar crackles Heart-regular Abdomen-benign, distended, soft difficult to feel for any organs Extremities-trace edema bilaterally Neuro-alert,awake and oriented 3 Generally weak but no focal neuro deficit Lab data as noted below. ASSESSMENT & PLAN: This is a 62 year old male from [facility], with hx. of ESRD on HD, CAD s/p CABG , DM2, HTN, venous stasis ulcerations - presents from dialysis due to chest pain , and altered mental status Possible angina relieved with sublingual nitro -Serial cardiac enzymes unremarkable for any ACS and there are no EKG changes -no new symptoms Metabolic encephalopathy in setting of infection, hypoxia - resolved -Baseline cognition somewhat lethargic, per [facility] -Infected LLL wound .No Pneumonia and or UTI -CT of the Head-negative - Infected RLE wounds - gram negative bacilli on culture - continue Zosyn, de-escalate when sensitivities return -Has skin wound infection ::await C/S -Blood culture positive in 7-vbeprrfse-szjusals staph, awaiting sensitivity -Discussed with microbiology, the results will be done by tomorrow -Continue current antibiotic for now Hypoxia - resolved Denies any shortness of breath ESRD (on dialysis) - M-W-F -Appreciate Nephrology input -Has a dialysis today DM II -BSG checks and SSI HTN -Initially hypotensive, BP now 102/62 -Received midodrine prior to HD today -Hold amlodipine, Coreg for now -Remains stable today Anemia of chronic disease -Hgb stable at 11 Venous Stasis Ulceration PVD -Wound care -Continue Plavix Mood disorder -Zoloft, Ativan PRN H/o MRSA - + nasal swab -Contact precautions DVT Ppx: SCDs for now Code status: FULL per discussion with [facility]. Attempted to contact POA. PCP: Ruthy Dispo: Admitted to telemetry. Discharge planning ordered. Transfer to [place] Likely back to when sensitivities back Vital Signs: Date Time Temp Pulse Resp B/P (MAP) Pulse Ox O2 Delivery O2 Flow Rate FiO2 03/17/18 14:15 36.4 81 132/62 (85) 03/17/18 14:00 104 95/45 03/17/18 13:45 80 93/51 03/17/18 13:30 66 81/48 03/17/18 13:15 77 120/53 03/17/18 13:00 81 111/54 03/17/18 12:45 72 100/33 03/17/18 12:30 74 106/52 03/17/18 12:15 75 100/54 03/17/18 12:00 51 92/67 03/17/18 11:45 69 99/45 03/17/18 11:30 70 104/57 03/17/18 11:15 64 101/52 03/17/18 11:00 71 97/54 03/17/18 10:45 71 98/29 03/17/18 10:30 72 86/37 03/17/18 10:15 71 124/42 03/17/18 10:00 36.6 75 95/45 (62) 03/17/18 08:00 92 Room Air 03/17/18 07:04 36.5 95 16 92/64 (73) 89 Room Air 03/16/18 23:54 36.6 65 20 128/73 (91) 92 Room Air 03/16/18 20:31 Room Air 03/16/18 20:15 68 146/75 (98) 03/16/18 15:21 36.4 66 18 86/56 (66) 98 Nasal Cannula 1.0 03/16/18 15:00 69 18 125/75 (92) 95 Room Air Lab Results: Results Past 24 Hours Test 03/16/18 16:52 03/16/18 20:07 03/17/18 05:36 03/17/18 05:43 Range/Units Bedside Glucose 90 103 70-99 mg/dl White Blood Count 9.25 4.8-10.8 K/uL Red Blood Count 4.17 4.7-6.1 M/uL Hemoglobin 11.5 14.0-18.0 g/dL Hematocrit 37.6 42-52 % Mean Corpuscular Volume 90.2 80-100 fL Mean Corpuscular Hemoglobin 27.6 25-34 pg Mean Corpuscular Hemoglobin Concent 30.6 32-36 g/dl RDW Standard Deviation 65.0 36.4-46.3 fL RDW Coefficient of Variation 19.7 11.5-14.5 % Platelet Count 207 130-400 K/uL Mean Platelet Volume 9.4 7.4-10.4 fL Sodium Level 132 136-145 mmol/L Potassium Level 3.3 3.5-5.1 mmol/L Chloride Level 100 98-107 mmol/L Carbon Dioxide Level 23 21-32 mmol/L Anion Gap 9.0 3-11 mmol/L Blood Urea Nitrogen 16 7-18 mg/dl Creatinine 4.52 0.60-1.40 mg/dl Est Creatinine Clear Calc Drug Dose 22.4 ml/min Estimated GFR () 14.8 Estimated GFR (Non- 12.8 BUN/Creatinine Ratio 3.5 10-20 Random Glucose 76 70-99 mg/dl Calcium Level 7.3 8.5-10.1 mg/dl Random Vancomycin Level 17.1 mcg/ml Test 03/17/18 14:23 Range/Units Bedside Glucose 81 70-99 mg/dl Microbiology Results 03/16/18 C.difficile Toxin B Gene (PCR) - Final, Complete No C. difficile toxin B gene detected
[2018-03-17] MEDS ORDERED: VANCOMYCIN IV 750 MG in SODIUM CHLORIDE 0.9% 250ML 250 ML IV SCH (16:00)
[2018-03-17] MEDS ORDERED: LOPERAMIDE HCL 2 MG CAP PO PRN (19:45)
[2018-03-17] MEDS: NEPHROCAPS PO SCH (20:16)
[2018-03-17] MEDS: CLOPIDOGREL BISULFATE 75 MG TAB PO SCH (20:16)
[2018-03-17] MEDS: SIMVASTATIN 10 MG TAB PO SCH (20:16)
[2018-03-18] VITALS: O2SAT 92
[2018-03-18] MEDS: LEVOTHYROXINE 25 MCG TAB PO SCH (06:27)
[2018-03-18 06:48] LABS: CREATININE 3.26 mg/dl (0.60-1.40)
[2018-03-18 07:12] VITALS: BP 114/66; PULSE 62; TEMP 36.6; O2SAT 96
[2018-03-18] MEDS: GABAPENTIN 100 MG CAP PO SCH (08:42)
[2018-03-18] MEDS: SERTRALINE HCL 100 MG TAB PO SCH (08:42)
[2018-03-18] MEDS: PIPERACILL/TAZOBAC IV 4.5 GM in D5W 100 ML IV SCH (08:42)
[2018-03-18] MEDS: INSULIN ASPART 100 UNITS/ML 3 ML PEN SC SCH ×2 (08:47→13:16)
[2018-03-18] MEDS ORDERED: LEVOFLOXACIN 500 MG TAB PO SCH (11:00)
[2018-03-18] MEDS ORDERED: CEFUROXIME AXETIL 500 MG TAB PO SCH (14:00)
--- NOTE | 2018-03-18 14:12 | Progress Note ---
Internal Med Progress Note Date of Service: Mar 18, 2018. Provider Documentation: SUBJECTIVE: The patient was seen and examined in telemetry unit He was admitted from dialysis center with chest pain on hemodialysis He has been free of pain since admission and ACS has been ruled out Generally weak but denies any other symptoms 1 out of 2 blood culture is positive for staph 03/17: Denies any symptoms today Has had dialysis Wants to be discharged but blood culture is not back yet No fever, chills or any increase in white count 03/18: Denies any symptoms today We will have dialysis tomorrow Wants to go home OBJECTIVE: Vital Signs-as noted below Exam: General-no apparent distress Has generalized bruising of different shapes and size and stages of development Eyes-normal ENT-normal Neck-supple Lungs-decreased breath sounds with minimal bibasilar crackles Heart-regular Abdomen-benign, distended, soft difficult to feel for any organs Extremities-trace edema bilaterally Neuro-alert,awake and oriented 3 Generally weak but no focal neuro deficit Lab data as noted below. ASSESSMENT & PLAN: This is a 62 year old male from [facility], with hx. of ESRD on HD, CAD s/p CABG , DM2, HTN, venous stasis ulcerations - presents from dialysis due to chest pain , and altered mental status Possible angina relieved with sublingual nitro -Serial cardiac enzymes unremarkable for any ACS and there are no EKG changes -no new symptoms Metabolic encephalopathy in setting of infection, hypoxia - resolved -Baseline cognition somewhat lethargic, per [facility] -Infected LLL wound .No Pneumonia and or UTI -CT of the Head-negative -Resolved without any recurrence Infected RLE wounds - gram negative bacilli on culture - continue Zosyn, de-escalate when sensitivities return -Has skin wound infection ::await C/S -Blood culture positive in 2-COAG NEG STAPH NOT LUGDUNENSIS SENS NO SENSITIVITY TO FOLLOW -Discussed with microbiology, the results will be done by tomorrow -Continue current antibiotic for now -Antibiotics changed to oral Levaquin and Ceftin will be continued for 14 days and total Hypoxia - resolved Denies any shortness of breath ESRD (on dialysis) - M-W-F -Appreciate Nephrology input -Has a dialysis today -Discussed with mold worker DM II -BSG checks and SSI HTN -Initially hypotensive, BP now 102/62 -Received midodrine prior to HD today -Hold amlodipine, Coreg for now -Remains stable today Anemia of chronic disease -Hgb stable at 11 Venous Stasis Ulceration PVD -Wound care -Continue Plavix Mood disorder -Zoloft, Ativan PRN H/o MRSA - + nasal swab -Contact precautions DVT Ppx: SCDs for now Code status: FULL per discussion with [facility]. Attempted to contact POA. PCP: Ruthy Dispo: Admitted to telemetry. Discharge planning ordered. We will go back to [facility] this afternoon Vital Signs: Date Time Temp Pulse Resp B/P (MAP) Pulse Ox O2 Delivery O2 Flow Rate FiO2 03/18/18 08:30 Room Air 03/18/18 07:12 36.6 62 20 114/66 (82) 96 Room Air 03/18/18 00:00 92 Room Air 03/17/18 16:00 Room Air 03/17/18 15:37 36.9 73 22 105/72 (83) 94 Room Air 03/17/18 14:15 36.4 81 132/62 (85) Lab Results: Results Past 24 Hours Test 03/17/18 14:23 03/17/18 16:32 03/17/18 20:09 03/18/18 05:47 Range/Units Bedside Glucose 81 97 97 70-99 mg/dl Creatinine 3.26 0.60-1.40 mg/dl Est Creatinine Clear Calc Drug Dose 32.0 ml/min Estimated GFR () 22.0 Estimated GFR (Non- 19.0 Random Vancomycin Level 19.1 mcg/ml Test 03/18/18 07:41 03/18/18 11:33 Range/Units Bedside Glucose 94 88 70-99 mg/dl Microbiology Results 03/17/18 Gram Stain - Final, Resulted 03/17/18 Genital Culture, Resulted Pending
[2018-03-18] MEDS ORDERED: CEFU1TAB35 PO (14:14)
[2018-03-18] MEDS ORDERED: LVQ500 PO (14:14)
--- NOTE | 2018-03-18 14:18 | Discharge Instructions ---
Discharge Instructions Date of Service Mar 18, 2018. Admission Reason for Admission: Altered Mental Status,Chest Pain,Wound Of Rigt Low Discharge Discharge Diagnosis / Problem: RLL infection,Metabolic Encephalopathy-resolved, ESRD on HD Discharge Goals Goal(s): Prevent Disease Progression Activity Recommendations Activity Level: Assistance Required Therapies: Physical Therapy, Occupational Therapy . Additional Information Patient informed of condition: Yes Advance Directives: No DNR: No Level of Care: Skilled Communicable Disease: No Prognosis: Stable Oxygen at (LPM): 2 liter/min via NC as needed Mohr Catheter: No Instructions / Follow-Up Instructions / Follow-Up per [facility] Current Hospital Diet Patient's current hospital diet: Renal Diet, AHA Diet (Heart Healthy), Diabetes Type 2 Diet Discharge Diet Recommended Diet: AHA Diet (Heart Healthy), Diabetes Type 2 Diet, Renal Diet Pending Studies Studies pending at discharge: no Physician Orders On Transfer POLST Discussion: Not Applicable Medical Emergencies . Who to Call and When: Medical Emergencies: If at any time you feel your situation is an emergency, please call 911 immediately. . Non-Emergent Contact Non-Emergency issues call your: Primary Care Provider . Past History Medical & Surgical History: (1) Obesity (BMI 30-39.9) (2) Anemia of chronic renal failure (3) History of MRSA infection (4) ESRD (end stage renal disease) (5) HTN (hypertension) (6) Diabetes mellitus type 2 in obese (7) CAD (coronary artery disease) (8) Altered mental status (9) Wound of right lower extremity (10) Sacral decubitus ulcer (11) History of left lower limb amputation (12) S/P CABG x 4 (13) History of trabeculectomy (14) H/O cataract removal with insertion of prosthetic lens . "Provider Documentation" section prepared by Dion Gan. . Core Measure Problem Core Measures: None
[2018-03-18 14:30] VITALS: BP 114/66; PULSE 62; TEMP 36.6; O2SAT 96
[2018-03-18 14:57] VITALS: BP 103/68; PULSE 66; TEMP 36.6; O2SAT 92
--- NOTE | 2018-03-19 08:05 | Discharge Summary ---
Discharge Summary Date of Service Mar 19, 2018. Discharge Summary Admission Date: Mar 14, 2018 at 13:38 Discharge Date: Mar 18, 2018 Discharge Disposition: Home with services Principal Diagnosis: RLL infection,Metabolic Encephalopathy-resolved,ESRD on HD Secondary Diagnoses/Problems: Please see H&P and Hospital progress note Consultations: Nephrology Medication Reconciliation New Medications: Cefuroxime Axetil (Cefuroxime Axetil) 500 Mg Tab 500 MG PO Q24H for 10 Days, #10 TAB Levofloxacin (Levofloxacin) 500 Mg Tab 500 MG PO Q48H for 10 Days, #5 TAB Continued Medications: Acetaminophen (Tylenol) 325 Mg Tab 650 MG PO Q4 PRN for Pain or Fever Amlodipine (Norvasc) 10 Mg Tab 10 MG PO QPM Ascorbic Acid (Vitamin C) 500 Mg Cap 500 MG PO BID Carvedilol (Coreg) 3.125 Mg Tab 3.125 MG PO UD PER OCT, TAKE 1 TABLET TWICE DAILY, HOLD ON HD DAYS. MAR ALSO SAYS TAKE 1 TABLET EVERY EVENING. WILL CALL HOME TO CONFIRM WHICH IS CORRECT. -Priya Clopidogrel (Plavix) 75 Mg Tab 75 MG PO QPM, #0 Gabapentin (Neurontin) 100 Mg Cap 100 MG PO BID, CAP Insulin Aspart (Novolog) 100 Units/Ml Inj 1 DOSE SC BID ADMINISTER TWICE DAILY PER SLIDING SCALE, PER OCT Iron Sucrose (Venofer) 100 Mg/5 Ml Inj 100 MG IV UD EVERY TREATMENT X 10 HD TIMES Levothyroxine Sodium (Levothyroxine Sodium) 25 Mcg Tab 25 MCG PO DAILY Loperamide-Simethicone (Imodium Multi-Symptom Rel) 1 Tab Tab 1 TAB PO Q2H PRN for Diarrhea Lorazepam (Ativan) 0.5 Mg Tab 0.25 MG PO UD PRN for PRIOR TO HD Lorazepam (Ativan) 0.5 Mg Tab 0.5 MG PO Q6H PRN for Anxiety Losartan Potassium (Cozaar) 100 Mg Tab 100 MG PO QPM Methoxy Polyethylene Glycol-Ep (Mircera) 200 Mcg/0.3 Ml Inj 200 MCG IV [id number] Midodrine (Midodrine HCl) 2.5 Mg Tab 2.5 MG PO UD PER OCT, TAKE ONLY ON DAYS PRIOR TO HD Nitroglycerin (Nitrostat) 0.4 Mg Sub 0.4 MG UT PRN PRN for ANGINA PECTORIS Ranitidine HCl (Ranitidine 75) 75 Mg Tab 75 MG PO DAILY Sertraline (Zoloft) 100 Mg Tab 100 MG PO DAILY Simvastatin (Zocor) 10 Mg Tab 10 MG PO QPM Vitamin B Cmplx/Vitc/Folic Ac (Nephrocaps) Cap 1 CAP PO QPM, CAP Admission Information HPI (per Admitting provider): Patient is a 62-year-old male from [facility] with a PMH of ESRD (on dialysis), CAD (s/p CABG), DM II, HTN, anemia, diastolic HF, h/o MRSA, venous stasis, PVD and other medical problems listed below who presents from dialysis clinic with chest pain. Patient reportedly developed sudden onset chest pain during the last 15 minutes of dialysis. Pain was described as non-radiating and "tight". Episode lasted 15 minutes and was resolved with a sublingual nitro. Patient then became hypotensive at 82/49 per EMS and was given a full dose aspirin and 150 cc of normal saline in route to the ED. was also reportedly complaining of pain in the buttocks. Due to patient's lethargic state, most history was obtained by phone call with [facility] nurse. Patient has some fluctuation with his cognitive baseline. Some days he is conversational and alert, while other days he spends the majority of his time sleeping and does not respond when asked questions. Patient developed right lower extremity wounds about a week ago that have been dressed and treated with anti-fungal cream. Due to some purulent discharge, patient had an appointment with the outpatient wound clinic for later today. ROS limited but denies fever, chills, lightheadedness, chest pain or shortness of breath. Denies pain in buttocks or RLE. Physical Exam (per Admitting): General Appearance: WD/WN, no apparent distress, + obese Head: normocephalic, atraumatic Eyes: normal inspection, PERRL, sclerae normal ENT: normal ENT inspection, hearing grossly normal, pharynx normal (mucou smembranes moist ) Neck: supple, thyroid normal, trachea midline Respiratory/Chest: chest non-tender, lungs clear, normal breath sounds, no respiratory distress, no accessory muscle use Cardiovascular: regular rate, rhythm, no edema, no murmur Abdomen/GI: non tender, soft, no organomegaly Back: normal inspection Extremities/Musculoskelatal: normal inspection, no calf tenderness, no pedal edema, + pertinent finding (L BKA ) Neurologic/Psych: no motor/sensory deficits, normal mood/affect, + pertinent finding (lethargic. oriented to person and able to follow commands) Skin: normal color, warm/dry, + pertinent finding (Round quarter-size open wound on R buttocks, no drainage. Chronic venous stasis changes RLE. Small open wounds on R dorsum of foot and R lateral toe with small amount of purulent drainage) Hospital Course This is a 62 year old male from [facility], with hx. of ESRD on HD, CAD s/p CABG , DM2, HTN, venous stasis ulcerations - presents from dialysis due to chest pain , and altered mental status Possible angina relieved with sublingual nitro -Serial cardiac enzymes unremarkable for any ACS and there are no EKG changes -no new symptoms Metabolic encephalopathy in setting of infection, hypoxia - resolved -Baseline cognition somewhat lethargic, per [facility] -Infected LLL wound .No Pneumonia and or UTI -CT of the Head-negative -Resolved without any recurrence Infected RLE wounds - gram negative bacilli on culture - continue Zosyn, de-escalate when sensitivities return -Has skin wound infection ::await C/S -Blood culture positive in 08/13-COAG NEG STAPH NOT LUGDUNENSIS SENS NO SENSITIVITY TO FOLLOW -Discussed with microbiology, the results will be done by tomorrow -Continue current antibiotic for now -Antibiotics changed to oral Levaquin and Ceftin will be continued for 14 days and total Hypoxia - resolved Denies any shortness of breath ESRD (on dialysis) - M-W-F -Appreciate Nephrology input -Has a dialysis today -Discussed with accounts payable administrator JAME II -BSG checks and SSI HTN -Initially hypotensive, BP now 102/62 -Received midodrine prior to HD today -Hold amlodipine, Coreg for now -Remains stable today Anemia of chronic disease -Hgb stable at 11 Venous Stasis Ulceration PVD -Wound care -Continue Plavix Mood disorder -Zoloft, Ativan PRN H/o MRSA - + nasal swab -Contact precautions DVT Ppx: SCDs for now Code status: FULL per discussion with [facility] Nursing. Attempted to contact POA. PCP: Ruthy Dispo: Admitted to telemetry. Discharge planning ordered. We will go back to [facility] this afternoon Total time spent on discharge = 35 minutes This includes examination of the patient, discharge planning, medication reconciliation, and communication with other providers. Discharge Instructions Date of Service Mar 18, 2018. Admission Reason for Admission: Altered Mental Status,Chest Pain,Wound Of Rigt Low Discharge Discharge Diagnosis / Problem: RLL infection,Metabolic Encephalopathy-resolved, ESRD on HD Discharge Goals Goal(s): Prevent Disease Progression Activity Recommendations Activity Level: Assistance Required Therapies: Physical Therapy, Occupational Therapy . Additional Information Patient informed of condition: Yes Advance Directives: No DNR: No Level of Care: Skilled Communicable Disease: No Prognosis: Stable Oxygen at (LPM): 2 liter/min via NC as needed Mohr Catheter: No Instructions / Follow-Up Instructions / Follow-Up per [facility] Current Hospital Diet Patient's current hospital diet: Renal Diet, AHA Diet (Heart Healthy), Diabetes Type 2 Diet Discharge Diet Recommended Diet: AHA Diet (Heart Healthy), Diabetes Type 2 Diet, Renal Diet Pending Studies Studies pending at discharge: no Physician Orders On Transfer POLST Discussion: Not Applicable Medical Emergencies . Who to Call and When: Medical Emergencies: If at any time you feel your situation is an emergency, please call 911 immediately. . Non-Emergent Contact Non-Emergency issues call your: Primary Care Provider . Past History Medical & Surgical History: (1) Obesity (BMI 30-39.9) (2) Anemia of chronic renal failure (3) History of MRSA infection (4) ESRD (end stage renal disease) (5) HTN (hypertension) (6) Diabetes mellitus type 2 in obese (7) CAD (coronary artery disease) (8) Altered mental status (9) Wound of right lower extremity (10) Sacral decubitus ulcer (11) History of left lower limb amputation (12) S/P CABG x 4 (13) History of trabeculectomy (14) H/O cataract removal with insertion of prosthetic lens . "Provider Documentation" section prepared by Dion Gan. . Core Measure Problem Core Measures: None <Electronically signed by Dion Gan M.D.> Additional Copies To Marty Bliss M.D.
== END 2018-03-18 16:15 | DRG 302 ==
LOC: EDBD 11:17 → C.EDC 11:19 → C.2T 13:38 → ENRESERV 14:01 → C.4E 03-16 14:54
PROVIDERS: ADMIT Internal Medicine; ATTEND Internal Medicine
DX: I25.119 Atherosclerotic heart disease of native coronary artery with unspecified angina pectoris (principal); G93.41 Metabolic encephalopathy; L97.829 Non-pressure chronic ulcer of other part of left lower leg with unspecified severity; L97.819 Non-pressure chronic ulcer of other part of right lower leg with unspecified severity; I13.2 Hypertensive heart and chronic kidney disease with heart failure and with stage 5 chronic kidney disease, or end stage renal disease; I50.30 Unspecified diastolic (congestive) heart failure; N18.6 End stage renal disease; R09.01 Asphyxia; F32.9 Major depressive disorder, single episode, unspecified; E11.21 Type 2 diabetes mellitus with diabetic nephropathy; D63.1 Anemia in chronic kidney disease; E66.9 Obesity, unspecified; R09.02 Hypoxemia; Z68.30 Body mass index [BMI] 30.0-30.9, adult; E87.6 Hypokalemia; L89.159 Pressure ulcer of sacral region, unspecified stage; I87.8 Other specified disorders of veins; Z86.14 Personal history of Methicillin resistant Staphylococcus aureus infection; Z95.1 Presence of aortocoronary bypass graft; I73.9 Peripheral vascular disease, unspecified; B95.8 Unspecified staphylococcus as the cause of diseases classified elsewhere